=== PATIENT | male | born 1965 | race Caucasian/White ===

== ENCOUNTER 2018-08-23 16:52 | Emergency (ER) | payer MEDICARE, MEDICAID, SELFPAY ==
--- NOTE | 2018-08-23 17:02 | W.ED.GENAD ---
Discharge Plan Disposition Patient Disposition: HOME Condition: Fair Discharge Details Chief Complaint: FlankPain Clinical Impression: Sacroiliac joint pain, Abdominal pain, chronic, generalized, Low back pain, Acute dehydration Primary Care Provider: Khadijah Galicia ED Provider: Louise Goodson Home Meds and New Rx's Prescriptions: New cyclobenzaprine 10 mg tablet 10 mg PO TID PRN (Reason: muscle spasm) Qty: 7 RF: 0 oxycodone 5 mg capsule 5 mg PO Q6H PRN (Reason: pain) Qty: 5 RF: 0 ibuprofen 600 mg tablet 600 mg PO QID PRN (Reason: pain) Qty: 20 RF: 0 Continue lancets [OneTouch UltraSoft Lancets] 1 EACH misc 1 ea Miscellaneous DAILY RF: 0 ONE TOUCH TEST STRIPS 1 EACH strip 1 ea Miscellaneous DAILY RF: 0 Atorvastatin Calcium 20 MG tablet 20 mg PO DAILY Qty: 90 RF: 1 glipizide 10 MG tablet 20 mg PO DAILY Qty: 180 RF: 1 omeprazole 20 MG capsule,delayed release(DR/EC) 20 mg PO DAILY Qty: 90 RF: 1 metformin 500 MG tablet extended release 24 hr 1,000 mg PO DAILY Qty: 180 RF: 1 lisinopril 2.5 MG tablet 2.5 mg PO DAILY Qty: 90 RF: 1 Discharge Instructions Instructions: Acute Low Back Pain (ED), Lower Back Exercises (ED) Additional Instructions: Encourage hydration. Tylenol and/or Motrin as needed for discomfort. If this is insufficient you may augment with Oxycodone as prescribed. Please use only as prescribed, keep this medication in a safe place. Flexeril as prescribed for muscle spasm. Please follow up with primary care this week for reevaluation. Referral for PT is enclosed, please call Saturday to schedule appointment. If you develop fevers/chills, increased pain, change in urinary or bowel habits, sensory changes, weakness in your legs or other new/worsening symptoms please seek care urgently once again. Stand Alone Forms: Physical Therapy Referral Referrals: Khadijah Galicia MD [Primary Care Provider] - Discharge Data Discharge Date/Time-TO BE ENTERED AT DEPARTURE: 08/23/18 21:52 Medical Decision Making <STEPHANI Regan - Last Filed: 08/24/18 11:17> Is a 53-year-old male presents today with chief complaint of left lower back pain. He reports that pain began several weeks ago. States the pain began insidiously. States that he has had multiple falls in the winter but that he always fell forward landing on his knees. Denies any injury to the back. States that these falls did not seem to start or changes discomfort. He denies any radiating pain. Denies any altered sensation extending to his limb. No change in bowel or bladder habits. No incontinence or difficulty with urination. States that he has had pain in the same location historically but typically it self resolves. Is not been seen by primary care provider regarding this discomfort. Patient has history of type 2 diabetes, tobacco dependence, hyperlipidemia, depression, hypertension, Crohn's, ulcerative colitis, Hodgkin's lymphoma. On exam, patient appears uncomfortable, appears dehydrated. Pain is over the left SI joint. No midline or paraspinal tenderness. No saddle paresthesias or neurologic deficit. Negative straight leg raise bilaterally. Patient is full range of motion 5 out of 5 strength in lower extremities. He denies any chest pain or shortness of breath. Patient does appear chronically ill. He is in noncompliant type II diabetic. Reports he has not checked his glucose since my last doctor's appointment. He also endorses some gassiness today which he associates with his colitis. Reports this is typical for him. Patient appears nontoxic. Pain is not near midline, no paraspinal tenderness. He is afebrile, states he has been afebrile at home. Patient is noted to be tachycardic at 142. Denies CP, illness, palpitations. Reports that aside from his back discomort he feels at baseline. With this elevation in his HR, will obtain labs, hydrate the patient and obtain imaging of the left SI joint. Discussed plan with mattie patiño who is in agreement. He has not taken any medication as of yet for discomfort today. Will give Tylenol, Ibuprofen, Flexeril and have Lidoderm patch applied. Initial EKG was reviewed by Dr. Flores. Patient is tachycardic at 111. However, there is some unusual ST changes are not consistent concerning for artifact. I have asked nursing staff to repeat this Repeat EKG reviewed by Dr. Flores. He advised that his mind is much more consistent and is not concerning for acute ischemic change. Patient remains tachycardic at 109. Findings consistent with sinus tachycardia X-ray of the patient's pelvis no acute fracture soft tissues normal. Overall impression is no acute findings per Laboratory evaluation concerning for elevated white count. White count 14.6 with neutrophil count of 12.9. His gap is elevated at 16.5. Glucose is 287, this is lower than typical. AST is 128, ALT 154, alk phos 195. Patient's liver enzymes have not been elevated historically. I did discuss this finding with the patient. He denies any current or historical IV drug use. No history of hepatitis. Urinalysis concerning for 100 protein, ketones of 1 6, small amount of blood and moderate bilirubin. Patient continues to be hydrated. With his diffuse abdominal discomfort, while not able to find any focal findings on exam, I am concerned that these laboratory evaluation values could be pointing in the direction of infection. We will obtain CT of abdomen and pelvis. We will continue to hydrate the patient. He does appear improved. CT of the abdomen reviewed by radiologist. Advised the liver is normal no mass. Gallbladder is normal no calcified stones or ductal dilation. Pancreas normal no ductal dilation. Spleen is normal no splenomegaly. Adrenals are normal no mass. Kidneys and ureters are normal no hydronephrosis. Stomach and bowel is normal no obstruction. No mucosal thickening. Appendix is normal. Under distended urinary bladder, wall thickness cannot be accurately assessed. No calcified bladder stones. Intraperitoneal space is normal no free air, no significant fluid collection. Bones and joints are normal no acute fracture dislocation. Soft tissues are unremarkable. Vascular is normal with no abdominal aortic aneurysm. Lymph nodes are normal no enlarged lymph nodes Discussed findings with the patient. He reports that he is feeling improved although with movement, the pain is still at a point that is not tolerable in the left lower aspect of his back. Again, this is primarily located over the SI joint. We will augment what he has received thus far with oral oxycodone. Patient again feels improved but does not have full resolution of his discomfort. However, advised that this is not an immediate fix situation. He has had improvement. I did have the patient get up and ambulate by the department. He does appear much more comfortable. I encouraged gentle stretching. Regard to laboratory abnormality, I did advise that he would need follow-up with his primary care in regard to the elevation in his liver enzymes. Advised that he follow-up with them this week. Hepatitis screening is pending. We will contact him with any positive results. Encourage hydration. Tylenol and/or ibuprofen as needed for discomfort. We will augment this with Flexeril and oxycodone as this does seem to have helped with his discomfort. I did review the [place] [employer] MP, patient has not received any narcotics in the past year. Patient was given strict return precautions. At this point, regard to his abdomen, patient feels this is chronic and likely associated with his colitis. He will discuss this further with his primary care. I did advise that his symptoms just began today this may be beginning of something and that he should seek care urgently if anything new or worsening arises. Physical therapy referral will be sent for his back discomfort. All his questions and concerns were addressed and he is in agreement this plan <Juan Flores DO - Last Filed: 08/23/18 17:55> EKG 17: 47 Rate 109, AR 146, QTc 423, QRS 102, sinus tachycardia, no significant ST elevations or depressions, no T wave inversions, no Q waves. HPI <STEPHANI Regan - Last Filed: 08/24/18 11:17> General Mode of arrival: ambulatory. Date/Time Provider Initiated Documentation: 08/23/18 16:53. Limitations to Documentation: no limitations. Information obtained by: patient. History of Present Illness 53 year old M presents to the emergency department with the chief complaint of left sided lower back pain, described as severe and similar to prior episodes, Quality is described as stabbing and aching, and is localized to the back. Patient reports no radiation. Patient started experiencing this week(s) (several) and it has been constant. Immobilization improves symptom(s), Movement worsens symptoms . Patient notes denies chest pain, cough, fever/chills, loss of appetite, nausea/vomiting, rash, shortness of breath and weakness. Patient did receive the following treatments prior to arrival, none Related Data Home Medications Medication Instructions Recorded Confirmed One Touch Test Strips 1 ea MISCELLANEOUS DAILY strip 11/28/12 08/23/18 lancets [OneTouch UltraSoft ea 11/28/12 02/25/15 Lancets] glipizide 20 mg PO DAILY #180 tab-cap 03/05/18 08/23/18 lisinopril 2.5 mg PO DAILY #90 tab-cap 03/05/18 08/23/18 metformin 1,000 mg PO DAILY #180 tab-cap 03/05/18 08/23/18 omeprazole 20 mg PO DAILY #90 tab-cap 18 08/23/18 cyclobenzaprine 10 mg PO TID PRN #7 tab 08/23/18 ibuprofen 600 mg PO QID PRN #20 tab 08/23/18 oxycodone 5 mg PO Q6H PRN #5 cap 08/23/18 Previous Rx's Medication Instructions Recorded glipizide 20 mg PO DAILY #180 tab-cap 03/05/18 lisinopril 2.5 mg PO DAILY #90 tab-cap 03/05/18 metformin 1,000 mg PO DAILY #180 tab-cap 03/05/18 omeprazole 20 mg PO DAILY #90 tab-cap 03/05/18 cyclobenzaprine 10 mg PO TID PRN #7 tab 08/23/18 ibuprofen 600 mg PO QID PRN #20 tab 08/23/18 oxycodone 5 mg PO Q6H PRN #5 cap 08/23/18 Allergies Allergy/AdvReac Type Severity Reaction Status Date / Time Milk Containing Products Allergy Unknown gi upset Unverified 08/23/18 18:20 tramadol AdvReac diarrhea/GI Unverified 08/23/18 18:20 Review of Systems <STEPHANI Regan - Last Filed: 08/24/18 11:17> Constitutional Reports as per HPI, Denies chills, Denies fever(s), Denies headache(s) and Denies weakness ENT Denies headache(s) Cardiovascular Reports as per HPI, Denies chest pain and Denies dyspnea Respiratory Reports as per HPI, Denies cough and Denies dyspnea Gastrointestinal Reports as per HPI, Denies abdominal pain, Reports belching (reports that he has been gassy today, associates with his colitis, reports that he has had this type of symptoms several times historically), Denies change in bowel habits, Denies fecal incontinence, Reports nausea (states he has been dry heaving which then leads to belching and improvement in his symptoms) and Denies vomiting Genitourinary Denies urinary incontinence Musculoskeletal Reports as per HPI, Denies abnormal gait, Reports back pain, Denies numbness, Denies radiating pain into limb, Reports stiffness and Denies tingling Integumentary/Breasts Reports as per HPI, Denies rash and Denies wounds Neurologic Denies abnormal movements, Denies abnormal gait, Denies headache(s), Denies lack of coordination, Denies numbness, Denies tingling and Denies weakness Exam <STEPHANI Regan - Last Filed: 08/24/18 11:17> Const General: cooperative, healthy appearing, comfortable, no acute distress, well developed and well groomed Nutritional Appearance: average body habitus and well nourished Orientation: alert and awake [facility] Mouth: mucous membranes dry (patient appears dry at this time) Teeth and gingiva: poor dentition Throat: posterior oropharynx normal Neck Neck: normal visual inspection, full ROM and no meningeal signs Resp Effort & Inspection: normal respiratory effort, able to speak in complete sentences and no respiratory distress Auscultation: clear to auscultation bilaterally, no rales, no rhonchi and no wheezes Cardio Rate: tachycardic Rhythm: regular rhythm Heart Sounds: S1 normal and S2 normal GI Inspection: normal to inspection Palpation: soft, not firm, no guarding, not rigid and nontender Back/Spine/Pelvis Back: no CVA tenderness Cervical Spine: normal cervical lordosis and cervical ROM normal Thoracic/Lumbar Spine: thoracic and lumbar spine normal to inspection, No surgical scar(s) present, No thoraco-lumbar ROM normal (limited ROM, particularly with forward flexion), straight leg raise negative bilaterally, No paraspinal tenderness, No thoracic spinal tenderness and No lumbar spinal tenderness Pelvis: no pain with anterior-posterior compression and no pain with lateral compression Sacroiliac joints: on the left tender to palpation Skin General skin exam: no rashes or lesions noted Lesions: no lesions Rashes: no rashes Trauma: no lacerations or abrasions Neuro General: alert, awake, oriented x3, gait normal, tone normal, moves all extremities, no meningeal signs and no focal motor deficits Cognition: normal cognition Speech: speech normal Gait: normal gait and not antalgic Motor: muscle tone normal throughout, strength 5/5 throughout, no movement abnormalities noted and no fasciculations Sensory Exam: no sensory deficits noted (no saddle paresthesias) Extrem General: normal to inspection, full ROM, normal capillary refill, no pedal edema, no calf tenderness, normal gait and other (patient has brace on the right knee) Psych Appearance: grossly normal and well kempt Mental Status: mental status grossly normal Speech and Movement: speech and movement normal
[2018-08-23 17:06] VITALS: BP 117/81; PULSE 142; RESP 16; TEMP 37; O2SAT 96
--- NOTE | 2018-08-23 17:08 | ED.GENADUL_ITS ---
Discharge Plan Disposition Patient Disposition: HOME Condition: Fair Discharge Details Chief Complaint: FlankPain Clinical Impression: Sacroiliac joint pain, Abdominal pain, chronic, generalized, Low back pain, Acute dehydration Primary Care Provider: Khadijah Galicia ED Provider: Louise Goodson Home Meds and New Rx's Prescriptions: New cyclobenzaprine 10 mg tablet 10 mg PO TID PRN (Reason: muscle spasm) Qty: 7 RF: 0 oxycodone 5 mg capsule 5 mg PO Q6H PRN (Reason: pain) Qty: 5 RF: 0 ibuprofen 600 mg tablet 600 mg PO QID PRN (Reason: pain) Qty: 20 RF: 0 Continue lancets [OneTouch UltraSoft Lancets] 1 EACH misc 1 ea Miscellaneous DAILY RF: 0 ONE TOUCH TEST STRIPS 1 EACH strip 1 ea Miscellaneous DAILY RF: 0 Atorvastatin Calcium 20 MG tablet 20 mg PO DAILY Qty: 90 RF: 1 glipizide 10 MG tablet 20 mg PO DAILY Qty: 180 RF: 1 omeprazole 20 MG capsule,delayed release(DR/EC) 20 mg PO DAILY Qty: 90 RF: 1 metformin 500 MG tablet extended release 24 hr 1,000 mg PO DAILY Qty: 180 RF: 1 lisinopril 2.5 MG tablet 2.5 mg PO DAILY Qty: 90 RF: 1 Discharge Instructions Instructions: Acute Low Back Pain (ED), Lower Back Exercises (ED) Additional Instructions: Encourage hydration. Tylenol and/or Motrin as needed for discomfort. If this is insufficient you may augment with Oxycodone as prescribed. Please use only as prescribed, keep this medication in a safe place. Flexeril as prescribed for muscle spasm. Please follow up with primary care this week for reevaluation. Referral for PT is enclosed, please call Saturday to schedule appointment. If you develop fevers/chills, increased pain, change in urinary or bowel habits , sensory changes, weakness in your legs or other new/worsening symptoms please seek care urgently once again. Stand Alone Forms: Physical Therapy Referral Referrals: Khadijah Galicia MD [Primary Care Provider] - Discharge Data Discharge Date/Time-TO BE ENTERED AT DEPARTURE: 08/23/18 21:52 Medical Decision Making <STEPHANI Regan - Last Filed: 08/24/18 11:17> Is a 53-year-old male presents today with chief complaint of left lower back pain. He reports that pain began several weeks ago. States the pain began insidiously. States that he has had multiple falls in the winter but that he always fell forward landing on his knees. Denies any injury to the back. States that these falls did not seem to start or changes discomfort. He denies any radiating pain. Denies any altered sensation extending to his limb. No change in bowel or bladder habits. No incontinence or difficulty with urination. States that he has had pain in the same location historically but typically it self resolves. Is not been seen by primary care provider regarding this discomfort. Patient has history of type 2 diabetes, tobacco dependence, hyperlipidemia, depression, hypertension, Crohn's, ulcerative colitis, Hodgkin's lymphoma. On exam, patient appears uncomfortable, appears dehydrated. Pain is over the left SI joint. No midline or paraspinal tenderness. No saddle paresthesias or neurologic deficit. Negative straight leg raise bilaterally. Patient is full range of motion 5 out of 5 strength in lower extremities. He denies any chest pain or shortness of breath. Patient does appear chronically ill. He is in noncompliant type II diabetic. Reports he has not checked his glucose since my last doctor's appointment. He also endorses some gassiness today which he associates with his colitis. Reports this is typical for him. Patient appears nontoxic. Pain is not near midline, no paraspinal tenderness. He is afebrile, states he has been afebrile at home. Patient is noted to be tachycardic at 142. Denies CP, illness, palpitations. Reports that aside from his back discomort he feels at baseline. With this elevation in his HR, will obtain labs, hydrate the patient and obtain imaging of the left SI joint. Discussed plan with mattie patiño who is in agreement. He has not taken any medication as of yet for discomfort today. Will give Tylenol, Ibuprofen, Flexeril and have Lidoderm patch applied. Initial EKG was reviewed by Dr. Flores. Patient is tachycardic at 111. However , there is some unusual ST changes are not consistent concerning for artifact. I have asked nursing staff to repeat this Repeat EKG reviewed by Dr. Flores. He advised that his mind is much more consistent and is not concerning for acute ischemic change. Patient remains tachycardic at 109. Findings consistent with sinus tachycardia X-ray of the patient's pelvis no acute fracture soft tissues normal. Overall impression is no acute findings per Laboratory evaluation concerning for elevated white count. White count 14.6 with neutrophil count of 12.9. His gap is elevated at 16.5. Glucose is 287, this is lower than typical. AST is 128, ALT 154, alk phos 195. Patient's liver enzymes have not been elevated historically. I did discuss this finding with the patient. He denies any current or historical IV drug use. No history of hepatitis. Urinalysis concerning for 100 protein, ketones of 1 6, small amount of blood and moderate bilirubin. Patient continues to be hydrated. With his diffuse abdominal discomfort, while not able to find any focal findings on exam, I am concerned that these laboratory evaluation values could be pointing in the direction of infection. We will obtain CT of abdomen and pelvis. We will continue to hydrate the patient. He does appear improved. CT of the abdomen reviewed by radiologist. Advised the liver is normal no mass. Gallbladder is normal no calcified stones or ductal dilation. Pancreas normal no ductal dilation. Spleen is normal no splenomegaly. Adrenals are normal no mass. Kidneys and ureters are normal no hydronephrosis. Stomach and bowel is normal no obstruction. No mucosal thickening. Appendix is normal. Under distended urinary bladder, wall thickness cannot be accurately assessed. No calcified bladder stones. Intraperitoneal space is normal no free air, no significant fluid collection. Bones and joints are normal no acute fracture dislocation. Soft tissues are unremarkable. Vascular is normal with no abdominal aortic aneurysm. Lymph nodes are normal no enlarged lymph nodes Discussed findings with the patient. He reports that he is feeling improved although with movement, the pain is still at a point that is not tolerable in the left lower aspect of his back. Again, this is primarily located over the SI joint. We will augment what he has received thus far with oral oxycodone. Patient again feels improved but does not have full resolution of his discomfort. However, advised that this is not an immediate fix situation. He has had improvement. I did have the patient get up and ambulate by the department. He does appear much more comfortable. I encouraged gentle stretching. Regard to laboratory abnormality, I did advise that he would need follow-up with his primary care in regard to the elevation in his liver enzymes. Advised that he follow-up with them this week. Hepatitis screening is pending. We will contact him with any positive results. Encourage hydration. Tylenol and/or ibuprofen as needed for discomfort. We will augment this with Flexeril and oxycodone as this does seem to have helped with his discomfort. I did review the [place] [employer] MP, patient has not received any narcotics in the past year. Patient was given strict return precautions. At this point, regard to his abdomen, patient feels this is chronic and likely associated with his colitis. He will discuss this further with his primary care. I did advise that his symptoms just began today this may be beginning of something and that he should seek care urgently if anything new or worsening arises. Physical therapy referral will be sent for his back discomfort. All his questions and concerns were addressed and he is in agreement this plan <Juan Flores DO - Last Filed: 08/23/18 17:55> EKG 17: 47 Rate 109, MO 146, QTc 423, QRS 102, sinus tachycardia, no significant ST elevations or depressions, no T wave inversions, no Q waves. HPI <STEPHANI Regan - Last Filed: 08/24/18 11:17> General Mode of arrival: ambulatory . Date/Time Provider Initiated Documentation: 08/23/18 16:53 . Limitations to Documentation: no limitations . Information obtained by: patient . History of Present Illness 53 year old M presents to the emergency department with the chief complaint of left sided lower back pain, described as severe and similar to prior episodes , Quality is described as stabbing and aching, and is localized to the back. Patient reports no radiation. Patient started experiencing this week(s ) (several) and it has been constant. Immobilization improves symptom(s), Movement worsens symptoms . Patient notes denies chest pain, cough, fever/ chills, loss of appetite, nausea/vomiting, rash, shortness of breath and weakness. Patient did receive the following treatments prior to arrival, none Related Data Home Medications Medication Instructions Recorded Confirmed One Touch Test Strips 1 ea MISCELLANEOUS DAILY strip 11/28/12 08/23/18 lancets [OneTouch UltraSoft ea 11/28/12 02/25/15 Lancets] glipizide 20 mg PO DAILY #180 tab-cap 03/05/18 08/23/18 lisinopril 2.5 mg PO DAILY #90 tab-cap 03/05/18 08/23/18 metformin 1,000 mg PO DAILY #180 tab-cap 03/05/18 08/23/18 omeprazole 20 mg PO DAILY #90 tab-cap 18 08/23/18 cyclobenzaprine 10 mg PO TID PRN #7 tab 08/23/18 ibuprofen 600 mg PO QID PRN #20 tab 08/23/18 oxycodone 5 mg PO Q6H PRN #5 cap 08/23/18 Previous Rx's Medication Instructions Recorded glipizide 20 mg PO DAILY #180 tab-cap 03/05/18 lisinopril 2.5 mg PO DAILY #90 tab-cap 03/05/18 metformin 1,000 mg PO DAILY #180 tab-cap 03/05/18 omeprazole 20 mg PO DAILY #90 tab-cap 03/05/18 cyclobenzaprine 10 mg PO TID PRN #7 tab 08/23/18 ibuprofen 600 mg PO QID PRN #20 tab 08/23/18 oxycodone 5 mg PO Q6H PRN #5 cap 08/23/18 Allergies Allergy/AdvReac Type Severity Reaction Status Date / Time Milk Containing Products Allergy Unknown gi upset Unverified 08/23/18 18:20 tramadol AdvReac diarrhea/GI Unverified 08/23/18 18:20 Review of Systems <STEPHANI Regan - Last Filed: 08/24/18 11:17> Constitutional Reports as per HPI, Denies chills, Denies fever(s), Denies headache(s) and Denies weakness ENT Denies headache(s) Cardiovascular Reports as per HPI, Denies chest pain and Denies dyspnea Respiratory Reports as per HPI, Denies cough and Denies dyspnea Gastrointestinal Reports as per HPI, Denies abdominal pain, Reports belching (reports that he has been gassy today, associates with his colitis, reports that he has had this type of symptoms several times historically), Denies change in bowel habits , Denies fecal incontinence, Reports nausea (states he has been dry heaving which then leads to belching and improvement in his symptoms) and Denies vomiting Genitourinary Denies urinary incontinence Musculoskeletal Reports as per HPI, Denies abnormal gait, Reports back pain, Denies numbness, Denies radiating pain into limb, Reports stiffness and Denies tingling Integumentary/Breasts Reports as per HPI, Denies rash and Denies wounds Neurologic Denies abnormal movements, Denies abnormal gait, Denies headache(s), Denies lack of coordination, Denies numbness, Denies tingling and Denies weakness Exam <STEPHANI Regan - Last Filed: 08/24/18 11:17> Const General: cooperative, healthy appearing, comfortable, no acute distress, well developed and well groomed Nutritional Appearance: average body habitus and well nourished Orientation: alert and awake [facility] Mouth: mucous membranes dry (patient appears dry at this time) Teeth and gingiva: poor dentition Throat: posterior oropharynx normal Neck Neck: normal visual inspection, full ROM and no meningeal signs Resp Effort & Inspection: normal respiratory effort, able to speak in complete sentences and no respiratory distress Auscultation: clear to auscultation bilaterally, no rales, no rhonchi and no wheezes Cardio Rate: tachycardic Rhythm: regular rhythm Heart Sounds: S1 normal and S2 normal GI Inspection: normal to inspection Palpation: soft, not firm, no guarding, not rigid and nontender Back/Spine/Pelvis Back: no CVA tenderness Cervical Spine: normal cervical lordosis and cervical ROM normal Thoracic/Lumbar Spine: thoracic and lumbar spine normal to inspection, No surgical scar(s) present, No thoraco-lumbar ROM normal (limited ROM, particularly with forward flexion), straight leg raise negative bilaterally, No paraspinal tenderness, No thoracic spinal tenderness and No lumbar spinal tenderness Pelvis: no pain with anterior-posterior compression and no pain with lateral compression Sacroiliac joints: on the left tender to palpation Skin General skin exam: no rashes or lesions noted Lesions: no lesions Rashes: no rashes Trauma: no lacerations or abrasions Neuro General: alert, awake, oriented x3, gait normal, tone normal, moves all extremities, no meningeal signs and no focal motor deficits Cognition: normal cognition Speech: speech normal Gait: normal gait and not antalgic Motor: muscle tone normal throughout, strength 5/5 throughout, no movement abnormalities noted and no fasciculations Sensory Exam: no sensory deficits noted (no saddle paresthesias) Extrem General: normal to inspection, full ROM, normal capillary refill, no pedal edema , no calf tenderness, normal gait and other (patient has brace on the right knee ) Psych Appearance: grossly normal and well kempt Mental Status: mental status grossly normal Speech and Movement: speech and movement normal
--- NOTE | 2018-08-23 17:21 | DI.COMBO_ITS ---
SYMPTOM/DIAGNOSIS: ABD DISCOMFORT, ELEVATED AST AND ALT, LT SI JOINT PAIN ABDOMEN AND PELVIC CT: CT scan of the abdomen and pelvis was performed following the uneventful administration of intravenous contrast material. Comparison is made with . There is patient motion artifact present. Mild dependent atelectatic changes are seen in the lung bases. The liver is unremarkable. The gallbladder is negative. No biliary ductal dilatation is seen. The portal and superior mesenteric veins are patent. The pancreas, spleen and adrenal glands are all unremarkable. The kidneys show normal and symmetric enhancement. No evidence of a solid renal mass or obstruction. The urinary bladder is under distended. Bladder wall evaluation is limited. The reproductive organs are unremarkable. There are again seen enlarged lymph nodes adjacent to the right iliac vessels. These are unchanged compared to the prior examination. No significant abdominal or pelvic ascites or pneumoperitoneum is present. The bowel shows no evidence of obstruction or inflammation. There is atherosclerosis of the abdominal aorta but no aneurysmal dilatation. Degenerative changes are seen in the spine. IMPRESSION: 1. No acute abnormality. AP PELVIS: AP pelvis was performed. No acute bone or joint abnormality is identified. The soft tissues are grossly unremarkable. IMPRESSION: No acute abnormality.
[2018-08-23] MEDS: Cyclobenzaprine 10 MG TAB PO (17:25)
[2018-08-23] MEDS: Acetaminophen 500 MG TAB 1000 MG PO (17:25)
[2018-08-23] MEDS: Normal Saline 1,000 ML 1000 ML IV ×2 (17:30→18:56)
[2018-08-23 17:31] LABS: Abs Immature Grans 0.03 k/cumm (0.0-0.09); Absolute Basophil Count 0.01 k/cumm (0.0-0.2); Absolute Lymphocyte Count 0.51 k/cumm (1.2-3.4); Basophils % 0.1; HCT 44.7 % (40.0-50.0); HGB 15.4 g/dL (13.5-17.5); Immature Grans % 0.2; Lymphocytes % 3.5; Mean Corp. HGB Concentration 34.5 g/dL (32.0-36.0); Mean Corpuscular Hemoglobin 29.6 pg (27.0-33.0); Mean Platelet Volume 11.8 fL (8.0-11.0); Monocytes % 7.3; Neutrophils % 88.9; Platelet Count 165 x1000/uL (130-400); RBC Distribution Width 12.8 % (11.8-14.1); White Blood Cell Count 14.61 k/cumm (4.4-10.8)
[2018-08-23 17:32] LABS: Absolute Monocyte Count 1.07 k/cumm (0.11-0.7); Absolute Neutrophil Count 12.99 k/cumm (1.2-6.7)
[2018-08-23] MEDS: Ibuprofen 600 MG TAB PO (17:41)
[2018-08-23 17:42] LABS: ALT 154 U/L (12-78); AST 128 U/L (15-37); Albumin 3.8 g/dL (3.4-5.0); Alkaline Phosphatase 195 U/L (46-116); Anion Gap 16.5 mmol/L (3-11); BUN 19 mg/dL (7-18); Bilirubin, Total 0.9 mg/dL (0.2-1.0); CO2 21.5 mmol/L (21.0-32.0); CREATININE 1.25 mg/dL (0.70-1.30); Calcium 9.4 mg/dL (8.5-10.1); Chloride 96 mmol/L (98-107); Glucose 287 mg/dL (70-100); Potassium 4.4 mmol/L (3.5-5.1); Sodium 134 mmol/L (136-145); Total Protein 7.7 g/dL (6.4-8.2)
[2018-08-23] MEDS: Lidocaine 5% Patch 1 PATCH TP (17:42)
[2018-08-23 18:39] LABS: Bilirubin Moderate (Negative); Blood Small (Negative); Clarity Clear; Glucose 500 mg/dL (Negative); Ketones >=160 mg/dL (Negative); Leukocyte Esterase Negative (Negative); Nitrite Negative (Negative); Specific Gravity >= 1.030 (1.005-1.025)
[2018-08-23 18:43] LABS: Bacteria Rare HPF (Negative); C & S Indicated? No; Casts Negative LPF (Negative); Crystals Negative HPF (Negative); Epithelial Cells Negative HPF (Negative); Mucus Trace (Negative); Other Cells Negative (Negative); RBC 0-2 (0-2); WBC Negative HPF (0-5)
--- NOTE | 2018-08-23 18:47 | DI.VRAD_ITS ---
EXAM: XR Pelvis, 1 or 2 Views EXAM DATE/TIME: 08/23/2018 5:23 PM CLINICAL HISTORY: 53 years old, male; Left hip and pelvic pain; Left SI-joint pain TECHNIQUE: XR pelvis, 1 or 2 views COMPARISON: CT CHEST ABD PELVIS WITH CONTRAST 08/01/2012 5:54 PM FINDINGS: Bones/joints: Normal. No acute fracture. Soft tissues: Normal. IMPRESSION: No acute findings. Dictated and Authenticated by: Rafael Epps MD. Ordering:MARY CHANEL MD
[2018-08-23] MEDS: Normal Saline Flush 10 ML SYR IVP (18:58)
[2018-08-23] MEDS: Omnipaque 350 MG/ML 100 ML BTL IJ (19:25)
--- NOTE | 2018-08-23 19:49 | DI.VRAD_ITS ---
EXAM: CT Abdomen and Pelvis With Intravenous Contrast EXAM DATE/TIME: 08/23/2018 6:47 PM CLINICAL HISTORY: 53 years old, male; Abnormal lab test; Abdominal pain, elevated ast and alt TECHNIQUE: Axial computed tomography images of the abdomen and pelvis with intravenous contrast. Coronal and sagittal reformatted images were created and reviewed. COMPARISON: CT CHEST ABD PELVIS WITH CONTRAST 08/01/2012 5:54 PM FINDINGS: Lower thorax: No acute infiltrate in either lung base. ABDOMEN: Liver: Normal. No mass. Gallbladder and bile ducts: Normal. No calcified stones. No ductal dilation. Pancreas: Normal. No ductal dilation. Spleen: Normal. No splenomegaly. Adrenals: Normal. No mass. Kidneys and ureters: Normal. No hydronephrosis. Stomach and bowel: Normal. No obstruction. No mucosal thickening. Appendix: Normal appendix. PELVIS: Bladder: Under-distended urinary bladder - wall thickness cannot be accurately assessed. No calcified bladder stones. Reproductive: Unremarkable as visualized. ABDOMEN and PELVIS: Intraperitoneal space: Normal. No free air. No significant fluid collection. Bones/joints: No acute fracture. No dislocation. Soft tissues: Unremarkable. Vasculature: Normal. No abdominal aortic aneurysm. Lymph nodes: Normal. No enlarged lymph nodes. IMPRESSION: No acute intra-abdominal or pelvic process. Dictated and Authenticated by: Rafael Epps MD. Ordering:MARY CHANEL MD
[2018-08-23] MEDS: oxyCODONE 5 MG TAB PO (20:34)
[2018-08-23] MEDS: oxyCODONE 5 MG TAB 10 MG PO (21:31)
[2018-08-23] MEDS: Cyclobenzaprine 10 MG TAB 20 MG PO (21:31)
[2018-08-23 21:52] VITALS: BP 131/72; PULSE 89; RESP 16; O2SAT 98
[2018-08-25 10:20] LABS: Hepatitis A Antibody IgM Negative (NEGAT); Hepatitis B Core Antibody Negative (NEGAT); Hepatitis B surface Ag Negative (NEGAT); Hepatitis C Ab w Rflx HCV PCR Negative (NEGAT)
== END 2018-08-23 21:52 | disposition home or self-care (01) ==
LOC: ER 21:40
PROVIDERS: Emergency Provider Physician Assistant; PCP Internal Medicine
DX: R10.9 Unspecified abdominal pain (principal); M54.5 Low back pain; R00.0 Tachycardia, unspecified; E86.0 Dehydration; I10 Essential (primary) hypertension; E11.9 Type 2 diabetes mellitus without complications; Z79.84 Long term (current) use of oral hypoglycemic drugs
CPT/HCPCS: 36415; 80053; 86704; 86709; 86803; 87340; 93005; 96360; 96361; 99285; 72170; 74177; 81003; 81015; 85025; 93010; J3490

== ENCOUNTER 2018-09-17 00:15 | Outpatient (CLI) | payer MEDICARE, MEDICAID, SELFPAY ==
--- NOTE | 2018-09-17 10:38 | DI.MRI_ITS ---
SYMPTOMS/DIAGNOSIS: SEVERE BACK PAIN X 5 WEEKS SINCE LIFTING WOOD, LUMBAGO, M54.5, PAIN RADIATING TO LEFT GROIN LUMBOSACRAL SPINE MRI: MRI examination of the lumbosacral spine was performed according to the usual protocol. No significant bony signal abnormality seen. There is some loss of signal of intervertebral disc throughout the lumbar region consistent with disc degeneration. The conus medullaris appears intact. The neural foramina appear mildly narrowed bilaterally at L4-5. Otherwise, neural foramina appear well maintained. No significant findings involving the discs at L2-3 or above. At L3-4, there is a moderate disc bulge without evidence of focal disc herniation or central canal spinal stenosis. At L4-5, there is a moderate disc bulge, no focal disc herniation. The combination of facet hypertrophy and disc bulge causes mild central canal spinal stenosis at L4-5. At L5-S1, there is a prominent disc bulge with a question of mild superimposed central disc herniation. No neural foraminal stenosis or central canal spinal stenosis. No evidence of neural impingement. CONCLUSION: 1. Mild central canal spinal stenosis and bilateral neural foraminal stenosis at L4-5. 2. Moderate disc bulge at L5-S1 with a question of slight focal central disc herniation; no evidence of neural impingement at this level.
== END 2018-09-17 00:35 ==
PROVIDERS: PCP Internal Medicine; Visit Provider Family Medicine
DX: M54.5 Low back pain (principal); M48.061 Spinal stenosis, lumbar region without neurogenic claudication; M51.27 Other intervertebral disc displacement, lumbosacral region; M51.37 Other intervertebral disc degeneration, lumbosacral region
CPT/HCPCS: 72148

== ENCOUNTER 2019-07-20 14:09 | Emergency (ER) | payer MEDICARE, MEDICAID, SELFPAY ==
[2019-07-20 14:17] VITALS: BP 132/68; PULSE 107; RESP 16; TEMP 36; O2SAT 97
--- NOTE | 2019-07-20 14:39 | ED.GENADUL_ITS ---
Discharge Plan Disposition Patient Disposition: AGAINST MEDICAL ADVICE Condition: Stable Discharge Details Chief Complaint: Chest/Rib Clinical Impression: Chest pain Primary Care Provider: Khadijah Galicia ED Provider: Rosario Restrepo Home Meds and New Rx's Prescriptions: Continued diazepam 5 mg tablet 5 mg PO BID MDD 10 mg PRN (Reason: spasms) Qty: 20 RF: 0 (DME) lancets [OneTouch UltraSoft Lancets] 1 EACH misc 1 ea Miscellaneous DAILY RF: 0 ONE TOUCH TEST STRIPS 1 EACH strip 1 ea Miscellaneous DAILY RF: 0 atorvastatin 20 mg tablet 20 mg PO DAILY Qty: 90 RF: 3 metformin 1,000 mg tablet 1,000 mg PO BID Qty: 90 RF: 3 No Action lisinopril 2.5 mg tablet 2.5 mg PO DAILY Qty: 90 RF: 0 omeprazole 20 mg capsule,delayed release(DR/EC) 20 mg PO DAILY Qty: 90 RF: 0 Discharge Instructions Instructions: Chest Pain (ED) Additional Instructions: You have elected to leave the emergency department without the recommended testing. The risks of doing so are or permanent disability. If you change your mind you may return to the emergency department at anytime for further evaluation. Please return immediately to the emergency department if you develop any new or worsening symptoms or if you become otherwise concerned. It is extremely important that you call as soon as possible to make an appointment to be seen in follow-up for this visit by her primary care doctor. Referrals: Khadijah Galicia MD [Primary Care Provider] - Discharge Data Discharge Date/Time-TO BE ENTERED AT DEPARTURE: 07/20/19 15:45 Medical Decision Making Hrary orozco is a 54-year-old man with a history of Hodgkin's lymphoma now in remission, ulcerative colitis, non-insulin dependent diabetes, hypertension, hyperlipidemia who presented to the emergency department complaining of worsening right-sided rib pain after tripping and landing on a fallen tree 1.5 weeks ago. On exam patient is very well and nontoxic appearing. He has a benign cardiopulmonary exam. He has tenderness that he states is not exactly reproduces pain over his right lateral ribs, there is no crepitus or skin signs of trauma, no deformity. Concern for possible rib contusion versus fracture, doubt ACS, PE, pneumothorax. Exam/history is not consistent with sepsis, acute aortic process. Plan for chest/rib x-rays. X-rays negative. Given patient with borderline tachycardia at 100, pain not exactly reproduced with palpating ribs and area of pain, plan for EKG, screening labs. Patient states that his ride is here at the emergency department, and he would like to leave. I discussed the purpose of further evaluation and the risks of refusing further testing, including /permanent disability. Patient verbalized understanding of the risks and continue to refuse, stating that his shoulder pain is from falling a week and a half ago. I had a lengthy discussion with the patient regarding return to emergency department precautions, that he may return to the emergency department for further evaluation at any time if he changes his mind, and importance of outpatient follow-up. Patient verbalized understanding the plan was amenable. All questions were answered. Patient was discharged home with clear plan for outpatient follow-up. Medical Records Medical records reviewed: Yes I reviewed the patient's medical records. Imaging Data Radiologic Study: Attestation: I personally reviewed and interpreted this imaging study as follows: Radiologist's impression: EXAM: XR RIBS RT W PA LAT CHEST INDICATION: trauma, right rib pain. COMPARISON: ABD FLAT UPRIGHT PA CHEST from 07/14/2011 TECHNIQUE: 2D digital imaging was performed. FINDINGS: Heart size and pulmonary vasculature are within normal limits. The lungs are clear. No effusion or pneumothorax is identified. There is no evidence of a rib fracture. The spine appears intact. IMPRESSION: No acute pulmonary process. No displaced rib fractures. HPI General Mode of arrival: ambulatory . Date/Time Provider Initiated Documentation: 07/20/19 14:27 . Limitations to Documentation: no limitations . Information obtained by: patient, RN notes reviewed and old records reviewed . HPI Narrative: Harry Pugh is a 54 y/o man with history of Crohn's disease, non-insulin dependent diabetes, Hodgkin's lymphoma now in remission, hyperlipidemia, hypertension presenting to the emergency department with right- sided lateral chest pain. Patient reports that approximately 1.5 weeks ago he tripped and fell, with his right ribs landing on a falling tree. Patient reports that he has had pain in his right ribs since that time. Patient reports that in the last few days pain seems to be increasing. He denies any new trauma or known new inciting factors. Patient reports that pain is worse with palpation and movement of his torso. He denies any other pain, cough, shortness of breath, exertional worsening of his pain, vomiting, diarrhea, numbness, weakness, rash. He states that he has been eating and drinking as usual. No recent illness. Patient states that he feels otherwise in his usual state of health. Related Data Home Medications Medication Instructions Recorded Confirmed One Touch Test Strips 1 ea MISCELLANEOUS DAILY strip 11/28/12 10/08/18 lancets [OneTouch UltraSoft ea 11/28/12 10/08/18 Lancets] diazepam 5 mg tablet 5 mg PO BID PRN #20 tab MDD 10 mg 09/09/18 07/20/19 atorvastatin 20 mg tablet 20 mg PO DAILY #90 tab-cap 09/15/18 07/20/19 metformin 1,000 mg tablet 1,000 mg PO BID #90 tab 09/15/18 07/20/19 lisinopril 2.5 mg tablet 2.5 mg PO DAILY #90 tab-cap 07/21/19 07/21/19 omeprazole 20 mg capsule,delayed 20 mg PO DAILY #90 tab-cap 07/21/19 07/21/19 release Previous Rx's Medication Instructions Recorded diazepam 5 mg tablet 5 mg PO BID PRN #20 tab MDD 10 mg 09/09/18 atorvastatin 20 mg tablet 20 mg PO DAILY #90 tab-cap 09/15/18 metformin 1,000 mg tablet 1,000 mg PO BID #90 tab 09/15/18 lisinopril 2.5 mg tablet 2.5 mg PO DAILY #90 tab-cap 07/21/19 omeprazole 20 mg capsule,delayed 20 mg PO DAILY #90 tab-cap 07/21/19 release Allergies Allergy/AdvReac Type Severity Reaction Status Date / Time Milk Containing Products Allergy Unknown gi upset Unverified 07/20/19 14:20 tramadol AdvReac diarrhea/GI Unverified 07/20/19 14:20 General Stated Complaint: Chest/Rib TABITHA: 3 Review of Systems Narrative: Constitutional: denies fevers Eyes: denies eye pain ENT: denies facial pain, dental pain, sore throat Cardiovascular: denies edema, reports right lateral chest pain Respiratory: denies SOB, cough GI: denies abdominal pain, vomiting, diarrhea : denies flank pain MSK: denies back pain, neck pain, arthralgias, myalgias Skin: denies rash Neuro: denies headaches, numbness, weakness PFSH Family History Mother Diabetes Essential hypertension Myocardial infarction Social History Smoking/Tobacco Use Status: Current every day Tobacco Type: cigarettes Alcohol Intake: former Drug use: Occasionally Substance use type: marijuana What type of physical activity do you participate in: none and other Details: PT 2x/w 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 Working smoke detector in home: Yes Exam Narrative Exam Narrative: Constitutional: well and [id number], pleasant, conversing normally HENT: head atraumatic/normocephalic/normal inspection, mucous membranes moist Eyes: conjunctiva normal, sclera normal, pupils 3mm b/l Neck: no stridor, normal ROM, trachea midline Chest: normal inspection, mild tenderness palpation of the right lower lateral ribs that patient states does not quite reproduce tenderness, no deformity, no crepitus Resp: normal work of breathing, LCTAB Cardio: normal rate, normal rhythm, no murmur appreciated Back: normal inspection, no rash Skin: warm, dry, normal color, no rash Neuro: alert, not altered, grossly non-focal, normal tone Ext: no edema, no posterior calf tenderness to palpation Psych: normal mood, normal affect, normal behavior Course Vital Signs Vital signs: Vital Signs Temperature 36 C L 07/20/19 14:17 Pulse 107 H 07/20/19 14:17 Respiratory Rate 16 07/20/19 14:17 Blood Pressure 132/68 07/20/19 14:17 Pulse Oximetry 97 07/20/19 14:17 Temperature 36 C L 07/20/19 14:17 Temperature Source Skin 07/20/19 14:17 Pulse 107 H 07/20/19 14:17 Respiratory Rate 16 07/20/19 14:17 Respiratory Effort Non-Labored 07/20/19 14:17 Blood Pressure 132/68 07/20/19 14:17 Blood Pressure Position Sitting 07/20/19 14:17 Pulse Oximetry 97 07/20/19 14:17 Oxygen Delivery Method Room Air 07/20/19 14:17 Oxygen Flow Rate 0 07/20/19 14:17 Pain Level 5 07/20/19 14:17
[2019-07-20] MEDS: Lidocaine 5% Patch 1 PATCH TP (15:25)
--- NOTE | 2019-07-20 17:01 | NUR.NOTE ---
left AMA. did not want to stay to have blood work done. states he had a friend waiting to bring him home.Nursing Note:
== END 2019-07-20 15:45 | disposition left against medical advice (07) ==
PROVIDERS: Emergency Provider Student in an Organized Health Care Education/Training Program; PCP Internal Medicine
DX: R07.81 Pleurodynia (principal); W01.198A Fall on same level from slipping, tripping and stumbling with subsequent striking against other object, initial encounter; I10 Essential (primary) hypertension; E11.9 Type 2 diabetes mellitus without complications
CPT/HCPCS: 99283; 71046; 71100; 99282

== ENCOUNTER 2019-11-10 10:24 | Emergency (ER) | payer MEDICARE, MEDICAID, SELFPAY ==
[2019-11-10 10:34] VITALS: BP 126/82; PULSE 106; RESP 18; TEMP 36.5; O2SAT 98
--- NOTE | 2019-11-10 10:45 | DI.RAD_ITS ---
EXAM: XR SHOULDER RT COMPLETE 2+V INDICATION: Fall 2 days ago, hx of surgery. COMPARISON: XR RIBS RT W PA LAT CHEST from 07/20/2019 TECHNIQUE: 2D digital imaging was performed. FINDINGS: No acute fracture or dislocation is present. There are again seen postsurgical changes with resectio n of the distal clavicle and an orthopedics anchor in the humeral head. There is a linear density in ferior to the glenoid which is unchanged compared to the chest x-ray from 07/20/2019. There are a fe w well corticated osseous densities interposed between the acromion and the clavicle which appear old . The soft tissues are unremarkable. IMPRESSION: No acute fracture or dislocation.
--- NOTE | 2019-11-10 10:47 | W.ED.GENAD ---
Discharge Plan Disposition Patient Disposition: HOME Condition: Stable Discharge Details Chief Complaint: Orthopedic Clinical Impression: Abrasion of arm, right, Acute shoulder pain due to trauma Primary Care Provider: Khadijah Galicia ED Provider: Gricelda Ramirez Home Meds and New Rx's Prescriptions: New naproxen 500 mg tablet 500 mg PO BID PRN (Reason: pain) Qty: 14 RF: 0 Continued glimepiride [Amaryl] 4 mg tablet 4 mg PO QAM Qty: 90 RF: 3 atorvastatin 20 mg tablet 20 mg PO DAILY Qty: 90 RF: 3 metformin 1,000 mg tablet 1,000 mg PO BID Qty: 90 RF: 3 lisinopril 2.5 mg tablet 2.5 mg PO DAILY Qty: 90 RF: 3 omeprazole 20 mg capsule,delayed release(DR/EC) 20 mg PO DAILY Qty: 90 RF: 0 (DME) blood sugar diagnostic Strip See Rx Instructions .ROUTE .MEDSUPPLY Qty: 100 RF: 6 (DME) blood-glucose meter [OneTouch Verio Flex] Misc See Rx Instructions .ROUTE .MEDSUPPLY Qty: 1 RF: 0 (DME) lancets [OneTouch UltraSoft Lancets] Misc See Rx Instructions .ROUTE .MEDSUPPLY Qty: 100 RF: 6 Discharge Instructions Instructions: Shoulder Pain (ED) Additional Instructions: Follow up with primary care provider in 3-5 days. Return to ED sooner if any worsening or concerns. Increase oral fluids. Please take Tylenol or Ibuprofen with food every 4-6 hours as needed for pain and swelling. Rest, ice, compression, elevation. Referrals: Khadijah Galicia MD [Primary Care Provider] - Medical Decision Making 54-year-old male presents with right shoulder pain after a slip and fall 2 days ago. Patient states he landed onto his right elbow. He does have a small superficial abrasion noted to his elbow. No significant deformity or swelling noted. He states he has not taken any medications prior to arrival. He does have a history of bilateral shoulder surgery which was performed in 2011. X-ray of right shoulder ordered and patient given 600 mg ibuprofen p.o. in department. EXAM: XR SHOULDER RT COMPLETE 2+V INDICATION: Fall 2 days ago, hx of surgery. COMPARISON: XR RIBS RT W PA LAT CHEST from 07/20/2019 TECHNIQUE: 2D digital imaging was performed. FINDINGS: No acute fracture or dislocation is present. There are again seen postsurgical changes with resection of the distal clavicle and an orthopedics anchor in the humeral head. There is a linear density inferior to the glenoid which is unchanged compared to the chest x-ray from 07/20/2019. There are a few well corticated osseous densities interposed between the acromion and the clavicle which appear old. The soft tissues are unremarkable. IMPRESSION: No acute fracture or dislocation. 1158: X-ray results are noted above, no acute fracture or dislocation. Results discussed with patient and home care instructions given. HPI General Mode of arrival: ambulatory. Date/Time Provider Initiated Documentation: 11/10/19 10:25. Limitations to Documentation: no limitations. Information obtained by: patient. HPI Narrative: 54-year-old male presents with right shoulder pain after a fall 2 days ago. He states that he tripped and fell on some mud caked stairs landing on his right elbow and right shoulder. He does have an abrasion noted to his right elbow, full range of motion noted to his elbow distal pulses intact. He is able to abduct his elbow to 90 degrees. He does have a history of surgery on his right shoulder in 2011. He denies taking any medications prior to arrival. Related Data Home Medications Medication Instructions Recorded Confirmed blood sugar diagnostic #100 each 08/04/19 08/26/19 blood-glucose meter #1 each 08/04/19 08/26/19 lancets #100 each 08/04/19 08/26/19 atorvastatin 20 mg tablet 20 mg PO DAILY #90 tab-cap 08/25/19 11/10/19 glimepiride 4 mg tablet 4 mg PO QAM #90 tab 08/25/19 11/10/19 lisinopril 2.5 mg tablet 2.5 mg PO DAILY #90 tab-cap 08/25/19 11/10/19 metformin 1,000 mg tablet 1,000 mg PO BID #90 tab 08/25/19 11/10/19 omeprazole 20 mg capsule,delayed 20 mg PO DAILY #90 tab-cap 08/25/19 11/10/19 release naproxen 500 mg PO BID PRN #14 tab 11/10/19 Previous Rx's Medication Instructions Recorded blood sugar diagnostic #100 each 08/04/19 blood-glucose meter #1 each 08/04/19 lancets #100 each 08/04/19 atorvastatin 20 mg tablet 20 mg PO DAILY #90 tab-cap 08/25/19 glimepiride 4 mg tablet 4 mg PO QAM #90 tab 08/25/19 lisinopril 2.5 mg tablet 2.5 mg PO DAILY #90 tab-cap 08/25/19 metformin 1,000 mg tablet 1,000 mg PO BID #90 tab 08/25/19 omeprazole 20 mg capsule,delayed 20 mg PO DAILY #90 tab-cap 08/25/19 release naproxen 500 mg PO BID PRN #14 tab 11/10/19 Allergies Allergy/AdvReac Type Severity Reaction Status Date / Time Milk Containing Products Allergy Unknown gi upset Verified 11/10/19 10:40 tramadol AdvReac diarrhea/GI Verified 11/10/19 10:40 General Stated Complaint: Orthopedic TABITHA: 4 Review of Systems Narrative: Constitutional: Negative for weight loss, alert and oriented, normal body habitus, appears comfortable. History of fall. HEENT: Denies trauma, headaches, blurry vision, nasal discharge, sore throat, trouble swallowing. Chest: Denies chest pain, palpitations, irregular rhythm, hypertension. Respiratory: Denies Shortness of breath, cough, hemoptysis. GI: Denies abdominal pain, nausea, vomiting, diarrhea, constipation. : Denies dysuria, hematuria, flank pain, rectal bleeding. Extremities: Right shoulder pain, right elbow has abrasion noted. Full range of motion. Neuro: Denies dizziness, blurry vision, weakness, syncope, headache or facial numbness. Hematologic: Denies easy bruising, intolerance to heat or cold, hair loss. [facility] Surgical History Biopsy of dital clavicle, left AC joint (02/25/15) Dr Bright 03/16/15 Addendum Surgical Patology report: Bone with maturing trilineage hematopesis; Reacive stnovium; No evidence of lymphoma identified per Dr. Deann Godoy MD Rotator Cuff Repair Family History Mother Diabetes Essential hypertension Myocardial infarction Social History Smoking/Tobacco Use Status: Current every day Tobacco Type: cigarettes Tobacco: How many years used: 35 Quit status: not considering quitting Alcohol Intake: former Drug use: Occasionally Substance use type: marijuana Household members: none Communication Needs: Hard of Hearing Do you need help understanding health information?: Often Pets and animals: Yes Pets and animals: dog(s) What type of physical activity do you participate in: none and other Details: PT 2x/w Drive intox or ride w/intox ambulance 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 Appears stated age. Normal body habitus. Head: Normocephalic, no trauma. Eyes: Pupils PERRLA, pupils bilaterally are pinpoint, 2 mm Red reflex noted, EOM's intact. Eyelids symmetrical withour lesions, discharge, or swelling. ENT: Bilateral TM's WNL, External ear normal to inspection, no mastoid TTP, swelling, or erythema, Nasal turbinates WNL, no nasal discharge. Normal dentition, Posterior pharynx WNL, no exudate. Chest: RRR, Normal S1, S2, distal pulses intact. Resp: Lungs clear to auscultation bilaterally, no wheezes, rales, or rhonchi. Musculoskeletal: Normal gait, 5/5 strength to all four extremities. Right shoulder tenderness to palpation anteriorly, no deformity. Distal pulses intact. He is able to abduct his shoulder to 90 degrees. Full range of motion noted to his elbow. He does have an superficial abrasion to his elbow and posterior olecranon. Skin: No suspicious rashes or lesions. Capillary refill ?2 sec. Neurologic: Cranial nerves II-XII intact. Alert and oriented x 3. DTR's intact. Hematologic/Lymphatic: No ecchymosis, no lymphadenopathy. Course Vital Signs Vital signs: Vital Signs Temperature 36.5 C 11/10/19 10:34 Pulse 106 H 11/10/19 10:34 Respiratory Rate 18 11/10/19 10:34 Blood Pressure 126/82 11/10/19 10:34 Pulse Oximetry 98 11/10/19 10:34 Temperature 36.5 C 11/10/19 10:34 Temperature Source Skin 11/10/19 10:34 Pulse 106 H 11/10/19 10:34 Respiratory Rate 18 02/18/20 10:34 Respiratory Effort Non-Labored 11/10/19 10:37 Blood Pressure 126/82 11/10/19 10:34 Blood Pressure Position Sitting 11/10/19 10:34 Pulse Oximetry 98 11/10/19 10:34 Oxygen Delivery Method Room Air 11/10/19 10:34 Oxygen Flow Rate 0 11/10/19 10:34 Pain Level 5 11/10/19 10:34
[2019-11-10] MEDS: Ibuprofen 600 MG TAB PO (10:50)
== END 2019-11-10 12:10 | disposition home or self-care (01) ==
PROVIDERS: Emergency Provider Registered Nurse Emergency; PCP Internal Medicine
DX: S50.311A Abrasion of right elbow, initial encounter (principal); W01.0XXA Fall on same level from slipping, tripping and stumbling without subsequent striking against object, initial encounter; M25.511 Pain in right shoulder
CPT/HCPCS: 99284; 73030; 99283

== ENCOUNTER 2019-11-21 09:09 | Observation (INO) | payer MEDICARE, MEDICAID, SELFPAY ==
[2019-11-21] VITALS (13 sets, daily range): BP systolic 98–195; BP diastolic 67–166; PULSE 97–124; RESP 13–23; TEMP 36.6–37.1; O2SAT 96–98
--- NOTE | 2019-11-21 10:00 | DI.CT_ITS ---
EXAM: CT PELVIC W CLINICAL HISTORY: Right buttocks rectal versus perirectal complicate TECHNIQUE: Post IV contrast FINDINGS: There is an abscess in the subcutaneous fat of the inferomedial right buttock, in the perianal area. It measures 5.7 x 2.7 x 5.2 cm. There is some extension across the midline to the contralateral so ft tissues. The rectum is not appear thickened. The prostate and bladder are unremarkable. There i s no bowel dilatation or free fluid. No bone or muscle abnormality is seen IMPRESSION: Perianal abscess in the soft tissues of the inferomedial right buttock with extension across the midl ine. No intrapelvic extension.
[2019-11-21 10:45] LABS: Abs Immature Grans 0.03 k/cumm (0.0-0.09); Absolute Basophil Count 0.02 k/cumm (0.0-0.2); Absolute Eosinophil Count 0.02 k/cumm (0.0-0.7); Absolute Lymphocyte Count 0.66 k/cumm (1.2-3.4); Absolute Monocyte Count 0.59 k/cumm (0.11-0.7); Absolute Neutrophil Count 11.04 k/cumm (1.2-6.7); Basophils % 0.2; Eosinophils % 0.2; HCT 36.8 % (40.0-50.0); HGB 12.9 g/dL (13.5-17.5); Immature Grans % 0.2 %; Lymphocytes % 5.3; Mean Corp. HGB Concentration 35.1 g/dL (32.0-36.0); Mean Corpuscular Hemoglobin 30.5 pg (27.0-33.0); Mean Platelet Volume 11.1 fL (8.0-11.0); Monocytes % 4.8; Neutrophils % 89.3; Platelet Count 212 x1000/uL (130-400); RBC 4.23 m/cumm (4.50-6.00); RBC Distribution Width 12.2 % (11.8-14.1); White Blood Cell Count 12.36 k/cumm (4.4-10.8)
[2019-11-21 10:56] LABS: ALT 10 U/L (16-63); AST 8 U/L (15-37); Alkaline Phosphatase 100 U/L (46-116); Anion Gap 10.8 mmol/L (3-11); BUN 10 mg/dL (7-18); Bilirubin, Total 0.5 mg/dL (0.2-1.0); CO2 28.2 mmol/L (21.0-32.0); CREATININE 1.02 mg/dL (0.70-1.30); Calcium 8.2 mg/dL (8.5-10.1); Chloride 97 mmol/L (98-107); Glucose 327 mg/dL (74-106); Sodium 136 mmol/L (136-145)
[2019-11-21 10:57] LABS: PTT Activated 25.2 sec (21.0-31.4); Prothrombin Time 9.8 sec (9.3-11.0)
--- NOTE | 2019-11-21 11:44 | DI.VRAD_ITS ---
PROCEDURE INFORMATION: Exam: CT Pelvis With Contrast Exam date and time: 11/21/2019 10:16 AM Age: 54 years old Clinical indication: Other: Rectal/buttock pain; Patient HX: Colitis TECHNIQUE: Imaging protocol: Computed tomography images of the pelvis with intravenous contrast. Other contrast: Catheter; COMPARISON: CT Private^ROUTINE ABDOMEN PELVIS WITH CONTRAST (Adult) 08/23/2018 7:08 PM FINDINGS: Stomach and bowel: Visualized small bowel and colon are unremarkable. Appendix: No evidence of appendicitis. Intraperitoneal space: Unremarkable. No free air. No significant fluid collection. Lymph nodes: Unremarkable. No enlarged lymph nodes. Bladder: Normal. No mass. Reproductive: Normal as visualized. Bones/joints: Unremarkable. No acute fracture. No dislocation. Soft tissues: Right perirectal abscess extends across the midline. There are additional small satellite collections of air in the adjacent soft tissues anteriorly. The largest air-fluid collection measures 5.7 x 2.7 x 5.2 cm to the right of midline. Extensive surrounding inflammatory changes. IMPRESSION: Right perirectal abscess extends across the midline. There are additional small satellite collections of air in the adjacent soft tissues anteriorly. The largest air-fluid collection measures 5.7 x 2.7x 5.2 cm to the right of midline. Extensive surrounding inflammatory changes. Dictated and Authenticated by: Alba Huerta MD. Ordering:HODAN Michaels MD
--- NOTE | 2019-11-21 11:56 | W.ED.GENAD ---
Discharge Plan Disposition Patient Disposition: OTHER Condition: Serious Discharge Details Chief Complaint: GenMedical Clinical Impression: Abscess, perirectal Attending Provider: Janay Orozco Primary Care Provider: Khadijah Galicia ED Provider: Brando Goodwin Discharge Data Discharge Date/Time-TO BE ENTERED AT DEPARTURE: 11/21/19 13:24 Medical Decision Making 54-year-old gentleman who presents for a month long history of buttocks pain and swelling. Differential includes but is not excluded to cellulitis, rectal versus perirectal abscess, anal fissure, fistula. Patient presents with tachycardia. He is currently afebrile. As above he appears disheveled is a rather vague and poor historian. I am concerned that this may be to intensive of an I&D for the ER, will obtain IV access, laboratory values, CT imaging of his pelvis. Slightly elevated white count. Patient remains afebrile. Heart rate now 108. CT findings as below. I discussed the case with Dr. Orozco, who is in agreement that this is likely better served in the OR. She recommends IV Unasyn. She will see the patient here in the ER, bring him directly to the OR for I&D, and then admit to her own service. This plan was made aware to the patient. He has no additional questions or concerns. Medical Records Medical records reviewed: Yes I reviewed the patient's medical records. Imaging Data Radiologic Study: Imaging: CT Scan Radiologist's impression: CT pelvis with contrast read by virtual radiology as a right perirectal abscess which extends across the midline. Additional small satellite collections of air in the adjacent soft tissue anteriorly. The largest air-fluid collection measures 5.7 x 2.7 x 5.2 cm to the right of midline. Extensive surrounding inflammatory changes Lab Data Lab results reviewed: Yes I reviewed the patient's lab results. Lab results narrative: 11/21/19 13:07 Buttock - Right Anaerobic Culture - Pending 11/21/19 12:18 Blood Blood Culture - Pending 11/21/19 10:56 Blood Blood Culture - Pending Laboratory Tests Range/Units 11/21/19 11/21/19 11/21/19 10:35 10:35 10:35 WBC (4.4-10.8) k/cumm 12.36 H RBC (4.50-6.00) m/cumm 4.23 L Hgb (13.5-17.5) g/dL 12.9 L Hct (40.0-50.0) % 36.8 L MCV (80-95) fL 87.0 MCH (27.0-33.0) pg 30.5 MCHC (32.0-36.0) g/dL 35.1 RDW (11.8-14.1) % 12.2 Plt Count (130-400) x1000/uL 212 MPV (8.0-11.0) fL 11.1 H Immature Gran % % 0.2 Neutrophils % 89.3 Lymphocytes % 5.3 Monocytes % 4.8 Eosinophils % 0.2 Basophils % 0.2 Absolute Neutrophils (1.2-6.7) k/cumm 11.04 H Absolute Lymphocytes (1.2-3.4) k/cumm 0.66 L Absolute Monocytes (0.11-0.7) k/cumm 0.59 Absolute Eosinophils (0.0-0.7) k/cumm 0.02 Absolute Basophils (0.0-0.2) k/cumm 0.02 PT (9.3-11.0) sec 9.8 INR (0.9-1.1) 1.0 APTT (21.0-31.4) sec 25.2 Sodium (136-145) mmol/L 136 Potassium (3.5-5.1) mmol/L 4.0 Chloride (98-107) mmol/L 97 L Carbon Dioxide (21.0-32.0) mmol/L 28.2 Anion Gap (3-11) mmol/L 10.8 BUN (7-18) mg/dL 10 Creatinine (0.70-1.30) mg/dL 1.02 Estimated GFR/1.73 m2 (mL/min/1.73m2) >= 60.00 Glucose (74-106) mg/dL 327 H Hemoglobin A1c (3.8-5.6) % Lactate (0.6-1.4) mmol/L Calcium (8.5-10.1) mg/dL 8.2 L Total Bilirubin (0.2-1.0) mg/dL 0.5 AST (15-37) U/L 8 L ALT (16-63) U/L 10 L Alkaline Phosphatase (46-116) U/L 100 Total Protein (6.4-8.2) g/dL 7.0 Albumin (3.4-5.0) g/dL 3.0 L Range/Units 11/21/19 11/21/19 10:35 10:56 WBC (4.4-10.8) k/cumm RBC (4.50-6.00) m/cumm Hgb (13.5-17.5) g/dL Hct (40.0-50.0) % MCV (80-95) fL MCH (27.0-33.0) pg MCHC (32.0-36.0) g/dL RDW (11.8-14.1) % Plt Count (130-400) x1000/uL MPV (8.0-11.0) fL Immature Gran % % Neutrophils % Lymphocytes % Monocytes % Eosinophils % Basophils % Absolute Neutrophils (1.2-6.7) k/cumm Absolute Lymphocytes (1.2-3.4) k/cumm Absolute Monocytes (0.11-0.7) k/cumm Absolute Eosinophils (0.0-0.7) k/cumm Absolute Basophils (0.0-0.2) k/cumm PT (9.3-11.0) sec INR (0.9-1.1) APTT (21.0-31.4) sec Sodium (136-145) mmol/L Potassium (3.5-5.1) mmol/L Chloride (98-107) mmol/L Carbon Dioxide (21.0-32.0) mmol/L Anion Gap (3-11) mmol/L BUN (7-18) mg/dL Creatinine (0.70-1.30) mg/dL Estimated GFR/1.73 m2 (mL/min/1.73m2) Glucose (74-106) mg/dL Hemoglobin A1c (3.8-5.6) % 12.4 H Lactate (0.6-1.4) mmol/L 1.0 Calcium (8.5-10.1) mg/dL Total Bilirubin (0.2-1.0) mg/dL AST (15-37) U/L ALT (16-63) U/L Alkaline Phosphatase (46-116) U/L Total Protein (6.4-8.2) g/dL Albumin (3.4-5.0) g/dL HPI General Mode of arrival: ambulatory. Date/Time Provider Initiated Documentation: 11/21/19 09:10. Limitations to Documentation: no limitations. Information obtained by: patient. HPI Narrative: This is a 54-year-old gentleman who reports a month-long history of worsening abscess on his right buttocks. Earlier in the month it was draining but has stopped draining. He is an extremely poor and vague historian. He reports a similar episode on his left buttocks in the past but nothing on his right buttocks. He denies fever. He denies difficulty with urination or bowel movements. He reports the pain is moderate at rest but with movement or sitting on the lesion the pain is severe. He has a history of high cholesterol, diabetes, hypertension, GERD. Related Data Home Medications Medication Instructions Recorded Confirmed blood sugar diagnostic #100 each 08/04/19 11/21/19 blood-glucose meter #1 each 08/04/19 11/21/19 lancets #100 each 08/04/19 11/21/19 atorvastatin 20 mg tablet 20 mg PO DAILY #90 tab-cap 08/25/19 11/21/19 glimepiride 4 mg tablet 4 mg PO QAM #90 tab 08/25/19 11/21/19 lisinopril 2.5 mg tablet 2.5 mg PO DAILY #90 tab-cap 08/25/19 11/21/19 metformin 1,000 mg tablet 1,000 mg PO BID #90 tab 08/25/19 11/21/19 omeprazole 20 mg capsule,delayed 20 mg PO DAILY #90 tab-cap 08/25/19 11/21/19 release Previous Rx's Medication Instructions Recorded blood sugar diagnostic #100 each 08/04/19 blood-glucose meter #1 each 08/04/19 lancets #100 each 08/04/19 atorvastatin 20 mg tablet 20 mg PO DAILY #90 tab-cap 08/25/19 glimepiride 4 mg tablet 4 mg PO QAM #90 tab 08/25/19 lisinopril 2.5 mg tablet 2.5 mg PO DAILY #90 tab-cap 08/25/19 metformin 1,000 mg tablet 1,000 mg PO BID #90 tab 08/25/19 omeprazole 20 mg capsule,delayed 20 mg PO DAILY #90 tab-cap 08/25/19 release Allergies Allergy/AdvReac Type Severity Reaction Status Date / Time Milk Containing Products Allergy Unknown gi upset Verified 11/10/19 10:40 tramadol AdvReac diarrhea/GI Verified 11/10/19 10:40 General Stated Complaint: GenMedical TABITHA: 3 Review of Systems Constitutional Constitutional: Denies chills, Denies fatigue, Denies fever(s) and Denies headache(s) ENT Ears, Nose, Mouth, and Throat: Denies headache(s) and Denies sore throat Cardiovascular Cardiovascular: Denies chest pain and Denies dyspnea Respiratory Respiratory: Denies dyspnea Gastrointestinal Gastrointestinal: Denies abdominal pain, Denies nausea and Denies vomiting Genitourinary Genitourinary: Denies dysuria Musculoskeletal Musculoskeletal: Denies back pain and Denies myalgias Integumentary/Breasts Skin/Breast: Denies rash Neurologic Neurologic: Denies headache(s) Endocrine Endocrine: Denies fatigue [facility] Medical History Acute shoulder pain due to trauma (Inactive) Benign hypertension (Inactive 12/01/10) Cerumen impaction (Inactive 01/13/15) Dairy product intolerance (Inactive 08/22/16) Depressive disorder (Inactive 09/13/11) Disorder of left rotator cuff (Inactive 12/01/12) 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 Left -complete loss of hearing. Tobacco dependence syndrome (Inactive 09/13/10) Uncontrolled diabetes mellitus type 2 without complications (Inactive 12/01/09) Surgical History Biopsy of dital clavicle, left AC joint (02/25/15) Dr Bright 03/16/15 Addendum Surgical Patology report: Bone with maturing trilineage hematopesis; Reacive stnovium; No evidence of lymphoma identified per Dr. 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 Working smoke detector in home: Yes Do you feel safe at home: Yes Do you feel safe in your relationship?: Yes Exam Const General: cooperative and disheveled Orientation: alert and awake HENMT Head: normal to inspection, normocephalic and atraumatic Mouth: moist mucous membranes Eyes Conjunctivae: conjunctivae normal Neck Neck: normal visual inspection, trachea midline and supple Resp Effort & Inspection: normal respiratory effort and able to speak in complete sentences Auscultation: clear to auscultation bilaterally Cardio Rate: tachycardic (Rate of 112) Other: Right buttocks medially, extends all the way to the anus, with induration, swelling, what appears to be a pointing abscess. Diffuse moderate discomfort to palpation, warmth. There is no drainage. Given the tenderness, and location, I did not perform an internal rectal examination. Outside of the area of pointing abscess-induration, does appear to be surrounding cellulitis as well Back/Spine/Pelvis Back: No back tenderness Skin Other: As above, skin otherwise unremarkable Neuro General: alert, awake, moves all extremities and no focal motor deficits Sensory Exam: no sensory deficits noted Psych Appearance: grossly normal Mental Status: mental status grossly normal Course Vital Signs Vital signs: Vital Signs Temperature 36.6 C 11/21/19 09:18 Pulse 124 H 11/21/19 09:18 Respiratory Rate 16 11/21/19 09:18 Blood Pressure 195/166 H 11/21/19 09:18 Pulse Oximetry 97 11/21/19 09:18 Temperature 36.6 C 11/21/19 09:18 Temperature Source Tympanic 11/21/19 09:18 Pulse 124 H 11/21/19 09:18 Respiratory Rate 16 11/21/19 10:08 Respiratory Effort Non-Labored 11/21/19 10:08 Respiratory Depth Normal 11/21/19 10:08 Respiratory Pattern Normal 11/21/19 10:08 Blood Pressure 195/166 H 11/21/19 09:18 Pulse Oximetry 97 11/21/19 09:18 Oxygen Delivery Method Room Air 11/21/19 09:18 Oxygen Flow Rate 0 11/21/19 09:18 Lab/Test Results Lab/Test Results: 11/21/19 11:54 Blood Blood Culture - Pending 11/21/19 11:54 Blood Blood Culture - Pending Laboratory Tests Range/Units 11/21/19 11/21/19 11/21/19 10:35 10:35 10:35 WBC (4.4-10.8) k/cumm 12.36 H RBC (4.50-6.00) m/cumm 4.23 L Hgb (13.5-17.5) g/dL 12.9 L Hct (40.0-50.0) % 36.8 L MCV (80-95) fL 87.0 MCH (27.0-33.0) pg 30.5 MCHC (32.0-36.0) g/dL 35.1 RDW (11.8-14.1) % 12.2 Plt Count (130-400) x1000/uL 212 MPV (8.0-11.0) fL 11.1 H Immature Gran % % 0.2 Neutrophils % 89.3 Lymphocytes % 5.3 Monocytes % 4.8 Eosinophils % 0.2 Basophils % 0.2 Absolute Neutrophils (1.2-6.7) k/cumm 11.04 H Absolute Lymphocytes (1.2-3.4) k/cumm 0.66 L Absolute Monocytes (0.11-0.7) k/cumm 0.59 Absolute Eosinophils (0.0-0.7) k/cumm 0.02 Absolute Basophils (0.0-0.2) k/cumm 0.02 PT (9.3-11.0) sec 9.8 INR (0.9-1.1) 1.0 APTT (21.0-31.4) sec 25.2 Sodium (136-145) mmol/L 136 Potassium (3.5-5.1) mmol/L 4.0 Chloride (98-107) mmol/L 97 L Carbon Dioxide (21.0-32.0) mmol/L 28.2 Anion Gap (3-11) mmol/L 10.8 BUN (7-18) mg/dL 10 Creatinine (0.70-1.30) mg/dL 1.02 Estimated GFR/1.73 m2 (mL/min/1.73m2) >= 60.00 Glucose (74-106) mg/dL 327 H Calcium (8.5-10.1) mg/dL 8.2 L Total Bilirubin (0.2-1.0) mg/dL 0.5 AST (15-37) U/L 8 L ALT (16-63) U/L 10 L Alkaline Phosphatase (46-116) U/L 100 Total Protein (6.4-8.2) g/dL 7.0 Albumin (3.4-5.0) g/dL 3.0 L
[2019-11-21] MEDS: AMPICILLIN/SULBACTAM 3 GM in Normal Saline 100 ML IVPB ×3 (12:27→23:58)
[2019-11-21] MEDS: Normal Saline 1,000 ML 80 ML IV ×2 (12:29→21:14)
--- NOTE | 2019-11-21 12:35 | HPE_ITS ---
Date of service: 11/21/19 Time of Service: 12:35 Assessment and Plan Assessment and plan (1) Abscess, perirectal: Status: Acute Assessment and plan: A\\ 54 year old, non-complaint diabetic with a >5 cm perirectal abscess. Incision and drainage of abscess recommended to patient IV antibotics for at least 24 hours recommended as well P\\ Incision and drainage of rusty-rectal abscess with drain placement Admission for observation and antibiotics Discharge to home if stable. Will need Home health to assist with dressing changes and monitoring History of Present Illness History of Present Illness Chief Complaint: rusty-rectal abscess Consults Cons ult date: 11/21/19 Requesting physician: Brando Goodwin Narrative: ER note reviewed Mr. Pugh is a 54 year old male with a PMHx significant for uncontrolled type II Diabetes, tobacco dependance and hypercholesterolemia who came to the ER today due to increased pain in his Buttock. He states that he has been having swelling and pain for the last months. The area drains a little and then he has relief for a few hours. He has not seen his PCP since last August. He denies any fevers or chills. He denies any N/V or abdominal pain. He denies a history of NC or stroke. He is quite dishevelled and doesn't look like he takes good care of himself. His last HgA1C from August was 14. He doesn't check his BS like he should. His diet is hit and miss. He is tachycardic and hypertensive. His last meal was last night. He had some tea this morning CT scan reviewed by me IMPRESSION: Right perirectal abscess extends across the midline. There are additional small satellite collections of air in the adjacent soft tissues anteriorly. The largest air-fluid collection measures 5.7 x 2.7x 5.2 cm to the right of midline. Extensive surrounding inflammatory changes. Review of Systems Constitutional Constitutional: Denies fatigue, Denies fever(s), Denies headache(s) and Reports weight loss Eyes Eyes: Reports system reviewed and no additional complaints, except as docu ENT Ears, Nose, Mouth, and Throat: Denies dysphagia and Denies headache(s) Cardiovascular Cardiovascular: Denies chest pain, Denies chest pain at rest, Denies irregular heart rhythm, Denies palpitations, Denies dyspnea and Denies dyspnea on exertion Respiratory Respiratory: Denies chest congestion, Denies dyspnea and Denies dyspnea on exertion Gastrointestinal Gastrointestinal: Denies abdominal pain, Denies change in bowel habits, Denies dysphagia, Denies dyspepsia and Denies heartburn Musculoskeletal Musculoskeletal: Reports system reviewed and no additional complaints, except as docu Integumentary/Breasts Skin/Breast: Reports system reviewed and no additional complaints, except as docu Neurologic Neurologic: Reports system reviewed and no additional complaints, except as docu and Denies headache(s) Endocrine Endocrine: Denies fatigue and Denies palpitations Hematologic/Lymphatic Hematologic/Lymphatic: Denies easy bleeding and Denies easy bruising [facility] Medical History (Updated 11/21/19 @ 12:46 by Janay Orozco MD) Acute shoulder pain due to trauma (Inactive) Benign hypertension (Inactive 12/01/10) Cerumen impaction (Inactive 01/13/15) Dairy product intolerance (Inactive 08/22/16) Depressive disorder (Inactive 09/13/11) Disorder of left rotator cuff (Inactive 12/01/12) 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 Left -complete loss of hearing. Tobacco dependence syndrome (Inactive 09/13/10) Uncontrolled diabetes mellitus type 2 without complications (Inactive 12/01/09) Surgical History Biopsy of dital clavicle, left AC joint (02/25/15) Dr Bright 03/16/15 Addendum Surgical Patology report: Bone with maturing trilineage hematopesis; Reacive stnovium; No evidence of lymphoma identified per Dr. 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: No Working smoke detector in home: Yes Do you feel safe at home: Yes Do you feel safe in your relationship?: Yes Meds Home Medications and Allergies Home Medications Medication Instructions Recorded Confirmed Type blood sugar diagnostic #100 each 08/04/19 11/21/19 Rx blood-glucose meter #1 each 08/04/19 11/21/19 Rx lancets #100 each 08/04/19 11/21/19 Rx atorvastatin 20 mg tablet 20 mg PO DAILY #90 tab-cap 08/25/19 11/21/19 Rx glimepiride 4 mg tablet 4 mg PO QAM #90 tab 08/25/19 11/21/19 Rx lisinopril 2.5 mg tablet 2.5 mg PO DAILY #90 tab-cap 08/25/19 11/21/19 Rx metformin 1,000 mg tablet 1,000 mg PO BID #90 tab 08/25/19 11/21/19 Rx omeprazole 20 mg capsule,delayed 20 mg PO DAILY #90 tab-cap 08/25/19 11/21/19 Rx release Allergies Allergy/AdvReac Type Severity Reaction Status Date / Time Milk Containing Products Allergy Unknown gi upset Verified 11/10/19 10:40 tramadol AdvReac diarrhea/GI Verified 11/10/19 10:40 Exam Const General: cooperative, comfortable and disheveled Orientation: alert and oriented x3 HENMT Head: normocephalic and atraumatic Teeth and gingiva: poor dentition Resp Effort & Inspection: normal respiratory effort Auscultation: clear to auscultation bilaterally Cardio Rate: regular rate Rhythm: regular rhythm Heart Sounds: no gallops, no murmurs and no rubs GI Inspection: normal to inspection Palpation: soft, no hepatosplenomegaly and nontender Auscultation: normal bowel sounds Rectal Exam: deferred Other: erythema and swelling noted on the right side of the rectum. There is fluctuance Results Labs Result diagrams: 11/21/19 10:35 11/21/19 10:35 Labs: Laboratory Results - last 24 hr 11/21/19 11/21/19 11/21/19 10:35 10:35 10:35 WBC 12.36 H RBC 4.23 L Hgb 12.9 L Hct 36.8 L MCV 87.0 MCH 30.5 MCHC 35.1 RDW 12.2 Plt Count 212 MPV 11.1 H Immature Gran % 0.2 Neutrophils % 89.3 Lymphocytes % 5.3 Monocytes % 4.8 Eosinophils % 0.2 Basophils % 0.2 Absolute Neutrophils 11.04 H Absolute Lymphocytes 0.66 L Absolute Monocytes 0.59 Absolute Eosinophils 0.02 Absolute Basophils 0.02 PT 9.8 INR 1.0 APTT 25.2 Sodium 136 Potassium 4.0 Chloride 97 L Carbon Dioxide 28.2 Anion Gap 10.8 BUN 10 Creatinine 1.02 Estimated GFR/1.73 m2 >= 60.00 Glucose 327 H Lactate Calcium 8.2 L Total Bilirubin 0.5 AST 8 L ALT 10 L Alkaline Phosphatase 100 Total Protein 7.0 Albumin 3.0 L 11/21/19 10:56 WBC RBC Hgb Hct MCV MCH MCHC RDW Plt Count MPV Immature Gran % Neutrophils % Lymphocytes % Monocytes % Eosinophils % Basophils % Absolute Neutrophils Absolute Lymphocytes Absolute Monocytes Absolute Eosinophils Absolute Basophils PT INR APTT Sodium Potassium Chloride Carbon Dioxide Anion Gap BUN Creatinine Estimated GFR/1.73 m2 Glucose Lactate 1.0 Calcium Total Bilirubin AST ALT Alkaline Phosphatase Total Protein Albumin Last Vital Signs Temp 97.9 F 11/21/19 09:18 Pulse 124 H 11/21/19 09:18 Resp 16 11/21/19 10:08 BP 195/166 H 11/21/19 09:18 Pulse Ox 97 11/21/19 09:18
[2019-11-21 13:32] LABS: Hemoglobin A1C 12.4 % (3.8-5.6)
[2019-11-21] MEDS: Insulin REGULAR-Human 100 UNITS/ML UNIT (14:31)
--- NOTE | 2019-11-21 14:42 | W.PM.OP ---
Date of service: 11/21/19 Time of Service: 14:42 Operative Note Operative Note DATE OF PROCEDURE: 11/21/19 PRE-OP DIAGNOSIS: Perirectal abscess POST-OP DIAGNOSIS: same PROCEDURE: Incision, drainage and drain placement SURGEON: Janay Orozco ANESTHESIA: MAC and spinal (ASA 3E/ Cynthia Bobo, LUCA) ESTIMATED BLOOD LOSS: 20 PATHOLOGY: none sent COMPLICATIONS: None Patient was transported to: PACU Patient's condition: stable Implants: 20 fr drain Indications: Mr. Pugh is a 54 year old male seen in the ER for 5 cm perirectal abscess. Incision and drainage was recommended under sedation. Risks, benefits and complications were reviewed. Complications include but are not limited to bleeding, pain, injury to rectum, injury to rectal muscle with incontinence, DE, , stroke were reviewed. Questions were entertained and answered to his satisfaction and he wished to proceed. No guaranties were given or implied. Findings: 50 cc of foul smelling purulent discharge. Anaerobic and aerobic cultures sent. Procedure Description: After informed consent was obtained the patient was brought to the Operating room and placed in a left decubitous position on the table. Anesthesia then did a spinal anesthetic without difficulty. The patient was then sat up at the edge of the table so the medication would go to his buttocks. As the patient was sitting the abscess burst and drained about 50 cc of thick, green and foul smelling purulent material. Once the patient felt his legs get heavy and the pain went away he was placed in a prone position with pillows under his legs and padding under his knees. A time out was done and the patients name, , allergies to medications, antibiotic prophilaxis, procedure to be performed and site were reviewed. Fire risk was assessed. The patients buttocks were spread by placing take on either side of his rectum and pulling outwards. The rectum and rusty-rectal area was then prepped with iodine and draped in a standard fashion. Using a 15 blade the opening over the abscess cavity was enlarged to 2 cm. Cultures for both aerobic and anaerobic bacteria were done. The cavity was then probed with suction. It was then irrigated with 300 cc of warm normal saline. I then placed my finger into the cavity and broke up any septations. The anal canal was the inspected. There were multiple dimples noted but no fistula communicating to this abscess cavity. Internal hemorrhoids were noted. The cavity was irrigated with some more fluid. No more purulent discharge was noted. a 20 fr mushroom drain was placed and secured with a 3-0 nylon suture. The drain was cut to a 2 inch length. The skin was cleaned and dried and an abd was placed. Mesh panties were placed on the patient. Sponge, instruments and needles were correct at the end of the case. The patient tolerated the procedure well and there were no immediate complications.
[2019-11-21] MEDS: Docusate Sodium 100 MG CAP PO ×2 (15:47→19:46)
[2019-11-21] MEDS: metFORMIN 500 MG TAB 1000 MG PO (17:08)
[2019-11-21] MEDS: Insulin Aspart 300 UNITS/3 ML PEN SC (17:09)
[2019-11-21] MEDS: HYDROcodone 5/Acetaminophen 325 TAB PO (17:28)
[2019-11-21] MEDS: Normal Saline Flush 10 ML SYR IVP (19:46)
[2019-11-21] MEDS: Ketorolac 30 MG/ML VIAL IV (19:46)
[2019-11-22 00:05] VITALS: BP 132/87; PULSE 94; RESP 18; TEMP 36.4; O2SAT 96
[2019-11-22] MEDS: AMPICILLIN/SULBACTAM 3 GM in Normal Saline 100 ML IVPB ×2 (06:39→11:39)
[2019-11-22] MEDS: Ketorolac 30 MG/ML VIAL IV (06:43)
[2019-11-22] MEDS: Normal Saline Flush 10 ML SYR IVP (06:43)
[2019-11-22 06:53] LABS: Abs Immature Grans 0.02 k/cumm (0.0-0.09); Absolute Basophil Count 0.02 k/cumm (0.0-0.2); Absolute Eosinophil Count 0.12 k/cumm (0.0-0.7); Absolute Lymphocyte Count 1.09 k/cumm (1.2-3.4); Absolute Neutrophil Count 8.17 k/cumm (1.2-6.7); Basophils % 0.2; Eosinophils % 1.2; HCT 37.4 % (40.0-50.0); HGB 12.7 g/dL (13.5-17.5); Immature Grans % 0.2 %; Lymphocytes % 10.8; Mean Corpuscular Volume 88.2 fL (80-95); Monocytes % 6.9; Neutrophils % 80.7; Platelet Count 198 x1000/uL (130-400); RBC 4.24 m/cumm (4.50-6.00); RBC Distribution Width 12.6 % (11.8-14.1); White Blood Cell Count 10.12 k/cumm (4.4-10.8)
[2019-11-22 07:00] VITALS: BP 125/82; PULSE 87; RESP 16; TEMP 36.6; O2SAT 96
[2019-11-22 07:07] LABS: Anion Gap 10.4 mmol/L (3-11); BUN 17 mg/dL (7-18); CO2 28.6 mmol/L (21.0-32.0); CREATININE 1.04 mg/dL (0.70-1.30); Calcium 8.8 mg/dL (8.5-10.1); Chloride 102 mmol/L (98-107); Glucose 307 mg/dL (74-106); Potassium 4.2 mmol/L (3.5-5.1); Sodium 141 mmol/L (136-145)
[2019-11-22] MEDS: Glimepiride 2 MG TAB 4 MG PO (08:20)
[2019-11-22] MEDS: Nicotine 21 MG/24 HR PATCH TD (08:20)
[2019-11-22] MEDS: Lisinopril 5 MG TAB 2.5 MG PO (08:21)
[2019-11-22] MEDS: Omeprazole 20 MG CAPCR PO (08:21)
[2019-11-22] MEDS: metFORMIN 500 MG TAB 1000 MG PO (08:21)
[2019-11-22] MEDS: Docusate Sodium 100 MG CAP PO ×2 (08:21→13:28)
[2019-11-22] MEDS: Atorvastatin 20 MG TAB PO (08:22)
[2019-11-22] MEDS: Insulin Aspart 300 UNITS/3 ML PEN SC ×2 (08:22→12:01)
[2019-11-22 08:25] VITALS: RESP 18; O2SAT 96
--- NOTE | 2019-11-22 10:53 | DSE_ITS ---
Date of service: 11/22/19 Time of Service: 10:54 DS: Diagnosis Discharge Diagnosis (1) Abscess, perirectal: Status: Acute Discharge Plan Disposition Patient Disposition: HOME Condition: Improving Discharge Details Chief Complaint: GenMedical Clinical Impression: Abscess, perirectal Reason For Visit: ANGELA-RECTAL ABSCESS Admit Date/Time: 11/21/19 14:41 Admit Provider: Janay Orozco Attending Provider: Janay Orozco Primary Care Provider: Khadijah Galicia ED Provider: Brando Goodwin Hospital Course Hospital Course: Mr. Pugh is a 54 year old male with a PMHx significant for uncontrolled type II Diabetes, tobacco dependance and hypercholesterolemia who came to the ER on 11/21/19 due to increased pain in his Buttock. He states that he has been having swelling and pain for the last months. The area drains a little and then he has relief for a few hours. He has not seen his PCP since last August. He denies any fevers or chills. He denies any N/V or abdominal pain. He denies a history of CO or stroke. He was tachycardic and hypertensive in the ER ER workup revealed a slight increase in his WBC count and CT scan showed a [address] scan IMPRESSION: Right perirectal abscess extends across the midline. There are additional small satellite collections of air in the adjacent soft tissues anteriorly. The largest air-fluid collection measures 5.7 x 2.7x 5.2 cm to the right of midline. Extensive surrounding inflammatory changes. Patient was taken to the Operating room for I&D and culture of the abscess. A drain was left. He was admitted overnight for IV antibiotics. This morning he is doing well. He has had minimal pain. There has been minimal serosanguinous drainage. He has been afebrile. He is eating without abdominal pain, N/V. Patient will be discharged with instructions for sitz baths 2-3 times a day and after BM's. Pain medications will be Tylenol and Ibuprofen as needed. He will given a prescription for Augmentin TID for 4 days. Follow up in the office with me on Saturday11/24/19 for drain removal. I have discussed signs and symptoms that should prompt him to return to the ER or call our office. This include fevers, increasing pain and swelling. Increased purulent discharge. Home Meds and New Rx's Prescriptions: New acetaminophen [Mapap (acetaminophen)] 500 mg capsule 500 mg PO Q6H PRN (Reason: fever or pain) Qty: 30 RF: 0 ibuprofen [IBU-200] 200 mg tablet 600 mg PO Q6H PRN (Reason: fever or pain) 7 Days Qty: 60 RF: 0 amoxicillin-pot clavulanate [Augmentin] 875-125 mg tablet 1 tab PO TID 4 Days Qty: 12 RF: 0 Continued glimepiride [Amaryl] 4 mg tablet 4 mg PO QAM Qty: 90 RF: 3 atorvastatin 20 mg tablet 20 mg PO DAILY Qty: 90 RF: 3 metformin 1,000 mg tablet 1,000 mg PO BID Qty: 90 RF: 3 lisinopril 2.5 mg tablet 2.5 mg PO DAILY Qty: 90 RF: 3 omeprazole 20 mg capsule,delayed release(DR/EC) 20 mg PO DAILY Qty: 90 RF: 0 (DME) blood sugar diagnostic Strip See Rx Instructions .ROUTE .MEDSUPPLY Qty: 100 RF: 6 (DME) blood-glucose meter [OneTouch Verio Flex] [facility] [place] See Rx Instructions .ROUTE .MEDSUPPLY Qty: 1 RF: 0 (DME) lancets [OneTouch UltraSoft Lancets] [facility] [place] See Rx Instructions .ROUTE .MEDSUPPLY Qty: 100 RF: 6 Discharge Instructions Instructions: Sitz Bath (GEN), Abscess Incision and Drainage (GEN) Additional Instructions: Activity at Home after surgery: 1. Make sure you walk outside at least 4 times per day 2. You should be able to climb a flight of stairs 3. No driving while in pain or taking pain medications 4. Activity as tolerated Diet, Nutrition, & wound healin. Avoid alcohol until after you are recovered from your surgery 2. Make sure to eat plenty of lean protein (meat, fish, eggs, cottage cheese, beans) 3. Eat a variety of fruits and vegetables. Eat plenty of high fiber foods to avoid constipation. 4. Drink plenty of liquids to stay hydrated and avoid constipation Pain Medications: 1. Tylenol 500 mg every 6 hours as needed 2. Ibuprofen 600 mg every 6 hours as needed For Constipation: 1. Take Milk of Magnesia or MiraLax as needed for constipation Other: 1. You may shower daily. Do not scrub the incisions 2. Do not soak the incisions for 1 week 3. You may alternate ice and heat as needed for pain and swelling Wound Care: 1. Keep the incisions clean and dry 2. Sitz Baths 2-3 times a day and after bowel movements Please call our office if you develop: 1. Fevers >101.5 2. Nausea or Vomiting 3. Worsening pain 4. Redness and thick discharge from the wounds If after hours please call the Hospital at and ask to speak to the on-call surgeon Referrals: Janay Orozco MD [ [facility] STAFF PHYSICIAN] - 11/24/19 11:00 am Activity:: Activity as Tolerated Equipment/Supplies:: sitz bath Diet:: As Tolerated Discharge Orders Discharge Orders: Discharge Order (Routine); Ordered 11/22/19 Ordered By: Janay Orozco DS: Summary Summary Time spent discussing smoking cessation with patient: 3 to 10 minutes Status at Discharge Functional status at discharge: independent ambulation Overall status at discharge: patient is back to baseline Mental Status: mental status grossly normal Speech and Movement: speech and movement normal Mood: congruent mood Affect: normal affect Time Spent with Patient providing and/or coordinating discharge services: Greater than 30 minutes Exam Const General: cooperative, comfortable and no acute distress Orientation: alert and oriented x3 HENMT Head: normocephalic and atraumatic Resp Effort & Inspection: normal respiratory effort Auscultation: clear to auscultation bilaterally Cardio Rate: regular rate Rhythm: regular rhythm GI Inspection: normal to inspection Palpation: soft and no hepatosplenomegaly Auscultation: normal bowel sounds Other: Angela-rectal wound with drain and no signs of erythema. Psych Mental Status: mental status grossly normal Speech and Movement: speech and movement normal Mood: congruent mood Affect: normal affect DS: Data Vitals/I&O Vitals and I&O: Vital Signs Temperature 97.9 F 11/22/19 07:00 Temperature Source Tympanic 11/22/19 07:00 Pulse 87 11/22/19 07:00 Pulse Rhythm Regular 11/22/19 00:05 Respiratory Rate 16 11/22/19 07:00 Respiratory Effort Non-Labored 11/22/19 00:05 Respiratory Depth Normal 11/22/19 00:05 Respiratory Pattern Normal 11/22/19 00:05 Blood Pressure 125/82 11/22/19 07:00 Blood Pressure Mean 106 11/21/19 12:39 Blood Pressure Position Supine 11/21/19 12:39 Pulse Oximetry 96 11/22/19 07:00 Respiratory End-tidal CO2 29 11/21/19 14:33 Oxygen Delivery Method Room Air 11/22/19 07:00 Oxygen Flow Rate 0 11/22/19 07:00 Pain Level 0 11/22/19 07:00 Intake & Output 11/21/19 11/21/19 11/22/19 11:59 23:59 11:59 Intake Total 10 / 8825.640 9110.333 / 1293.333 200 / 200 Output Total 600 / 600 Balance 10 / 693.333 683.333 / 693.333 200 / 200 Weight 173 lb 15.997 oz 173 lb 15.997 oz Intake: IV 10 / 4214.597 6843.333 / 1193.333 200 / 200 Oral 100 / 100 Output: Urine 600 / 600 Other: Urine Color Dark Serene Yellow Urine Appearance Clear Clear Urine Odor None Comment per patient Emesis Description None Voiding Methods Urinal Data Completed and Pending Labs on day of discharge: Labs from last 24 hours 11/22/19 11/22/19 11/21/19 06:30 06:20 10:56 WBC 10.12 RBC 4.24 L Hgb 12.7 L Hct 37.4 L MCV 88.2 MCH 30.0 MCHC 34.0 RDW 12.6 Plt Count 198 MPV 11.0 Immature Gran % 0.2 Neutrophils % 80.7 Lymphocytes % 10.8 Monocytes % 6.9 Eosinophils % 1.2 Basophils % 0.2 Absolute Neutrophils 8.17 H Absolute Lymphocytes 1.09 L Absolute Monocytes 0.70 Absolute Eosinophils 0.12 Absolute Basophils 0.02 PT INR APTT Sodium 141 Potassium 4.2 Chloride 102 Carbon Dioxide 28.6 Anion Gap 10.4 BUN 17 D Creatinine 1.04 Estimated GFR/1.73 m2 >= 60.00 Glucose 307 H Hemoglobin A1c Lactate 1.0 Calcium 8.8 Total Bilirubin AST ALT Alkaline Phosphatase Total Protein Albumin 11/21/19 11/21/19 11/21/19 10:35 10:35 10:35 WBC RBC Hgb Hct MCV MCH MCHC RDW Plt Count MPV Immature Gran % Neutrophils % Lymphocytes % Monocytes % Eosinophils % Basophils % Absolute Neutrophils Absolute Lymphocytes Absolute Monocytes Absolute Eosinophils Absolute Basophils PT 9.8 INR 1.0 APTT 25.2 Sodium 136 Potassium 4.0 Chloride 97 L Carbon Dioxide 28.2 Anion Gap 10.8 BUN 10 Creatinine 1.02 Estimated GFR/1.73 m2 >= 60.00 Glucose 327 H Hemoglobin A1c 12.4 H Lactate Calcium 8.2 L Total Bilirubin 0.5 AST 8 L ALT 10 L Alkaline Phosphatase 100 Total Protein 7.0 Albumin 3.0 L 11/21/19 13:07 Perirectal Anaerobic Culture - Pending 11/21/19 12:18 Blood Blood Culture - Pending 11/21/19 10:56 Blood Blood Culture - Pending Preliminary micro results at discharge 11/21/19 13:07 Wound Culture - Preliminary Perirectal Gram Positive Melania,Mixed 11/21/19 13:07 Anaerobic Culture - Pending Perirectal 11/21/19 12:18 Blood Culture - Pending Blood 11/21/19 10:56 Blood Culture - Pending Blood [facility] Medical History Acute shoulder pain due to trauma (Inactive) Benign hypertension (Inactive 12/01/10) Cerumen impaction (Inactive 01/13/15) Dairy product intolerance (Inactive 08/22/16) Depressive disorder (Inactive 09/13/11) Disorder of left rotator cuff (Inactive 12/01/12) 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 Left -complete loss of hearing. Tobacco dependence syndrome (Inactive 09/13/10) Uncontrolled diabetes mellitus type 2 without complications (Inactive 12/01/09) Surgical History Biopsy of dital clavicle, left AC joint (02/25/15) Dr Bright 03/16/15 Addendum Surgical Patology report: Bone with maturing trilineage hematopesis; Reacive stnovium; No evidence of lymphoma identified per Dr. 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
== END 2019-11-22 13:30 | disposition home or self-care (01) ==
LOC: ER 13:14 → SUR 13:16 → MS 14:47
PROVIDERS: Admitting Provider Surgery; Emergency Provider Physician Assistant; PCP Internal Medicine; Visit Provider Surgery
PROC: 0D9P00Z Drainage of Rectum with Drainage Device, Open Approach (ICD-10-PCS; CPT 46040; principal; 2019-11-21 12:50)
DX: K61.1 Rectal abscess (principal); E11.65 Type 2 diabetes mellitus with hyperglycemia; F17.210 Nicotine dependence, cigarettes, uncomplicated; E78.00 Pure hypercholesterolemia, unspecified; Z79.4 Long term (current) use of insulin
CPT/HCPCS: 46040; 36415; 80048; 80053; 87040; 96365; 99222; 99223; 99239; 99285; 72193; 83036; 83605; 85025; 85610; 85730; 87070; 87075; 87205; G0378; J0295; J1885; J2001; J2250

== ENCOUNTER → 2019-11-24 10:55 | Outpatient (BNVA) | payer MEDICARE, MEDICAID, SELFPAY | PROVIDERS: PCP Internal Medicine; Referring Provider Internal Medicine; Visit Provider Surgery | DX: Z48.89 Encounter for other specified surgical aftercare (principal); K61.1 Rectal abscess ==

== ENCOUNTER → 2019-12-01 09:56 | Outpatient (BNVA) | payer MEDICARE, MEDICAID, SELFPAY | PROVIDERS: PCP Internal Medicine; Referring Provider Internal Medicine; Visit Provider Surgery | DX: Z48.817 Encounter for surgical aftercare following surgery on the skin and subcutaneous tissue (principal) | CPT/HCPCS: 99212 ==

== ENCOUNTER 2020-02-24 12:33 | Inpatient (IN) | payer MEDICARE, MEDICAID, SELFPAY ==
[2020-02-24] VITALS (25 sets, daily range): BP systolic 148–180; BP diastolic 87–101; PULSE 96–115; RESP 16–22; TEMP 36.5–36.6; O2SAT 90–100
--- NOTE | 2020-02-24 12:50 | W.ED.GENAD ---
Discharge Plan Discharge Details Chief Complaint: Nausea/Vomit/Diar Primary Care Provider: Khadijah Galicia ED Provider: Gricelda Ramirez Home Meds and New Rx's Prescriptions: No Action glimepiride [Amaryl] 4 mg tablet 4 mg PO QAM Qty: 90 RF: 3 atorvastatin 20 mg tablet 20 mg PO DAILY Qty: 90 RF: 3 metformin 1,000 mg tablet 1,000 mg PO BID Qty: 90 RF: 3 lisinopril 2.5 mg tablet 2.5 mg PO DAILY Qty: 90 RF: 3 omeprazole 20 mg capsule,delayed release(DR/EC) 20 mg PO DAILY Qty: 90 RF: 0 (DME) blood sugar diagnostic Strip See Rx Instructions .ROUTE .MEDSUPPLY Qty: 100 RF: 6 (DME) blood-glucose meter [OneTouch Verio Flex meter] Misc See Rx Instructions .ROUTE .MEDSUPPLY Qty: 1 RF: 0 (DME) lancets [OneTouch UltraSoft Lancets] Misc See Rx Instructions .ROUTE .MEDSUPPLY Qty: 100 RF: 6 Trulicity 0.75 mg/0.5 mL pen injector 0.75 mg SC QWEEK Qty: 2 RF: 0 acetaminophen [Mapap (acetaminophen)] 500 mg capsule 500 mg PO Q6H PRN (Reason: fever or pain) Qty: 30 RF: 0 Medical Decision Making <Gricelda Ramirez - Last Filed: 02/24/20 16:21> 54-year-old male diabetic presents with 2 days of nausea vomiting and epigastric heartburn pain. He has not been able to have any oral intake. Upon initial presentation his fingerstick glucose is 284. He appears cachectic and frail slightly jaundiced/pale color. Denies diarrhea. He does have a history of hypertension, GERD/smoker former alcoholic. 1316: EKG was reviewed by Dr. Daniel Kang MD, ER attending, no STEMI, no change from previous EKG no ectopy. 1327: CBC shows WBC count 25.64, mag of 1.4, BUN 31 creatinine 1.42 GFR 51.76 anion gap of 13.4, this could indicate mild DKA, 1425: CT abdomen pelvis with IV contrast ordered. Lactate, blood cultures x2, hemoglobin A1c added on to the labs. At this time I am unsure of the origin of leukocytosis, no evidence of urinary tract infection micro at this time is pending. Differential diagnosis includes mild DKA, failure to thrive, possible recurrence of perirectal abscess, cholecystitis, appendicitis although this is unlikely due to patient has no tenderness to palpation, small bowel obstruction. 1508: Spoke with Dr. Burdick who is on-call for hospitalist at this time, UDS and ethyl alcohol level added onto labs awaiting CT results at this time. Plan is to admit patient for leukocytosis of unknown origin, intractable vomiting. CT abdomen pelvis results: EXAM: CT ABDOMEN AND PELVIS W FINDINGS: Images obtained through the lung bases are unremarkable. Liver and spleen appear normal. The pancreas appears normal. Gallbladder and bile ducts are CT normal. Abdominal aorta is of normal diameter, major visceral branches appear intact. No significant abdominal wall hernia seen. No significant abdominal or pelvic adenopathy. Appendix is not identified with certainty, but there is no evidence of appendicitis or diverticulitis. There is apparent thickening of the gastric wall in the fundus and question of esophageal wall thickening; the patient has reportedly had significant recent vomiting and this finding may be related to vomiting. Infectious process not excluded. No evidence of bowel obstruction. Adrenals appear normal bilaterally. There are tiny bilateral nonobstructing renal calculi. There are tiny fluid attenuation renal masses seen bilaterally consistent with cysts. Additionally, there is a 17 millimeter in diameter hyperdense lesion, which lies in the medial aspect of the midpole of the right kidney; this has a mean attenuation of about 51 Hounsfield units and may be slightly heterogeneous. This was not present on prior abdominal CT of August 2018. This is an indeterminate lesion and the possibility of malignancy should be evaluated with renal protocol MRI without and with contrast administration. There is thickening of the wall of the urinary bladder not present on prior examinations, consider cystitis. IMPRESSION: Urinary bladder wall thickening, consider cystitis. New indeterminate right renal mass, additional evaluation with renal protocol MRI recommended. This text was generated using [employer] system, please disregard any oddities of phrase or misspellings. <Daniel Kang MD - Last Filed: 02/24/20 12:56> Patient seen, examined, discussed with Ms. Ramirez. I agree with her assessment and plan of care. Please see her note for details of the patient's care. HPI <Gricelda Ramirez - Last Filed: 02/24/20 16:21> General Mode of arrival: ambulatory. Date/Time Provider Initiated Documentation: 02/24/20 12:33. Limitations to Documentation: physical limitation (Hard of hearing). Information obtained by: patient. HPI Narrative: 54-year-old male diabetic presents with 2 days of nausea vomiting and epigastric heartburn pain. He has not been able to have any oral intake. Upon initial presentation his fingerstick glucose is 284. He appears cachectic and frail slightly jaundiced/pale color. Denies diarrhea. He does have a history of hypertension, GERD/smoker former alcoholic. Upon further questioning patient has a history of rectal abscess surgery approximately 3 months ago he is complaining of posterior coccyx pain. There is some slight erythema, no decubitus no significant skin breakdown. He does have some evidence of previous abscess noted to his left inner gluteal fold. No drainage noted. Related Data Home Medications Medication Instructions Recorded Confirmed blood sugar diagnostic #100 each 08/04/19 02/24/20 blood-glucose meter #1 each 08/04/19 02/24/20 lancets #100 each 08/04/19 02/24/20 atorvastatin 20 mg tablet 20 mg PO DAILY #90 tab-cap 08/25/19 02/24/20 glimepiride 4 mg tablet 4 mg PO QAM #90 tab 08/25/19 02/24/20 lisinopril 2.5 mg tablet 2.5 mg PO DAILY #90 tab-cap 08/25/19 02/24/20 metformin 1,000 mg tablet 1,000 mg PO BID #90 tab 08/25/19 02/24/20 omeprazole 20 mg capsule,delayed 20 mg PO DAILY #90 tab-cap 08/25/19 02/24/20 release acetaminophen [Mapap 500 mg PO Q6H PRN #30 cap 11/22/19 02/24/20 (acetaminophen)] dulaglutide 0.75 mg/0.5 mL 0.75 mg SC QWEEK #2 ml 01/14/20 02/24/20 subcutaneous pen injector Previous Rx's Medication Instructions Recorded blood sugar diagnostic #100 each 08/04/19 blood-glucose meter #1 each 08/04/19 lancets #100 each 08/04/19 atorvastatin 20 mg tablet 20 mg PO DAILY #90 tab-cap 08/25/19 glimepiride 4 mg tablet 4 mg PO QAM #90 tab 08/25/19 lisinopril 2.5 mg tablet 2.5 mg PO DAILY #90 tab-cap 08/25/19 metformin 1,000 mg tablet 1,000 mg PO BID #90 tab 08/25/19 omeprazole 20 mg capsule,delayed 20 mg PO DAILY #90 tab-cap 08/25/19 release acetaminophen [Mapap 500 mg PO Q6H PRN #30 cap 11/22/19 (acetaminophen)] dulaglutide 0.75 mg/0.5 mL 0.75 mg SC QWEEK #2 ml 01/14/20 subcutaneous pen injector Allergies Allergy/AdvReac Type Severity Reaction Status Date / Time Milk Containing Products Allergy Unknown gi upset Verified 02/24/20 12:47 tramadol AdvReac diarrhea/GI Verified 02/24/20 12:47 General Stated Complaint: Nausea/Vomit/Diar TABITHA: 3 Review of Systems <Gricelda Ramirez - Last Filed: 02/24/20 16:21> Narrative: Constitutional: Patient is pale, cachectic and frail looking he looks older than his stated age. HEENT: Denies trauma, headaches, blurry vision, nasal discharge, sore throat, trouble swallowing. Chest: Denies chest pain, palpitations, irregular rhythm, hypertension. Respiratory: Denies Shortness of breath, cough, hemoptysis. GI: Denies abdominal pain, positive nausea vomiting x2 days, denies diarrhea, no constipation. : Denies dysuria, hematuria, flank pain, rectal bleeding. Neuro: Denies dizziness, blurry vision, syncope, headache or facial numbness. Hematologic: Denies easy bruising, intolerance to heat or cold, hair loss. PFS <Gricelda Ramirez - Last Filed: 02/24/20 16:21> Medical History (Updated 02/24/20 @ 15:43 by Jody Del Rio NP) Abscess, perirectal (Inactive) Acute shoulder pain due to trauma (Inactive) Benign hypertension (Acute 12/01/10) Cerumen impaction (Inactive 01/13/15) Dairy product intolerance (Inactive 08/22/16) Depressive disorder (Inactive 09/13/11) Disorder of left rotator cuff (Inactive 12/01/12) 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 Left -complete loss of hearing. Tobacco dependence syndrome (Inactive 09/13/10) Uncontrolled diabetes mellitus type 2 without complications (Inactive 12/01/09) Surgical History Biopsy of dital clavicle, left AC joint (02/25/15) Dr Bright 03/16/15 Addendum Surgical Patology report: Bone with maturing trilineage hematopesis; Reacive stnovium; No evidence of lymphoma identified per Dr. Deann Godoy MD H/O drainage of abscess (Acute ~11/21/19) Rotator Cuff Repair Family History Mother Diabetes Essential hypertension Myocardial infarction Social History Smoking/Tobacco Use Status: Current every day Tobacco Type: cigarettes Tobacco: How many years used: 35 Quit status: not considering quitting Alcohol Intake: former Drug use: Occasionally Substance use type: marijuana Household members: none Housing: other Details: trailer Number of Children: 1 Communication Needs: Hard of Hearing Do you need help understanding health information?: Often current occupation: disabled Pets and animals: Yes Pets and animals: dog(s) Current gender identity: male What type of physical activity do you participate in: none 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 Head: Normocephalic, no trauma. Eyes: Pupils PERRLA, pupils are 2 mm bilaterally pinpoint, Red reflex noted, EOM's intact. Eyelids symmetrical without lesions, discharge, or swelling. ENT: Bilateral TM's WNL, External ear normal to inspection, no mastoid TTP, swelling, or erythema, Nasal turbinates WNL, no nasal discharge. Normal dentition, Posterior pharynx WNL, no exudate. Chest: Tachycardic, Normal S1, S2, distal pulses intact. Resp: Lungs clear to auscultation bilaterally, no wheezes, rales, or rhonchi. Musculoskeletal: Normal gait, 5/5 strength to all four extremities. Skin: No suspicious rashes or lesions. Capillary refill less than 2 sec. does have some pockmarks noted to his left gluteal fold and some slight erythema noted to his coccyx no drainage or decubitus ulcer visualized. Neurologic: Cranial nerves II-XII intact. Alert and oriented x 3. DTR's intact. Hematologic/Lymphatic: No ecchymosis, no lymphadenopathy. Course <Gricelda Ramirez - Last Filed: 02/24/20 16:21> Vital Signs Vital signs: Vital Signs Temperature 36.6 C 02/24/20 12:42 Pulse 96 H 02/24/20 12:42 Respiratory Rate 22 02/24/20 12:42 Blood Pressure 148/88 H 02/24/20 12:42 Pulse Oximetry 100 02/24/20 12:42 Temperature 36.6 C 02/24/20 12:42 Temperature Source Temporal Artery Scan 02/24/20 12:42 Pulse 96 H 02/24/20 12:42 Respiratory Rate 22 02/24/20 12:42 Respiratory Effort 02/24/20 12:45 Blood Pressure 148/88 H 02/24/20 12:42 Blood Pressure Position Supine 02/24/20 12:42 Pulse Oximetry 100 02/24/20 12:42 Oxygen Delivery Method Room Air 02/24/20 12:42 Oxygen Flow Rate 0 02/24/20 12:42 Pain Level 0 02/24/20 12:42
[2020-02-24 12:59] LABS: Absolute Monocyte Count 1.13 k/cumm (0.11-0.7); HCT 40.5 % (40.0-50.0); HGB 14.5 g/dL (13.5-17.5); Immature Grans % 0.4 %; Lymphocytes % 3.8; Mean Corp. HGB Concentration 35.8 g/dL (32.0-36.0); Mean Corpuscular Hemoglobin 30.2 pg (27.0-33.0); Mean Corpuscular Volume 84.4 fL (80-95); Mean Platelet Volume 11.5 fL (8.0-11.0); Monocytes % 4.4; Neutrophils % 91.4; Platelet Count 313 x1000/uL (130-400); RBC Distribution Width 12.9 % (11.8-14.1)
[2020-02-24] MEDS: Lactated Ringers 1,000 ML 1000 ML IV (13:00)
[2020-02-24] MEDS: Normal Saline Flush 10 ML SYR IVP ×3 (13:00→21:08)
[2020-02-24] MEDS: Ondansetron 4 MG/2 ML VIAL IVP ×2 (13:01→14:14)
[2020-02-24 13:19] LABS: ALT 16 U/L (16-63); AST 10 U/L (15-37); Alkaline Phosphatase 79 U/L (46-116); Anion Gap 13.4 mmol/L (3-11); BUN 31 mg/dL (7-18); Bilirubin, Total 0.6 mg/dL (0.2-1.0); CO2 22.6 mmol/L (21.0-32.0); CREATININE 1.42 mg/dL (0.70-1.30); Calcium 9.5 mg/dL (8.5-10.1); Chloride 98 mmol/L (98-107); Estimated GFR 51.76 (mL/min/1.73m2); Glucose 316 mg/dL (74-106); Lipase 82 U/L (73-393); Magnesium 1.4 mg/dL (1.8-2.4); Potassium 4.5 mmol/L (3.5-5.1); Sodium 134 mmol/L (136-145); Total Protein 7.5 g/dL (6.4-8.2)
[2020-02-24 13:22] LABS: Absolute Lymphocyte Count 0.97 k/cumm (1.2-3.4); Absolute Neutrophil Count 23.43 k/cumm (1.2-6.7)
[2020-02-24 13:24] LABS: Diff Comment Agrees w/ Instrument; RBC Morphology Normal
[2020-02-24 13:26] LABS: White Blood Cell Count 25.64 k/cumm (4.4-10.8)
--- NOTE | 2020-02-24 13:29 | DI.CT_ITS ---
EXAM: CT ABDOMEN AND PELVIS W CLINICAL HISTORY: NAUSEA, VOMITING, LEUKOCYTOSIS TECHNIQUE: CT examination of the abdomen and pelvis was performed with a bolus infusion of 100 cc of Omnipaque 350. COMPARISON: CT CHEST ABD PELVIS WITH CONTRAST from 08/01/2012 CT CHEST ABD PELVIS WITH CONTRAST from 08/01/[address] PELVIC W from 11/21/[address] PELVIC W from 11/21/2019 FINDINGS: Images obtained through the lung bases are unremarkable. Liver and spleen appear normal. The pancre as appears normal. Gallbladder and bile ducts are CT normal. Abdominal aorta is of normal diameter, major visceral branches appear intact. No significant abdominal wall hernia seen. No significant abdominal or pelvic adenopathy. Appendix is not identified with certainty, but there is no evidence of appendicitis or diverticulitis . There is apparent thickening of the gastric wall in the fundus and question of esophageal wall thi ckening; the patient has reportedly had significant recent vomiting and this finding may be related t o vomiting. Infectious process not excluded. No evidence of bowel obstruction. Adrenals appear normal bilaterally. There are tiny bilateral nonobstructing renal calculi. There ar e tiny fluid attenuation renal masses seen bilaterally consistent with cysts. Additionally, there is a 17 millimeter in diameter hyperdense lesion, which lies in the medial aspect of the midpole of the right kidney; this has a mean attenuation of about 51 Hounsfield units and may be slightly heterogen eous. This was not present on prior abdominal CT of August 2018. This is an indeterminate lesion and the possibility of malignancy should be evaluated with renal protocol MRI without and with contra st administration. There is thickening of the wall of the urinary bladder not present on prior examinations, consider cy stitis. IMPRESSION: Urinary bladder wall thickening, consider cystitis. New indeterminate right renal mass, additional evaluation with renal protocol MRI recommended.
[2020-02-24 13:56] LABS: Bilirubin Small (Negative); Blood Trace-intact (Negative); Clarity Clear (Clear); Glucose 500 mg/dL (Negative); Ketones 80 mg/dL (Negative); Leukocyte Esterase Negative (Negative); Nitrite Negative (Negative); Specific Gravity 1.025 (1.005-1.025); Urobilinogen 0.2 EU/dL (Up TO 0.2)
[2020-02-24] MEDS: Normal Saline 1,000 ML 1000 ML IV (14:00)
[2020-02-24 14:04] LABS: Troponin I < 0.05 ng/mL (<0.06)
[2020-02-24 14:08] LABS: Bacteria Few HPF (Negative); Crystals Negative HPF (Negative); Epithelial Cells Rare HPF (Negative); Mucus Moderate (Negative); Other Cells Few Renal (Negative); WBC 0-2 HPF (0-5)
[2020-02-24 14:09] LABS: C & S Indicated? No; Casts 3-5 Fine Granular LPF (Negative)
[2020-02-24 14:43] LABS: Lactate 1.4 mmol/L (0.6-1.4)
[2020-02-24 15:02] LABS: Hemoglobin A1C 8.8 % (3.8-5.6)
--- NOTE | 2020-02-24 15:31 | HPE_ITS ---
Date of service: 02/24/20 Time of Service: 15:31 Assessment and Plan Assessment and plan (1) Nausea and vomiting: Status: Acute Assessment and plan: intractable, given zofran in ED, continue zofran as n eeded. no etiology on CT scan or work up to explain symptoms, no DKA. afebrile. likely GI viral illness. will give carafate. PPI (2) Leukocytosis: Status: Acute Assessment and plan: urine did not reflex for culture but evidence of cystitis on CT scan. no fevers. no other source of infection identified. possible stress response from vomiting but there is a significant left shift. c losely monitor. blood cultures obtained in ED, urine culture will be sent. lactate was normal. will hold off on antibiotics for now but low threshold for ceftriaxone if runs fever. (3) Acute kidney injury: Status: Acute Assessment and plan: likely prerenal from GI losses. will hydrate, avoid nephrotoxic drugs. hold metformin and lisinopril for now. monitor I&O and kidney function closely (4) Hypomagnesemia: Status: Acute Assessment and plan: likely from gi losses, will replete and follow (5) Diabetes mellitus type 2 with complications, uncontrolled: Status: Acute Assessment and plan: A1C 8.8 which is improved from 12.4 in Oct 2019, can have diabetic diet advanced as tolerated starting with clears once able to take po, blood sugar checks ac/hs with sliding scale coverage. medications on hold at this time d/t renal function, will reassess in am. continue IV hydration overnight (6) Benign hypertension: Status: Acute Assessment and plan: blood pressures controlled. will place lisinopril on hold overnight, will likely resume tomorrow if kidney function improved. (7) Pure hypercholesterolemia: Status: Acute Assessment and plan: continue statin (8) DVT prophylaxis: Status: Acute Assessment and plan: heparin in setting of renal injury, TEDS, scds (9) Discharge planning issues: Status: Acute Assessment and plan: anticipate discharge to home with no services once medically stable History of Present Illness History of Present Illness Chief Complaint: nausea and vomiting Narrative: Pr esents with a 2-day history of left gluteal pain nausea and vomiting unable to tolerate oral intake. Work-up in the emergency department included a CAT scan of the abdomen and pelvis which was unremarkable findings on labs included a leukocytosis with a white count of 24,000 with a left shift there was no source of infection identified he had no fevers he was hemodynamically stable. Urine did not reflex for culture but we have sent culture which is pending to blood cultures are pending. No respiratory symptoms. . Review of Systems Constitutional Constitutional: Denies fever(s) Gastrointestinal Gastrointestinal: Reports nausea and Reports vomiting Musculoskeletal Musculoskeletal: Reports abnormal gait and Reports other (Left gluteal pain) Integumentary/Breasts Skin/Breast: Denies lesions and Denies rash Neurologic Neurologic: Reports abnormal gait [facility] Medical History (Updated 02/24/20 @ 15:43 by Jody Del Rio NP) Abscess, perirectal (Inactive) Acute shoulder pain due to trauma (Inactive) Benign hypertension (Acute 12/01/10) Cerumen impaction (Inactive 01/13/15) Dairy product intolerance (Inactive 08/22/16) Depressive disorder (Inactive 09/13/11) Disorder of left rotator cuff (Inactive 12/01/12) 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 Left -complete loss of hearing. Tobacco dependence syndrome (Inactive 09/13/10) Uncontrolled diabetes mellitus type 2 without complications (Inactive 12/01/09) Surgical History Biopsy of dital clavicle, left AC joint (02/25/15) Dr Bright 03/16/15 Addendum Surgical Patology report: Bone with maturing trilineage hematopesis; Reacive stnovium; No evidence of lymphoma identified per Dr. Deann Godoy MD H/O drainage of abscess (Acute ~11/21/19) Rotator Cuff Repair Family History Mother Diabetes Essential hypertension Myocardial infarction Social History Smoking/Tobacco Use Status: Current every day Tobacco Type: cigarettes Tobacco: How many years used: 35 Quit status: not considering quitting Alcohol Intake: former Drug use: Occasionally Substance use type: marijuana Household members: none Housing: other Details: trailer Number of Children: 1 Communication Needs: Hard of Hearing Do you need help understanding health information?: Often current occupation: disabled Pets and animals: Yes Pets and animals: dog(s) Current gender identity: male What type of physical activity do you participate in: none 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 Working smoke detector in home: Yes Do you feel safe at home: Yes Do you feel safe in your relationship?: Yes Meds Home Medications and Allergies Home Medications Medication Instructions Recorded Confirmed Type blood sugar diagnostic #100 each 08/04/19 02/24/20 Rx blood-glucose meter #1 each 08/04/19 02/24/20 Rx lancets #100 each 08/04/19 02/24/20 Rx atorvastatin 20 mg tablet 20 mg PO DAILY #90 tab-cap 08/25/19 02/24/20 Rx glimepiride 4 mg tablet 4 mg PO QAM #90 tab 08/25/19 02/24/20 Rx lisinopril 2.5 mg tablet 2.5 mg PO DAILY #90 tab-cap 08/25/19 02/24/20 Rx metformin 1,000 mg tablet 1,000 mg PO BID #90 tab 08/25/19 02/24/20 Rx omeprazole 20 mg capsule,delayed 20 mg PO DAILY #90 tab-cap 08/25/19 02/24/20 Rx release acetaminophen [Mapap 500 mg PO Q6H PRN #30 cap 11/22/19 02/24/20 Rx (acetaminophen)] dulaglutide 0.75 mg/0.5 mL 0.75 mg SC QWEEK #2 ml 01/14/20 02/24/20 Rx subcutaneous pen injector Allergies Allergy/AdvReac Type Severity Reaction Status Date / Time Milk Containing Products Allergy Unknown gi upset Verified 02/24/20 12:47 tramadol AdvReac diarrhea/GI Verified 02/24/20 12:47 Exam Const General: cooperative, comfortable, in distress moderate, disheveled, frail appearing and ill appearing chronically Nutritional Appearance: thin Orientation: alert, awake and oriented x3 HENMT Head: normal to inspection, normocephalic and atraumatic Resp Effort & Inspection: normal respiratory effort Auscultation: clear to auscultation bilaterally Cardio Rate: regular rate Rhythm: regular rhythm GI Inspection: normal to inspection Palpation: soft Auscultation: normal bowel sounds Skin General skin exam: no rashes or lesions noted Neuro General: patient alert, patient awake and patient oriented x3 Cranial Nerves: CN's II-XI intact bilaterally Extrem General: normal to inspection, full ROM and no pedal edema Results Labs Result diagrams: 02/24/20 12:52 02/24/20 12:52 Labs: Laboratory Results - last 24 hr 02/24/20 02/24/20 02/24/20 12:52 12:52 12:52 WBC 25.64 H* RBC 4.80 Hgb 14.5 Hct 40.5 MCV 84.4 MCH 30.2 MCHC 35.8 RDW 12.9 Plt Count 313 MPV 11.5 H Immature Gran % 0.4 Neutrophils % 91.4 Lymphocytes % 3.8 Monocytes % 4.4 Eosinophils % 0.0 Basophils % 0.0 Absolute Neutrophils 23.43 H Absolute Lymphocytes 0.97 L Absolute Monocytes 1.13 H Absolute Eosinophils 0.00 Absolute Basophils 0.00 Differential Comment Agrees w/ instrument RBC Morphology Normal Sodium 134 L Potassium 4.5 Chloride 98 Carbon Dioxide 22.6 Anion Gap 13.4 H BUN 31 H Creatinine 1.42 H Estimated GFR/1.73 m2 51.76 Glucose 316 H Hemoglobin A1c 8.8 H Lactate Calcium 9.5 Magnesium 1.4 L Total Bilirubin 0.6 AST 10 L ALT 16 Alkaline Phosphatase 79 Troponin I Total Protein 7.5 Albumin 4.0 Lipase 82 Urine Color Urine Clarity Urine pH Ur Specific [place] Urine Protein Urine Ketones Urine Blood Urine Nitrite Urine Bilirubin Urine Urobilinogen Ur Leukocyte Esterase Urine RBC Urine WBC Ur Epithelial Cells Urine Crystals Urine Bacteria Urine Casts Urine Mucus Urine Other Ur Culture Indicated? Urine Glucose 02/24/20 02/24/20 02/24/20 13:29 13:50 14:35 WBC RBC Hgb Hct MCV MCH MCHC RDW Plt Count MPV Immature Gran % Neutrophils % Lymphocytes % Monocytes % Eosinophils % Basophils % Absolute Neutrophils Absolute Lymphocytes Absolute Monocytes Absolute Eosinophils Absolute Basophils Differential Comment RBC Morphology Sodium Potassium Chloride Carbon Dioxide Anion Gap BUN Creatinine Estimated GFR/1.73 m2 Glucose Hemoglobin A1c Lactate 1.4 Calcium Magnesium Total Bilirubin AST ALT Alkaline Phosphatase Troponin I < 0.05 Total Protein Albumin Lipase Urine Color Yellow Urine Clarity Clear Urine pH 6.0 Ur Specific [place] 1.025 Urine Protein 100 H Urine Ketones 80 H Urine Blood Trace-intact H Urine Nitrite Negative Urine Bilirubin Small H Urine Urobilinogen 0.2 Ur Leukocyte Esterase Negative Urine RBC 3-5 H Urine WBC 0-2 Ur Epithelial Cells Rare Urine Crystals Negative Urine Bacteria Few Urine Casts 3-5 fine granular Urine Mucus Moderate Urine Other Few renal Ur Culture Indicated? No Urine Glucose 500 H Last Vital Signs Temp 36.6 C 02/24/20 12:42 Pulse 96 H 02/24/20 12:42 Resp 22 02/24/20 12:42 BP 148/88 H 02/24/20 12:42 Pulse Ox 100 02/24/20 12:42 COVID-19 Screening In the past 14 days, have you traveled outside of [place] or [place]?: NO Had IN PERSON contact w/suspected or confirmed C-19 person: No
[2020-02-24] MEDS: MAGNESIUM SULFATE 2 GM/50 ML BAG IVPB (15:36)
[2020-02-24 16:20] LABS: *AMPHETAMINES SCREEN URINE Negative (Negative); *BARBITURATES SCREEN URINE Negative (Negative); *BENZODIAZEPINES SCREEN URINE Negative (Negative); Cannabinoids THC POSITIVE (Negative); Cocaine Screen,Urine Negative (Negative); METHADONE URINE SCREEN Negative (Negative); OPIATES URINE SCREEN Negative (Negative)
[2020-02-24 16:25] LABS: Tricyclic Antidepressants Negative (Negative)
[2020-02-24 16:29] LABS: ETHANOL BLOOD < 3.0 mg/dL (<3)
[2020-02-24 17:17] LABS: Troponin I < 0.05 ng/mL (<0.06)
[2020-02-24] MEDS: Lactated Ringers 1,000 ML 100 ML IV (17:40)
[2020-02-24] MEDS: Pantoprazole 40 MG VIAL IVP (17:44)
[2020-02-24] MEDS: Sucralfate 1 GM TAB PO ×2 (17:44→21:38)
[2020-02-24] MEDS: Heparin 5,000 UNITS/ML VIAL 5000 UNITS SC (18:45)
[2020-02-24] MEDS: Ibuprofen 600 MG TAB PO (18:54)
[2020-02-24] MEDS: Acetaminophen 325 MG TAB 650 MG PO (20:00)
[2020-02-24] MEDS: Lidocaine 5% Patch 1 PATCH TP (21:37)
[2020-02-24] MEDS: Melatonin 3 MG TAB 6 MG PO (21:38)
[2020-02-25 00:16] VITALS: BP 148/81; PULSE 93; RESP 18; TEMP 37; O2SAT 98
[2020-02-25] MEDS: Heparin 5,000 UNITS/ML VIAL 5000 UNITS SC ×3 (01:36→17:48)
[2020-02-25] MEDS: Ibuprofen 600 MG TAB PO ×2 (01:40→09:20)
[2020-02-25] MEDS: Lactated Ringers 1,000 ML 100 ML IV ×2 (04:17→19:40)
[2020-02-25 06:54] LABS: Abs Immature Grans 0.02 k/cumm (0.0-0.09); Absolute Basophil Count 0.01 k/cumm (0.0-0.2); Absolute Eosinophil Count 0.01 k/cumm (0.0-0.7); Absolute Lymphocyte Count 1.07 k/cumm (1.2-3.4); Absolute Monocyte Count 0.74 k/cumm (0.11-0.7); Absolute Neutrophil Count 10.04 k/cumm (1.2-6.7); Basophils % 0.1; Eosinophils % 0.1; HCT 34.4 % (40.0-50.0); HGB 12.3 g/dL (13.5-17.5); Immature Grans % 0.2 %; Mean Corp. HGB Concentration 35.8 g/dL (32.0-36.0); Mean Corpuscular Hemoglobin 30.3 pg (27.0-33.0); Mean Corpuscular Volume 84.7 fL (80-95); Mean Platelet Volume 11.4 fL (8.0-11.0); Monocytes % 6.2; Neutrophils % 84.4; Platelet Count 215 x1000/uL (130-400); RBC 4.06 m/cumm (4.50-6.00); RBC Distribution Width 12.5 % (11.8-14.1); White Blood Cell Count 11.89 k/cumm (4.4-10.8)
[2020-02-25 07:12] LABS: ALT 11 U/L (16-63); AST 9 U/L (15-37); Albumin 3.1 g/dL (3.4-5.0); Alkaline Phosphatase 65 U/L (46-116); Anion Gap 7.7 mmol/L (3-11); BUN 23 mg/dL (7-18); Bilirubin, Total 0.5 mg/dL (0.2-1.0); CO2 26.3 mmol/L (21.0-32.0); CREATININE 1.09 mg/dL (0.70-1.30); Calcium 8.5 mg/dL (8.5-10.1); Chloride 100 mmol/L (98-107); Glucose 215 mg/dL (74-106); Magnesium 1.6 mg/dL (1.8-2.4); Potassium 3.5 mmol/L (3.5-5.1); Sodium 134 mmol/L (136-145); Total Protein 5.9 g/dL (6.4-8.2)
[2020-02-25] MEDS: Sucralfate 1 GM TAB PO ×4 (07:28→21:15)
[2020-02-25 07:32] VITALS: BP 151/74; PULSE 98; RESP 22; TEMP 36.9; O2SAT 98
[2020-02-25 08:12] LABS: COVID-19 RT-PCR UVMMC Result Negative (Negative)
[2020-02-25] MEDS: Insulin Aspart 300 UNITS/3 ML PEN SC ×2 (08:16→12:29)
[2020-02-25] MEDS: Glimepiride 2 MG TAB 4 MG PO (09:19)
[2020-02-25] MEDS: Acetaminophen 325 MG TAB 650 MG PO (09:20)
[2020-02-25] MEDS: Atorvastatin 20 MG TAB PO (09:21)
[2020-02-25] MEDS: Ondansetron 4 MG/2 ML VIAL IVP (09:29)
[2020-02-25] MEDS: Normal Saline Flush 10 ML SYR IVP ×3 (09:29→16:40)
[2020-02-25] MEDS: metFORMIN 500 MG TAB 1000 MG PO ×2 (09:31→21:15)
[2020-02-25] MEDS: Lisinopril 5 MG TAB 2.5 MG PO (09:34)
[2020-02-25] MEDS: Patch Removal 1 EACH TP (09:47)
[2020-02-25] MEDS: ACETAMINOPHEN 1,000 MG/100 ML BTL 400 MG IVPB ×2 (09:58→17:48)
[2020-02-25] MEDS: MAGNESIUM SULFATE 2 GM/50 ML BAG IVPB (10:29)
--- NOTE | 2020-02-25 10:33 | PHA.REVIEW ---
Pharmacy Admission Review - Admission Clinical Review (Last Updated 02/24/20 @ 15:34 by Jody Del Rio NP) Leukocytosis (Acute) Hypomagnesemia (Acute) Nausea and vomiting (Acute) Discharge planning issues (Acute) DVT prophylaxis (Acute) Acute kidney injury (Acute) Diabetes mellitus type 2 with complications, uncontrolled (Acute) Benign hypertension (Acute 12/01/10) Pure hypercholesterolemia (Acute 09/13/11) Milk Containing Products Allergy (Unknown, Verified 02/24/20 12:47) gi upset tramadol Adverse Reaction (Verified 02/24/20 12:47) diarrhea/GI Height 5 ft 8 in Weight 67.9 kg - Renal Dosing Renal Dosing: BUN 23 mg/dL (7-18) H 02/25/20 06:00 Creatinine 1.09 mg/dL (0.70-1.30) 02/25/20 06:00 Medications needing adjustments: Reviewed - Anticoagulation Anticoagulation: Hgb 12.3 g/dL (13.5-17.5) L D 02/25/20 06:00 Hct 34.4 % (40.0-50.0) L 02/25/20 06:00 Plt Count 215 x1000/uL (130-400) 02/25/20 06:00 Creatinine 1.09 mg/dL (0.70-1.30) 02/25/20 06:00 DVT Prohphylaxis: Reviewed Medications: Heparin - Opiate Usage Evaluate Pain Scale/Pains Meds: N/A Scheduled Bowel Reg ordered if on Opiates?: No (prn) - Relevant Labs Sodium 134 mmol/L (136-145) L 02/25/20 06:00 Potassium 3.5 mmol/L (3.5-5.1) D 02/25/20 06:00 Chloride 100 mmol/L (98-107) 02/25/20 06:00 Magnesium 1.6 mg/dL (1.8-2.4) L 02/25/20 06:00 Electrolytes, C-Reactive P, ESR: Reviewed (mag (IV) and potassium (PO) repleted today) - DM Control DM Control: Glucose 215 mg/dL (74-106) H D 02/25/20 06:00 Hemoglobin A1c 8.8 % (3.8-5.6) H 02/24/20 12:52 Finger Stick Blood Glucose 224 Finger Stick Blood Glucose 224 Insulin Dosing: Reviewed (aspart per SS; oral meds have been restarted this AM) - Heart Failure/IL Heart Failure/IL: Troponin I < 0.05 ng/mL (<0.06) 02/24/20 16:00 EF%, FABIO's, B-Blockers, Diuretics: Reviewed - BP Control BP Control: Blood Pressure 151/74 Blood Pressure 148/81 If elevated: Reviewed - IV to PO Switch IV Medications: Reviewed - Home Meds Home Med List reviewed: Reviewed - Current meds Current Medication Order Review: Reviewed (Urine culture just have back with Gram + catrachita)
--- NOTE | 2020-02-25 11:20 | W.PM.PROGNOT ---
Date of Service Date of service: 02/25/20 Time of Service: 11:20 Assessment and Plan Assessment and plan (1) Left hip pain: Status: Acute Assessment and plan: awaiting MRI which is scheduled for tomorrow morning, will need pre-medication as todays attempt was not tolerated, physical exam remains unremarkable. does not appear to be infectious etiology (2) Nausea and vomiting: Status: Acute Assessment and plan: somewhat improved but did have some intermittent after breakfast, continue zofran prn, no etiology on CT scan or work up to explain symptoms, no DKA. afebrile. likely GI viral illness or related to pain? continue carafate. PPI (3) Leukocytosis: Status: Acute Assessment and plan: remains afebrile with no fevers overnight, white count normalizing, urine and blood cultures pending, no source of infection identified. likely stress response and not infectious (4) Acute kidney injury: Status: Acute Assessment and plan: improved overnight, was likely prerenal from GI losses and poor po intake. continue IV hydration until tolerating PO. resume metformin and lisinopril. monitor I&O and kidney function closely (5) Hypomagnesemia: Status: Acute Assessment and plan: likely from gi losses and poor po intake, will replete and follow (6) Diabetes mellitus type 2 with complications, uncontrolled: Status: Acute Assessment and plan: A1C 8.8 which is improved from 12.4 in Oct 2019,continue diabetic diet advanced as tolerated starting with clears once able to take po, blood sugar checks ac/hs with sliding scale coverage. home medications resumed. continue IV hydration until taking good po (7) Benign hypertension: Status: Acute Assessment and plan: blood pressures controlled. resume lisinopril and continue to monitor (8) Pure hypercholesterolemia: Status: Acute Assessment and plan: continue statin (9) DVT prophylaxis: Status: Acute Assessment and plan: heparin in setting of renal injury, TEDS, scds (10) Discharge planning issues: Status: Acute Assessment and plan: anticipate discharge to home with no services once medically stable Subjective Subjective Patient reports: still having pain, nausea and vomiting Exam Const General: cooperative, comfortable, in distress moderate, disheveled, frail appearing and ill appearing chronically Nutritional Appearance: thin Orientation: alert, awake and oriented x3 HENMT Head: normal to inspection, normocephalic and atraumatic Resp Effort & Inspection: normal respiratory effort Auscultation: clear to auscultation bilaterally Cardio Rate: regular rate Rhythm: regular rhythm GI Inspection: normal to inspection Palpation: soft Auscultation: normal bowel sounds Skin General skin exam: no rashes or lesions noted Neuro General: patient alert, patient awake and patient oriented x3 Cranial Nerves: CN's II-XI intact bilaterally Extrem General: normal to inspection, full ROM and no pedal edema Objective Objective Clinical Data: Abnormal lab results 02/24/20 02/24/20 02/24/20 Range/Units 12:52 12:52 12:52 WBC 25.64 H* (4.4-10.8) k/cumm RBC (4.50-6.00) m/cumm Hgb (13.5-17.5) g/dL Hct (40.0-50.0) % MPV 11.5 H (8.0-11.0) fL Absolute Neutrophils 23.43 H (1.2-6.7) k/cumm Absolute Lymphocytes 0.97 L (1.2-3.4) k/cumm Absolute Monocytes 1.13 H (0.11-0.7) k/cumm Sodium 134 L (136-145) mmol/L Anion Gap 13.4 H (3-11) mmol/L BUN 31 H (7-18) mg/dL Creatinine 1.42 H (0.70-1.30) mg/dL Glucose 316 H (74-106) mg/dL Hemoglobin A1c 8.8 H (3.8-5.6) % Magnesium 1.4 L (1.8-2.4) mg/dL AST 10 L (15-37) U/L ALT (16-63) U/L Total Protein (6.4-8.2) g/dL Albumin (3.4-5.0) g/dL Urine Protein (Negative) mg/dL Urine Ketones (Negative) mg/dL Urine Blood (Negative) Urine Bilirubin (Negative) Urine RBC (0-2) HPF Urine Glucose (Negative) mg/dL Ur THC Screen (Negative) 02/24/20 02/24/20 02/25/20 Range/Units 13:50 13:50 06:00 WBC (4.4-10.8) k/cumm RBC (4.50-6.00) m/cumm Hgb (13.5-17.5) g/dL Hct (40.0-50.0) % MPV (8.0-11.0) fL Absolute Neutrophils (1.2-6.7) k/cumm Absolute Lymphocytes (1.2-3.4) k/cumm Absolute Monocytes (0.11-0.7) k/cumm Sodium 134 L (136-145) mmol/L Anion Gap (3-11) mmol/L BUN 23 H (7-18) mg/dL Creatinine (0.70-1.30) mg/dL Glucose 215 H D (74-106) mg/dL Hemoglobin A1c (3.8-5.6) % Magnesium 1.6 L (1.8-2.4) mg/dL AST 9 L (15-37) U/L ALT 11 L (16-63) U/L Total Protein 5.9 L (6.4-8.2) g/dL Albumin 3.1 L (3.4-5.0) g/dL Urine Protein 100 H (Negative) mg/dL Urine Ketones 80 H (Negative) mg/dL Urine Blood Trace-intact H (Negative) Urine Bilirubin Small H (Negative) Urine RBC 3-5 H (0-2) HPF Urine Glucose 500 H (Negative) mg/dL Ur THC Screen Positive A (Negative) 02/25/20 Range/Units 06:00 WBC 11.89 H D (4.4-10.8) k/cumm RBC 4.06 L (4.50-6.00) m/cumm Hgb 12.3 L D (13.5-17.5) g/dL Hct 34.4 L (40.0-50.0) % MPV 11.4 H (8.0-11.0) fL Absolute Neutrophils 10.04 H (1.2-6.7) k/cumm Absolute Lymphocytes 1.07 L (1.2-3.4) k/cumm Absolute Monocytes 0.74 H (0.11-0.7) k/cumm Sodium (136-145) mmol/L Anion Gap (3-11) mmol/L BUN (7-18) mg/dL Creatinine (0.70-1.30) mg/dL Glucose (74-106) mg/dL Hemoglobin A1c (3.8-5.6) % Magnesium (1.8-2.4) mg/dL AST (15-37) U/L ALT (16-63) U/L Total Protein (6.4-8.2) g/dL Albumin (3.4-5.0) g/dL Urine Protein (Negative) mg/dL Urine Ketones (Negative) mg/dL Urine Blood (Negative) Urine Bilirubin (Negative) Urine RBC (0-2) HPF Urine Glucose (Negative) mg/dL Ur THC Screen (Negative) Vital Signs Temperature 36.9 C 02/25/20 07:32 Temperature Source Tympanic 02/25/20 07:32 Pulse 98 H 02/25/20 07:32 Pulse Rhythm Regular 02/25/20 07:55 Pulse 108 H 02/24/20 16:00 Respiratory Rate 22 02/25/20 07:32 Respiratory Effort 02/25/20 07:55 Respiratory Depth Normal 02/25/20 07:55 Respiratory Pattern Normal 02/25/20 07:55 Blood Pressure 151/74 H 02/25/20 07:32 Blood Pressure Mean 110 02/24/20 15:46 Blood Pressure Position Supine 02/24/20 12:42 Pulse Oximetry 98 02/25/20 07:32 Oxygen Delivery Method Room Air 02/25/20 07:32 Oxygen Flow Rate 0 02/25/20 07:32 Pain Level 6 02/25/20 09:20 Intake & Output 02/24/20 02/24/20 02/25/20 11:59 23:59 11:59 Intake Total 1560 / 1560 1350 / 1350 Output Total 920 / 920 Balance 640 / 640 1350 / 1350 Weight 65 kg 67.9 kg Intake: IV 1010 / 1010 1010 / 1010 Oral 550 / 550 340 / 340 Output: Urine 920 / 920 Other: Urine Color Yellow Urine Appearance Clear Clear Urine Odor Normal Stool Size Moderate Stool Characteristics Liquid Emesis Description Retching Voiding Methods Urinal Laboratory Results WBC 11.89 k/cumm (4.4-10.8) H D 02/25/20 06:00 RBC 4.06 m/cumm (4.50-6.00) L 02/25/20 06:00 Hgb 12.3 g/dL (13.5-17.5) L D 02/25/20 06:00 Hct 34.4 % (40.0-50.0) L 02/25/20 06:00 MCV 84.7 fL (80-95) 02/25/20 06:00 MCH 30.3 pg (27.0-33.0) 02/25/20 06:00 MCHC 35.8 g/dL (32.0-36.0) 02/25/20 06:00 RDW 12.5 % (11.8-14.1) 02/25/20 06:00 Plt Count 215 x1000/uL (130-400) 02/25/20 06:00 MPV 11.4 fL (8.0-11.0) H 02/25/20 06:00 Immature Gran % 0.2 % 02/25/20 06:00 Neutrophils % 84.4 02/25/20 06:00 Lymphocytes % 9.0 02/25/20 06:00 Monocytes % 6.2 02/25/20 06:00 Eosinophils % 0.1 02/25/20 06:00 Basophils % 0.1 02/25/20 06:00 Absolute Neutrophils 10.04 k/cumm (1.2-6.7) H 02/25/20 06:00 Absolute Lymphocytes 1.07 k/cumm (1.2-3.4) L 02/25/20 06:00 Absolute Monocytes 0.74 k/cumm (0.11-0.7) H 02/25/20 06:00 Absolute Eosinophils 0.01 k/cumm (0.0-0.7) 02/25/20 06:00 Absolute Basophils 0.01 k/cumm (0.0-0.2) 02/25/20 06:00 Differential Comment Agrees w/ instrument 02/24/20 12:52 RBC Morphology Normal 02/24/20 12:52 Sodium 134 mmol/L (136-145) L 02/25/20 06:00 Potassium 3.5 mmol/L (3.5-5.1) D 02/25/20 06:00 Chloride 100 mmol/L (98-107) 02/25/20 06:00 Carbon Dioxide 26.3 mmol/L (21.0-32.0) 02/25/20 06:00 Anion Gap 7.7 mmol/L (3-11) 02/25/20 06:00 BUN 23 mg/dL (7-18) H 02/25/20 06:00 Creatinine 1.09 mg/dL (0.70-1.30) 02/25/20 06:00 Estimated GFR/1.73 m2 >= 60.00 (mL/min/1.73m2) 02/25/20 06:00 Glucose 215 mg/dL (74-106) H D 02/25/20 06:00 Hemoglobin A1c 8.8 % (3.8-5.6) H 02/24/20 12:52 Lactate 1.4 mmol/L (0.6-1.4) 02/24/20 14:35 Calcium 8.5 mg/dL (8.5-10.1) 02/25/20 06:00 Magnesium 1.6 mg/dL (1.8-2.4) L 02/25/20 06:00 Total Bilirubin 0.5 mg/dL (0.2-1.0) 02/25/20 06:00 AST 9 U/L (15-37) L 02/25/20 06:00 ALT 11 U/L (16-63) L 02/25/20 06:00 Alkaline Phosphatase 65 U/L (46-116) 02/25/20 06:00 Troponin I < 0.05 ng/mL (<0.06) 02/24/20 16:00 Total Protein 5.9 g/dL (6.4-8.2) L 02/25/20 06:00 Albumin 3.1 g/dL (3.4-5.0) L 02/25/20 06:00 Lipase 82 U/L (73-393) 02/24/20 12:52 Urine Color Yellow (Yellow) 02/24/20 13:50 Urine Clarity Clear (Clear) 02/24/20 13:50 Urine pH 6.0 (5-8) 02/24/20 13:50 Ur Specific [place] 1.025 (1.005-1.025) 02/24/20 13:50 Urine Protein 100 mg/dL (Negative) H 02/24/20 13:50 Urine Ketones 80 mg/dL (Negative) H 02/24/20 13:50 Urine Blood Trace-intact (Negative) H 02/24/20 13:50 Urine Nitrite Negative (Negative) 02/24/20 13:50 Urine Bilirubin Small (Negative) H 02/24/20 13:50 Urine Urobilinogen 0.2 EU/dL (Up TO 0.2) 02/24/20 13:50 Ur Leukocyte Esterase Negative (Negative) 02/24/20 13:50 Urine RBC 3-5 HPF (0-2) H 02/24/20 13:50 Urine WBC 0-2 HPF (0-5) 02/24/20 13:50 Ur Epithelial Cells Rare HPF (Negative) 02/24/20 13:50 Urine Crystals Negative HPF (Negative) 02/24/20 13:50 Urine Bacteria Few HPF (Negative) 02/24/20 13:50 Urine Casts 3-5 fine granular LPF (Negative) 02/24/20 13:50 Urine Mucus Moderate (Negative) 02/24/20 13:50 Urine Other Few renal (Negative) 02/24/20 13:50 Ur Culture Indicated? No 02/24/20 13:50 Urine Glucose 500 mg/dL (Negative) H 02/24/20 13:50 Urine Opiates Screen Negative (Negative) 02/24/20 13:50 Urine Methadone Screen Negative (Negative) 02/24/20 13:50 Ur Barbiturates Screen Negative (Negative) 02/24/20 13:50 Ur Tricyclics Screen Negative (Negative) 02/24/20 13:50 Ur Amphetamines Screen Negative (Negative) 02/24/20 13:50 U Benzodiazepines Scrn Negative (Negative) 02/24/20 13:50 Urine Cocaine Screen Negative (Negative) 02/24/20 13:50 Ur THC Screen Positive (Negative) A 02/24/20 13:50 Ethyl Alcohol < 3.0 mg/dL (<3) 02/24/20 14:35 COVID-19 PCR Negative (Negative) 02/24/20 16:21 Nasopharyn COVID-19 PCR Not Applicable 02/24/20 16:21 Ref Test Perform Site [place] [facility] lab 02/24/20 16:21
--- NOTE | 2020-02-25 12:36 | PDOC.CMIN ---
- If Service Date Differs Date of service: 02/25/20 Time of Service: 12:38 Care Management Initial Assess REASON FOR HOSPITALIZATION:: Nausea and Vomiting PAST MEDICAL HISTORY/PAST SURGICAL HISTORY:: Abscess, perirectal (Inactive). Acute shoulder pain due to trauma (Inactive). Benign hypertension (Acute 12/01/10). Cerumen impaction (Inactive 01/13/15). Dairy product intolerance (Inactive 08/22/16). Depressive disorder (Inactive 09/13/11). Disorder of left rotator cuff (Inactive 12/01/12). Impotence of organic origin (Inactive 12/01/12). 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 Noncompliance with diabetes treatment (Inactive 06/29/15). Pure hypercholesterolemia (Acute 09/13/11). Sensorineural hearing loss (Acute 10/23/13). right ear. Left -complete loss of hearing. Tobacco dependence syndrome (Inactive 09/13/10). Uncontrolled diabetes mellitus type 2 without complications (Inactive 12/01/09). Surgical History . Biopsy of dital clavicle, left AC joint (02/25/15). Dr Bright. 03/16/15 Addendum Surgical Patology report: Bone with maturing trilineage hematopesis; Reacive stnovium; No evidence of lymphoma identified per Dr. Deann Godoy MD. H/O drainage of abscess (Acute ~11/21/19). 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 He states he has his hearing aids and batteries with him. He states he has one grown child and two step children as well. He lives in [place], [place] in a trailer. CURRENT FUNCTIONAL STATUS:: Harry is alert he is extreemly hard of hearing he has hearing aids and batteries here. He states he lost his hearing about 20 years ago which was job related. He states that this past year has been rough. His dog last month, his sister was in an accident and his nephew and his cousin commited suicide. He is tearful, CM suggest resources for therapy he states not at this time however he will consider talking with someone. ADVANCE DIRECTIVES:: None on file does not want to complete at this time Has patient been provided with information about the portal?: Yes Did the patient sign up for the portal?: No CODE STATUS:: Full Code INSURANCE COVERAGE / FINANCIAL ISSUES:: Medicare/Medicaid CURRENT HOME/COMMUNITY SERVICES/EQUIPMENT:: None PRIMARY CARE PHYSICIAN:: POTENTIAL DISCHARGE NEEDS:: Follow up with primary care and specility as directed PATIENT/FAMILY EDUCATION NEEDS:: Discharge education, limitations and follow up plan of care including ask me three. ANTICIPATED BARRIERS TO DISCHARGE:: None identified TRANSPORTATION:: Via private car at time of discharge PLAN:: Harry will be discharged when medically ready. He will not need any additional services at time of discharge. CM to continue to assess for discharge needs.
[2020-02-25] MEDS: Ketorolac 15 MG/ML VIAL IVP ×2 (13:30→22:02)
[2020-02-25] MEDS: MORPHine 2 MG/ML SYR IVP (13:57)
--- NOTE | 2020-02-25 15:00 | CHAPLAIN ---
Harry was resting in bed when I visited. He has difficulty hearing, but I think he understood my role. (I wasn't aware of this recent losses stated in the care mangers note - dog dies recently, nephew by suicide.) He didn't seem interested in in talking with me but I will try again.
[2020-02-25] MEDS: Pantoprazole 40 MG VIAL IVP (16:40)
[2020-02-25 16:41] VITALS: BP 108/63; PULSE 80; RESP 16; TEMP 36.4; O2SAT 97
[2020-02-25] MEDS: Melatonin 3 MG TAB 6 MG PO (21:15)
[2020-02-25] MEDS: Lidocaine 5% Patch 1 PATCH TP (21:15)
[2020-02-25 23:31] VITALS: BP 150/67; PULSE 72; RESP 19; TEMP 36.8; O2SAT 98
--- NOTE | 2020-02-26 | DI.MRI_ITS ---
EXAM: MR PELVIS WO CLINICAL HISTORY: intractable acute left gluteal pain non traumatic. TECHNIQUE: Multiplanar multisequence MRI was performed. COMPARISON: No exams were available for comparison FINDINGS: MR examination of the pelvis was performed with fast scanning protocol due to patient discomfort. Th ere is increased heterogeneity of signal with some artifact present on multiple pulse sequences. No convincing signal abnormality identified in the bones of the pelvis. No intrapelvic mass identified. No adenopathy. The gluteal muscles and tendons show question subtle increased signal near there tr ochanteric attachments, no fluid collection seen, no tendon tear. No bursal fluid collections or inf lammation. No other significant findings in the region of the hips. IMPRESSION: Question slight increase in gluteal muscular and tendinous signal in the region of the greater trocha nters of the femur, possible mild tendinitis. This is a questionable finding and evaluation is limit ed by artifact on this fast scan, please correlate clinically with the patient's examination. DATA REPOSITORY:
--- NOTE | 2020-02-26 | DI.MRI_ITS ---
EXAM: MR LUMBAR SPINE WO CLINICAL HISTORY: intractable acute left gluteal pain non traumatic,. TECHNIQUE: Multiplanar multisequence MRI was performed. COMPARISON: MR MR lumbar spine wo from 09/17/2018 FINDINGS: MR examination of the lumbosacral spine was performed according to the usual protocol. There is new bony signal abnormality of the L5 vertebral endplate anteriorly consistent with a Schmorl's node or c yst, this was not present on prior MR of 09/17/2018. No other significant bony signal seen. The conus medullaris appears intact. There is a moderate disc bulge noted at L4-5. Mild bilateral neural foraminal narrowing also noted at L4-5. There is borderline central canal spinal stenosis at L4-5. At L5-S1 there is a moderate disc bulge with question mild superimposed disc herniation. No other significant disc pathology apart from a mild disc bulge at L3-4. Apart from the aforementio latisha mild neural foraminal narrowing at L4-5, no additional significant neural foraminal narrowing tatiana ntified in lumbar region. IMPRESSION: Mild central canal spinal stenosis at L4-5, mild central disc herniation at L5-S1. Findings appear e ssentially unchanged from previous examination of August 2018. Probable new Schmorl's node of L5 vertebral body anteriorly, please correlate regarding the patient's symptomatology. DATA REPOSITORY:
[2020-02-26] MEDS: ACETAMINOPHEN 1,000 MG/100 ML BTL 400 MG IVPB ×3 (02:43→18:34)
[2020-02-26] MEDS: Heparin 5,000 UNITS/ML VIAL 5000 UNITS SC ×3 (02:43→18:34)
[2020-02-26] MEDS: Lactated Ringers 1,000 ML 100 ML IV ×2 (05:40→18:34)
[2020-02-26 06:26] LABS: Abs Immature Grans 0.02 k/cumm (0.0-0.09); Absolute Basophil Count 0.02 k/cumm (0.0-0.2); Absolute Eosinophil Count 0.04 k/cumm (0.0-0.7); Absolute Lymphocyte Count 1.11 k/cumm (1.2-3.4); Absolute Monocyte Count 0.57 k/cumm (0.11-0.7); Absolute Neutrophil Count 5.18 k/cumm (1.2-6.7); Basophils % 0.3; Eosinophils % 0.6; HCT 33.1 % (40.0-50.0); HGB 11.7 g/dL (13.5-17.5); Immature Grans % 0.3 %; Mean Corp. HGB Concentration 35.3 g/dL (32.0-36.0); Mean Corpuscular Hemoglobin 30.1 pg (27.0-33.0); Mean Corpuscular Volume 85.1 fL (80-95); Mean Platelet Volume 10.9 fL (8.0-11.0); Monocytes % 8.2; Neutrophils % 74.6; Platelet Count 205 x1000/uL (130-400); RBC 3.89 m/cumm (4.50-6.00); RBC Distribution Width 12.3 % (11.8-14.1); White Blood Cell Count 6.94 k/cumm (4.4-10.8)
[2020-02-26 06:38] LABS: Anion Gap 5.5 mmol/L (3-11); BUN 15 mg/dL (7-18); CO2 28.5 mmol/L (21.0-32.0); CREATININE 0.99 mg/dL (0.70-1.30); Calcium 8.4 mg/dL (8.5-10.1); Chloride 102 mmol/L (98-107); Glucose 134 mg/dL (74-106); Potassium 3.4 mmol/L (3.5-5.1); Sodium 136 mmol/L (136-145)
[2020-02-26 06:39] LABS: Magnesium 1.7 mg/dL (1.8-2.4)
[2020-02-26 07:23] VITALS: BP 159/76; PULSE 75; RESP 16; TEMP 36.6; O2SAT 98
[2020-02-26 07:50] VITALS: O2SAT 98
[2020-02-26] MEDS: Atorvastatin 20 MG TAB PO (07:57)
[2020-02-26] MEDS: Sucralfate 1 GM TAB PO ×4 (07:58→22:06)
[2020-02-26] MEDS: Potassium Chloride 20 MEQ TABCR PO (07:58)
[2020-02-26] MEDS: Lisinopril 5 MG TAB 2.5 MG PO (07:58)
[2020-02-26] MEDS: metFORMIN 500 MG TAB 1000 MG PO ×2 (07:58→18:34)
[2020-02-26] MEDS: Glimepiride 2 MG TAB 4 MG PO (07:58)
[2020-02-26] MEDS: Ketorolac 15 MG/ML VIAL IVP (07:59)
[2020-02-26] MEDS: Magnesium Oxide 400 MG TAB 800 MG PO (09:39)
[2020-02-26] MEDS: MORPHine 2 MG/ML SYR IVP (09:39)
--- NOTE | 2020-02-26 09:45 | CMPROGNOTE_ITS ---
- If Service Date Differs Date of service: 02/26/20 Time of Service: 09:45 Care Management Progress Note S/O:Harry was sitting up in bed when CM met with him. He had just returned from having an MRI and was uncomfortable. He stated that he has been in a lot of pain, which is only partially relieved with pain medicine. Harry shared that he had a similar episode a year and a half ago but was unclear regarding what the etiology was. Harry also talked about his diabetes and admitted that he has not been checking his blood sugar as his glucometer is not currently working properly. When asked about adherence to his diet he stated I eat what I want. I'm a meat and potatoes romie. He acknowledged that his blood sugar is generally around 300. He would likely benefit from additional education and support surrounding his diabetes. A: Harry is a 54 year old man admitted to [facility] on 02/24/20 with Intractable nausea and vomiting P: Harry will be discharged home when medically ready. He would likely benefit from additional education and support regarding his diabetes. CM to continue to support patient and assess for discharge needs.
[2020-02-26] MEDS: LORazepam 2 MG/ML VIAL 1 MG IVP (10:14)
[2020-02-26] MEDS: Patch Removal 1 EACH TP (10:15)
--- NOTE | 2020-02-26 11:20 | PGE_ITS ---
Date of Service Date of service: 02/26/20 Time of Service: 11:23 Assessment and Plan Assessment and plan (1) Left hip pain: Start date: 02/26/20 Start time: 11:31 Status: Acute Assessment and plan: MRI pending at this time. Premedicated. Depending on results will consult PT/OT, pain management. Patient states he had this problem a year and half ago, they were going to give steroid shot but glucose was too high. (2) Nausea and vomiting: Start date: 02/26/20 Start time: 11:32 Status: Resolved Assessment and plan: Improved., continue zofran prn, no etiology on CT scan or work up to continue carafate. PPI (3) Leukocytosis: Start date: 02/26/20 Start time: 11:32 Status: Resolved Assessment and plan: Improved. Likely from dehydration, infectious etiology r/o. MRI pending. (4) Acute kidney injury: Start date: 02/26/20 Start time: 11:35 Status: Resolved Assessment and plan: Resolved. Renal function normal, with hydration, likely due to GI loss from vomiting (5) Hypomagnesemia: Start date: 02/26/20 Start time: 11:36 Status: Acute Assessment and plan: PO intake improved with give PO mag and recheck in am. (6) Diabetes mellitus type 2 with complications, uncontrolled: Start date: 02/26/20 Start time: 11:37 Status: Acute Assessment and plan: A1C 8.8 which is improved from 12.4 in Oct 2019,continue diabetic diet advanced as tolerated starting with clears once able to take po, blood sugar checks ac/hs with sliding scale coverage. home medications resumed. continue IV hydration until taking good po (7) Benign hypertension: Start date: 02/26/20 Start time: 11:37 Status: Acute Assessment and plan: blood pressures controlled. resume lisinopril and continue to monitor (8) Pure hypercholesterolemia: Start date: 02/26/20 Start time: 11:37 Status: Acute Assessment and plan: continue statin (9) DVT prophylaxis: Start date: 02/26/20 Start time: 11:37 Status: Acute Assessment and plan: heparin in setting of renal injury, TEDS, scds (10) Discharge planning issues: Start date: 02/26/20 Start time: 11:37 Status: Acute Assessment and plan: anticipate discharge to home with no services once medically stable Above case discussed with Dr. Burdick who is in agreement. Subjective Subjective Patient reports: other Interval history since last seen: Appears anxious about MRI. Patient has history nonhodgkins in stomach per daughter. He had received treatment with chemo. Will obtain records from [facility] in [place]. He has pain with pelvic tilt and straight raise lift. He was able to tolerate lying still in bed with assessment. Currently at MRI. Exam Const General: cooperative, comfortable, in distress moderate, disheveled, frail appearing and ill appearing chronically Nutritional Appearance: thin Orientation: alert, awake and oriented x3 HENMT Head: normal to inspection, normocephalic and atraumatic Resp Effort & Inspection: normal respiratory effort Auscultation: clear to auscultation bilaterally Cardio Rate: regular rate Rhythm: regular rhythm GI Inspection: normal to inspection Palpation: soft Auscultation: normal bowel sounds Skin General skin exam: no rashes or lesions noted Neuro General: patient alert, patient awake and patient oriented x3 Cranial Nerves: CN's II-XI intact bilaterally Extrem General: normal to inspection, full ROM and no pedal edema Objective Objective Clinical Data: Abnormal lab results 02/26/20 02/26/20 02/26/20 Range/Units 06:11 06:11 06:11 RBC 3.89 L (4.50-6.00) m/cumm Hgb 11.7 L (13.5-17.5) g/dL Hct 33.1 L (40.0-50.0) % Absolute Lymphocytes 1.11 L (1.2-3.4) k/cumm Potassium 3.4 L (3.5-5.1) mmol/L Glucose 134 H D (74-106) mg/dL Calcium 8.4 L (8.5-10.1) mg/dL Magnesium 1.7 L (1.8-2.4) mg/dL Vital Signs Temperature 36.6 C 02/26/20 07:23 Temperature Source Tympanic 02/26/20 07:23 Pulse 75 02/26/20 07:23 Pulse Rhythm Regular 02/26/20 07:50 Pulse 108 H 02/24/20 16:00 Respiratory Rate 16 02/26/20 07:23 Respiratory Effort 02/26/20 07:50 Respiratory Depth Normal 02/26/20 07:50 Respiratory Pattern Normal 02/26/20 07:50 Blood Pressure 159/76 H 02/26/20 07:23 Blood Pressure Mean 110 02/24/20 15:46 Blood Pressure Position Supine 02/24/20 12:42 Pulse Oximetry 98 02/26/20 07:50 Oxygen Delivery Method Room Air 02/26/20 07:50 Oxygen Flow Rate 0 02/26/20 07:50 Pain Level 7 02/26/20 07:59 Comment 02/25/20 16:41 Intake & Output 02/25/20 02/25/20 02/26/20 11:59 23:59 11:59 Intake Total 1450 / 3310 1860 / 3310 1340 / 1340 Output Total 600 / 1725 1125 / 1725 1100 / 1100 Balance 850 / 1585 735 / 1585 240 / 240 Weight 67.9 kg 68.5 kg Intake: IV 1110 / 2220 1110 / 2220 1100 / 1100 Oral 340 / 1090 750 / 1090 240 / 240 Output: Urine 600 / 1725 1125 / 1725 1100 / 1100 Other: Urine Color Pale Yellow Yellow Urine Appearance Clear Clear Clear Urine Odor None Normal None Voiding Methods Urinal Urinal Toilet Laboratory Results WBC 6.94 k/cumm (4.4-10.8) D 02/26/20 06:11 RBC 3.89 m/cumm (4.50-6.00) L 02/26/20 06:11 Hgb 11.7 g/dL (13.5-17.5) L 02/26/20 06:11 Hct 33.1 % (40.0-50.0) L 02/26/20 06:11 MCV 85.1 fL (80-95) 02/26/20 06:11 MCH 30.1 pg (27.0-33.0) 02/26/20 06:11 MCHC 35.3 g/dL (32.0-36.0) 02/26/20 06:11 RDW 12.3 % (11.8-14.1) 02/26/20 06:11 Plt Count 205 x1000/uL (130-400) 02/26/20 06:11 MPV 10.9 fL (8.0-11.0) 02/26/20 06:11 Immature Gran % 0.3 % 02/26/20 06:11 Neutrophils % 74.6 02/26/20 06:11 Lymphocytes % 16.0 02/26/20 06:11 Monocytes % 8.2 02/26/20 06:11 Eosinophils % 0.6 02/26/20 06:11 Basophils % 0.3 02/26/20 06:11 Absolute Neutrophils 5.18 k/cumm (1.2-6.7) 02/26/20 06:11 Absolute Lymphocytes 1.11 k/cumm (1.2-3.4) L 02/26/20 06:11 Absolute Monocytes 0.57 k/cumm (0.11-0.7) 02/26/20 06:11 Absolute Eosinophils 0.04 k/cumm (0.0-0.7) 02/26/20 06:11 Absolute Basophils 0.02 k/cumm (0.0-0.2) 02/26/20 06:11 Differential Comment Agrees w/ instrument 02/24/20 12:52 RBC Morphology Normal 02/24/20 12:52 Sodium 136 mmol/L (136-145) 02/26/20 06:11 Potassium 3.4 mmol/L (3.5-5.1) L 02/26/20 06:11 Chloride 102 mmol/L (98-107) 02/26/20 06:11 Carbon Dioxide 28.5 mmol/L (21.0-32.0) 02/26/20 06:11 Anion Gap 5.5 mmol/L (3-11) 02/26/20 06:11 BUN 15 mg/dL (7-18) D 02/26/20 06:11 Creatinine 0.99 mg/dL (0.70-1.30) 02/26/20 06:11 Estimated GFR/1.73 m2 >= 60.00 (mL/min/1.73m2) 02/26/20 06:11 Glucose 134 mg/dL (74-106) H D 02/26/20 06:11 Hemoglobin A1c 8.8 % (3.8-5.6) H 02/24/20 12:52 Lactate 1.4 mmol/L (0.6-1.4) 02/24/20 14:35 Calcium 8.4 mg/dL (8.5-10.1) L 02/26/20 06:11 Magnesium 1.7 mg/dL (1.8-2.4) L 02/26/20 06:11 Total Bilirubin 0.5 mg/dL (0.2-1.0) 02/25/20 06:00 AST 9 U/L (15-37) L 02/25/20 06:00 ALT 11 U/L (16-63) L 02/25/20 06:00 Alkaline Phosphatase 65 U/L (46-116) 02/25/20 06:00 Troponin I < 0.05 ng/mL (<0.06) 02/24/20 16:00 Total Protein 5.9 g/dL (6.4-8.2) L 02/25/20 06:00 Albumin 3.1 g/dL (3.4-5.0) L 02/25/20 06:00 Lipase 82 U/L (73-393) 02/24/20 12:52 Urine Color Yellow (Yellow) 02/24/20 13:50 Urine Clarity Clear (Clear) 02/24/20 13:50 Urine pH 6.0 (5-8) 02/24/20 13:50 Ur Specific [place] 1.025 (1.005-1.025) 02/24/20 13:50 Urine Protein 100 mg/dL (Negative) H 02/24/20 13:50 Urine Ketones 80 mg/dL (Negative) H 02/24/20 13:50 Urine Blood Trace-intact (Negative) H 02/24/20 13:50 Urine Nitrite Negative (Negative) 02/24/20 13:50 Urine Bilirubin Small (Negative) H 02/24/20 13:50 Urine Urobilinogen 0.2 EU/dL (Up TO 0.2) 02/24/20 13:50 Ur Leukocyte Esterase Negative (Negative) 02/24/20 13:50 Urine RBC 3-5 HPF (0-2) H 02/24/20 13:50 Urine WBC 0-2 HPF (0-5) 02/24/20 13:50 Ur Epithelial Cells Rare HPF (Negative) 02/24/20 13:50 Urine Crystals Negative HPF (Negative) 02/24/20 13:50 Urine Bacteria Few HPF (Negative) 02/24/20 13:50 Urine Casts 3-5 fine granular LPF (Negative) 02/24/20 13:50 Urine Mucus Moderate (Negative) 02/24/20 13:50 Urine Other Few renal (Negative) 02/24/20 13:50 Ur Culture Indicated? No 02/24/20 13:50 Urine Glucose 500 mg/dL (Negative) H 02/24/20 13:50 Urine Opiates Screen Negative (Negative) 02/24/20 13:50 Urine Methadone Screen Negative (Negative) 02/24/20 13:50 Ur Barbiturates Screen Negative (Negative) 02/24/20 13:50 Ur Tricyclics Screen Negative (Negative) 02/24/20 13:50 Ur Amphetamines Screen Negative (Negative) 02/24/20 13:50 U Benzodiazepines Scrn Negative (Negative) 02/24/20 13:50 Urine Cocaine Screen Negative (Negative) 02/24/20 13:50 Ur THC Screen Positive (Negative) A 02/24/20 13:50 Ethyl Alcohol < 3.0 mg/dL (<3) 02/24/20 14:35 COVID-19 PCR Negative (Negative) 02/24/20 16:21 Nasopharyn COVID-19 PCR Not Applicable 02/24/20 16:21 Ref Test Perform Site [facility] 02/24/20 16:21
[2020-02-26] MEDS: Insulin Aspart 300 UNITS/3 ML PEN SC (12:11)
[2020-02-26] MEDS: Ibuprofen 600 MG TAB PO ×2 (14:50→19:36)
[2020-02-26 15:25] VITALS: BP 108/61; PULSE 79; RESP 19; TEMP 36.2; O2SAT 100
[2020-02-26] MEDS: Pantoprazole 40 MG VIAL IVP (16:35)
[2020-02-26 19:15] VITALS: BP 154/81; PULSE 75; RESP 18; TEMP 36.7; O2SAT 98
[2020-02-26] MEDS: Lidocaine 5% Patch 1 PATCH TP (22:05)
[2020-02-26] MEDS: Melatonin 3 MG TAB 6 MG PO (22:06)
[2020-02-27] MEDS: Heparin 5,000 UNITS/ML VIAL 5000 UNITS SC ×3 (02:53→18:03)
[2020-02-27] MEDS: ACETAMINOPHEN 1,000 MG/100 ML BTL 400 MG IVPB (02:53)
[2020-02-27] MEDS: Ibuprofen 600 MG TAB PO ×4 (02:54→19:44)
[2020-02-27] MEDS: Lactated Ringers 1,000 ML 100 ML IV ×2 (05:01→14:55)
[2020-02-27 07:19] LABS: HCT 34.7 % (40.0-50.0); HGB 12.2 g/dL (13.5-17.5); Mean Corp. HGB Concentration 35.2 g/dL (32.0-36.0); Mean Corpuscular Hemoglobin 29.8 pg (27.0-33.0); Mean Corpuscular Volume 84.8 fL (80-95); Mean Platelet Volume 11.4 fL (8.0-11.0); Platelet Count 208 x1000/uL (130-400); RBC 4.09 m/cumm (4.50-6.00); RBC Distribution Width 12.4 % (11.8-14.1); White Blood Cell Count 6.53 k/cumm (4.4-10.8)
[2020-02-27 07:25] VITALS: BP 155/85; PULSE 74; RESP 19; TEMP 36.6; O2SAT 99
[2020-02-27 07:29] LABS: Anion Gap 6.6 mmol/L (3-11); BUN 14 mg/dL (7-18); CO2 29.4 mmol/L (21.0-32.0); CREATININE 0.98 mg/dL (0.70-1.30); Calcium 8.3 mg/dL (8.5-10.1); Chloride 104 mmol/L (98-107); Glucose 174 mg/dL (74-106); Magnesium 1.5 mg/dL (1.8-2.4); Potassium 3.7 mmol/L (3.5-5.1); Sodium 140 mmol/L (136-145)
[2020-02-27] MEDS: metFORMIN 500 MG TAB 1000 MG PO ×2 (07:43→16:36)
[2020-02-27] MEDS: Sucralfate 1 GM TAB PO ×4 (07:43→22:06)
[2020-02-27] MEDS: Atorvastatin 20 MG TAB PO (07:43)
[2020-02-27] MEDS: Glimepiride 2 MG TAB 4 MG PO (07:43)
[2020-02-27] MEDS: Lisinopril 5 MG TAB 2.5 MG PO (07:43)
[2020-02-27] MEDS: Insulin Aspart 300 UNITS/3 ML PEN SC ×3 (07:44→16:38)
[2020-02-27] MEDS: MAGNESIUM SULFATE 4 GM/100 ML BAG IVPB (08:07)
--- NOTE | 2020-02-27 09:23 | PT.INIE ---
Date of service: 02/27/20 Time of Service: 08:30 PT Notes Visit Reasons: INTRACTABLE NAUSEA VOMITING,ACUTE KIDNEY INJURY, Inpatient Physical Therapy Evaluation Date: 02/27/20 Referring Doctor: Polly Hutchison NP PT Orders: PT CONSULT: IT band tendinitis Precautions: standard Patient Profile/Admitting Diagnosis: Patient admitted to acute care after presenting to ED with nausea and vomiting. Now being medically managed for acute kidney injury, hypomagnesemia, and leukocytosis. Significant pain complaints in the left hip, with MRI indicating gluteal tendinitis and chronic disc bulges at L4-5 and L5-S1. PMHX: Type II DM, hypertension, hypercholesterolemia, history of non-Hodgkin's lymphoma, hard of hearing. Patient has a history of back and hip pain, reporting similar symptoms about 18 months ago which improved with PT intervention. Social History/Home Situation: Patient lives independently in a trailer. He is disabled. No assistive device. Equipment Owned/DME: None Subjective: Harry reports severe left-sided hip pain that began 6 days ago. Denies trauma, falls, etc. He references the SI region as the location of his pain. Denies numbness or tingling, or radiation of pain to the limbs. Unable to identify any relieving positions or activities, although pain seems worse in sitting or standing positions. Objective: General Observation: Resting comfortably in bed at initiation of session, with IV in RUE. No additional lines. Mental Status: A and O x3. Patient requires intermittent written medication due to hearing loss. Pain: Reports 10/10 at initiation of session. 7/10 at end of session ROM: Right Upper Extremity: WFL Left Upper Extremity: WFL Right Lower Extremity: Hip ROM full and pain-free Left Lower Extremity: Left hip ROM is full, although with pain exacerbation in end ranges of external rotation. Piriformis stretch position is limited by pain, allowing 75% as compared to the right side. Trunk: Forward flexion allows 90 degrees with upper extremity support to FW W. No immediate relief is achieved. Trunk extension is full, although with increase in low back pain. Strength: Right Upper Extremity: WFL Left Upper Extremity: WFL Right Lower Extremity: Hip flexion 5/5. Quads 5/5. Ankle dorsiflexion 5/5. EHL 4-/5. Left Lower Extremity: Unable to fully assess due to pain. Hip flexion 3/5 or greater. Quads 3/5 or greater. EHL 4-/5. Sensation: Intact to light touch, plantar aspect of both feet. Special tests: SLR allows 90 degrees bilaterally. Patient gets mild relief with lumbar traction by a leg pull. No pain exacerbation with endrange hip internal rotation. SI gapping and compression tests are negative. Bed Mobility/Transfers: Supine?sit: Independent Sit?supine: Independent Sit?stand: Independent Stand?sit: Independent Gait: Patient ambulates 25 feet with FW W and supervision only. FW W was utilized exclusively for pain management, with patient demonstrating good balance and safety without use of AD. Balance: Static Sitting: Normal Dynamic Sitting: Normal Static Standing: Normal Dynamic Standing: Good Special Tests: Mobility Limitations Standardized Measure [facility] 6 clicks Basic Mobility Inpatient Short Form: Raw Score: 24 CMS Score: 0% deficit Informed Consent/Education: Patient instructed in purpose of PT consult and plan of care. Treatment: Today's session consisted of evaluation , followed by manual mobilization . On palpation throughout the lumbar and pelvic musculature, without significant soft tissue tightness noted throughout the lumbar region. He has focal tenderness over the SIJ and proximal gluteals, although is nontender at the trochanteric bursa and gluteal tendons, as well as along the ITB. He received left-sided facet gapping techniques and right side-lying position, as well as manual stretching to the piriformis and single [id number] stretching. He was instructed in self mobilization techniques, and received gentle traction via left leg pull for 60 seconds x 3 reps. HEP was placed on patient's white board, and patient was able to verbalize good understanding. Treatment, he reports minor pain reduction at 7/10. Assessment: Patient is a 54 year old male referred to physical therapy services with the diagnosis of ITB tendinitis. Patient presents with clinical signs and symptoms consistent with LBP, with localized pain at the left SIJ. SI provocation tests are negative, and I suspect symptoms are related to an exacerbation of his chronic low back pain. He will benefit from manual therapies and progressive strengthening and ambulation during his acute care stay, and will require PT on an outpatient basis upon discharge home. Patient's agreeable to this plan. He currently demonstrates the following impairment level findings: 1. Poorly managed pain 2. Unable to tolerate community distance ambulation Impairments are contributing to the following functional limitations: 1. Unable to tolerate community distance ambulation Patient is assessed as Moderate 80425 Hcomplexity based on the following: History: 54-year-old male with multiple medical comorbidities, evaluated in the acute care setting for severe left-sided hip/LB pain. MRI indicated chronic changes at L4-5, L5-S1, and I suspect the symptoms are related to an acute exacerbation of chronic back pain. Examination: Functional imitations as noted above Presentation: Evolving Decision Making: Moderate complexity Goals: Goals X1 week 1. Supine-Sit: Independent 2. Sit-Supine: Independent 3. Sit-Stand: Independent 4. Stand-Sit: Independent 5. Bed-Chair: Independent 6. Chair-Bed: Independent 7. Gait: Supervision x50 feet Plan of Care/Treatment Plan: 1x/day, 7 days/week x 1 week. Plan of care has been reviewed with the [facility]REACH WORKER providing the service under Physical Therapy direction. Initiate Physical Therapy intervention for strengthening, bed mobility, transfers, gait, stairs, balance training, use of assistive device. DISCHARGE RECOMMENDATIONS: Outpatient PT TREATMENT CODE/TIME: [id number] ([id number]) Trisha Stein, PT, DPT [facility]
[2020-02-27] MEDS: predniSONE 20 MG TAB 60 MG PO (09:59)
[2020-02-27] MEDS: Patch Removal 1 EACH TP (10:00)
--- NOTE | 2020-02-27 12:11 | PGE_ITS ---
Date of Service Date of service: 02/27/20 Time of Service: 12:12 Assessment and Plan Assessment and plan (1) Left hip pain: Start date: 02/27/20 Start time: 12:13 Status: Acute Assessment and plan: MRI with mild tendinitis. PT feels this is SI related pain. Denies Spasms will trial PO prednisone with ibuprofen heat and ice intermittently. D/C tomorrow. Continue PT exercises (2) Nausea and vomiting: Start date: 02/27/20 Start time: 12:14 Status: Resolved Assessment and plan: Improved., continue zofran prn, no etiology on CT scan or work up to continue carafate. PPI (3) Leukocytosis: Start date: 02/27/20 Start time: 12:26 Status: Resolved Assessment and plan: Resolved. Likely from dehydration, infectious etiology r/o. MRI pending. (4) Acute kidney injury: Status: Resolved Assessment and plan: Resolved. Renal function normal, with hydration, likely due to GI loss from vomiting (5) Hypomagnesemia: Start date: 02/27/20 Start time: 12:36 Status: Acute Assessment and plan: Mag 1.5 will give IV mag and recheck in am. (6) Diabetes mellitus type 2 with complications, uncontrolled: Start date: 02/27/20 Start time: 12:37 Status: Acute Assessment and plan: A1C 8.8 which is improved from 12.4 in Oct 2019,continue diabetic diet advanced as tolerated starting with clears once able to take po, blood sugar checks ac/hs with sliding scale coverage. home medications resumed. continue IV hydration until taking good po (7) Benign hypertension: Start date: 02/27/20 Start time: 12:37 Status: Acute Assessment and plan: blood pressures variable resume lisinopril and continue to monitor (8) Pure hypercholesterolemia: Start date: 02/27/20 Start time: 12:38 Status: Acute Assessment and plan: continue statin (9) DVT prophylaxis: Start date: 02/27/20 Start time: 12:38 Status: Acute Assessment and plan: heparin in setting of renal injury, TEDS, scds (10) Discharge planning issues: Start date: 02/27/20 Start time: 12:38 Status: Acute Assessment and plan: anticipate discharge to home with no services once medically stable Above case discussed with Dr. Haque who is in agreement. Subjective Subjective Patient reports: still having pain Interval history since last seen: Pt continues to have pain. PT worked with pt and feels this is more SI related. Will trial a dose of prednisone in addition to ibuprofen. Will keep overnight to monitor BGL on prednisone and effectiveness. Possible discharge in am. Denies CP, SOB, N/V/D. Exam Const General: cooperative, comfortable, in distress moderate, disheveled, frail appearing and ill appearing chronically Nutritional Appearance: thin Orientation: alert, awake and oriented x3 HENMT Head: normal to inspection, normocephalic and atraumatic Resp Effort & Inspection: normal respiratory effort Auscultation: clear to auscultation bilaterally Cardio Rate: regular rate Rhythm: regular rhythm GI Inspection: normal to inspection Palpation: soft Auscultation: normal bowel sounds Skin General skin exam: no rashes or lesions noted Neuro General: patient alert, patient awake and patient oriented x3 Cranial Nerves: CN's II-XI intact bilaterally Extrem General: normal to inspection, full ROM and no pedal edema Objective Objective Clinical Data: Abnormal lab results 02/27/20 02/27/20 Range/Units 06:40 06:40 RBC 4.09 L (4.50-6.00) m/cumm Hgb 12.2 L (13.5-17.5) g/dL Hct 34.7 L (40.0-50.0) % MPV 11.4 H (8.0-11.0) fL Glucose 174 H (74-106) mg/dL Calcium 8.3 L (8.5-10.1) mg/dL Magnesium 1.5 L (1.8-2.4) mg/dL Vital Signs Temperature 36.6 C 02/27/20 07:25 Temperature Source Tympanic 02/27/20 07:25 Pulse 74 02/27/20 07:25 Pulse Rhythm Regular 02/27/20 10:24 Pulse 108 H 02/24/20 16:00 Respiratory Rate 19 02/27/20 07:25 Respiratory Effort Non-Labored 02/27/20 10:24 Respiratory Depth Normal 02/27/20 10:24 Respiratory Pattern Normal 02/27/20 10:24 Blood Pressure 155/85 H 02/27/20 07:25 Blood Pressure Mean 110 02/24/20 15:46 Blood Pressure Position Supine 02/24/20 12:42 Pulse Oximetry 99 02/27/20 07:25 Oxygen Delivery Method Room Air 02/27/20 07:25 Oxygen Flow Rate 0 02/27/20 07:25 Pain Level 9 02/27/20 07:43 Comment 02/25/20 16:41 Intake & Output 02/26/20 02/27/20 02/27/20 23:59 11:59 23:59 Intake Total 2820 / 4260 2900 / 2900 Output Total 205 / 3150 1300 / 1300 Balance 770 / 1110 1600 / 1600 Weight 68 kg Intake: IV 2100 / 3300 2000 / 2000 Oral 720 / 960 900 / 900 Output: Urine 2049 / 0 1300 / 1300 Other: Urine Color Pale Yellow Urine Appearance Clear Clear Urine Odor Normal Stool Size Moderate Stool Characteristics Formed Brown Voiding Methods Urinal Urinal Laboratory Results WBC 6.53 k/cumm (4.4-10.8) 02/27/20 06:40 RBC 4.09 m/cumm (4.50-6.00) L 02/27/20 06:40 Hgb 12.2 g/dL (13.5-17.5) L 02/27/20 06:40 Hct 34.7 % (40.0-50.0) L 02/27/20 06:40 MCV 84.8 fL (80-95) 02/27/20 06:40 MCH 29.8 pg (27.0-33.0) 02/27/20 06:40 MCHC 35.2 g/dL (32.0-36.0) 02/27/20 06:40 RDW 12.4 % (11.8-14.1) 02/27/20 06:40 Plt Count 208 x1000/uL (130-400) 02/27/20 06:40 MPV 11.4 fL (8.0-11.0) H 02/27/20 06:40 Immature Gran % 0.3 % 02/26/20 06:11 Neutrophils % 74.6 02/26/20 06:11 Lymphocytes % 16.0 02/26/20 06:11 Monocytes % 8.2 02/26/20 06:11 Eosinophils % 0.6 02/26/20 06:11 Basophils % 0.3 02/26/20 06:11 Absolute Neutrophils 5.18 k/cumm (1.2-6.7) 02/26/20 06:11 Absolute Lymphocytes 1.11 k/cumm (1.2-3.4) L 02/26/20 06:11 Absolute Monocytes 0.57 k/cumm (0.11-0.7) 02/26/20 06:11 Absolute Eosinophils 0.04 k/cumm (0.0-0.7) 02/26/20 06:11 Absolute Basophils 0.02 k/cumm (0.0-0.2) 02/26/20 06:11 Differential Comment Agrees w/ instrument 02/24/20 12:52 RBC Morphology Normal 02/24/20 12:52 Sodium 140 mmol/L (136-145) 02/27/20 06:40 Potassium 3.7 mmol/L (3.5-5.1) 02/27/20 06:40 Chloride 104 mmol/L (98-107) 02/27/20 06:40 Carbon Dioxide 29.4 mmol/L (21.0-32.0) 02/27/20 06:40 Anion Gap 6.6 mmol/L (3-11) 02/27/20 06:40 BUN 14 mg/dL (7-18) 02/27/20 06:40 Creatinine 0.98 mg/dL (0.70-1.30) 02/27/20 06:40 Estimated GFR/1.73 m2 >= 60.00 (mL/min/1.73m2) 02/27/20 06:40 Glucose 174 mg/dL (74-106) H 02/27/20 06:40 Hemoglobin A1c 8.8 % (3.8-5.6) H 02/24/20 12:52 Lactate 1.4 mmol/L (0.6-1.4) 02/24/20 14:35 Calcium 8.3 mg/dL (8.5-10.1) L 02/27/20 06:40 Magnesium 1.5 mg/dL (1.8-2.4) L 02/27/20 06:40 Total Bilirubin 0.5 mg/dL (0.2-1.0) 02/25/20 06:00 AST 9 U/L (15-37) L 02/25/20 06:00 ALT 11 U/L (16-63) L 02/25/20 06:00 Alkaline Phosphatase 65 U/L (46-116) 02/25/20 06:00 Troponin I < 0.05 ng/mL (<0.06) 02/24/20 16:00 Total Protein 5.9 g/dL (6.4-8.2) L 02/25/20 06:00 Albumin 3.1 g/dL (3.4-5.0) L 02/25/20 06:00 Lipase 82 U/L (73-393) 02/24/20 12:52 Urine Color Yellow (Yellow) 02/24/20 13:50 Urine Clarity Clear (Clear) 02/24/20 13:50 Urine pH 6.0 (5-8) 02/24/20 13:50 Ur Specific [place] 1.025 (1.005-1.025) 02/24/20 13:50 Urine Protein 100 mg/dL (Negative) H 02/24/20 13:50 Urine Ketones 80 mg/dL (Negative) H 02/24/20 13:50 Urine Blood Trace-intact (Negative) H 02/24/20 13:50 Urine Nitrite Negative (Negative) 02/24/20 13:50 Urine Bilirubin Small (Negative) H 02/24/20 13:50 Urine Urobilinogen 0.2 EU/dL (Up TO 0.2) 02/24/20 13:50 Ur Leukocyte Esterase Negative (Negative) 02/24/20 13:50 Urine RBC 3-5 HPF (0-2) H 02/24/20 13:50 Urine WBC 0-2 HPF (0-5) 02/24/20 13:50 Ur Epithelial Cells Rare HPF (Negative) 02/24/20 13:50 Urine Crystals Negative HPF (Negative) 02/24/20 13:50 Urine Bacteria Few HPF (Negative) 02/24/20 13:50 Urine Casts 3-5 fine granular LPF (Negative) 02/24/20 13:50 Urine Mucus Moderate (Negative) 02/24/20 13:50 Urine Other Few renal (Negative) 02/24/20 13:50 Ur Culture Indicated? No 02/24/20 13:50 Urine Glucose 500 mg/dL (Negative) H 02/24/20 13:50 Urine Opiates Screen Negative (Negative) 02/24/20 13:50 Urine Methadone Screen Negative (Negative) 02/24/20 13:50 Ur Barbiturates Screen Negative (Negative) 02/24/20 13:50 Ur Tricyclics Screen Negative (Negative) 02/24/20 13:50 Ur Amphetamines Screen Negative (Negative) 02/24/20 13:50 U Benzodiazepines Scrn Negative (Negative) 02/24/20 13:50 Urine Cocaine Screen Negative (Negative) 02/24/20 13:50 Ur THC Screen Positive (Negative) A 02/24/20 13:50 Ethyl Alcohol < 3.0 mg/dL (<3) 02/24/20 14:35 COVID-19 PCR Negative (Negative) 02/24/20 16:21 Nasopharyn COVID-19 PCR Not Applicable 02/24/20 16:21 Ref Test [facility] 02/24/20 16:21
--- NOTE | 2020-02-27 13:19 | CMPROGNOTE_ITS ---
- If Service Date Differs Date of service: 02/27/20 Time of Service: 13:20 Care Management Progress Note S/O:Harry was sitting up in bed when CM met with him. He stated that he continues to experience pain and that the medication is only partially effective. He verbalized understanding that the cause of the pain is tendonitis and that it will take time to improve. He was started on oral steroids today and worked with physical therapy who provided him with some exercises that may be beneficial. Harry also shared that he has had a couple of bouts of diarrhea today. A: Harry is a 54 year old man admitted to [facility] on 02/24/20 with Intractable nausea and vomiting P: Harry will be discharged home when medically ready. He would likely benefit from additional education and support regarding his diabetes. He has also expressed an interest in outpatient PT when discharged. CM to continue to s upport patient and assess for discharge needs.
[2020-02-27 15:20] VITALS: BP 155/79; PULSE 78; RESP 18; TEMP 36.6; O2SAT 98
[2020-02-27] MEDS: Pantoprazole 40 MG VIAL IVP (16:37)
[2020-02-27] MEDS: Normal Saline Flush 10 ML SYR IVP (16:37)
[2020-02-27] MEDS: Melatonin 3 MG TAB 6 MG PO (22:06)
[2020-02-27] MEDS: Lidocaine 5% Patch 1 PATCH TP (22:06)
[2020-02-28] MEDS: Heparin 5,000 UNITS/ML VIAL 5000 UNITS SC (01:36)
[2020-02-28] MEDS: Ibuprofen 600 MG TAB PO ×2 (01:36→07:16)
[2020-02-28 01:41] VITALS: BP 167/83; PULSE 73; RESP 16; TEMP 36.8; O2SAT 97
[2020-02-28] MEDS: Sucralfate 1 GM TAB PO (07:16)
[2020-02-28 07:40] VITALS: BP 174/89; PULSE 69; RESP 20; TEMP 36.7; O2SAT 97
[2020-02-28 08:07] LABS: Anion Gap 6.5 mmol/L (3-11); BUN 12 mg/dL (7-18); CO2 29.5 mmol/L (21.0-32.0); CREATININE 0.98 mg/dL (0.70-1.30); Calcium 8.3 mg/dL (8.5-10.1); Chloride 103 mmol/L (98-107); Glucose 185 mg/dL (74-106); Magnesium 1.6 mg/dL (1.8-2.4); Potassium 3.6 mmol/L (3.5-5.1); Sodium 139 mmol/L (136-145)
[2020-02-28] MEDS: Glimepiride 2 MG TAB 4 MG PO (08:20)
[2020-02-28] MEDS: predniSONE 20 MG TAB 60 MG PO (08:21)
[2020-02-28] MEDS: Insulin Aspart 300 UNITS/3 ML PEN SC (08:21)
[2020-02-28] MEDS: Lisinopril 5 MG TAB 2.5 MG PO (08:21)
[2020-02-28] MEDS: Atorvastatin 20 MG TAB PO (08:21)
[2020-02-28] MEDS: metFORMIN 500 MG TAB 1000 MG PO (08:21)
[2020-02-28] MEDS: Acetaminophen 500 MG TAB 1000 MG PO (09:00)
[2020-02-28] MEDS: Magnesium Oxide 400 MG TAB 800 MG PO (09:00)
--- NOTE | 2020-02-28 09:10 | DSE_ITS ---
Date of service: 02/28/20 Time of Service: 09:11 DS: Diagnosis Discharge Diagnosis (1) Left hip pain: Start date: 02/28/20 Start time: 09:11 Status: Acute Asessment and Plan: MRI with mild tendinitis. PT feels this is SI related pain. Denies Spasms will give PO prednisone burst. Ice, Heat, PT exercises, Tylenol and ibuprofen for pain (2) Nausea and vomiting: Start date: 02/28/20 Start time: 09:14 Status: Resolved Asessment and Plan: Initially admitted with n/v infection r/o likely from viral component. Hydrated with IVF and was given IV zofran. (3) Leukocytosis: Start date: 02/28/20 Start time: 09:15 Status: Resolved Asessment and Plan: Resolved, likely secondary to n/v (4) Acute kidney injury: Start date: 02/28/20 Start time: 09:15 Status: Resolved Asessment and Plan: Resolved with hydration. Secondary to n/v (5) Hypomagnesemia: Start date: 02/28/20 Start time: 09:17 Status: Acute Asessment and Plan: Continues to need repletion, will give prescription dose for po mag, recheck bmp and mag in 3 days (6) Diabetes mellitus type 2 with complications, uncontrolled: Start date: 02/28/20 Start time: 09:18 Status: Acute Asessment and Plan: Continue metformin and glipizide, trulicity, A1c 8.8.. Will defer to PCP for further management of diabetes. (7) Benign hypertension: Start date: 02/28/20 Start time: 09:19 Status: Acute Asessment and Plan: Continue home medication (8) Pure hypercholesterolemia: Start date: 02/28/20 Start time: 09:19 Status: Acute Asessment and Plan: Continue home medications Discharge Plan Disposition Patient Disposition: HOME Condition: Improving Discharge Details Chief Complaint: Nausea/Vomit/Diar Reason For Visit: INTRACTABLE NAUSEA VOMITING,ACUTE KIDNEY INJURY, Admit Date/Time: 02/24/20 15:17 Admit Provider: Augustus Burdick Attending Provider: Augustus Burdick Primary Care Provider: Khadijah Galicia ED Provider: [facility] Course Hospital Course: 54 y.o male with PMH of DM 2, BPH, HLD, Tobacco dependence, hodgkins lymphoma with chemo in 2008 (currently in remission) presented to [facility] ED with a 2 day history of left gluteal pain, n/v and inability to tolerate oral intake. ED work up included CT scan fo abd and pelvis, which was unremarkable, he did have leukocytosis with WBC 24,000, no identifiable source of infection and no fevers. He was ruled out for COVID. He was asked to be admitted to hospitalist service for further management. Over course of treatment he received hydration with IVF, correcting his BUN, magnesium repletion several days, leukocytosis normalized, which indicated likely from vomiting and not infectious. MRI obtained of lumbar and pelvis revealing a mild tendonitis. PT consulted, they recommend outpatient PT, this is likely an inflamed Sacroiliac joint. He was started on ibuprofen, steroid burst for five days and recommend heat and ice, he was also given exercises from PT they recommend performing several times a day. A1c on admission was 8.8 at this time he is on metformin and glipizide and trulicity will defer to PCP for further management of diabetes. He also should consider smoking cessation he is a 2 pack a day smoker. Imaging did reveal new right renal mass that will follow up as an outpatient. Per daughter he is due for a PET scan. He states he continues to have pain intermittently in his left hip, ice and heat do appear to help. He denies CP, SOB, N/V/D. He is being discharged home without services. recommend outpatient PT. Home Meds and New Rx's Prescriptions: New sucralfate 1 gram Tablet 1 g PO AC & HS Qty: 30 RF: 0 lidocaine [Lidoderm] 5 % Adhesive Patch,Medicated 1 patch topical HS Qty: 5 RF: 0 prednisone 20 mg tablet 40 mg PO DAILY Qty: 8 RF: 0 ibuprofen 800 mg tablet 800 mg PO TID Qty: 20 RF: 0 omeprazole 20 mg capsule,delayed release(DR/EC) 20 mg PO DAILY Qty: 30 RF: 0 magnesium chloride [Mag-Delay] 64 mg tablet,delayed release (DR/EC) 64 mg PO DAILY Qty: 20 RF: 0 Continued glimepiride [Amaryl] 4 mg tablet 4 mg PO QAM Qty: 90 RF: 3 atorvastatin 20 mg tablet 20 mg PO DAILY Qty: 90 RF: 3 metformin 1,000 mg tablet 1,000 mg PO BID Qty: 90 RF: 3 lisinopril 2.5 mg tablet 2.5 mg PO DAILY Qty: 90 RF: 3 omeprazole 20 mg capsule,delayed release(DR/EC) 20 mg PO DAILY Qty: 90 RF: 0 Trulicity 0.75 mg/0.5 mL pen injector 0.75 mg SC QWEEK Qty: 2 RF: 0 acetaminophen [Mapap (acetaminophen)] 500 mg capsule 500 mg PO Q6H PRN (Reason: fever or pain) Qty: 30 RF: 0 No Action (DME) blood sugar diagnostic Strip See Rx Instructions .ROUTE .MEDSUPPLY Qty: 100 RF: 6 (DME) blood-glucose meter [OneTouch Verio Flex meter] Misc See Rx Instructions .ROUTE .MEDSUPPLY Qty: 1 RF: 0 (DME) lancets [OneTouch UltraSoft Lancets] Misc See Rx Instructions .ROUTE .MEDSUPPLY Qty: 100 RF: 6 Discharge Instructions Instructions: Acute Nausea and Vomiting (ED), Lumbar Radiculopathy (ED), Hypomagnesemia (DC), Tendinitis (ED) Additional Instructions: Take Ibuprofen 3 times a day as needed for pain with tylenol in between doses of ibuprofen for maximum pain relief. Use ice and heat on hip as needed alternating for effectiveness Recommend outpatient PT for joint pain Take 40 mg of steroids daily x 4 days Follow up with your PCP in the next 2 weeks for right renal mass, diabetes and labs Renal ultrasound has been ordered as an outpatient follow up for results of the ultrasound Take magnesium daily Stand Alone Forms: Nursing Discharge Form Referrals: Khadijah Galicia MD [Primary Care Provider] - (Please call the office on Saturday morning to schedule an appointment to be seen within 2 weeks) Activity:: Activity as Tolerated Equipment/Supplies:: No Equipment Needed Diet:: Carb Counting Discharge Orders Discharge Orders: Discharge Order (Routine); Ordered 02/28/20 Ordered By: Polly Hutchison Other Ambulatory Orders: renal (Routine) Location: None Selected Ordered By: Polly Hutchison DS: Summary Status at Discharge Functional status at discharge: independent ambulation Overall status at discharge: patient is progressing back to baseline Mental Status: mental status grossly normal Speech and Movement: speech and movement normal Mood: congruent mood Affect: normal affect Exam Const General: cooperative, comfortable, in distress moderate, disheveled, frail appearing and ill appearing chronically Nutritional Appearance: thin Orientation: alert, awake and oriented x3 HENMT Head: normal to inspection, normocephalic and atraumatic Resp Effort & Inspection: normal respiratory effort Auscultation: clear to auscultation bilaterally Cardio Rate: regular rate Rhythm: regular rhythm GI Inspection: normal to inspection Palpation: soft Auscultation: normal bowel sounds Skin General skin exam: no rashes or lesions noted Neuro General: patient alert, patient awake and patient oriented x3 Cranial Nerves: CN's II-XI intact bilaterally Extrem General: normal to inspection, full ROM and no pedal edema Psych Mental Status: mental status grossly normal Speech and Movement: speech and movement normal Mood: congruent mood Affect: normal affect DS: Data Vitals/I&O Vitals and I&O: Vital Signs Temperature 36.7 C 02/28/20 07:40 Temperature Source Temporal Artery Scan 02/28/20 07:40 Pulse 69 02/28/20 07:40 Pulse Rhythm Regular 02/28/20 08:50 Pulse 108 H 02/24/20 16:00 Respiratory Rate 20 02/28/20 07:40 Respiratory Effort Non-Labored 02/28/20 08:50 Respiratory Depth Normal 02/28/20 08:50 Respiratory Pattern Normal 02/28/20 08:50 Blood Pressure 174/89 H 02/28/20 07:40 Blood Pressure Mean 110 02/24/20 15:46 Blood Pressure Position Supine 02/24/20 12:42 Pulse Oximetry 97 02/28/20 07:40 Oxygen Delivery Method Room Air 02/28/20 07:40 Oxygen Flow Rate 0 02/28/20 07:40 Pain Level 5 02/28/20 09:00 Comment 02/25/20 16:41 Intake & Output 02/27/20 02/27/20 02/28/20 11:59 23:59 11:59 Intake Total 2900 / 4390 1490 / 4390 Output Total 1300 / 2550 1250 / 2550 1350 / 1350 Balance 1600 / 1840 240 / 1840 -1350 / -1350 Weight 68 kg Intake: IV 2000 / 3000 1000 / 3000 Oral 900 / 1390 490 / 1390 Output: Urine 1300 / 2550 1250 / 2550 1350 / 1350 Other: Urine Color Yellow Straw Pale Yellow Urine Appearance Clear Clear Clear Urine Odor Normal Stool Size Moderate Stool Characteristics Formed Brown Voiding Methods Urinal Toilet Toilet Urinal Data Completed and Pending Pending studies at discharge: CT CT PELVIC W from 11/21/[address] PELVIC W from 11/21/2019 FINDINGS: Images obtained through the lung bases are unremarkable. Liver and spleen appear normal. The pancreas appears normal. Gallbladder and bile ducts are CT normal. Abdominal aorta is of normal diameter, major visceral branches appear intact. No significant abdominal wall hernia seen. No significant abdominal or pelvic adenopathy. Appendix is not identified with certainty, but there is no evidence of appendicitis or diverticulitis. There is apparent thickening of the gastric wall in the fundus and question of esophageal wall thickening; the patient has reportedly had significant recent vomiting and this finding may be related to vomiting. Infectious process not excluded. No evidence of bowel obstruction. Adrenals appear normal bilaterally. There are tiny bilateral nonobstructing renal calculi. There are tiny fluid attenuation renal masses seen bilaterally consistent with cysts. Additionally, there is a 17 millimeter in diameter hyperdense lesion, which lies in the medial aspect of the midpole of the right kidney; this has a mean attenuation of about 51 Hounsfield units and may be slightly heterogeneous. This was not present on prior abdominal CT of August 2018. This is an indeterminate lesion and the possibility of malignancy should be evaluated with renal protocol MRI without and with contrast administration. There is thickening of the wall of the urinary bladder not present on prior examinations, consider cystitis. IMPRESSION: Urinary bladder wall thickening, consider cystitis. New indeterminate right renal mass, additional evaluation with renal protocol MRI recommended. FINDINGS: MR examination of the lumbosacral spine was performed according to the usual protocol. There is new bony signal abnormality of the L5 vertebral endplate anteriorly consistent with a Schmorl's node or cyst, this was not present on kel or MR of 09/17/2018. No other significant bony signal seen. The conus medullaris appears intact. There is a moderate disc bulge noted at L4-5. Mild bilateral neural foraminal narrowing also noted at L4-5. There is borderline central canal spinal stenosis at L4-5. At L5-S1 there is a moderate disc bulge with question mild superimposed disc herniation. No other significant disc pathology apart from a mild disc bulge at L3-4. Apart from the aforementioned mild neural foraminal narrowing at L4-5, no additional significant neural foraminal narrowing identified in lumbar region. IMPRESSION: Mild central canal spinal stenosis at L4-5, mild central disc herniation at L5- S1. Findings appear essentially unchanged from previous examination of August 2018. EXAM: MR PELVIS WO CLINICAL HISTORY: intractable acute left gluteal pain non traumatic. TECHNIQUE: Multiplanar multisequence MRI was performed. COMPARISON: No exams were available for comparison FINDINGS: MR examination of the pelvis was performed with fast scanning protocol due to patient discomfort. There is increased heterogeneity of signal with some artifact present on multiple pulse sequences. No convincing signal abnormality identified in the bones of the pelvis. No intrapelvic mass identified. No adenopathy. The gluteal muscles and tendons show question subtle increased signal near there trochanteric attachments, no fluid collection seen, no tendon tear. No bursal fluid collections or inflammation. No other significant findings in the region of the hips. IMPRESSION: Question slight increase in gluteal muscular and tendinous signal in the region of the greater trochanters of the femur, possible mild tendinitis. This is a questionable finding and evaluation is limited by artifact on this fast scan, please correlate clinically with the patient's examination Labs on day of discharge: Labs from last 24 hours 02/28/20 07:45 Sodium 139 Potassium 3.6 Chloride 103 Carbon Dioxide 29.5 Anion Gap 6.5 BUN 12 Creatinine 0.98 Estimated GFR/1.73 m2 >= 60.00 Glucose 185 H Calcium 8.3 L Magnesium 1.6 L Preliminary micro results at discharge 02/24/20 14:00 Blood Culture - Preliminary Blood NO GROWTH 72 HOURS 02/24/20 15:50 Blood Culture - Preliminary Blood NO GROWTH 72 HOURS [facility] Medical History Abscess, perirectal (Inactive) Acute shoulder pain due to trauma (Inactive) Benign hypertension (Acute 12/01/10) Cerumen impaction (Inactive 01/13/15) Dairy product intolerance (Inactive 08/22/16) Depressive disorder (Inactive 09/13/11) Disorder of left rotator cuff (Inactive 12/01/12) 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 Left -complete loss of hearing. Tobacco dependence syndrome (Inactive 09/13/10) Uncontrolled diabetes mellitus type 2 without complications (Inactive 12/01/09) Surgical History Biopsy of dital clavicle, left AC joint (02/25/15) Dr Bright 03/16/15 Addendum Surgical Patology report: Bone with maturing trilineage hematopesis; Reacive stnovium; No evidence of lymphoma identified per Dr. Deann Godoy MD H/O drainage of abscess (Acute ~11/21/19) Rotator Cuff Repair Family History Mother Diabetes Essential hypertension Myocardial infarction Social History Smoking/Tobacco Use Status: Current every day Tobacco Type: cigarettes Tobacco: How many years used: 35 Quit status: not considering quitting Alcohol Intake: former Drug use: Occasionally Substance use type: marijuana Household members: none Housing: other Details: trailer Number of Children: 1 Communication Needs: Hard of Hearing Do you need help understanding health information?: Often current occupation: disabled Pets and animals: Yes Pets and animals: dog(s) Current gender identity: male What type of physical activity do you participate in: none Drive intox or ride w/intox 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
[2020-02-28] MEDS: Patch Removal 1 EACH TP (09:44)
--- NOTE | 2020-02-28 13:17 | PDOC.CMDIS ---
- If Service Date Differs Date of service: 02/28/20 Time of Service: 13:17 LACE Index Scoring Tool - Questions: Length of Stay (in days): 4 - 6 Acuity (Admit via E.D.?): Yes Comorbidities: Diabetes w/o Complication E.D. Visits: 4 - Answers: Total Score: 12 Risk of Readmission: High Risk Care Management Discharge Reason for Hospitalization: Nausea and Vomiting Discharge Plan: Harry will be discharged home with no additional services. He would likely benefit from additional education and support regarding his diabetes. Outpatient PT has been recommended for the tendonitis he is experiencing. He will follow up with his PCP and discharge plan of care.Harry will transport home via private vehicle with a friend. Patient/Family Education Needs: Discharge education, limitations and follow up plan of care including Ask me three. Services Needed at Discharge: Physical Therapy
--- NOTE | 2020-02-29 12:16 | INDS_ITS ---
Date of service: 02/29/20 Time of Service: 12:16 PT Notes Visit Reasons: INTRACTABLE NAUSEA VOMITING,ACUTE KIDNEY INJURY, PHYSICAL THERAPY DISCHARGE SUMMARY Date: 02/29/20 Referring Doctor: Polly Hutchison NP PT Orders: PT CONSULT: IT band tendinitis Precautions: standard THIS DOCUMENT SERVES A SUMMARY OF CARE. NO PHYSICAL THERAPY SERVICES WERE PROVIDED ON THIS DATE. Patient Profile/Admitting Diagnosis: Patient admitted to acute care after presenting to ED with nausea and vomiting. Now being medically managed for acute kidney injury, hypomagnesemia, and leukocytosis. Significant pain complaints in the left hip, with MRI indicating gluteal tendinitis and chronic disc bulges at L4-5 and L5-S1. PMHX: Type II DM, hypertension, hypercholesterolemia, history of non-Hodgkin's lymphoma, hard of hearing. Patient has a history of back and hip pain, reporting similar symptoms about 18 months ago which improved with PT intervention. Social History/Home Situation: Patient lives independently in a trailer. He is disabled. No assistive device. Equipment Owned/DME: None Subjective: None obtained. Patient was discharged home 02/28/20 prior to additional PT intervention. Objective: ROM: Right Upper Extremity: WFL Left Upper Extremity: WFL Right Lower Extremity: Hip ROM full and pain-free Left Lower Extremity: Left hip ROM is full, although with pain exacerbation in end ranges of external rotation. Piriformis stretch position is limited by pain, allowing 75% as compared to the right side. Trunk: Forward flexion allows 90 degrees with upper extremity support to FW W. No immediate relief is achieved. Trunk extension is full, although with increase in low back pain. Strength: Right Upper Extremity: WFL Left Upper Extremity: WFL Right Lower Extremity: Hip flexion 5/5. Quads 5/5. Ankle dorsiflexion 5/5. EHL 4-/5. Left Lower Extremity: Unable to fully assess due to pain. Hip flexion 3/5 or greater. Quads 3/5 or greater. EHL 4-/5. Bed Mobility/Transfers: Supine?sit: Independent Sit?supine: Independent Sit?stand: Independent Stand?sit: Independent Gait: Patient ambulates 25 feet with FW W and supervision only. FW W was utilized exclusively for pain management, with patient demonstrating good balance and safety without use of AD. Balance: Static Sitting: Normal Dynamic Sitting: Normal Static Standing: Normal Dynamic Standing: Good Special Tests: Mobility Limitations Standardized Measure [facility] AM-PAC 6 clicks Basic Mobility Inpatient Short Form: Raw Score: 24 CMS Score: 0% deficit Treatment: No treatment provided on this date. Assessment: Patient was seen for a single PT session on 02/27/20. He was medically stabilized and able to transition back home prior to any further PT intervention. As a result, PT goals 1-7 are not met. Patient will benefit from skilled PT intervention on an outpatient basis. He is formally discharged from PT in acute care setting. Goals: Goals X1 week: NOT MET 1. Supine-Sit: Independent 2. Sit-Supine: Independent 3. Sit-Stand: Independent 4. Stand-Sit: Independent 5. Bed-Chair: Independent 6. Chair-Bed: Independent 7. Gait: Supervision x50 feet Plan of Care/Treatment Plan: Discharge from PT in acute care setting DISCHARGE RECOMMENDATIONS: Outpatient PT TREATMENT CODE/TIME: NONE Trisha Stein, PT, DPT [facility]
== END 2020-02-28 10:37 | disposition home or self-care (01) | DRG 684 ==
LOC: ER 15:49 → MS 16:48
PROVIDERS: Emergency Medicine; Nurse Practitioner Acute Care; Nurse Practitioner Family; Admitting Provider Internal Medicine; Emergency Provider Registered Nurse Emergency; PCP Internal Medicine; Visit Provider Internal Medicine
DX: N17.9 Acute kidney failure, unspecified (principal); R11.2 Nausea with vomiting, unspecified; M25.552 Pain in left hip; M76.02 Gluteal tendinitis, left hip; D72.829 Elevated white blood cell count, unspecified; Z03.818 Encounter for observation for suspected exposure to other biological agents ruled out; E83.42 Hypomagnesemia; R93.421 Abnormal radiologic findings on diagnostic imaging of right kidney; Z79.84 Long term (current) use of oral hypoglycemic drugs; E78.5 Hyperlipidemia, unspecified; F17.210 Nicotine dependence, cigarettes, uncomplicated; E11.65 Type 2 diabetes mellitus with hyperglycemia; Z85.72 Personal history of non-Hodgkin lymphomas
CPT/HCPCS: 36410; 36415; 36416; 80048; 80053; 80307; 82962; 83690; 85027; 87040; 93005; 96361; 96365; 96375; 96376; 97162; 99223; 99233; 99239; 99285; U0003; 72148; 72195; 74177; 80320; 81003; 81015; 83036; 83605; 83735; 84484; 85025; 87086; 93010; J0131; J1644; J1885; J2060; J2270; J2405; J3475; J3490; J7512

== ENCOUNTER 2020-03-01 11:51 | Emergency (ER) | payer MEDICARE, MEDICAID, SELFPAY ==
[2020-03-01 12:07] VITALS: BP 148/73; PULSE 92; RESP 18; TEMP 36.5; O2SAT 98
--- NOTE | 2020-03-01 12:27 | ED.GENADUL_ITS ---
Discharge Plan Disposition Patient Disposition: HOME Condition: Improving Discharge Details Chief Complaint: Orthopedic Clinical Impression: Left hip pain Primary Care Provider: Khadijah Galicia ED Provider: Daniel Kang Home Meds and New Rx's Prescriptions: New oxycodone-acetaminophen [Percocet] 5-325 mg tablet 1 tab PO TID PRN (Reason: pain) Qty: 8 RF: 0 Continued glimepiride [Amaryl] 4 mg tablet 4 mg PO QAM Qty: 90 RF: 3 atorvastatin 20 mg tablet 20 mg PO DAILY Qty: 90 RF: 3 metformin 1,000 mg tablet 1,000 mg PO BID Qty: 90 RF: 3 lisinopril 2.5 mg tablet 2.5 mg PO DAILY Qty: 90 RF: 3 omeprazole 20 mg capsule,delayed release(DR/EC) 20 mg PO DAILY Qty: 90 RF: 0 (DME) blood sugar diagnostic Strip See Rx Instructions .ROUTE .MEDSUPPLY Qty: 100 RF: 6 (DME) blood-glucose meter [OneTouch Verio Flex meter] Misc See Rx Instructions .ROUTE .MEDSUPPLY Qty: 1 RF: 0 (DME) lancets [OneTouch UltraSoft Lancets] Misc See Rx Instructions .ROUTE .MEDSUPPLY Qty: 100 RF: 6 Trulicity 0.75 mg/0.5 mL pen injector 0.75 mg SC QWEEK Qty: 2 RF: 0 sucralfate 1 gram Tablet 1 g PO AC & HS Qty: 30 RF: 0 lidocaine [Lidoderm] 5 % Adhesive Patch,Medicated 1 patch topical HS Qty: 5 RF: 0 prednisone 20 mg tablet 40 mg PO DAILY Qty: 8 RF: 0 ibuprofen 800 mg tablet 800 mg PO TID Qty: 20 RF: 0 omeprazole 20 mg capsule,delayed release(DR/EC) 20 mg PO DAILY Qty: 30 RF: 0 magnesium chloride [Mag-Delay] 64 mg tablet,delayed release (DR/EC) 64 mg PO DAILY Qty: 20 RF: 0 acetaminophen [Mapap (acetaminophen)] 500 mg capsule 500 mg PO Q6H PRN (Reason: fever or pain) Qty: 30 RF: 0 Discharge Instructions Instructions: Leg Pain (ED) Additional Instructions: Continue normal routine and activities and exercises as previously instructed. Continue your routine medications. Apply ice and/or heat to reduce discomfort. As we discussed you may use the prescribed Percocet if needed for severe or breakthrough pain. Please follow-up with physical therapy. Home to rest today. Stand Alone Forms: Physical Therapy Referral Medical Decision Making 54-year-old male who was admitted to the hospital for left hip pain over the weekend, discharged on 27 February. Been using Lidoderm patches, ibuprofen and prescribed prednisone for the pain. During his admission he had MRI performed of the lumbar spine and pelvis which revealed left hip tendinitis. He also has known L5-S1 disc herniation but there were no other acute findings on the MRIs. The patient was given oral analgesia with improvement. Discussed with him that this will take some days to weeks to improve. I will prescribe him physical therapy. We will offer him a small number of oral analgesics for which I will consent him for their use. He understands homecare and indications to seek return. HPI General Mode of arrival: ambulatory . Date/Time Provider Initiated Documentation: 03/01/20 12:06 . Limitations to Documentation: no limitations . Information obtained by: patient . History of Present Illness 54 year old M presents to the emergency department with the chief complaint of Left hip pain, persistent since discharge, described as moderate and similar to prior episodes, Quality is described as dull and constant, and is localized to the left and lower extremity. Patient reports no radiation. Patient started experiencing this day(s) and it has been constant. Rest improves symptom(s), Movement worsens symptoms . Patient notes denies fever/chills, headaches, loss of appetite, nausea/vomiting and rash. Patient did receive the following treatments prior to arrival, NSAID and other (Lidoderm patch, on prednisone) Related Data Home Medications Medication Instructions Recorded Confirmed blood sugar diagnostic #100 each 08/04/19 03/01/20 blood-glucose meter #1 each 08/04/19 03/01/20 lancets #100 each 08/04/19 03/01/20 atorvastatin 20 mg tablet 20 mg PO DAILY #90 tab-cap 08/25/19 03/01/20 glimepiride 4 mg tablet 4 mg PO QAM #90 tab 08/25/19 03/01/20 lisinopril 2.5 mg tablet 2.5 mg PO DAILY #90 tab-cap 08/25/19 03/01/20 metformin 1,000 mg tablet 1,000 mg PO BID #90 tab 12/03/19 06/09/20 omeprazole 20 mg capsule,delayed 20 mg PO DAILY #90 tab-cap 08/25/19 03/01/20 release acetaminophen [Mapap 500 mg PO Q6H PRN #30 cap 11/22/19 03/01/20 (acetaminophen)] dulaglutide 0.75 mg/0.5 mL 0.75 mg SC QWEEK #2 ml 01/14/20 03/01/20 subcutaneous pen injector ibuprofen 800 mg PO TID #20 tab 02/28/20 03/01/20 lidocaine [Lidoderm] 1 patch TOPICAL HS #5 ea 02/28/20 03/01/20 magnesium chloride [Mag-Delay] 64 mg PO DAILY #20 tab 02/28/20 03/01/20 omeprazole 20 mg PO DAILY #30 cap 02/28/20 03/01/20 prednisone 40 mg PO DAILY #8 tab 02/28/20 03/01/20 sucralfate 1 g PO AC & HS #30 tab 02/28/20 03/01/20 oxycodone-acetaminophen [Percocet] 1 tab PO TID PRN #8 tab 03/01/20 Previous Rx's Medication Instructions Recorded blood sugar diagnostic #100 each 08/04/19 blood-glucose meter #1 each 08/04/19 lancets #100 each 08/04/19 atorvastatin 20 mg tablet 20 mg PO DAILY #90 tab-cap 08/25/19 glimepiride 4 mg tablet 4 mg PO QAM #90 tab 08/25/19 lisinopril 2.5 mg tablet 2.5 mg PO DAILY #90 tab-cap 08/25/19 metformin 1,000 mg tablet 1,000 mg PO BID #90 tab 08/25/19 omeprazole 20 mg capsule,delayed 20 mg PO DAILY #90 tab-cap 08/25/19 release acetaminophen [Mapap 500 mg PO Q6H PRN #30 cap 11/22/19 (acetaminophen)] dulaglutide 0.75 mg/0.5 mL 0.75 mg SC QWEEK #2 ml 01/14/20 subcutaneous pen injector ibuprofen 800 mg PO TID #20 tab 02/28/20 lidocaine [Lidoderm] 1 patch TOPICAL HS #5 ea 02/28/20 magnesium chloride [Mag-Delay] 64 mg PO DAILY #20 tab 02/28/20 omeprazole 20 mg PO DAILY #30 cap 02/28/20 prednisone 40 mg PO DAILY #8 tab 02/28/20 sucralfate 1 g PO AC & HS #30 tab 02/28/20 oxycodone-acetaminophen [Percocet] 1 tab PO TID PRN #8 tab 03/01/20 Allergies Allergy/AdvReac Type Severity Reaction Status Date / Time Milk Containing Products Allergy Unknown gi upset Verified 03/01/20 12:13 tramadol AdvReac diarrhea/GI Verified 03/01/20 12:13 General Stated Complaint: Orthopedic TABITHA: 4 Review of Systems Narrative: 6 systems reviewed and otherwise negative. Denies new injury. 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 Left -complete loss of hearing. Tobacco dependence syndrome (Inactive 09/13/10) Uncontrolled diabetes mellitus type 2 without complications (Inactive 12/01/09) Family History Mother Diabetes Essential hypertension Myocardial infarction Social History Smoking/Tobacco Use Status: Current every day Tobacco Type: cigarettes Tobacco: How many years used: 35 Quit status: not considering quitting Alcohol Intake: former Drug use: Occasionally Substance use type: marijuana Household members: none Housing: other Details: trailer Number of Children: 1 Communication Needs: Hard of Hearing Do you need help understanding health information?: Often current occupation: disabled Pets and animals: Yes Pets and animals: dog(s) Current gender identity: male What type of physical activity do you participate in: none Drive intox or ride w/intox [employer] c[employer] 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 Pleasant, well groomed, interactive. HEAD: Normocephalic, atraumatic ENT: Mucous membranes moist, oropharynx unremarkable, External ear exam unremarkable EYES: PERRL, EOMI NECK: Full ROM, no GUSTAVO, no menigismus CHEST/RESP: Nontender, clear to auscultation bilateral, no wheeze/rhonchi/rales CARDIOVASCULAR: RRR, no murmur, rub james. 2+ Rad pulse bilateral Pelvis, left SI joint and buttock tender to palpation. EXT: Full ROM, no edema, no rash. Motor is intact. Rated 5 out of 5. Sensation intact. Neuro: Grossly normal neurologic exam, conversant, interactive. Psych: Speech fluent, thoughts congruent, affect normal Course Vital Signs Vital signs: Vital Signs Temperature 36.5 C 03/01/20 12:07 Pulse 92 H 03/01/20 12:07 Respiratory Rate 18 03/01/20 12:07 Blood Pressure 148/73 H 03/01/20 12:07 Pulse Oximetry 98 03/01/20 12:07 Temperature 36.5 C 03/01/20 12:07 Temperature Source Temporal Artery Scan 03/01/20 12:07 Pulse 92 H 03/01/20 12:07 Respiratory Rate 18 03/01/20 12:07 Respiratory Effort Non-Labored 03/01/20 12:12 Blood Pressure 148/73 H 03/01/20 12:07 Blood Pressure Position Supine 03/01/20 12:07 Pulse Oximetry 98 03/01/20 12:07 Oxygen Delivery Method Room Air 03/01/20 12:07 Oxygen Flow Rate 0 03/01/20 12:07 Pain Level 9 03/01/20 12:07
[2020-03-01] MEDS: oxyCODONE 5 mg/Acetaminophen 325 mg TAB 2 TAB PO (12:33)
[2020-03-01 14:09] VITALS: BP 144/74; PULSE 79; RESP 18; TEMP 36.5; O2SAT 99
[2020-03-01] MEDS: Lidocaine 5% Patch 1 PATCH TP (14:13)
--- NOTE | 2020-03-01 15:11 | PDOC.ERCMPRO ---
- If Service Date Differs Date of service: 03/01/20 Time of Service: 15:11 Care Management Progress Note At the request of PCP, ANKITA meets with Harry to offer Home Health services. Harry reports he would hate to have someone come into his home but will give it some thought. Harry is instructed to let his PCP know if he decides he would like in-home services.
== END 2020-03-01 14:28 | disposition home or self-care (01) ==
PROVIDERS: Emergency Provider Emergency Medicine; PCP Internal Medicine
DX: M25.552 Pain in left hip (principal); M76.892 Other specified enthesopathies of left lower limb, excluding foot; M51.27 Other intervertebral disc displacement, lumbosacral region; I10 Essential (primary) hypertension; E11.9 Type 2 diabetes mellitus without complications; Z79.84 Long term (current) use of oral hypoglycemic drugs
CPT/HCPCS: 99283

== ENCOUNTER 2021-01-02 09:42 | Inpatient (IN) | payer MEDICARE, MEDICAID, SELFPAY ==
[2021-01-02] VITALS (19 sets, daily range): BP systolic 123–204; BP diastolic 72–105; PULSE 82–119; RESP 13–22; TEMP 35.3–37.1; O2SAT 96–100
[2021-01-02 10:14] LABS: BE (Venous) -5 mmol/L (-2-3); HCO3 (Venous) 20 mmol/L (23-28); O2 Sat (Venous) 73 %; TCO2 (Venous) 17 mmol/L (24-29); pCO2 (Venous) 31 mmHg (41-51); pH (Venous) 7.41 (7.31-7.41); pO2 (Venous) 39 mmHg
[2021-01-02] MEDS: Ondansetron 4 MG/2 ML VIAL IVP (10:14)
[2021-01-02] MEDS: Normal Saline 1,000 ML 1000 ML IV ×2 (10:14→11:44)
[2021-01-02 10:15] LABS: Abs Immature Grans 0.09 10^3/uL (0.0-0.06); Absolute Basophil Count 0.03 10^3/uL (0.0-0.2); Absolute Lymphocyte Count 0.79 10^3/uL (1.2-3.4); Basophils % 0.2; HCT 46.6 % (40.0-50.0); HGB 16.1 g/dL (13.5-17.5); Immature Grans % 0.5; Lymphocytes % 4.8; MCH 30.1 pg (27.0-33.0); MCHC 34.5 % (32.0-36.0); MCV 87.1 fL (80-95); MPV 11.6 fL (8.0-11.0); Monocytes % 2.4; Neutrophils % 92.1; Nucleated RBC 0 %; Platelet Count 265 10^3/uL (130-400); RBC 5.35 10^6/uL (4.36-5.78); RDW 11.8 % (11.8-14.1); RDW-SD 37.8 fL; WBC 16.42 10^3/uL (4.4-10.8)
--- NOTE | 2021-01-02 10:15 | RT.EKG_ITS ---
APPROVED REPORT Exam: Resting ECG Patient Location: E HR:109 bpm ECG Measurements Heart Rate 109 AXIS MN 155 P 78 QRSd 93 QRS 15 QT 347 T 71 QTc 467 Conclusion Sinus tachycardia...rate> 99 Probable left atrial enlargement...P >50mS, <-0.10mV V1 I have reviewed and interpreted ECG and agree with software generated interpretation.
--- NOTE | 2021-01-02 10:23 | ED.GENADUL_ITS ---
Discharge Plan Disposition Patient Disposition: [facility] INPATIENT Condition: Stable Discharge Details Chief Complaint: Nausea/Vomit/Diar Clinical Impression: Intractable vomiting, Leukocytosis, Hyperglycemia Admit Date/Time: 01/02/21 13:45 Admit Provider: Steven Montero Attending Provider: Steven Montero Primary Care Provider: Khadijah Galicia ED Provider: Brando Goodwin Medical Decision Making This is a 55-year-old gentleman past medical history of diabetes, hypertension, depression, current smoker, presented to the ER complaining of 2-1/2 days of nausea and vomiting, unable to hold anything down including his medications. He denies recent travel, sick contacts, or any pain whatsoever. He states that this is happened in the past requiring admission. Patient does not believe that he has ever had DKA in the past. Will obtain IV access, give IV Zofran, normal saline, obtain laboratory values including VBG. Differential includes but not excluded to hyperemesis, gastroenteritis, DKA, hyperglycemia, etc. plan to give a second liter of fluid as soon as the first is completed. Patient reports no improvement with Zofran, continues to dry heave, now given Phenergan. Initial laboratory values reveal a VBG pH of 7.41 white blood cell count of 16, CO2 20.3 anion gap 21 0.7, creatinine 1.6 GFR 44, glucose 411, 80 ketones in the urine. The clinical picture does not appear to be acute DKA. I believe that there is a component of hyperemesis with dehydration. Patient has had significant leukocytosis with similar presentation in the past. He has no abdominal pain whatsoever. I do not believe that emergent CT imaging is indicated. Heart rate trending downwards, now 102. Patient remains hypertensive. Does have history of hypertension. Denies any headache, visual changes, chest pain. After he received his liter of lactated Ringer's, repeat his CBC and CMP. White blood cell count trending upward 20.7 a however anion gap is now 17, creatinine 1.5 GFR 48.41 glucose 371. Tox screen positive for THC and cocaine. Will add on chest x-ray and troponin. Patient continues to have intermittent vomiting, now given 10 IV Reglan. Patient in the ER for several hours, received a total of 3 L of fluid, multiple antiemetics, continues to have vomiting. I believe that he will likely require admission. There is no obvious signs of infection. I will discussed the case with our hospitalist team, Dr. Montero. He is agreeable to admission, I will place holding orders. Troponin resulted as less than 0.05 Chest x-ray read by me as negative, awaiting official radiology report Medical Records Medical records reviewed: Yes I reviewed the patient's medical records. Lab Data Lab results reviewed: Yes I reviewed the patient's lab results. Labs: Laboratory Tests Range/Units 01/02/21 01/02/21 01/02/21 10:00 10:00 10:00 WBC (4.4-10.8) 10^3/uL 16.42 H RBC (4.36-5.78) 10^6/uL 5.35 Hgb (13.5-17.5) g/dL 16.1 Hct (40.0-50.0) % 46.6 MCV (80-95) fL 87.1 MCH (27.0-33.0) pg 30.1 MCHC (32.0-36.0) % 34.5 RDW (11.8-14.1) % 11.8 Plt Count (130-400) 10^3/uL 265 MPV (8.0-11.0) fL 11.6 H Immature Gran % 0.5 Neutrophils % 92.1 Lymphocytes % 4.8 Monocytes % 2.4 Eosinophils % 0.0 Basophils % 0.2 Nucleated RBC % % 0 Absolute Neutrophils (1.2-6.7) 10^3/uL 15.12 H Absolute Lymphocytes (1.2-3.4) 10^3/uL 0.79 L Absolute Monocytes (0.1-0.8) 10^3/uL 0.39 Absolute Eosinophils (0.0-0.7) 10^3/uL 0.00 Absolute Basophils (0.0-0.2) 10^3/uL 0.03 VBG pH (7.31-7.41) 7.41 VBG pCO2 (41-51) mmHg 31 L VBG pO2 mmHg 39 VBG HCO3 (23-28) mmol/L 20 L VBG Total CO2 (24-29) mmol/L 17 L VBG O2 Saturation % 73 VBG Base Excess (-2-3) mmol/L -5 L Sodium (136-145) mmol/L 137 Potassium (3.5-5.1) mmol/L 4.8 Chloride (98-107) mmol/L 95 L Carbon Dioxide (21.0-32.0) mmol/L 20.3 L Anion Gap (3-11) mmol/L 21.7 H BUN (7-18) mg/dL 45 H Creatinine (0.70-1.30) mg/dL 1.6 H Estimated GFR/1.73 m2 (mL/min/1.73m2) 44.94 Glucose (74-106) mg/dL 411 H Calcium (8.5-10.1) mg/dL 10.4 H Magnesium (1.8-2.4) mg/dL Total Bilirubin (0.2-1.0) mg/dL 0.9 AST (15-37) U/L 11 L ALT (16-63) U/L 17 Alkaline Phosphatase (46-116) U/L 84 Troponin I (<0.06) ng/mL Total Protein (6.4-8.2) g/dL 8.5 H Albumin (3.4-5.0) g/dL 4.5 Lipase (73-393) U/L 59 Urine Color (Yellow) Urine Clarity (Clear) Urine pH (5-8) Ur Specific [place] (1.005-1.025) Urine Protein (Negative) mg/dL Urine Ketones (Negative) mg/dL Urine Blood (Negative) Urine Nitrite (Negative) Urine Bilirubin (Negative) Urine Urobilinogen (Up TO 0.2) EU/dL Ur Leukocyte Esterase (Negative) Urine RBC (0-2) HPF Urine WBC (0-5) HPF Ur Epithelial Cells (Negative) HPF Urine Crystals (Negative) HPF Urine Bacteria (Negative) HPF Urine Casts (Negative) LPF Urine Mucus (Negative) Ur Culture Indicated? Urine Glucose (Negative) mg/dL Urine Opiates Screen (Negative) Urine Methadone Screen (Negative) Ur Barbiturates Screen (Negative) Ur Tricyclics Screen (Negative) Ur Amphetamines Screen (Negative) U Benzodiazepines Scrn (Negative) Urine Cocaine Screen (Negative) Ur THC Screen (Negative) Range/Units 01/02/21 01/02/21 01/02/21 10:00 12:45 12:45 WBC (4.4-10.8) 10^3/uL RBC (4.36-5.78) 10^6/uL Hgb (13.5-17.5) g/dL Hct (40.0-50.0) % MCV (80-95) fL MCH (27.0-33.0) pg MCHC (32.0-36.0) % RDW (11.8-14.1) % Plt Count (130-400) 10^3/uL MPV (8.0-11.0) fL Immature Gran % Neutrophils % Lymphocytes % Monocytes % Eosinophils % Basophils % Nucleated RBC % % Absolute Neutrophils (1.2-6.7) 10^3/uL Absolute Lymphocytes (1.2-3.4) 10^3/uL Absolute Monocytes (0.1-0.8) 10^3/uL Absolute Eosinophils (0.0-0.7) 10^3/uL Absolute Basophils (0.0-0.2) 10^3/uL VBG pH (7.31-7.41) VBG pCO2 (41-51) mmHg VBG pO2 mmHg VBG HCO3 (23-28) mmol/L VBG Total CO2 (24-29) mmol/L VBG O2 Saturation % VBG Base Excess (-2-3) mmol/L Sodium (136-145) mmol/L Potassium (3.5-5.1) mmol/L Chloride (98-107) mmol/L Carbon Dioxide (21.0-32.0) mmol/L Anion Gap (3-11) mmol/L BUN (7-18) mg/dL Creatinine (0.70-1.30) mg/dL Estimated GFR/1.73 m2 (mL/min/1.73m2) Glucose (74-106) mg/dL Calcium (8.5-10.1) mg/dL Magnesium (1.8-2.4) mg/dL 1.8 Total Bilirubin (0.2-1.0) mg/dL AST (15-37) U/L ALT (16-63) U/L Alkaline Phosphatase (46-116) U/L Troponin I (<0.06) ng/mL Total Protein (6.4-8.2) g/dL Albumin (3.4-5.0) g/dL Lipase (73-393) U/L Urine Color (Yellow) Yellow Urine Clarity (Clear) Clear Urine pH (5-8) 5.5 Ur Specific [place] (1.005-1.025) 1.025 Urine Protein (Negative) mg/dL 100 H Urine Ketones (Negative) mg/dL 80 H Urine Blood (Negative) Small H Urine Nitrite (Negative) Negative Urine Bilirubin (Negative) Negative Urine Urobilinogen (Up TO 0.2) EU/dL 0.2 Ur Leukocyte Esterase (Negative) Negative Urine RBC (0-2) HPF 5-10 H Urine WBC (0-5) HPF Negative Ur Epithelial Cells (Negative) HPF Rare Urine Crystals (Negative) HPF Negative Urine Bacteria (Negative) HPF Negative Urine Casts (Negative) LPF Negative Urine Mucus (Negative) Negative Ur Culture Indicated? No Urine Glucose (Negative) mg/dL 500 H Urine Opiates Screen (Negative) Negative Urine Methadone Screen (Negative) Negative Ur Barbiturates Screen (Negative) Negative Ur Tricyclics Screen (Negative) Negative Ur Amphetamines Screen (Negative) Negative U Benzodiazepines Scrn (Negative) Negative Urine Cocaine Screen (Negative) Positive A Ur THC Screen (Negative) Positive A Range/Units 01/02/21 01/02/21 01/02/21 12:55 12:55 12:55 WBC (4.4-10.8) 10^3/uL 20.78 H RBC (4.36-5.78) 10^6/uL 4.81 Hgb (13.5-17.5) g/dL 14.4 Hct (40.0-50.0) % 42.6 MCV (80-95) fL 88.6 MCH (27.0-33.0) pg 29.9 MCHC (32.0-36.0) % 33.8 RDW (11.8-14.1) % 11.9 Plt Count (130-400) 10^3/uL 241 MPV (8.0-11.0) fL 11.5 H Immature Gran % 0.4 Neutrophils % 95.3 Lymphocytes % 2.4 Monocytes % 1.8 Eosinophils % 0.0 Basophils % 0.1 Nucleated RBC % % 0 Absolute Neutrophils (1.2-6.7) 10^3/uL 19.80 H Absolute Lymphocytes (1.2-3.4) 10^3/uL 0.50 L Absolute Monocytes (0.1-0.8) 10^3/uL 0.37 Absolute Eosinophils (0.0-0.7) 10^3/uL 0.00 Absolute Basophils (0.0-0.2) 10^3/uL 0.02 VBG pH (7.31-7.41) VBG pCO2 (41-51) mmHg VBG pO2 mmHg VBG HCO3 (23-28) mmol/L VBG Total CO2 (24-29) mmol/L VBG O2 Saturation % VBG Base Excess (-2-3) mmol/L Sodium (136-145) mmol/L 140 Potassium (3.5-5.1) mmol/L 4.6 Chloride (98-107) mmol/L 101 Carbon Dioxide (21.0-32.0) mmol/L 22.0 Anion Gap (3-11) mmol/L 17.0 H BUN (7-18) mg/dL 40 H Creatinine (0.70-1.30) mg/dL 1.5 H Estimated GFR/1.73 m2 (mL/min/1.73m2) 48.41 Glucose (74-106) mg/dL 371 H Calcium (8.5-10.1) mg/dL 8.9 Magnesium (1.8-2.4) mg/dL Total Bilirubin (0.2-1.0) mg/dL 0.6 AST (15-37) U/L 8 L ALT (16-63) U/L 17 Alkaline Phosphatase (46-116) U/L 74 Troponin I (<0.06) ng/mL < 0.05 Total Protein (6.4-8.2) g/dL 7.4 Albumin (3.4-5.0) g/dL 3.8 Lipase (73-393) U/L Urine Color (Yellow) Urine Clarity (Clear) Urine pH (5-8) Ur Specific [place] (1.005-1.025) Urine Protein (Negative) mg/dL Urine Ketones (Negative) mg/dL Urine Blood (Negative) Urine Nitrite (Negative) Urine Bilirubin (Negative) Urine Urobilinogen (Up TO 0.2) EU/dL Ur Leukocyte Esterase (Negative) Urine RBC (0-2) HPF Urine WBC (0-5) HPF Ur Epithelial Cells (Negative) HPF Urine Crystals (Negative) HPF Urine Bacteria (Negative) HPF Urine Casts (Negative) LPF Urine Mucus (Negative) Ur Culture Indicated? Urine Glucose (Negative) mg/dL Urine Opiates Screen (Negative) Urine Methadone Screen (Negative) Ur Barbiturates Screen (Negative) Ur Tricyclics Screen (Negative) Ur Amphetamines Screen (Negative) U Benzodiazepines Scrn (Negative) Urine Cocaine Screen (Negative) Ur THC Screen (Negative) ECG Data Attestation: I personally reviewed and interpreted this ECG (s) as follows: Interpretation: Please see official report by Dr. Tang. Sinus tachycardia, ventricular of 109. HPI General Mode of arrival: ambulatory . Date/Time Provider Initiated Documentation: 01/02/21 09:43 . Limitations to Documentation: no limitations . Information obtained by: patient . HPI Narrative: This is a 55-year-old gentleman, past medical history of hypertension, diabetes, depression, current smoker, occasional marijuana use, presenting to the ER for nausea and vomiting over the past 2 days. Patient concerns of dehydration. He states that he has had similar symptoms in the past. He denies any abdominal pain. He denies recent illness or trauma. He denies recent travel, bad food exposure or sick contacts. Denies headache, chest pain, shortness of breath, back pain, blood in his vomitus, coffee-ground vomit, change in bowel or bladder function, numbness, tingling, weakness. He states that he has not been able to hold down food, drink, or medications over the past 2 days. Patient does not want to partake in his HPI, limited short answers. Related Data Home Medications Medication Instructions Recorded Confirmed blood sugar diagnostic #100 each 08/04/19 01/02/21 blood-glucose meter #1 each 08/04/19 01/02/21 lancets #100 each 08/04/19 01/02/21 atorvastatin 20 mg tablet 20 mg PO DAILY #90 tab-cap 08/25/19 01/02/21 omeprazole 20 mg capsule,delayed 20 mg PO DAILY #90 tab-cap 08/25/19 01/02/21 release acetaminophen [Mapap 500 mg PO Q6H PRN #30 cap 11/22/19 01/02/21 (acetaminophen)] dulaglutide 0.75 mg/0.5 mL 0.75 mg SC QWEEK #2 ml 01/14/20 01/02/21 subcutaneous pen injector ibuprofen 800 mg PO TID #20 tab 02/28/20 01/02/21 lidocaine [Lidoderm] 1 patch TOPICAL HS #5 ea 02/28/20 01/02/21 magnesium chloride [Mag-Delay] 64 mg PO DAILY #20 tab 02/28/20 01/02/21 omeprazole 20 mg PO DAILY #30 cap 02/28/20 01/02/21 sucralfate 1 g PO AC & HS #30 tab 02/28/20 01/02/21 oxycodone-acetaminophen [Percocet] 1 tab PO TID PRN #8 tab 03/01/20 01/02/21 gabapentin 300 mg capsule 300 mg PO TID #30 cap 03/04/20 01/02/21 prednisone 20 mg tablet 40 mg PO DAILY #8 tab 03/04/20 01/02/21 metformin 1,000 mg tablet 1,000 mg PO BID #180 tab 03/22/20 01/02/21 glimepiride 4 mg tablet 4 mg PO QAM #90 tab 10/07/20 01/02/21 lisinopril 2.5 mg tablet 2.5 mg PO DAILY #90 tab-cap 10/07/20 01/02/21 Previous Rx's Medication Instructions Recorded blood sugar diagnostic #100 each 08/04/19 blood-glucose meter #1 each 08/04/19 lancets #100 each 08/04/19 atorvastatin 20 mg tablet 20 mg PO DAILY #90 tab-cap 08/25/19 omeprazole 20 mg capsule,delayed 20 mg PO DAILY #90 tab-cap 08/25/19 release acetaminophen [Mapap 500 mg PO Q6H PRN #30 cap 11/22/19 (acetaminophen)] dulaglutide 0.75 mg/0.5 mL 0.75 mg SC QWEEK #2 ml 01/14/20 subcutaneous pen injector ibuprofen 800 mg PO TID #20 tab 02/28/20 lidocaine [Lidoderm] 1 patch TOPICAL HS #5 ea 02/28/20 magnesium chloride [Mag-Delay] 64 mg PO DAILY #20 tab 02/28/20 omeprazole 20 mg PO DAILY #30 cap 02/28/20 sucralfate 1 g PO AC & HS #30 tab 02/28/20 oxycodone-acetaminophen [Percocet] 1 tab PO TID PRN #8 tab 03/01/20 gabapentin 300 mg capsule 300 mg PO TID #30 cap 03/04/20 prednisone 20 mg tablet 40 mg PO DAILY #8 tab 03/04/20 metformin 1,000 mg tablet 1,000 mg PO BID #180 tab 03/22/20 glimepiride 4 mg tablet 4 mg PO QAM #90 tab 10/07/20 lisinopril 2.5 mg tablet 2.5 mg PO DAILY #90 tab-cap 10/07/20 Allergies Allergy/AdvReac Type Severity Reaction Status Date / Time Milk Containing Products AdvReac Unknown gi upset Verified 01/02/21 09:55 tramadol AdvReac diarrhea/GI Verified 01/02/21 09:55 General Stated Complaint: Nausea/Vomit/Diar TABITHA: 3 Review of Systems Constitutional Constitutional: Denies fatigue, Denies fever(s) and Denies headache(s) ENT Ears, Nose, Mouth, and Throat: Denies headache(s) and Denies neck pain Cardiovascular Cardiovascular: Denies chest pain and Denies dyspnea Respiratory Respiratory: Denies cough and Denies dyspnea Gastrointestinal Gastrointestinal: Denies abdominal pain, Denies constipation, Denies diarrhea, Reports nausea and Reports vomiting Genitourinary Genitourinary: Denies dysuria Musculoskeletal Musculoskeletal: Denies back pain and Denies neck pain Integumentary/Breasts Skin/Breast: Denies rash Neurologic Neurologic: Denies headache(s) and Reports weakness (Generalized) Endocrine Endocrine: Denies fatigue [facility] Medical History (Updated 01/02/21 @ 15:08 by STEPHANI Link) Abscess, perirectal Acute shoulder pain due to trauma Benign hypertension (12/01/10) Cerumen impaction (01/13/15) Dairy product intolerance (08/22/16) Depressive disorder (09/13/11) Disorder of left rotator cuff (12/01/12) 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 Left -complete loss of hearing. Tobacco dependence syndrome (09/13/10) Uncontrolled diabetes mellitus type 2 without complications (12/01/09) Surgical History Biopsy of dital clavicle, left AC joint (02/25/15) Dr Bright 03/16/15 Addendum Surgical Patology report: Bone with maturing trilineage hematopesis; Reacive stnovium; No evidence of lymphoma identified per Dr. Deann Godoy MD H/O drainage of abscess (~11/21/19) Rotator Cuff Repair Family History Mother Diabetes Essential hypertension Myocardial infarction Social History Smoking/Tobacco Use Status: Current every day Tobacco Type: cigarettes Tobacco: How many years used: 35 Quit status: not considering quitting Smoking risk assessment performed?: Yes Alcohol Intake: former Drug use: Occasionally Substance use type: marijuana Household members: none Housing: other Details: trailer Number of Children: 1 Communication Needs: Hard of Hearing Do you need help understanding health information?: Often current occupation: disabled Pets and animals: Yes Pets and animals: dog(s) Current gender identity: male What type of physical activity do you participate in: none 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 Working smoke detector in home: Yes Do you feel safe at home: Yes Do you feel safe in your relationship?: Yes Exam Const General: cooperative, in distress (Dry heaving) and disheveled Orientation: alert, awake and oriented x3 HENMT Head: normal to inspection, normocephalic and atraumatic Face and sinus: normal facial exam Mouth: moist mucous membranes abnormal (Dry) Eyes General: appearance normal, both eyes and all related structures Conjunctivae: conjunctivae normal Neck Neck: normal visual inspection, full ROM, no lymphadenopathy, no meningeal signs, trachea midline, supple and nontender Resp Effort & Inspection: normal respiratory effort and able to speak in complete sentences Auscultation: clear to auscultation bilaterally Cardio Rate: tachycardic (112) Rhythm: regular rhythm GI Palpation: soft, not firm, no guarding and nontender Auscultation: normal bowel sounds Back/Spine/Pelvis Back: no CVA tenderness and No back tenderness Skin Rashes: no rashes Neuro General: patient alert, patient awake, patient oriented x3, moves all extremities and no focal motor deficits Cognition: normal cognition Speech: speech normal Gait: normal gait Motor: muscle tone normal throughout Sensory Exam: no sensory deficits noted Extrem General: normal to inspection, full ROM, capillary refill normal and no calf tenderness Psych Appearance: grossly normal Mental Status: mental status grossly normal Course Vital Signs Vital signs: Vital Signs Temperature 35.3 C L 01/02/21 09:46 Pulse 110 H 01/02/21 09:46 Respiratory Rate 22 01/02/21 09:46 Blood Pressure 197/101 H 01/02/21 09:46 Pulse Oximetry 99 01/02/21 09:46 Temperature 35.3 C L 01/02/21 09:46 Temperature Source Skin 01/02/21 09:46 Pulse 110 H 01/02/21 09:46 Respiratory Rate 22 01/02/21 09:46 Blood Pressure 197/101 H 01/02/21 09:46 Blood Pressure Position Supine 01/02/21 09:46 Pulse Oximetry 99 01/02/21 09:46 Oxygen Delivery Method Room Air 01/02/21 09:46 Oxygen Flow Rate 0 01/02/21 09:46 Pain Level 3 01/02/21 09:46 Lab/Test Results Lab/Test Results: Laboratory Tests Range/Units 01/02/21 10:00 VBG pH (7.31-7.41) 7.41 VBG pCO2 (41-51) mmHg 31 L VBG pO2 mmHg 39 VBG HCO3 (23-28) mmol/L 20 L VBG Total CO2 (24-29) mmol/L 17 L VBG O2 Saturation % 73 VBG Base Excess (-2-3) mmol/L -5 L
[2021-01-02 10:25] LABS: Absolute Monocyte Count 0.39 10^3/uL (0.1-0.8); Absolute Neutrophil Count 15.12 10^3/uL (1.2-6.7)
[2021-01-02 10:32] LABS: ALT 17 U/L (16-63); AST 11 U/L (15-37); Albumin 4.5 g/dL (3.4-5.0); Alkaline Phosphatase 84 U/L (46-116); Anion Gap 21.7 mmol/L (3-11); BUN 45 mg/dL (7-18); Bilirubin, Total 0.9 mg/dL (0.2-1.0); CO2 20.3 mmol/L (21.0-32.0); CREATININE 1.6 mg/dL (0.70-1.30); Calcium 10.4 mg/dL (8.5-10.1); Chloride 95 mmol/L (98-107); Estimated GFR 44.94 (mL/min/1.73m2); Glucose 411 mg/dL (74-106); Lipase 59 U/L (73-393); Potassium 4.8 mmol/L (3.5-5.1); Sodium 137 mmol/L (136-145); Total Protein 8.5 g/dL (6.4-8.2)
[2021-01-02 11:01] LABS: Magnesium 1.8 mg/dL (1.8-2.4)
[2021-01-02] MEDS: Lactated Ringers 1,000 ML 1000 ML IV (12:27)
[2021-01-02] MEDS: Metoclopramide 10 MG/2 ML VIAL IVP (12:50)
[2021-01-02 13:02] LABS: Abs Immature Grans 0.09 10^3/uL (0.0-0.06); Absolute Monocyte Count 0.37 10^3/uL (0.1-0.8); Basophils % 0.1; HCT 42.6 % (40.0-50.0); HGB 14.4 g/dL (13.5-17.5); Immature Grans % 0.4; Lymphocytes % 2.4; MCH 29.9 pg (27.0-33.0); MCHC 33.8 % (32.0-36.0); MCV 88.6 fL (80-95); MPV 11.5 fL (8.0-11.0); Monocytes % 1.8; Neutrophils % 95.3; Nucleated RBC 0 %; Platelet Count 241 10^3/uL (130-400); RBC 4.81 10^6/uL (4.36-5.78); RDW 11.9 % (11.8-14.1); RDW-SD 38.7 fL; WBC 20.78 10^3/uL (4.4-10.8)
[2021-01-02 13:03] LABS: Absolute Basophil Count 0.02 10^3/uL (0.0-0.2)
[2021-01-02 13:14] LABS: ALT 17 U/L (16-63); AST 8 U/L (15-37); Albumin 3.8 g/dL (3.4-5.0); Alkaline Phosphatase 74 U/L (46-116); BUN 40 mg/dL (7-18); Bilirubin, Total 0.6 mg/dL (0.2-1.0); CREATININE 1.5 mg/dL (0.70-1.30); Calcium 8.9 mg/dL (8.5-10.1); Chloride 101 mmol/L (98-107); Estimated GFR 48.41 (mL/min/1.73m2); Glucose 371 mg/dL (74-106); Potassium 4.6 mmol/L (3.5-5.1); Sodium 140 mmol/L (136-145); Total Protein 7.4 g/dL (6.4-8.2)
[2021-01-02 13:14] LABS: Bilirubin Negative (Negative); Blood Small (Negative); Clarity Clear (Clear); Glucose 500 mg/dL (Negative); Ketones 80 mg/dL (Negative); Leukocyte Esterase Negative (Negative); Nitrite Negative (Negative); Specific Gravity 1.025 (1.005-1.025); Urobilinogen 0.2 EU/dL (Up TO 0.2); pH 5.5 (5-8)
[2021-01-02 13:22] LABS: Bacteria Negative HPF (Negative); C & S Indicated? No; Casts Negative LPF (Negative); Crystals Negative HPF (Negative); Epithelial Cells Rare HPF (Negative); Mucus Negative (Negative); WBC Negative HPF (0-5)
[2021-01-02 13:24] LABS: *AMPHETAMINES SCREEN URINE Negative (Negative); *BARBITURATES SCREEN URINE Negative (Negative); *BENZODIAZEPINES SCREEN URINE Negative (Negative); Cannabinoids THC Positive (Negative); Cocaine Screen,Urine Positive (Negative); METHADONE URINE SCREEN Negative (Negative); OPIATES URINE SCREEN Negative (Negative); Tricyclic Antidepressants Negative (Negative)
[2021-01-02 13:56] LABS: Source Nasal/Nares
[2021-01-02 14:18] LABS: Troponin I < 0.05 ng/mL (<0.06)
--- NOTE | 2021-01-02 14:39 | DI.RAD_ITS ---
EXAM: XR CHEST 2V PA LATERAL CLINICAL HISTORY: Leukocytosis. TECHNIQUE: 2D digital imaging was performed. COMPARISON: No exams were available for comparison FINDINGS: Heart size is normal. The mediastinum is not widened. Lungs are clear. No infiltrates nor pleural effusions. Evidence of right shoulder rotator cuff surgery is again noted. IMPRESSION: No acute pulmonary findings.No significant change compared to June 2019. DATA REPOSITORY: RADIATION DOSE DELIVERED:
[2021-01-02] MEDS: Normal Saline Flush 10 ML SYR IVP (16:12)
[2021-01-02] MEDS: Normal Saline 1,000 ML 75 ML IV (16:12)
[2021-01-02] MEDS: Insulin Aspart 300 UNITS/3 ML PEN SC (16:37)
[2021-01-02] MEDS: Enoxaparin 40 MG/0.4 ML SYR SC (16:39)
[2021-01-02] MEDS: amLODIPine 5 MG TAB PO (17:54)
[2021-01-02] MEDS: cloNIDine 0.1 MG TAB PO (17:54)
[2021-01-02] MEDS: Gabapentin 300 MG CAP PO (20:14)
[2021-01-02 21:35] LABS: COVID-19 PCR Negative (Negative)
[2021-01-02] MEDS: Lidocaine 5% Patch 1 PATCH TP (21:36)
[2021-01-03] MEDS: Normal Saline 1,000 ML 75 ML IV ×2 (05:09→21:42)
--- NOTE | 2021-01-03 06:08 | HPE_ITS ---
Date of service: 01/02/21 Time of Service: 16:41 Assessment and Plan Assessment and plan (1) Intractable vomiting: Status: Acute Assessment and plan: Cannabinoid hyperemesis syndrome is a possible etiol ogy. Improved after antiemetics given in ED; cont prn reglan. Now tolerating liquids; advance diet as tolerated. (2) Leukocytosis: Status: Acute Assessment and plan: No findings consistant with any infectious process; likely demargination of WBCs d/t stress of vomitting. Monitor. (3) DVT prophylaxis: Status: Acute Assessment and plan: Lovenox SQ (4) Diabetes mellitus type 2 with complications, uncontrolled: Status: Acute Assessment and plan: He takes Trulicity weekly as well as Amaryl and metformin; hold the later 2 and will need to find out what day of week he takes Trulicity. FSBS AC and HS. SS insulin correction dosing. Diabetic diet. (5) Benign hypertension: Status: Acute Assessment and plan: On lisinopril 2.5 mg daily; will continue Gave dose of clonidine po for SBP in the 190's to low 200's. initiated amlodipine 5mg daily. May need to increase lisinopril if creatinine improves. Monitor. History of Present Illness History of Present Illness Chief Complaint: Nausea and vomitting Narrative: This is a 55-year-old gentleman, past medical history of hypertension, diabetes, depression, current smoker, occasional marijuana use, presenting to the ER for nausea and vomiting over the past 2 days. He was admitted for a similar presentation in the past. No known ill contacts. No abd pain or diarrhea. No F/C. No hematemesis, melena or hematochezia noted. He participates little in the conversation regarding his situation. His glucose was elevated at 417; no history of DKA and he does not use insulin. His VBG pH was normal at 7.41. WBC count elevated at 16, anion gap elevated at 21. Creatinine 1.6. + ketones in urine. Toxicology screen positive for THC and cocaine. Troponin negative. Covid negative. CXR w/o acute processes. He was given Zofran, then phenergan and subsequently Reglan to control his martin sis which did improve. IV NS boluses x 3 liters admistered. His anion gap improved to 17 and his gl ucose marginally improved to 371. He was admitted to the hospitalist service for further treatment and evaluation. 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 Left -complete loss of hearing. Tobacco dependence syndrome (09/13/10) Uncontrolled diabetes mellitus type 2 without complications (12/01/09) Surgical History Biopsy of dital clavicle, left AC joint (02/25/15) Dr Bright 03/16/15 Addendum Surgical Patology report: Bone with maturing trilineage hematopesis; Reacive stnovium; No evidence of lymphoma identified per Dr. Deann Godoy MD H/O drainage of abscess (~11/21/19) Rotator Cuff Repair Family History Mother Diabetes Essential hypertension Myocardial infarction Social History Smoking/Tobacco Use Status: Current every day Tobacco Type: cigarettes Tobacco: How many years used: 35 Quit status: not considering quitting Smoking risk assessment performed?: Yes Alcohol Intake: former Drug use: Occasionally Substance use type: marijuana Household members: none Housing: other Details: trailer Number of Children: 1 Communication Needs: Hard of Hearing Do you need help understanding health information?: Often current occupation: disabled Pets and animals: Yes Pets and animals: dog(s) Current gender identity: male What type of physical activity do you participate in: none Drive intox or ride w/intox 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 service vending 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: No Working smoke detector in home: Yes Do you feel safe at home: Yes Do you feel safe in your relationship?: Yes Meds Allergies and Home Medications Allergies Allergy/AdvReac Type Severity Reaction Status Date / Time Milk Containing Products AdvReac Unknown gi upset Verified 01/02/21 09:55 tramadol AdvReac diarrhea/GI Verified 01/02/21 09:55 Home Medications Medication Instructions Recorded Confirmed Type blood sugar diagnostic #100 each 08/04/19 01/02/21 Rx blood-glucose meter #1 each 08/04/19 01/02/21 Rx lancets #100 each 08/04/19 01/02/21 Rx atorvastatin 20 mg tablet 20 mg PO DAILY #90 tab-cap 08/25/19 01/02/21 Rx omeprazole 20 mg capsule,delayed 20 mg PO DAILY #90 tab-cap 08/25/19 01/02/21 Rx release acetaminophen [Mapap 500 mg PO Q6H PRN #30 cap 11/22/19 01/02/21 Rx (acetaminophen)] dulaglutide 0.75 mg/0.5 mL 0.75 mg SC QWEEK #2 ml 01/14/20 01/02/21 Rx subcutaneous pen injector ibuprofen 800 mg PO TID #20 tab 02/28/20 01/02/21 Rx lidocaine [Lidoderm] 1 patch TOPICAL HS #5 ea 02/28/20 01/02/21 Rx magnesium chloride [Mag-Delay] 64 mg PO DAILY #20 tab 02/28/20 01/02/21 Rx omeprazole 20 mg PO DAILY #30 cap 02/28/20 01/02/21 Rx sucralfate 1 g PO AC & HS #30 tab 02/28/20 01/02/21 Rx oxycodone-acetaminophen [Percocet] 1 tab PO TID PRN #8 tab 03/01/20 01/02/21 Rx gabapentin 300 mg capsule 300 mg PO TID #30 cap 03/04/20 01/02/21 Rx prednisone 20 mg tablet 40 mg PO DAILY #8 tab 03/04/20 01/02/21 Rx metformin 1,000 mg tablet 1,000 mg PO BID #180 tab 03/22/20 01/02/21 Rx glimepiride 4 mg tablet 4 mg PO QAM #90 tab 10/07/20 01/02/21 Rx lisinopril 2.5 mg tablet 2.5 mg PO DAILY #90 tab-cap 10/07/20 01/02/21 Rx Exam Const General: cooperative, no acute distress and other (Minimally participates in disussion; gives short answers.) Nutritional Appearance: average body habitus Orientation: alert and oriented x3 HENMT Head: normocephalic and atraumatic Eyes Sclera: sclerae normal Pupils: PERRL Resp Effort & Inspection: normal respiratory effort Auscultation: clear to auscultation bilaterally Cardio Rate: tachycardic Rhythm: regular rhythm Heart Sounds: S1 normal and S2 normal GI Palpation: soft and nontender Auscultation: normal bowel sounds Neuro General: moves all extremities and no meningeal signs Cranial Nerves: PERRL and hearing abnormal (diminished sense of hearing) Cognition: normal cognition Speech: speech normal Results Labs Result diagrams: 01/02/21 12:55 01/02/21 12:55 Labs: Laboratory Results - last 24 hr 01/02/21 01/02/21 01/02/21 10:00 10:00 10:00 WBC 16.42 H RBC 5.35 Hgb 16.1 Hct 46.6 MCV 87.1 MCH 30.1 MCHC 34.5 RDW 11.8 Plt Count 265 MPV 11.6 H Immature Gran % 0.5 Neutrophils % 92.1 Lymphocytes % 4.8 Monocytes % 2.4 Eosinophils % 0.0 Basophils % 0.2 Nucleated RBC % 0 Absolute Neutrophils 15.12 H Absolute Lymphocytes 0.79 L Absolute Monocytes 0.39 Absolute Eosinophils 0.00 Absolute Basophils 0.03 VBG pH 7.41 VBG pCO2 31 L VBG pO2 39 VBG HCO3 20 L VBG Total CO2 17 L VBG O2 Saturation 73 VBG Base Excess -5 L Sodium 137 Potassium 4.8 Chloride 95 L Carbon Dioxide 20.3 L Anion Gap 21.7 H BUN 45 H Creatinine 1.6 H Estimated GFR/1.73 m2 44.94 Glucose 411 H Calcium 10.4 H Magnesium Total Bilirubin 0.9 AST 11 L ALT 17 Alkaline Phosphatase 84 Troponin I Total Protein 8.5 H Albumin 4.5 Lipase 59 Urine Color Urine Clarity Urine pH Ur Specific [place] Urine Protein Urine Ketones Urine Blood Urine Nitrite Urine Bilirubin Urine Urobilinogen Ur Leukocyte Esterase Urine RBC Urine WBC Ur Epithelial Cells Urine Crystals Urine Bacteria Urine Casts Urine Mucus Ur Culture Indicated? Urine Glucose Urine Opiates Screen Urine Methadone Screen Ur Barbiturates Screen Ur Tricyclics Screen Ur Amphetamines Screen U Benzodiazepines Scrn Urine Cocaine Screen Ur THC Screen COVID-19 Source SARS-CoV-2 (PCR) 01/02/21 01/02/21 01/02/21 10:00 12:45 12:45 WBC RBC Hgb Hct MCV MCH MCHC RDW Plt Count MPV Immature Gran % Neutrophils % Lymphocytes % Monocytes % Eosinophils % Basophils % Nucleated RBC % Absolute Neutrophils Absolute Lymphocytes Absolute Monocytes Absolute Eosinophils Absolute Basophils VBG pH VBG pCO2 VBG pO2 VBG HCO3 VBG Total CO2 VBG O2 Saturation VBG Base Excess Sodium Potassium Chloride Carbon Dioxide Anion Gap BUN Creatinine Estimated GFR/1.73 m2 Glucose Calcium Magnesium 1.8 Total Bilirubin AST ALT Alkaline Phosphatase Troponin I Total Protein Albumin Lipase Urine Color Yellow Urine Clarity Clear Urine pH 5.5 Ur Specific [place] 1.025 Urine Protein 100 H Urine Ketones 80 H Urine Blood Small H Urine Nitrite Negative Urine Bilirubin Negative Urine Urobilinogen 0.2 Ur Leukocyte Esterase Negative Urine RBC 5-10 H Urine WBC Negative Ur Epithelial Cells Rare Urine Crystals Negative Urine Bacteria Negative Urine Casts Negative Urine Mucus Negative Ur Culture Indicated? No Urine Glucose 500 H Urine Opiates Screen Negative Urine Methadone Screen Negative Ur Barbiturates Screen Negative Ur Tricyclics Screen Negative Ur Amphetamines Screen Negative U Benzodiazepines Scrn Negative Urine Cocaine Screen Positive A Ur THC Screen Positive A COVID-19 Source SARS-CoV-2 (PCR) 01/02/21 01/02/21 01/02/21 12:55 12:55 12:55 WBC 20.78 H RBC 4.81 Hgb 14.4 Hct 42.6 MCV 88.6 MCH 29.9 MCHC 33.8 RDW 11.9 Plt Count 241 MPV 11.5 H Immature Gran % 0.4 Neutrophils % 95.3 Lymphocytes % 2.4 Monocytes % 1.8 Eosinophils % 0.0 Basophils % 0.1 Nucleated RBC % 0 Absolute Neutrophils 19.80 H Absolute Lymphocytes 0.50 L Absolute Monocytes 0.37 Absolute Eosinophils 0.00 Absolute Basophils 0.02 VBG pH VBG pCO2 VBG pO2 VBG HCO3 VBG Total CO2 VBG O2 Saturation VBG Base Excess Sodium 140 Potassium 4.6 Chloride 101 Carbon Dioxide 22.0 Anion Gap 17.0 H BUN 40 H Creatinine 1.5 H Estimated GFR/1.73 m2 48.41 Glucose 371 H Calcium 8.9 Magnesium Total Bilirubin 0.6 AST 8 L ALT 17 Alkaline Phosphatase 74 Troponin I < 0.05 Total Protein 7.4 Albumin 3.8 Lipase Urine Color Urine Clarity Urine pH Ur Specific [place] Urine Protein Urine Ketones Urine Blood Urine Nitrite Urine Bilirubin Urine Urobilinogen Ur Leukocyte Esterase Urine RBC Urine WBC Ur Epithelial Cells Urine Crystals Urine Bacteria Urine Casts Urine Mucus Ur Culture Indicated? Urine Glucose Urine Opiates Screen Urine Methadone Screen Ur Barbiturates Screen Ur Tricyclics Screen Ur Amphetamines Screen U Benzodiazepines Scrn Urine Cocaine Screen Ur THC Screen COVID-19 Source SARS-CoV-2 (PCR) 01/02/21 13:50 WBC RBC Hgb Hct MCV MCH MCHC RDW Plt Count MPV Immature Gran % Neutrophils % Lymphocytes % Monocytes % Eosinophils % Basophils % Nucleated RBC % Absolute Neutrophils Absolute Lymphocytes Absolute Monocytes Absolute Eosinophils Absolute Basophils VBG pH VBG pCO2 VBG pO2 VBG HCO3 VBG Total CO2 VBG O2 Saturation VBG Base Excess Sodium Potassium Chloride Carbon Dioxide Anion Gap BUN Creatinine Estimated GFR/1.73 m2 Glucose Calcium Magnesium Total Bilirubin AST ALT Alkaline Phosphatase Troponin I Total Protein Albumin Lipase Urine Color Urine Clarity Urine pH Ur Specific [place] Urine Protein Urine Ketones Urine Blood Urine Nitrite Urine Bilirubin Urine Urobilinogen Ur Leukocyte Esterase Urine RBC Urine WBC Ur Epithelial Cells Urine Crystals Urine Bacteria Urine Casts Urine Mucus Ur Culture Indicated? Urine Glucose Urine Opiates Screen Urine Methadone Screen Ur Barbiturates Screen Ur Tricyclics Screen Ur Amphetamines Screen U Benzodiazepines Scrn Urine Cocaine Screen Ur THC Screen COVID-19 Source Nasal/nares SARS-CoV-2 (PCR) Negative Last Vital Signs Temp 37.1 C 01/02/21 23:23 Pulse 82 01/02/21 23:23 Resp 20 01/02/21 23:23 BP 134/72 01/02/21 23:23 Pulse Ox 96 01/02/21 23:23 COVID-19 Screening Have you, or household traveled for leisure in last 14 days?: No Had IN PERSON contact w/suspected or confirmed C-19 person: No
[2021-01-03 07:24] VITALS: BP 185/91; PULSE 95; RESP 18; TEMP 36.5; O2SAT 99
[2021-01-03 07:35] LABS: Abs Immature Grans 0.05 10^3/uL (0.0-0.06); Absolute Basophil Count 0.04 10^3/uL (0.0-0.2); Absolute Eosinophil Count 0.01 10^3/uL (0.0-0.7); Absolute Lymphocyte Count 1.14 10^3/uL (1.2-3.4); Absolute Monocyte Count 0.79 10^3/uL (0.1-0.8); Absolute Neutrophil Count 10.36 10^3/uL (1.2-6.7); Basophils % 0.3; Eosinophils % 0.1; HCT 37.3 % (40.0-50.0); Immature Grans % 0.4; Lymphocytes % 9.2; MCH 30.6 pg (27.0-33.0); MCHC 34.9 % (32.0-36.0); MCV 87.8 fL (80-95); MPV 11.6 fL (8.0-11.0); Monocytes % 6.4; Neutrophils % 83.6; Nucleated RBC 0 %; Platelet Count 192 10^3/uL (130-400); RBC 4.25 10^6/uL (4.36-5.78); RDW-SD 38.6 fL; WBC 12.39 10^3/uL (4.4-10.8)
[2021-01-03 07:48] LABS: ALT 14 U/L (16-63); AST 10 U/L (15-37); Albumin 3.2 g/dL (3.4-5.0); Alkaline Phosphatase 62 U/L (46-116); Anion Gap 7.7 mmol/L (3-11); BUN 28 mg/dL (7-18); Bilirubin, Total 0.7 mg/dL (0.2-1.0); CO2 26.3 mmol/L (21.0-32.0); CREATININE 1.2 mg/dL (0.70-1.30); Calcium 8.4 mg/dL (8.5-10.1); Chloride 102 mmol/L (98-107); Glucose 247 mg/dL (74-106); Magnesium 1.5 mg/dL (1.8-2.4); Potassium 4.2 mmol/L (3.5-5.1); Sodium 136 mmol/L (136-145); Total Protein 6.4 g/dL (6.4-8.2)
[2021-01-03] MEDS: Lisinopril 5 MG TAB 2.5 MG PO (07:57)
[2021-01-03] MEDS: Atorvastatin 20 MG TAB PO (07:58)
[2021-01-03] MEDS: Gabapentin 300 MG CAP PO ×3 (07:58→19:46)
[2021-01-03] MEDS: amLODIPine 5 MG TAB PO (07:58)
[2021-01-03] MEDS: Insulin Aspart 300 UNITS/3 ML PEN SC ×3 (07:58→16:45)
[2021-01-03] MEDS: MAGNESIUM SULFATE 4 GM/100 ML BAG IVPB (09:31)
[2021-01-03] MEDS: Lidocaine Patch Removal 1 EACH TP (09:34)
--- NOTE | 2021-01-03 11:29 | CHAPLAIN ---
Harry was resting in bed when I visited. He had some trouble hearing me, so spoke more loudly. He said he's feeling better. He seems to be ok with being here. When I asked if he's been in contact with family or fiends, he said he took care of that earlier.
[2021-01-03 11:34] VITALS: BP 134/75; PULSE 87; RESP 17; TEMP 37; O2SAT 96
--- NOTE | 2021-01-03 15:44 | W.PM.PROGNOT ---
Date of Service Date of service: 01/03/21 Time of Service: 15:45 Assessment and Plan Assessment and plan (1) Intractable vomiting: Status: Acute Assessment and plan: Likely combination of canabinoid hyperemesis and GERD. Add PPI/carafate. The patient does not want me to adjust diet. Elevated head of bed. (2) Leukocytosis: Status: Acute Assessment and plan: Likely due to #1. No clearly infectious process. Improved. (3) Substance abuse: Status: Acute Assessment and plan: Suspicion for canabionoid hyperemesis. (4) Hyperglycemia: Status: Acute Assessment and plan: Evidence of mild DKA on admission, resolved with IV hydration. BG in better range. Continue SSI. Add low dose lantus. (5) Diabetes mellitus type 2 with complications, uncontrolled: Status: Acute Assessment and plan: As above (6) Benign hypertension: Status: Acute Assessment and plan: Bps are labile. Latest SBP is 134. Will continue to monitor. Consider increasing regimen. (7) Pure hypercholesterolemia: Status: Acute Assessment and plan: Continue atorvastatin (8) Neuropathy of right upper extremity: Status: Acute Assessment and plan: Refer to orthopedics as outpatinet. Neurontin is not something the patient takes at home, but will trial here in the hospital. Subjective Subjective Interval history since last seen: I'm not vomiting anymore, at least Denies dizziness, chest pain, shortness of breath. Reports sx of reflux when hiccuping. Tried solids for lunch - didn't sit very well. Wants to try turkey and rice soup for dinner. Does not feel back to normal. Does not want to go home today. Endorses his normal cough. Reports neuropathy in his right upper extremity: positional numbness/weakness - the same symptoms he had before his first shoulder surgery. Agrees to an outpatient orthopedic referral. Exam Narrative Exam Narrative: General: Pleasant middle-aged male, hard of hearing, appears comfortable, laying flat in bed when complains of reflux symptoms HEENT: EOMI, MMM Heart: RRR, no m/r/g Lungs: CTAB; coughs (nonproductive) Abdomen: soft, nontender, nondistended Extremities: 2+ pedal pulses B, no e/c/c Objective Last Vital Signs Temp 37.0 C 01/03/21 11:34 Pulse 87 01/03/21 11:34 Resp 17 01/03/21 11:34 BP 134/75 01/03/21 11:34 Pulse Ox 96 01/03/21 11:34 Laboratory Results - last 24 hr 01/02/21 01/03/21 01/03/21 13:50 07:11 07:11 WBC 12.39 H D RBC 4.25 L Hgb 13.0 L Hct 37.3 L MCV 87.8 MCH 30.6 MCHC 34.9 RDW 12.0 Plt Count 192 MPV 11.6 H Immature Gran % 0.4 Neutrophils % 83.6 Lymphocytes % 9.2 Monocytes % 6.4 Eosinophils % 0.1 Basophils % 0.3 Nucleated RBC % 0 Absolute Neutrophils 10.36 H Absolute Lymphocytes 1.14 L Absolute Monocytes 0.79 Absolute Eosinophils 0.01 Absolute Basophils 0.04 Sodium 136 Potassium 4.2 Chloride 102 Carbon Dioxide 26.3 Anion Gap 7.7 BUN 28 H D Creatinine 1.2 Estimated GFR/1.73 m2 >= 60.00 Glucose 247 H D Calcium 8.4 L Magnesium 1.5 L Total Bilirubin 0.7 AST 10 L ALT 14 L Alkaline Phosphatase 62 Total Protein 6.4 Albumin 3.2 L SARS-CoV-2 (PCR) Negative
--- NOTE | 2021-01-03 15:55 | PDOC.CMIN ---
- If Service Date Differs Date of service: 01/03/21 Time of Service: 15:55 Care Management Initial Assess REASON FOR HOSPITALIZATION:: Hyperemesis, leukocytosis, and dehydration. PAST MEDICAL HISTORY/PAST SURGICAL HISTORY:: Medical History: Abscess, perirectal, Acute shoulder pain due to trauma, Benign hypertension, Cerumen impaction, Dairy product intolerance, Depressive disorder, Disorder of left rotator cuff, Impotence of organic origin, Mild nonproliferative diabetic retinopathy of left eye, Noncompliance with diabetes treatment, Pure hypercholesterolemia, Sensorineural hearing loss - right ear, Left -complete loss of hearing,. Tobacco dependence syndrome, and Uncontrolled diabetes mellitus type 2 without complications. Surgical History: Biopsy of dital clavicle, left AC joint - Dr Bright - 03/16/15 Addendum Surgical Patology report: Bone with maturing trilineage hematopesis; Reacive stnovium; No evidence of lymphoma identified per Dr. Deann Godoy MD, H/O drainage of abscess (~11/21/19), and. Rotator Cuff Repair. PREVIOUS FUNCTIONAL STATUS/SOCIAL/FAMILY SUPPORTS:: Harry lives alone in [place], [place]. 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 He names a cousin and several friends as his supports. Harry states he is independent with his ADLs at baseline. He cooks, cleans, and occasionally drives. CURRENT FUNCTIONAL STATUS:: Harry is eating supper when CM comes to see him. He is pleasant and talkative but has difficulty hearing, so questions frequently have to be repeated. He talks about wanting to change his PCP from [facility] to [facility]. He shares he had a bad experience with someone at [facility] and never went back. CM will continue to follow. ADVANCE DIRECTIVES:: None on file; form offered but patient declines. Has patient been provided with info about the portal/API?: Yes Did the patient sign up for the portal?: No CODE STATUS:: Full Code INSURANCE COVERAGE / FINANCIAL ISSUES:: Medicaid and Medicare. CURRENT HOME/COMMUNITY SERVICES/EQUIPMENT:: No current home/community services or equipment. PRIMARY CARE PHYSICIAN:: Khadijah Galicia MD. POTENTIAL DISCHARGE NEEDS:: Follow up appointment with PCP. PATIENT/FAMILY EDUCATION NEEDS:: Discharge instructions, limitations, follow up plan of care, including Ask Me Three and self-management. ANTICIPATED BARRIERS TO DISCHARGE:: None. TRANSPORTATION:: Via private vehicle with friends/family. PLAN:: Anticipate Harry will be discharged home when medically cleared by provider. He will follow up with his PCP and discharge plan of care as directed. Harry will be driven home via private vehicle by a friend or family member when ready. CM will continue to follow.
[2021-01-03 16:00] VITALS: BP 133/73; PULSE 90; RESP 18; TEMP 36.7; O2SAT 99
[2021-01-03] MEDS: Enoxaparin 40 MG/0.4 ML SYR SC (16:46)
[2021-01-03] MEDS: Sucralfate 1 GM TAB PO ×2 (16:46→21:38)
[2021-01-03] MEDS: Pantoprazole 40 MG VIAL IVP (16:46)
[2021-01-03] MEDS: Normal Saline Flush 10 ML SYR IVP (16:46)
[2021-01-03] MEDS: Insulin Glargine 300 UNITS/3 ML PEN SC (21:38)
[2021-01-03] MEDS: Lidocaine 5% Patch 1 PATCH TP (21:39)
[2021-01-04 00:02] VITALS: BP 130/71; PULSE 89; RESP 18; TEMP 36.6; O2SAT 98
[2021-01-04 07:30] LABS: Abs Immature Grans 0.02 10^3/uL (0.0-0.06); Absolute Basophil Count 0.04 10^3/uL (0.0-0.2); Absolute Eosinophil Count 0.03 10^3/uL (0.0-0.7); Absolute Lymphocyte Count 1.37 10^3/uL (1.2-3.4); Absolute Monocyte Count 0.52 10^3/uL (0.1-0.8); Basophils % 0.5; Eosinophils % 0.4; HCT 36.5 % (40.0-50.0); HGB 12.7 g/dL (13.5-17.5); Immature Grans % 0.3; Lymphocytes % 17.6; MCHC 34.8 % (32.0-36.0); MCV 86.1 fL (80-95); MPV 11.7 fL (8.0-11.0); Monocytes % 6.7; Neutrophils % 74.5; Nucleated RBC 0 %; Platelet Count 170 10^3/uL (130-400); RBC 4.24 10^6/uL (4.36-5.78); RDW 11.7 % (11.8-14.1); RDW-SD 36.7 fL; WBC 7.79 10^3/uL (4.4-10.8)
[2021-01-04 07:37] LABS: Anion Gap 7.8 mmol/L (3-11); BUN 19 mg/dL (7-18); CO2 27.2 mmol/L (21.0-32.0); CREATININE 0.9 mg/dL (0.70-1.30); Calcium 7.9 mg/dL (8.5-10.1); Chloride 101 mmol/L (98-107); Glucose 210 mg/dL (74-106); Magnesium 1.7 mg/dL (1.8-2.4); Potassium 3.2 mmol/L (3.5-5.1); Sodium 136 mmol/L (136-145)
[2021-01-04 07:55] VITALS: BP 164/91; PULSE 84; RESP 19; TEMP 36.5; O2SAT 97
[2021-01-04] MEDS: Insulin Aspart 300 UNITS/3 ML PEN SC ×2 (08:08→11:24)
[2021-01-04] MEDS: Atorvastatin 20 MG TAB PO (08:09)
[2021-01-04] MEDS: Sucralfate 1 GM TAB PO ×2 (08:09→11:24)
[2021-01-04] MEDS: amLODIPine 5 MG TAB PO (08:09)
[2021-01-04] MEDS: Gabapentin 300 MG CAP PO ×2 (08:09→14:01)
[2021-01-04] MEDS: Normal Saline Flush 10 ML SYR IVP (08:10)
[2021-01-04] MEDS: Lidocaine Patch Removal 1 EACH TP (08:24)
[2021-01-04] MEDS: Magnesium Oxide 400 MG TAB PO (09:36)
[2021-01-04] MEDS: Lisinopril 5 MG TAB 2.5 MG PO (09:37)
[2021-01-04] MEDS: Potassium Chloride 20 MEQ TABCR 40 MEQ PO (09:37)
[2021-01-04] MEDS: Normal Saline 1,000 ML 75 ML IV (11:08)
[2021-01-04 11:21] VITALS: BP 134/78; PULSE 87; RESP 18; TEMP 37.1; O2SAT 97
--- NOTE | 2021-01-04 12:27 | DSE_ITS ---
Date of service: 01/04/21 Time of Service: 12:28 DS: Diagnosis Discharge Diagnosis (1) Intractable vomiting: Start date: 01/04/21 Start time: 12:30 Status: Resolved Asessment and Plan: Likely combination of canabinoid hyperemesis and GERD. PPI/carafate. No longer having nausea tolerating a diet. Discussed caniboid cyclic vomiting syndrome. He states that he has shoulder issues, recommended trying CBD and not pot. Will discharge with antiemetics. (2) Leukocytosis: Start date: 01/04/21 Start time: 12:33 Status: Resolved Asessment and Plan: Resolved. Likely due to vomiting (3) Substance abuse: Start date: 01/04/21 Start time: 12:34 Status: Acute Asessment and Plan: Suspicion for canabionoid hyperemesis. (4) Hyperglycemia: Start date: 01/04/21 Start time: 12:35 Status: Acute Asessment and Plan: : Evidence of mild DKA on admission, resolved with IV hydration. Improved, Will resume home regimen (5) Diabetes mellitus type 2 with complications, uncontrolled: Start date: 01/04/21 Start time: 12:35 Status: Acute Asessment and Plan: As above continue home regimen on discharge (6) Benign hypertension: Start date: 01/04/21 Start time: 12:37 Status: Acute Asessment and Plan: Continue HTN medication for home (7) Pure hypercholesterolemia: Start date: 01/04/21 Start time: 12:38 Status: Acute Asessment and Plan: continue atorvastatin (8) Neuropathy of right upper extremity: Start date: 01/04/21 Start time: 12:38 Status: Acute Asessment and Plan: states pain to arm with neuropathy, numbness and tingling to right hand. He has tried to see ortho in [place] and felt he got no where. S/p surgery to right shoulder. Will refer to [facility] for further management. Continue gabapentin for home above case discussed with dr. Haque Discharge Plan Disposition Patient Disposition: HOME Condition: Good Discharge Details Reason For Visit: HYPEREMESIS,LEUKOCYTOSIS,DEHYDRATION Admit Date/Time: 01/02/21 13:45 Admit Provider: Steven Montero Attending Provider: Steven Montero Primary Care Provider: Khadijah Galicia Hospital Course Hospital Course: This is a 55-year-old gentleman, past medical history of hypertension, diabetes, depression, current smoker, occasional marijuana use, presenting to the ER for nausea and vomiting 2 days prior to admission. He was admitted for a similar presentation in the past. No known ill contacts. No abd pain or diarrhea. No F/C. No hematemesis, melena or hematochezia noted. He participates little in the conversation regarding his situation. His glucose was elevated at 417; no history of DKA and he does not use insulin. His VBG pH was normal at 7.41. WBC count elevated at 16, anion gap elevated at 21. Creatinine 1.6. + ketones in urine. Toxicology screen positive for THC and cocaine. Troponin negative. Covid negative. CXR w/o acute processes. He was given Zofran, then phenergan and subsequently Reglan to control his emesis which did improve. IV NS boluses x 3 liters administered. His anion gap improved to 17 and his glucose marginally improved to 371. He was admitted to the hospitalist service for further treatment and evaluation. Today he is feeling better. Over course of treatment he required IVF and insulin to control his glucose. He is able to eat and tolerating regular diet. He is c/o right shoulder pain and numbness and tingling that is not new he was started on gabapentin while at the hospital to help with symptoms, we will refer him to [facility] orthopedic for further management. He is being discharged home. He will be discharged with antiemetics. He is encouraged to stop smoking pot and doing cocaine. He denies CP, SOB, N/V/D. Home Meds and New Rx's Prescriptions: New amlodipine 5 mg Tablet 5 mg PO DAILY Qty: 30 RF: 0 metoclopramide HCl [Reglan] 10 mg tablet 10 mg PO Q6H PRNQty: 10 RF: 0 Continued atorvastatin 20 mg tablet 20 mg PO DAILY Qty: 90 RF: 3 omeprazole 20 mg capsule,delayed release(DR/EC) 20 mg PO DAILY Qty: 90 RF: 0 gabapentin 300 mg capsule 300 mg PO TID Qty: 30 RF: 0 Trulicity 0.75 mg/0.5 mL pen injector 0.75 mg SC QWEEK Qty: 2 RF: 0 metformin 1,000 mg tablet 1,000 mg PO BID Qty: 180 RF: 3 glimepiride [Amaryl] 4 mg tablet 4 mg PO QAM Qty: 90 RF: 3 lisinopril 2.5 mg tablet 2.5 mg PO DAILY Qty: 90 RF: 3 sucralfate 1 gram Tablet 1 g PO AC & HS Qty: 30 RF: 0 lidocaine [Lidoderm] 5 % Adhesive Patch,Medicated 1 patch topical HS Qty: 5 RF: 0 ibuprofen 800 mg tablet 800 mg PO TID Qty: 20 RF: 0 magnesium chloride [Mag-Delay] 64 mg tablet,delayed release (DR/EC) 64 mg PO DAILY Qty: 20 RF: 0 acetaminophen [Mapap (acetaminophen)] 500 mg capsule 500 mg PO Q6H PRN (Reason: fever or pain) Qty: 30 RF: 0 oxycodone-acetaminophen [Percocet] 5-325 mg tablet 1 tab PO TID PRN (Reason: pain) Qty: 8 RF: 0 Discontinued omeprazole 20 mg capsule,delayed release(DR/EC) 20 mg PO DAILY Qty: 30 RF: 0 No Action prednisone 20 mg tablet 40 mg PO DAILY Qty: 8 RF: 0 (DME) blood sugar diagnostic Strip See Rx Instructions .ROUTE .MEDSUPPLY Qty: 100 RF: 6 (DME) blood-glucose meter [OneTouch Verio Flex meter] Misc See Rx Instructions .ROUTE .MEDSUPPLY Qty: 1 RF: 0 (DME) lancets [OneTouch UltraSoft Lancets] Misc See Rx Instructions .ROUTE .MEDSUPPLY Qty: 100 RF: 6 Discharge Instructions Instructions: Diabetic Ketoacidosis (DC), Managing Diabetes During Sick Days (DC), Cannabis Abuse (DC), Cyclic Vomiting Syndrome (DC), Hypertension and Diabetes (DC) Additional Instructions: Call to make an appt to follow up with your PCP as soon as you can get in. Follow up with Dr. Palafox Take reglan as needed for NAUSEA STOP COCAINE AND WEED Take amlodipine to help with your blood pressure Also follow a low carb diet Take gabapentin (neurotin) to help with your shoulder pain and numbness and tingling, you can always talk to your PCP about a referral to the pain clinic Stand Alone Forms: Nursing Discharge Form Referrals: Darrin Palafox MD [ [facility] STAFF PHYSICIAN] - (will have to put you on a cancellation waitlist, will contact you with an appt) Khadijah Galicia MD [Primary Care Provider] - (call your pcp for follow up appt) Activity:: Activity as Tolerated Equipment/Supplies:: No Equipment Needed Diet:: Carb Counting Discharge Orders Discharge Orders: Discharge Order (Routine); Ordered 01/04/21 Ordered By: Polly Hutchison DS: Summary Time Spent with Patient providing and/or coordinating discharge services: Greater than 30 minutes (approx 70 mins spent discharging patient) Status at Discharge Functional status at discharge: independent ambulation Overall status at discharge: patient is back to baseline Mental Status: mental status grossly normal Speech and Movement: speech and movement normal Mood: congruent mood Affect: normal affect Exam Narrative Exam Narrative: General: Pleasant middle-aged male, hard of hearing, appears comfortable, laying flat in bed when complains of reflux symptoms HEENT: EOMI, MMM Heart: RRR, no m/r/g Lungs: CTAB; coughs (nonproductive) Abdomen: soft, nontender, nondistended Extremities: 2+ pedal pulses B, no e/c/c Psych Mental Status: mental status grossly normal Speech and Movement: speech and movement normal Mood: congruent mood Affect: normal affect DS: Data Vitals/I&O Vitals and I&O: Vital Signs Temperature 37.1 C 01/04/21 11:21 Temperature Source Tympanic 01/04/21 11:21 Pulse 87 01/04/21 11:21 Pulse Rhythm Regular 01/04/21 03:01 Pulse 110 H 01/02/21 11:40 Respiratory Rate 18 01/04/21 11:21 Respiratory Effort Non-Labored 01/04/21 03:01 Respiratory Depth Normal 01/04/21 03:01 Respiratory Pattern Normal 01/04/21 03:01 Blood Pressure 134/78 01/04/21 11:21 Blood Pressure Mean 110 01/02/21 11:31 Blood Pressure Position Supine 01/02/21 09:46 Pulse Oximetry 97 01/04/21 11:21 Oxygen Delivery Method Room Air 01/04/21 11:21 Oxygen Flow Rate 0 01/04/21 11:21 Pain Level 0 01/04/21 00:02 Comment 01/03/21 07:24 Intake & Output 01/03/21 01/04/21 01/04/21 23:59 11:59 23:59 Intake Total 1240 / 2611.25 1240 / 1240 Output Total 800 / 1500 1000 / 1000 Balance 440 / 1111.25 240 / 240 Intake: IV 1000 / 1971.25 1000 / 1000 Oral 240 / 640 240 / 240 Output: Urine 800 / 1500 1000 / 1000 Other: Urine Color Light Serene Yellow Urine Appearance Clear Clear Urine Odor Normal Voiding Methods Urinal Data Completed and Pending Completed studies during hospitalization [Text1]: Exam(s) a RAD:XR chest 2V PA & lateral EXAM: XR CHEST 2V PA LATERAL CLINICAL HISTORY: Leukocytosis. TECHNIQUE: 2D digital imaging was performed. COMPARISON: No exams were available for comparison FINDINGS: Heart size is normal. The mediastinum is not widened. Lungs are clear. No infiltrates nor pleural effusions. Evidence of right shoulder rotator cuff surgery is again noted. IMPRESSION: No acute pulmonary findings.No significant change compared to June 2019. DATA REPOSITORY: Labs on day of discharge: Labs from last 24 hours 01/04/21 01/04/21 06:20 06:20 WBC 7.79 D RBC 4.24 L Hgb 12.7 L Hct 36.5 L MCV 86.1 MCH 30.0 MCHC 34.8 RDW 11.7 L Plt Count 170 MPV 11.7 H Immature Gran % 0.3 Neutrophils % 74.5 Lymphocytes % 17.6 Monocytes % 6.7 Eosinophils % 0.4 Basophils % 0.5 Nucleated RBC % 0 Absolute Neutrophils 5.80 Absolute Lymphocytes 1.37 Absolute Monocytes 0.52 Absolute Eosinophils 0.03 Absolute Basophils 0.04 Sodium 136 Potassium 3.2 L D Chloride 101 Carbon Dioxide 27.2 Anion Gap 7.8 BUN 19 H D Creatinine 0.9 Estimated GFR/1.73 m2 >= 60.00 Glucose 210 H Calcium 7.9 L Magnesium 1.7 L PFSH Medical History Abscess, perirectal Acute shoulder pain due to trauma Benign hypertension (12/01/10) Cerumen impaction (01/13/15) Dairy product intolerance (08/22/16) Depressive disorder (09/13/11) Disorder of left rotator cuff (12/01/12) 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 Left -complete loss of hearing. Tobacco dependence syndrome (09/13/10) Uncontrolled diabetes mellitus type 2 without complications (12/01/09) Surgical History Biopsy of dital clavicle, left AC joint (02/25/15) Dr Bright 03/16/15 Addendum Surgical Patology report: Bone with maturing trilineage hematopesis; Reacive stnovium; No evidence of lymphoma identified per Dr. Deann Godoy MD H/O drainage of abscess (~11/21/19) Rotator Cuff Repair Family History Mother Diabetes Essential hypertension Myocardial infarction Social History Smoking/Tobacco Use Status: Current every day Tobacco Type: cigarettes Tobacco: How many years used: 35 Quit status: not considering quitting Smoking risk assessment performed?: Yes Alcohol Intake: former Drug use: Occasionally Substance use type: marijuana Household members: none Housing: other Details: trailer Number of Children: 1 Communication Needs: Hard of Hearing Do you need help understanding health information?: Often current occupation: disabled Pets and animals: Yes Pets and animals: dog(s) Current gender identity: male What type of physical activity do you participate in: none Drive intox or ride w/intox bus 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
--- NOTE | 2021-01-04 16:49 | PDOC.CMDIS ---
- If Service Date Differs Date of service: 01/04/21 Time of Service: 16:49 LACE Index Scoring Tool - Questions: Length of Stay (in days): 2 Acuity (Admit via E.D.?): Yes Comorbidities: Diabetes w/o Complication E.D. Visits: 3 - Answers: Total Score: 9 Risk of Readmission: Low Risk Care Management Discharge Reason for Hospitalization: Hyperemesis, leukocytosis, and dehydration. Discharge Plan: Harry will return home with no services at this time. He will follow up with his PCP vs a new PCP of his choice. CM discussed the process for him to obtain a new PCP, if he is so inclined. He will be driven home via private vehicle by a friend. He reports being happy to return home. Patient/Family Education Needs: Review discharge instructions regarding activity levels and medications, discussion of self care needs.
== END 2021-01-04 15:03 | disposition home or self-care (01) | DRG 391 ==
LOC: ER 10:02 → MS 14:42
PROVIDERS: Internal Medicine; Admitting Provider Family Medicine; Emergency Provider Physician Assistant; PCP Internal Medicine; Visit Provider Family Medicine
DX: R11.2 Nausea with vomiting, unspecified (principal); E11.10 Type 2 diabetes mellitus with ketoacidosis without coma; K21.9 Gastro-esophageal reflux disease without esophagitis; D72.829 Elevated white blood cell count, unspecified; E11.65 Type 2 diabetes mellitus with hyperglycemia; I10 Essential (primary) hypertension; F17.210 Nicotine dependence, cigarettes, uncomplicated; F32.9 Major depressive disorder, single episode, unspecified; F12.90 Cannabis use, unspecified, uncomplicated; E11.3292 Type 2 diabetes mellitus with mild nonproliferative diabetic retinopathy without macular edema, left eye; E78.00 Pure hypercholesterolemia, unspecified; H90.A21 Sensorineural hearing loss, unilateral, right ear, with restricted hearing on the contralateral side; G56.81 Other specified mononeuropathies of right upper limb; F14.90 Cocaine use, unspecified, uncomplicated
CPT/HCPCS: 36415; 36416; 80048; 80053; 80307; 82805; 82962; 83690; 87635; 93005; 96361; 96365; 96375; 99223; 99232; 99239; 99285; J1650; 71046; 81003; 81015; 83735; 84484; 85025; 93010; 99356; J2405; J2765; J3475; J3490

== ENCOUNTER 2021-02-07 10:25 | Outpatient (CLI) | payer MEDICARE, MEDICAID, SELFPAY ==
--- NOTE | 2021-02-07 09:15 | DI.RAD_ITS ---
Exam(s) XR SHOULDER RT COMPLETE 2+V EXAM: XR SHOULDER RT COMPLETE 2+V CLINICAL HISTORY: R shoulder pain. TECHNIQUE: 2D digital imaging was performed. COMPARISON: CR XR SHOULDER RT COMPLETE 2+V from 11/10/2019 FINDINGS: Prior surgery with metallic anchor in place in the humeral head. There are degenerative changes at t he AC joint and undersurface of the acromion. The humeral head is superiorly positioned, adjacent to the undersurface of the acromion, consistent with a chronic rotator cuff tear. There is mild narrow ing of the glenohumeral joint. IMPRESSION: Degenerative and postsurgical changes. Chronic rotator cuff tear. DATA REPOSITORY: RADIATION DOSE DELIVERED:
== END 2021-02-07 10:26 | disposition home or self-care (01) ==
LOC: DIORS 10:25
PROVIDERS: PCP Internal Medicine; Referring Provider Internal Medicine; Visit Provider Student in an Organized Health Care Education/Training Program
DX: G56.21 Lesion of ulnar nerve, right upper limb (principal); G56.01 Carpal tunnel syndrome, right upper limb; M12.811 Other specific arthropathies, not elsewhere classified, right shoulder; E11.9 Type 2 diabetes mellitus without complications; F17.210 Nicotine dependence, cigarettes, uncomplicated; M75.101 Unspecified rotator cuff tear or rupture of right shoulder, not specified as traumatic; M25.511 Pain in right shoulder
CPT/HCPCS: 99214; 73030

== ENCOUNTER 2021-02-28 02:38 | Outpatient (CLI) | payer MEDICARE, MEDICAID, SELFPAY ==
--- NOTE | 2021-02-28 08:30 | DI.MRI_ITS ---
Exam(s) MR UPPER JOINT RT WO EXAM: MR UPPER JOINT RT WO CLINICAL HISTORY: R SHOULDER PAIN,ROTATOR CUFF ARTHROPATHY,M75.101,M12.811. TECHNIQUE: Multiplanar multisequence MRI was performed. COMPARISON: CR XR SHOULDER RT COMPLETE 2+V from 02/07/2021 FINDINGS: The examination is limited due to patient motion artifact. BONES: There is no fracture or contusion pattern. There is artifact in the humeral head from an ortho pedic screw. JOINTS: Moderate degenerative changes are seen at the acromioclavicular joint. The glenohumeral join t is normal. The humeral head is superiorly located adjacent to the acromion consistent with chronic rotator cuff tear. TENDONS: Supraspinatus: There is a tear of the supraspinatus tendon. There may be some intact fibers anterior ly. The majority of the tendon appears retracted to the level of the glenohumeral joint. Infraspinatus: There also appears to be a tear of the infraspinatus tendon with a large section of th e tear retracted almost to the level of the glenohumeral joint. Subscapularis: Thickening and increased signal is seen in the subscapularis tendon. The findings are suggestive of tendinosis with a partial tear. Teres Minor: Unremarkable. Biceps and Cushman: Unremarkable. MUSCLES: There is fatty atrophy of both the infraspinatus and supraspinatus muscles. There is mild f atty atrophy of the teres minor muscle. GLENOID LABRUM: Unremarkable on this noncontrast examination. SOFT TISSUES: Artifact is seen in the soft tissues around the acromioclavicular joint from prior surg celia. No soft tissue mass is identified. LIGAMENTS: Unremarkable. OTHER: There is some fluid in the subacromial subdeltoid bursa. IMPRESSION: 1. Suboptimal examination due to patient motion artifact. 2. Artifact from prior surgery in the right shoulder. 3. Findings suspicious for tears involving the infraspinatus and supraspinatus tendons. 4. Tendinosis and partial tear involving the subscapularis tendon. 5. Fatty atrophy involving the infraspinatus and supraspinatus muscles. 6. Degenerative changes of the acromioclavicular joint. 7. Superior subluxation of the humeral head reflecting rotator cuff tear. DATA REPOSITORY:
== END 2021-02-28 02:58 ==
PROVIDERS: PCP Internal Medicine; Visit Provider Student in an Organized Health Care Education/Training Program
DX: M25.511 Pain in right shoulder (principal); M75.101 Unspecified rotator cuff tear or rupture of right shoulder, not specified as traumatic; M75.81 Other shoulder lesions, right shoulder; M19.011 Primary osteoarthritis, right shoulder; Z98.890 Other specified postprocedural states
CPT/HCPCS: 73221

== ENCOUNTER → 2021-03-15 08:42 | Outpatient (BNVA) | payer MEDICARE, MEDICAID, SELFPAY | PROVIDERS: PCP Internal Medicine; Referring Provider Internal Medicine; Visit Provider Student in an Organized Health Care Education/Training Program | DX: M12.811 Other specific arthropathies, not elsewhere classified, right shoulder (principal); M75.101 Unspecified rotator cuff tear or rupture of right shoulder, not specified as traumatic; E11.65 Type 2 diabetes mellitus with hyperglycemia | CPT/HCPCS: 99213 ==

== ENCOUNTER 2021-04-11 12:59 | Inpatient (IN) | payer MEDICARE, MEDICAID, SELFPAY ==
[2021-04-11 13:18] VITALS: BP 122/80; PULSE 117; RESP 18; TEMP 36.6; O2SAT 98
--- NOTE | 2021-04-11 13:34 | ED.GENADUL_ITS ---
Discharge Plan Disposition Patient Disposition: [facility] INPATIENT Condition: Serious Discharge Details Clinical Impression: Nausea & vomiting, Abdominal pain, Leukocytosis Admit Date/Time: 04/11/21 19:36 Admit Provider: Tavon Thomas Attending Provider: Tavon Thomas Primary Care Provider: Khadijah Galicia ED Provider: Louise Goodson Discharge Data Discharge Date/Time-TO BE ENTERED AT DEPARTURE: 04/11/21 20:31 Medical Decision Making <STEPHANI Link - Last Filed: 04/12/21 08:06> 55-year-old gentleman presenting for nausea, vomiting abdominal cramping since Saturday. History of diabetes, hypertension, known noncompliance. He appears chronically ill in nature, dry, tachycardic. Will obtain IV access, give IV fluid 1 L normal saline as well as a liter of lactated Ringer's, obtain routine laboratory values, give IV Zofran and reassess. Differential includes not excluded to infectious process, DKA, noncompliance, dehydration, intractable vomiting Laboratory values reveal a white blood cell count of 21.89, absolute neutrophils of 20.42, sodium 133 chloride 94 anion gap 20.5 BUN 51 creatinine 1.7 GFR of 41.9 glucose 404, urinalysis greater than 160 ketones, no evidence of infection in his urine Patient has not vomited under my care. Heart rate now 102. Will obtain CT imaging of the abdomen and pelvis given his leukocytosis. Realized that I did not originally order a VBG, will add this on now Medical Records Medical records reviewed: Yes I reviewed the patient's medical records. Lab Data Lab results reviewed: Yes I reviewed the patient's lab results. Labs: Laboratory Tests Range/Units 04/11/21 04/11/21 04/11/21 13:30 13:30 15:19 WBC (4.4-10.8) 10^3/uL 21.89 H RBC (4.36-5.78) 10^6/uL 4.70 Hgb (13.5-17.5) g/dL 14.3 Hct (40.0-50.0) % 41.1 MCV (80-95) fL 87.4 MCH (27.0-33.0) pg 30.4 MCHC (32.0-36.0) % 34.8 RDW (11.8-14.1) % 12.1 Plt Count (130-400) 10^3/uL 314 MPV (8.0-11.0) fL 11.0 Immature Gran % 0.6 Neutrophils % 93.3 Lymphocytes % 2.4 Monocytes % 3.7 Eosinophils % 0.0 Basophils % 0.0 Nucleated RBC % % 0 Absolute Neutrophils (1.2-6.7) 10^3/uL 20.42 H Absolute Lymphocytes (1.2-3.4) 10^3/uL 0.53 L Absolute Monocytes (0.1-0.8) 10^3/uL 0.81 H Absolute Eosinophils (0.0-0.7) 10^3/uL 0.00 Absolute Basophils (0.0-0.2) 10^3/uL 0.00 RBC Morphology Normal Sodium (136-145) mmol/L 133 L Potassium (3.5-5.1) mmol/L 4.4 Chloride (98-107) mmol/L 94 L Carbon Dioxide (21.0-32.0) mmol/L 18.5 L Anion Gap (3-11) mmol/L 20.5 H BUN (7-18) mg/dL 51 H Creatinine (0.70-1.30) mg/dL 1.7 H Estimated GFR/1.73 m2 (mL/min/1.73m2) 41.90 Glucose (74-106) mg/dL 404 H Calcium (8.5-10.1) mg/dL 9.6 Total Bilirubin (0.2-1.0) mg/dL 0.8 AST (15-37) U/L 5 L ALT (16-63) U/L 14 L Alkaline Phosphatase (46-116) U/L 80 Total Protein (6.4-8.2) g/dL 7.9 Albumin (3.4-5.0) g/dL 4.1 Lipase (73-393) U/L 35 Urine Color (Yellow) Yellow Urine Clarity (Clear) Clear Urine pH (5-8) 5.5 Ur Specific [place] (1.005-1.025) 1.020 Urine Protein (Negative) mg/dL 100 H Urine Ketones (Negative) mg/dL >=160 H Urine Blood (Negative) Small H Urine Nitrite (Negative) Negative Urine Bilirubin (Negative) Negative Urine Urobilinogen (Up TO 0.2) EU/dL 0.2 Ur Leukocyte Esterase (Negative) Negative Urine RBC (0-2) HPF 3-5 H Urine WBC (0-5) HPF Negative Ur Epithelial Cells (Negative) HPF Negative Urine Crystals (Negative) HPF Negative Urine Bacteria (Negative) HPF Rare Urine Casts (Negative) LPF Negative Urine Mucus (Negative) Negative Urine Other (Negative) Negative Ur Culture Indicated? No Urine Glucose (Negative) mg/dL 500 H <STEPHANI Regan - Last Filed: 04/11/21 22:51> Care transition myself from Jv Goodwin. Please see his initial note for history and presentation. In brief, patient is a 35-year-old gentleman presenting today with nausea, vomiting. Patient has history of noncompliance, uncontrolled diabetes, hypertension. Noted today were significant for white count 21.. Normal anion gap 20. Creatinine is elevated at 1.7. Glucose 400. Lipase within normal limits. Urine shows ketones and glucose. UDS positive for THC. At the time I assume care, CT results are just returned. Awaiting continued hydration and reassessment of BMP. Patient noted to be hypertensive. Patient is prescribed antitensive medication but has not received these in the past several days. We will give him his typical home medications. Repeat BMP reviewed. Anion gap is closed slightly from 20-15. 0 BUN down from 51-40 3:03 liters of fluids. Glucose is down to 316. Bicarb 20.7. Blood pressure is improved. Patient continues to have intermittent symptoms. I did review the patient's previous admissions. He was admitted for the same in December. At that time, there was questioning if this could be associated with cannabinoid induced cyclic vomiting syndrome. I discussed this concern with the patient. Patient reports that he does continue to smoke marijuana daily. He is noncompliant with his medications. We did have a lengthy chat about the base issues for his long-term health. Patient does have as needed Reglan at home which he is not used. Will give IV Reglan, Protonix, Mylanta and capsaicin cream to his abdomen. Patient reports that he is feeling improved. However, he continues to have symptoms. States that when he has had these issues historically, typically takes several days or for him to improve and he does have difficulty with hydration at that time. He and I discussed disposition at length. With the patient frequent recurrence of symptoms historically as well as her persistence of symptoms currently, for inpatient admission for continued monitoring appropriate. We will also refer to general surgery for his esophageal thickening. Consulted with Dr. Thomas who agrees to admission for cyclical vomiting. HPI <STEPHANI Link - Last Filed: 04/12/21 08:06> General Mode of arrival: ambulatory . Date/Time Provider Initiated Documentation: 04/11/21 13:22 . Limitations to Documentation: no limitations . Information obtained by: patient . HPI Narrative: This is a 55-year-old male, p ast medical history that includes hypertension, depression, diabetes, noncompliance, ulcerative colitis, current smoker, denies any drug use, presents to the ER today reporting nausea, vomiting, diffuse abdominal cramping that began on Saturday. He denies recent bad food exposure, sick contacts, travel. He denies headache, fever, chest pain, shortness of breath, diarrhea, black tarry stools or bright red blood in his stools. He has not taken any [id number] medications for symptomatic control. Patient reports a similar episode a few months ago. Patient reports his pain is moderate, crampy in nature. No additional questions or concerns at this time. Related Data Home Medications Medication Instructions Recorded Confirmed blood sugar diagnostic #100 each 08/04/19 04/11/21 blood-glucose meter #1 each 08/04/19 04/11/21 lancets #100 each 08/04/19 04/11/21 atorvastatin 20 mg tablet 20 mg PO DAILY #90 tab-cap 08/25/19 04/11/21 omeprazole 20 mg capsule,delayed 20 mg PO DAILY #90 tab-cap 08/25/19 04/11/21 release acetaminophen [Mapap 500 mg PO Q6H PRN #30 cap 11/22/19 04/11/21 (acetaminophen)] lidocaine [Lidoderm] 1 patch TOPICAL HS #5 ea 02/28/20 04/11/21 magnesium chloride [Mag-Delay] 64 mg PO DAILY #20 tab 02/28/20 04/11/21 sucralfate 1 g PO AC & HS #30 tab 02/28/20 04/11/21 glimepiride 4 mg tablet 4 mg PO QAM #90 tab 10/07/20 04/11/21 lisinopril 2.5 mg tablet 2.5 mg PO DAILY #90 tab-cap 10/07/20 04/11/21 amlodipine 5 mg PO DAILY #30 tab 01/04/21 04/11/21 metoclopramide HCl [Reglan] 10 mg PO Q6H PRN #10 tab 01/04/21 04/11/21 metformin 1,000 mg tablet 2,000 mg PO DAILY tab 03/15/21 04/11/21 Previous Rx's Medication Instructions Recorded blood sugar diagnostic #100 each 08/04/19 blood-glucose meter #1 each 08/04/19 lancets #100 each 08/04/19 atorvastatin 20 mg tablet 20 mg PO DAILY #90 tab-cap 08/25/19 omeprazole 20 mg capsule,delayed 20 mg PO DAILY #90 tab-cap 08/25/19 release acetaminophen [Mapap 500 mg PO Q6H PRN #30 cap 11/22/19 (acetaminophen)] lidocaine [Lidoderm] 1 patch TOPICAL HS #5 ea 02/28/20 magnesium chloride [Mag-Delay] 64 mg PO DAILY #20 tab 02/28/20 sucralfate 1 g PO AC & HS #30 tab 02/28/20 glimepiride 4 mg tablet 4 mg PO QAM #90 tab 10/07/20 lisinopril 2.5 mg tablet 2.5 mg PO DAILY #90 tab-cap 10/07/20 amlodipine 5 mg PO DAILY #30 tab 01/04/21 metoclopramide HCl [Reglan] 10 mg PO Q6H PRN #10 tab 01/04/21 Allergies Allergy/AdvReac Type Severity Reaction Status Date / Time Milk Containing Products AdvReac Unknown gi upset Verified 03/15/21 08:57 tramadol AdvReac diarrhea/GI Verified 03/15/21 08:57 General Stated Complaint: Abd Prob TABITHA: 3 Review of Systems <STEPHANI Link - Last Filed: 04/12/21 08:06> Constitutional Constitutional: Denies fatigue, Denies fever(s) and Denies headache(s) ENT Ears, Nose, Mouth, and Throat: Denies headache(s) and Denies neck pain Cardiovascular Cardiovascular: Denies chest pain and Denies dyspnea Respiratory Respiratory: Denies cough and Denies dyspnea Gastrointestinal Gastrointestinal: Reports abdominal pain, Reports nausea and Reports vomiting Genitourinary Genitourinary: Denies dysuria Musculoskeletal Musculoskeletal: Denies neck pain Integumentary/Breasts Skin/Breast: Denies rash Neurologic Neurologic: Denies headache(s) Endocrine Endocrine: Denies fatigue PFSH <STEPHANI Link - Last Filed: 04/12/21 08:06> Medical History Abscess, perirectal Acute shoulder pain due to trauma Benign hypertension (12/01/10) Cerumen impaction (01/13/15) Dairy product intolerance (08/22/16) Depressive disorder (09/13/11) Disorder of left rotator cuff (12/01/12) 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 Left -complete loss of hearing. Tobacco dependence syndrome (09/13/10) Ulcerative colitis (09/13/11) Uncontrolled diabetes mellitus type 2 without complications (12/01/09) Surgical History Biopsy of dital clavicle, left AC joint (02/25/15) Dr Bright 03/16/15 Addendum Surgical Patology report: Bone with maturing trilineage hematopesis; Reacive stnovium; No evidence of lymphoma identified per Dr. Deann Godoy MD H/O drainage of abscess (~11/21/19) Rotator Cuff Repair Family History Mother Diabetes Essential hypertension Myocardial infarction Social History Smoking/Tobacco Use Status: Current every day Tobacco Type: cigarettes Tobacco: How many years used: 35 Quit status: not considering quitting Smoking risk assessment performed?: Yes Alcohol Intake: former Drug use: Occasionally Substance use type: marijuana Household members: none Housing: other Details: trailer Number of Children: 1 Communication Needs: Hard of Hearing Do you need help understanding health information?: Often current occupation: disabled Pets and animals: Yes Pets and animals: dog(s) Current gender identity: male What type of physical activity do you participate in: none Drive intox or ride w/intox rolloff driver: No Working smoke detector in home: Yes Do you feel safe at home: Yes Do you feel safe in your relationship?: Yes Exam <STEPHANI Link - Last Filed: 04/12/21 08:06> Const General: cooperative, comfortable, no acute distress and ill appearing chronically Orientation: alert and awake [facility] Head: normal to inspection, normocephalic and atraumatic Face and sinus: normal facial exam Mouth: moist mucous membranes abnormal (dry) Throat: posterior oropharynx normal Eyes General: appearance normal, both eyes and all related structures Conjunctivae: conjunctivae normal Neck Neck: normal visual inspection, full ROM, no meningeal signs, trachea midline, supple and nontender Resp Effort & Inspection: normal respiratory effort and able to speak in complete sentences Auscultation: diminished lung sounds bilaterally in the lower lung cartwright Cardio Rate: tachycardic (118) Rhythm: regular rhythm GI Inspection: normal to inspection Palpation: soft, not firm, no guarding, no pulsatile masses and tender (Diffuse, mild) Back/Spine/Pelvis Back: No back tenderness Skin General skin exam: no rashes or lesions noted Neuro General: patient alert, patient awake, moves all extremities and no focal motor deficits Cognition: normal cognition Speech: speech normal Sensory Exam: no sensory deficits noted Extrem General: normal to inspection, full ROM and capillary refill normal Psych Appearance: grossly normal Mental Status: mental status grossly normal Course <STEPHANI Link - Last Filed: 04/12/21 08:06> Vital Signs Vital signs: Vital Signs Temperature 36.6 C 04/11/21 13:18 Pulse 117 H 04/11/21 13:18 Respiratory Rate 18 04/11/21 13:18 Blood Pressure 122/80 04/11/21 13:18 Pulse Oximetry 98 04/11/21 13:18 Temperature 36.6 C 04/11/21 13:18 Temperature Source Tympanic 04/11/21 13:18 Pulse 117 H 04/11/21 13:18 Respiratory Rate 18 04/11/21 13:18 Blood Pressure 122/80 04/11/21 13:18 Pulse Oximetry 98 04/11/21 13:18 Oxygen Delivery Method Room Air 04/11/21 13:18 Oxygen Flow Rate 0 04/11/21 13:18 Pain Level 0 04/11/21 13:18 Critical Care Time <STEPHANI Link - Last Filed: 04/12/21 08:06> Critical Care Time Critical Care Time: Yes Total Critical Care Time: 35 Attestation: Upon my evaluation, this patient had a high probability of clinically significant, life-threatening deterioration due to their current medical conditions, which required my direct attention, intervention, and personal management. I have personally provided greater than 30 minutes of critical care time exclusive of the time spend on separately billable procedures. Time includes obtaining a history, examining the patient, pulse oximetry, review of laboratory data, radiology results, discussion with consultants, arranging urgent treatment with development of a management plan, evaluation of patient's response to treatment, and monitoring for potential decompensation. Interventions were performed as documented above. Sign Out <STEPHANI Link - Last Filed: 04/12/21 08:06> Sign Out Data: Sign Out Comment: Nausea, vomiting, abdominal pain since Saturday. Known diabetic, noncompliance. Receiving his third liter of IV fluid. Received Zofran, no vomiting while under my care. Awaiting VBG and CT of abdomen and pelvis. Last updated by Brando Goodwin PA at 04/11/21 16:02
[2021-04-11] MEDS: Normal Saline 1,000 ML 1000 ML IV ×2 (13:35→16:06)
[2021-04-11] MEDS: Ondansetron 4 MG/2 ML VIAL IVP (13:36)
[2021-04-11 13:39] LABS: Abs Immature Grans 0.13 10^3/uL (0.0-0.06); Absolute Lymphocyte Count 0.53 10^3/uL (1.2-3.4); Absolute Neutrophil Count 20.42 10^3/uL (1.2-6.7); HCT 41.1 % (40.0-50.0); HGB 14.3 g/dL (13.5-17.5); Immature Grans % 0.6; Lymphocytes % 2.4; MCH 30.4 pg (27.0-33.0); MCHC 34.8 % (32.0-36.0); MCV 87.4 fL (80-95); Monocytes % 3.7; Neutrophils % 93.3; Nucleated RBC 0 %; Platelet Count 314 10^3/uL (130-400); RDW 12.1 % (11.8-14.1); RDW-SD 38.7 fL; WBC 21.89 10^3/uL (4.4-10.8)
[2021-04-11 13:55] LABS: ALT 14 U/L (16-63); AST 5 U/L (15-37); Albumin 4.1 g/dL (3.4-5.0); Alkaline Phosphatase 80 U/L (46-116); Anion Gap 20.5 mmol/L (3-11); BUN 51 mg/dL (7-18); Bilirubin, Total 0.8 mg/dL (0.2-1.0); CO2 18.5 mmol/L (21.0-32.0); CREATININE 1.7 mg/dL (0.70-1.30); Calcium 9.6 mg/dL (8.5-10.1); Chloride 94 mmol/L (98-107); Glucose 404 mg/dL (74-106); Lipase 35 U/L (73-393); Potassium 4.4 mmol/L (3.5-5.1); Sodium 133 mmol/L (136-145); Total Protein 7.9 g/dL (6.4-8.2)
--- NOTE | 2021-04-11 14:15 | DI.CT_ITS ---
Exam(s) CT ABDOMEN PELVIS W EXAM: CT ABDOMEN PELVIS W CLINICAL HISTORY: abd pain, n/v, wbc 22. TECHNIQUE: Imaging Protocol: Axial computed tomography images with coronal and sagittal reformatted images were created and reviewed CONTRAST MATERIAL: Intravenous: Omnipaque 350 Contrast volume:100 ml Oral: no COMPARISON: CT CT ABDOMEN PELVIS W from 02/24/2020 FINDINGS: ABDOMEN: Lung Bases: Normal where visualized. Wall thickening distal esophagus. Liver: Normal density. No measurable mass. Gallbladder and biliary tract: Few tiny stones no wall thickening or biliary dilation. Pancreas: Normal density, no abnormal calcifications or inflammatory process. Spleen: Normal. Kidneys: Normal size, contour and axis. Tiny nonobstructing stone lower pole bilateral kidneys. No obstructive uropathy. Small bilateral cysts. No suspicious masses seen. Adrenal glands: No masses seen. Abdominal Aorta: Abdominal portion non-dilated. Moderate atherosclerotic changes. PELVIS: Bladder: Distended. No gross wall thickening. No calculi.No focal mass. Bowel: No obstruction or bowel wall thickening. Appendix not seen. No right lower quadrant inflammat ion.. Peritoneal cavity: No ascites, collection or mesenteric inflammatory response. Bones: Degenerative disc changes lower lumbar spine.. Reproductive organs: Within normal limits. Lymph nodes: Unremarkable. Impression: Wall thickening the distal esophagus could indicate esophagitis. Faintly visualized gallstones witho ut evidence of acute cholecystitis. Nonobstructing renal calculi. RADIATION DOSE DELIVERED: 717.22mGy.cm Total DLP DATA REPOSITORY: All CT scans at this facility are submitted to the National Radiology Data Registry (NRDR) Dose Index Registry (DIR) with the [employer] ([employer]). RADIATION OPTIMIZATION: All CT scans at this facility use at least one of these dose optimization te chniques: automated exposure control; mA and/or kV adjustment per patient size (includes targeted exa ms where dose is matched to clinical indication); or iterative reconstruction.
[2021-04-11 14:20] LABS: Absolute Monocyte Count 0.81 10^3/uL (0.1-0.8)
[2021-04-11 14:21] LABS: Diff Comment Agrees w/ Instrument; RBC Morphology Normal
[2021-04-11] MEDS: Lactated Ringers 1,000 ML 1000 ML IV (14:37)
[2021-04-11 15:34] LABS: Bilirubin Negative (Negative); Blood Small (Negative); Clarity Clear (Clear); Glucose 500 mg/dL (Negative); Ketones >=160 mg/dL (Negative); Leukocyte Esterase Negative (Negative); Nitrite Negative (Negative); Urobilinogen 0.2 EU/dL (Up TO 0.2); pH 5.5 (5-8)
[2021-04-11 15:43] LABS: Epithelial Cells Negative HPF (Negative); WBC Negative HPF (0-5)
[2021-04-11 15:44] LABS: Bacteria Rare HPF (Negative); C & S Indicated? No; Casts Negative LPF (Negative); Crystals Negative HPF (Negative); Mucus Negative (Negative); Other Cells Negative (Negative)
[2021-04-11 15:49] LABS: *AMPHETAMINES SCREEN URINE Negative (Negative); *BARBITURATES SCREEN URINE Negative (Negative); *BENZODIAZEPINES SCREEN URINE Negative (Negative); Cannabinoids THC Positive (Negative); Cocaine Screen,Urine Negative (Negative); METHADONE URINE SCREEN Negative (Negative); OPIATES URINE SCREEN Negative (Negative)
[2021-04-11 15:50] LABS: Tricyclic Antidepressants Negative (Negative)
[2021-04-11] MEDS: Omnipaque 350 MG/ML 100 ML BTL IJ (15:58)
[2021-04-11] MEDS: Normal Saline - Diluent 50 ML VIAL IV (15:59)
[2021-04-11] MEDS: Normal Saline Flush 10 ML SYR IVP (15:59)
[2021-04-11 16:07] LABS: BE (Venous) -5 mmol/L (-2-3); HCO3 (Venous) 21 mmol/L (23-28); O2 Sat (Venous) 74 %; TCO2 (Venous) 19 mmol/L (24-29); pCO2 (Venous) 35 mmHg (41-51); pH (Venous) 7.38 (7.31-7.41); pO2 (Venous) 40 mmHg
[2021-04-11 16:10] VITALS: BP 186/105; PULSE 110; TEMP 36.4; O2SAT 97
[2021-04-11] MEDS: LISINOPRIL 2.5 MG TAB PO (16:37)
[2021-04-11] MEDS: amLODIPine 5 MG TAB PO (16:37)
[2021-04-11 17:33] LABS: Anion Gap 15.3 mmol/L (3-11); BUN 43 mg/dL (7-18); CO2 20.7 mmol/L (21.0-32.0); CREATININE 1.3 mg/dL (0.70-1.30); Calcium 8.2 mg/dL (8.5-10.1); Chloride 100 mmol/L (98-107); Glucose 316 mg/dL (74-106); Potassium 4.1 mmol/L (3.5-5.1); Sodium 136 mmol/L (136-145)
[2021-04-11] MEDS: Mylanta Suspension 30 ML CUP PO (18:01)
[2021-04-11] MEDS: Pantoprazole 40 MG VIAL IVP (18:01)
[2021-04-11] MEDS: Metoclopramide 10 MG/2 ML VIAL IVP (18:07)
[2021-04-11] MEDS: Lactated Ringers 1,000 ML 125 ML IV (20:10)
[2021-04-11 20:11] VITALS: BP 160/85; PULSE 110
[2021-04-11 20:13] VITALS: BP 155/70; PULSE 105; RESP 18; TEMP 36.8; O2SAT 97
[2021-04-11 20:22] LABS: Source Nasal/Nares
[2021-04-11 20:54] VITALS: BP 171/89; PULSE 105; RESP 18; TEMP 36.5; O2SAT 97
[2021-04-11 21:20] LABS: COVID-19 PCR Negative (Negative)
--- NOTE | 2021-04-11 21:45 | W.PM.HP.N ---
Date of service: 04/11/21 Time of Service: 21:45 Assessment and Plan Assessment and plan (1) Emesis, persistent: Start date: 04/11/21 Status: Acute Assessment and plan: This is a 55-year-old gentleman who presents with persistent emesis and heme at the time of my exam was having dry heaves been up clear fluids with water being dropped just before this episode. He does have mild metabolic acidosis with uncontrolled diabetes may be contributing to his problem along with gastroparesis. He also smokes marijuana with a positive THC on drug screen and this may have been a problem in the past as well. He denies that this was caused this problem. He has poor insight. He will be admitted for IV hydration, better glycemic control and symptomatic treatment for his hyperemesis with clear fluids diet as tolerated as well as bowel rest. He does have leukocytosis which may be secondary to his distress from emesis but also we need to consider possible infection which would be in the GI tract. He does have an abnormal gallbladder, kidney and distal esophagus which all may be chronic. Zosyn will cover this possibility of infection while further investigate taken. He is admitted for monitoring. (2) Metabolic acidosis: Start date: 04/11/21 Status: Acute Assessment and plan: IV hydration with replacement fluids and better glycemic control. Follow-up and monitor labs. He is not on the DKA protocol with severity not warranting this and patient is a type II diabetic by history. He did have ketones in his urine. (3) Diabetes mellitus type 2 with complications, uncontrolled: Status: Chronic Assessment and plan: Patient has chronic uncontrolled diabetes. Hold usual outpatient medical therapy and check her glucometer before meals and at bedtime with short acting coverage. IV hydration for metabolic acidosis which is mild. (4) Abdominal pain: Start date: 04/11/21 Status: Acute Assessment and plan: Abnormal CT of the abdomen with cholelithiasis and renal lithiasis as well as abnormal distal esophagus. Covered with Zosyn with further investigations if leukocytosis persists. Watch for fever. Blood cultures were done before initiation of Zosyn. Further medications may include abdominal ultrasound. Surgical consultation if warranted. Qualifiers: Abdominal location: right upper quadrant Qualified Code(s): R10.11 - Right upper quadrant pain History of Present Illness History of Present Illness Chief Complaint: Persistent emesis and diabetic poorly controlled Narrative: This is a 55-year-old male patient who presented to the ED with a history of persistent vomiting that this over the last 48 hours but having abdominal pain and cramping for longer. Does have a history of diabetes and hypertension with very poor follow-up and compliance. He has had a recent admission for persistent emesis as well. He is thought to have cannabis hyperemesis but denies that cannabis is affecting him in this way. He is a very poor historian and has difficulty concentrating during conversation. I did review his ED notes that he presented chronically ill-appearing and dehydrated with tachycardia. He had fluid resuscitation in the ED and imaging which may suggest acute cholecystitis. At the time I saw the patient he was not having abdominal discomfort. He was unable to offer further history and appears to live alone with poor compliance and poor dietary control of his diabetes. In the ED was found to have leukocytosis but no fever. He also had mild metabolic acidosis with no elevation of his lipase. Review of Systems Narrative: 13 point review of systems otherwise unrevealing or unobtainable with patient being a poor historian. He gives vague answers to questions. 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 Left -complete loss of hearing. Tobacco dependence syndrome (09/13/10) Ulcerative colitis (09/13/11) Uncontrolled diabetes mellitus type 2 without complications (12/01/09) Surgical History Biopsy of dital clavicle, left AC joint (02/25/15) Dr Bright 03/16/15 Addendum Surgical Patology report: Bone with maturing trilineage hematopesis; Reacive stnovium; No evidence of lymphoma identified per Dr. Deann Godoy MD H/O drainage of abscess (~11/21/19) Rotator Cuff Repair Family History Mother Diabetes Essential hypertension Myocardial infarction Social History Smoking/Tobacco Use Status: Current every day Tobacco Type: cigarettes Tobacco: How many years used: 35 Quit status: not considering quitting Smoking risk assessment performed?: Yes Alcohol Intake: former Drug use: Occasionally Substance use type: marijuana Household members: none Housing: other Details: trailer Number of Children: 1 Communication Needs: Hard of Hearing Do you need help understanding health information?: Often current occupation: disabled Pets and animals: Yes Pets and animals: dog(s) Current gender identity: male What type of physical activity do you participate in: none 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 Working smoke detector in home: Yes Do you feel safe at home: Yes Do you feel safe in your relationship?: Yes Meds Allergies and Home Medications Allergies Allergy/AdvReac Type Severity Reaction Status Date / Time Milk Containing Products AdvReac Unknown gi upset Verified 03/15/21 08:57 tramadol AdvReac diarrhea/GI Verified 03/15/21 08:57 Home Medications Medication Instructions Recorded Confirmed Type blood sugar diagnostic #100 each 08/04/19 04/11/21 Rx blood-glucose meter #1 each 08/04/19 04/11/21 Rx lancets #100 each 08/04/19 04/11/21 Rx atorvastatin 20 mg tablet 20 mg PO DAILY #90 tab-cap 08/25/19 04/11/21 Rx omeprazole 20 mg capsule,delayed 20 mg PO DAILY #90 tab-cap 08/25/19 04/11/21 Rx release acetaminophen [Mapap 500 mg PO Q6H PRN #30 cap 11/22/19 04/11/21 Rx (acetaminophen)] lidocaine [Lidoderm] 1 patch TOPICAL HS #5 ea 02/28/20 04/11/21 Rx magnesium chloride [Mag-Delay] 64 mg PO DAILY #20 tab 02/28/20 04/11/21 Rx sucralfate 1 g PO AC & HS #30 tab 02/28/20 04/11/21 Rx glimepiride 4 mg tablet 4 mg PO QAM #90 tab 10/07/20 04/11/21 Rx lisinopril 2.5 mg tablet 2.5 mg PO DAILY #90 tab-cap 10/07/20 04/11/21 Rx amlodipine 5 mg PO DAILY #30 tab 01/04/21 04/11/21 Rx metoclopramide HCl [Reglan] 10 mg PO Q6H PRN #10 tab 01/04/21 04/11/21 Rx metformin 1,000 mg tablet 2,000 mg PO DAILY tab 03/15/21 04/11/21 History Exam Narrative Exam Narrative: General: Patient appears older than stated age, disheveled and chronically ill-appearing. He is in no acute distress but has flattened affect with poor eye contact and slow response to questions. This appears to be close to his baseline mentation. He is alert and oriented at least to person and place. HEENT: Normocephalic, eyes with pupils equal and reactive to light symmetrically, extraocular movements active sclera anicteric. Oropharynx with dry mucosa and poor dentition. Face has coarsened features. Neck: Supple without JVD. Back: Stooped posture without CVA tenderness. Lungs: Fair aeration with no focalizing rales or rhonchi. Heart: Regular rate and rhythm with no appreciable murmurs or gallops. Patient was tachycardic in the ED. Abdomen: Soft, nontender to palpation and negative Tate sign with no palpable hepatosplenomegaly. Bowel sounds positive but decreased in all quadrants. Genitalia/rectal: Exam deferred. Extremities: Without clubbing, cyanosis or pitting edema. Peripheral pulses intact. Skin: Normal color, warm and dry. Neuro: Cranial process intact, no focalizing motor deficits. Psych: Flattened affect with depressed mood, no abnormal thought processes. Remote memory grossly intact and recent memory left intact. Patient is difficult to test with his decreased mentation which appears chronic. Results Imaging Imaging Studies: Exam(s) CT ABDOMEN PELVIS W EXAM: CT ABDOMEN PELVIS W CLINICAL HISTORY: abd pain, n/v, wbc 22. TECHNIQUE: Imaging Protocol: Axial computed tomography images with coronal and sagittal reformatted images were created and reviewed CONTRAST MATERIAL: Intravenous: Omnipaque 350 Contrast volume:100 ml Oral: no COMPARISON: CT CT ABDOMEN PELVIS W from 02/24/2020 FINDINGS: ABDOMEN: Lung Bases: Normal where visualized. Wall thickening distal esophagus. Liver: Normal density. No measurable mass. Gallbladder and biliary tract: Few tiny stones no wall thickening or biliary dilation. Pancreas: Normal density, no abnormal calcifications or inflammatory process. Spleen: Normal. Kidneys: Normal size, contour and axis. Tiny nonobstructing stone lower pole bilateral kidneys. No obstructive uropathy. Small bilateral cysts. No suspicious masses seen. Adrenal glands: No masses seen. Abdominal Aorta: Abdominal portion non-dilated. Moderate atherosclerotic changes. PELVIS: Bladder: Distended. No gross wall thickening. No calculi.No focal mass. Bowel: No obstruction or bowel wall thickening. Appendix not seen. No right lower quadrant inflammation.. Peritoneal cavity: No ascites, collection or mesenteric inflammatory response. Bones: Degenerative disc changes lower lumbar spine.. Reproductive organs: Within normal limits. Lymph nodes: Unremarkable. Impression: Wall thickening the distal esophagus could indicate esophagitis. Faintly visualized gallstones without evidence of acute cholecystitis. Nonobstructing renal calculi. Labs Result diagrams: 04/12/21 06:43 04/12/21 06:43 Labs: Laboratory Results - last 24 hr 04/11/21 04/11/21 04/11/21 13:30 13:30 15:19 WBC 21.89 H RBC 4.70 Hgb 14.3 Hct 41.1 MCV 87.4 MCH 30.4 MCHC 34.8 RDW 12.1 Plt Count 314 MPV 11.0 Immature Gran % 0.6 Neutrophils % 93.3 Lymphocytes % 2.4 Monocytes % 3.7 Eosinophils % 0.0 Basophils % 0.0 Nucleated RBC % 0 Absolute Neutrophils 20.42 H Absolute Lymphocytes 0.53 L Absolute Monocytes 0.81 H Absolute Eosinophils 0.00 Absolute Basophils 0.00 RBC Morphology Normal VBG pH VBG pCO2 VBG pO2 VBG HCO3 VBG Total CO2 VBG O2 Saturation VBG Base Excess Sodium 133 L Potassium 4.4 Chloride 94 L Carbon Dioxide 18.5 L Anion Gap 20.5 H BUN 51 H Creatinine 1.7 H Estimated GFR/1.73 m2 41.90 Glucose 404 H Calcium 9.6 Total Bilirubin 0.8 AST 5 L ALT 14 L Alkaline Phosphatase 80 Total Protein 7.9 Albumin 4.1 Lipase 35 Urine Color Urine Clarity Urine pH Ur Specific [place] Urine Protein Urine Ketones Urine Blood Urine Nitrite Urine Bilirubin Urine Urobilinogen Ur Leukocyte Esterase Urine RBC Urine WBC Ur Epithelial Cells Urine Crystals Urine Bacteria Urine Casts Urine Mucus Urine Other Ur Culture Indicated? Urine Glucose Urine Opiates Screen Negative Urine Methadone Screen Negative Ur Barbiturates Screen Negative Ur Tricyclics Screen Negative Ur Amphetamines Screen Negative U Benzodiazepines Scrn Negative Urine Cocaine Screen Negative Ur THC Screen Positive A COVID-19 Source 04/11/21 04/11/21 04/11/21 15:19 16:00 17:18 WBC RBC Hgb Hct MCV MCH MCHC RDW Plt Count MPV Immature Gran % Neutrophils % Lymphocytes % Monocytes % Eosinophils % Basophils % Nucleated RBC % Absolute Neutrophils Absolute Lymphocytes Absolute Monocytes Absolute Eosinophils Absolute Basophils RBC Morphology VBG pH 7.38 VBG pCO2 35 L VBG pO2 40 VBG HCO3 21 L VBG Total CO2 19 L VBG O2 Saturation 74 VBG Base Excess -5 L Sodium 136 Potassium 4.1 Chloride 100 Carbon Dioxide 20.7 L Anion Gap 15.3 H BUN 43 H Creatinine 1.3 Estimated GFR/1.73 m2 57.10 Glucose 316 H Calcium 8.2 L Total Bilirubin AST ALT Alkaline Phosphatase Total Protein Albumin Lipase Urine Color Yellow Urine Clarity Clear Urine pH 5.5 Ur Specific [place] 1.020 Urine Protein 100 H Urine Ketones >=160 H Urine Blood Small H Urine Nitrite Negative Urine Bilirubin Negative Urine Urobilinogen 0.2 Ur Leukocyte Esterase Negative Urine RBC 3-5 H Urine WBC Negative Ur Epithelial Cells Negative Urine Crystals Negative Urine Bacteria Rare Urine Casts Negative Urine Mucus Negative Urine Other Negative Ur Culture Indicated? No Urine Glucose 500 H Urine Opiates Screen Urine Methadone Screen Ur Barbiturates Screen Ur Tricyclics Screen Ur Amphetamines Screen U Benzodiazepines Scrn Urine Cocaine Screen Ur THC Screen COVID-19 Source 04/11/21 20:19 WBC RBC Hgb Hct MCV MCH MCHC RDW Plt Count MPV Immature Gran % Neutrophils % Lymphocytes % Monocytes % Eosinophils % Basophils % Nucleated RBC % Absolute Neutrophils Absolute Lymphocytes Absolute Monocytes Absolute Eosinophils Absolute Basophils RBC Morphology VBG pH VBG pCO2 VBG pO2 VBG HCO3 VBG Total CO2 VBG O2 Saturation VBG Base Excess Sodium Potassium Chloride Carbon Dioxide Anion Gap BUN Creatinine Estimated GFR/1.73 m2 Glucose Calcium Total Bilirubin AST ALT Alkaline Phosphatase Total Protein Albumin Lipase Urine Color Urine Clarity Urine pH Ur Specific [place] Urine Protein Urine Ketones Urine Blood Urine Nitrite Urine Bilirubin Urine Urobilinogen Ur Leukocyte Esterase Urine RBC Urine WBC Ur Epithelial Cells Urine Crystals Urine Bacteria Urine Casts Urine Mucus Urine Other Ur Culture Indicated? Urine Glucose Urine Opiates Screen Urine Methadone Screen Ur Barbiturates Screen Ur Tricyclics Screen Ur Amphetamines Screen U Benzodiazepines Scrn Urine Cocaine Screen Ur THC Screen COVID-19 Source Nasal/Nares Last Vital Signs Temp 36.5 C 04/11/21 20:54 Pulse 105 H 04/11/21 20:54 Resp 18 04/11/21 20:54 BP 171/89 H 04/11/21 20:54 Pulse Ox 97 04/11/21 20:54
[2021-04-11 21:57] VITALS: PULSE 108
[2021-04-11] MEDS: Sucralfate 1 GM TAB PO (22:57)
[2021-04-12 00:29] VITALS: PULSE 104
[2021-04-12] MEDS: PIPERACILLIN/TAZO 3.375 GM in Normal Saline 50 ML IVPB ×2 (01:01→05:38)
[2021-04-12] MEDS: Lidocaine 5% Patch 1 PATCH TP ×2 (01:04→21:41)
[2021-04-12] MEDS: Mylanta Suspension 30 ML CUP PO (01:13)
[2021-04-12 02:55] VITALS: BP 159/83; PULSE 98; RESP 17; TEMP 36.3; O2SAT 98
[2021-04-12] MEDS: Normal Saline 500 ML 30 ML IV (05:40)
[2021-04-12 07:11] LABS: Abs Immature Grans 0.05 10^3/uL (0.0-0.06); Absolute Basophil Count 0.01 10^3/uL (0.0-0.2); Absolute Lymphocyte Count 0.78 10^3/uL (1.2-3.4); Basophils % 0.1; HCT 34.9 % (40.0-50.0); HGB 12.2 g/dL (13.5-17.5); Immature Grans % 0.3; Lymphocytes % 5.3; MCH 30.2 pg (27.0-33.0); MCV 86.4 fL (80-95); MPV 11.4 fL (8.0-11.0); Monocytes % 6.2; Neutrophils % 88.1; Nucleated RBC 0 %; Platelet Count 242 10^3/uL (130-400); RBC 4.04 10^6/uL (4.36-5.78); RDW 12.1 % (11.8-14.1); RDW-SD 38.6 fL; WBC 14.77 10^3/uL (4.4-10.8)
[2021-04-12 07:16] LABS: Absolute Monocyte Count 0.92 10^3/uL (0.1-0.8); Absolute Neutrophil Count 13.01 10^3/uL (1.2-6.7)
[2021-04-12] MEDS: Sucralfate 1 GM TAB PO ×4 (07:17→21:24)
[2021-04-12] MEDS: Lactated Ringers 1,000 ML 125 ML IV ×2 (07:18→17:05)
[2021-04-12 07:30] VITALS: BP 146/80; PULSE 96; RESP 18; TEMP 36.4; O2SAT 98
[2021-04-12 07:30] LABS: ALT 10 U/L (16-63); AST 7 U/L (15-37); Albumin 3.1 g/dL (3.4-5.0); Alkaline Phosphatase 62 U/L (46-116); Anion Gap 16.7 mmol/L (3-11); BUN 33 mg/dL (7-18); Bilirubin, Total 0.8 mg/dL (0.2-1.0); CO2 20.3 mmol/L (21.0-32.0); CREATININE 1.3 mg/dL (0.70-1.30); Calcium 8.4 mg/dL (8.5-10.1); Chloride 101 mmol/L (98-107); Glucose 264 mg/dL (74-106); Potassium 3.7 mmol/L (3.5-5.1); Sodium 138 mmol/L (136-145); Total Protein 6.2 g/dL (6.4-8.2)
[2021-04-12 07:52] LABS: Lipase 57 U/L (73-393)
[2021-04-12] MEDS: Insulin Aspart 300 UNITS/3 ML PEN SC ×3 (08:09→16:56)
[2021-04-12] MEDS: Lisinopril 5 MG TAB 2.5 MG PO (08:09)
[2021-04-12] MEDS: Magnesium Chloride 64 MG TABCR PO (08:09)
[2021-04-12] MEDS: Enoxaparin 40 MG/0.4 ML SYR SC (08:11)
[2021-04-12 11:33] LABS: Hemoglobin A1C 9.5 % (<5.7)
[2021-04-12] MEDS: Normal Saline Flush 10 ML SYR IVP ×2 (11:56→18:37)
[2021-04-12 12:20] VITALS: BP 153/83; PULSE 92; RESP 18; TEMP 36.5; O2SAT 98
--- NOTE | 2021-04-12 13:02 | INITIAL_ITS ---
- If Service Date Differs Date of service: 04/12/21 Time of Service: 13:03 Care Management Initial Assess REASON FOR HOSPITALIZATION:: Uncontrolled NIDDM PAST MEDICAL HISTORY/PAST SURGICAL HISTORY:: Medical History . Abscess, perirectal. Acute shoulder pain due to trauma. Benign hypertension (12/01/10). Cerumen impaction (01/13/15). Dairy product intolerance (08/22/16). Depressive disorder (09/13/11). Disorder of left rotator cuff (12/01/12). 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 Noncompliance with diabetes treatment (06/29/15). Pure hypercholesterolemia (09/13/11). Sensorineural hearing loss (10/23/13). right ear. Left -complete loss of hearing. Tobacco dependence syndrome (09/13/10). Ulcerative colitis (09/13/11). Uncontrolled diabetes mellitus type 2 without complications (12/01/09). Surgical History . Biopsy of dital clavicle, left AC joint (02/25/15). Dr Bright. 03/16/15 Addendum Surgical Patology report: Bone with maturing trilineage hematopesis; Reacive stnovium; No evidence of lymphoma identified per Dr. Deann Godoy MD. H/O drainage of abscess (~11/21/19). Rotator Cuff Repair PREVIOUS FUNCTIONAL STATUS/SOCIAL/FAMILY SUPPORTS:: Harry lives alone in [place], [place]. with his 4 month old puppy Adama. He has one son who is 21 years old and lives in [place] with his mother. Harry states that he rarely sees him. Harry had 3 brothers and a sister. One brother has been at [employer] for about 50 years following an auto accident. One brother from cancer and his 3rd brother now also has cancer. Harry is hearing impaired and is on disability. 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 He names his sister, a cousin and several friends as his supports. Harry states he is independent with his ADLs at baseline. He cooks, cleans, and occasionally drives. CURRENT FUNCTIONAL STATUS:: Harry was lying in bed when CM met with him. He was polite but did not fully engage with CM. Harry has a lot of difficulty hearing, making the conversation challenging. He stated that he still feels ill and has vomitted today. ADVANCE DIRECTIVES:: none on file. not interested Has patient been provided with info about the portal/API?: Yes Did the patient sign up for the portal?: No CODE STATUS:: Full Code INSURANCE COVERAGE / FINANCIAL ISSUES:: Medicaid. Medicare CURRENT HOME/COMMUNITY SERVICES/EQUIPMENT:: none PRIMARY CARE PHYSICIAN:: Khadijah lela POTENTIAL DISCHARGE NEEDS:: follow up with PCP and plan of care. Would likely benefit from Diabetes education. PATIENT/FAMILY EDUCATION NEEDS:: Review of discharge instructions, medications, diet, activity, limitations, follow up plan, Ask Me Three TRANSPORTATION:: via private vehicle PLAN:: Harry will likely be discharged home with no new services, although additional diabetes education might be helpful. He will follow up with his community providers and plan of care and transport with a friend. CM will continue to support Harry and assess for discharge planning needs.
--- NOTE | 2021-04-12 13:05 | PGE_ITS ---
Date of Service Date of service: 04/12/21 Time of Service: 13:05 Assessment and Plan Assessment and plan (1) Emesis, persistent: Status: Acute Assessment and plan: Etiology is possible cannabinoid hyperemesis vs gastroparesis, less likely infectious. He has had no emesis today; tolerated clear liquids for breakfast. PRN reglan vs zofran has been offered. Will sched reglan QACHS (2) Substance abuse: Status: Acute Assessment and plan: Routine MJ use that may be contributing to nausea/emesis. Also likely has diabetic induced gastoparesis. On Reglan (3) Leukocytosis: Status: Acute Assessment and plan: Related to emesis likely. Was placed initially on Zosyn; will stop and cont to monitor WBC count and signs/symptoms of infectious process. (4) Diabetes mellitus type 2 with complications, uncontrolled: Status: Chronic Assessment and plan: He is on metformin and glimeperide. Both held. Sliding scale insulin initated upon admission. Diabetic diet; clear liqs advancing as tolerated. Glucose readings are high. Ketotic odor to breath. nurse educator consulted. He has poor insight regarding diabetes. Question of limited cognition. Subjective Subjective Patient reports: no new complaints and afebrile Interval history since last seen: He states he did tolerate clear liquids at breakfast.' Appetite is generally diminished. Exam Const General: cooperative, no acute distress and disheveled Nutritional Appearance: average body habitus Eyes General: appearance normal, both eyes and all related structures Sclera: sclerae normal Resp Effort & Inspection: normal respiratory effort Auscultation: clear to auscultation bilaterally Cardio Rate: regular rate Rhythm: regular rhythm Heart Sounds: S1 normal and S2 normal GI Palpation: soft and nontender Extrem General: no pedal edema and no calf tenderness Psych Appearance: grossly normal Speech and Movement: speech and movement normal Affect: blunted Objective Last Vital Signs Temp 36.5 C 04/12/21 12:20 Pulse 92 H 04/12/21 12:20 Resp 18 04/12/21 12:20 BP 153/83 H 04/12/21 12:20 Pulse Ox 98 04/12/21 12:20 Laboratory Results - last 24 hr 04/11/21 04/11/21 04/11/21 13:30 13:30 13:30 WBC 21.89 H RBC 4.70 Hgb 14.3 Hct 41.1 MCV 87.4 MCH 30.4 MCHC 34.8 RDW 12.1 Plt Count 314 MPV 11.0 Immature Gran % 0.6 Neutrophils % 93.3 Lymphocytes % 2.4 Monocytes % 3.7 Eosinophils % 0.0 Basophils % 0.0 Nucleated RBC % 0 Absolute Neutrophils 20.42 H Absolute Lymphocytes 0.53 L Absolute Monocytes 0.81 H Absolute Eosinophils 0.00 Absolute Basophils 0.00 RBC Morphology Normal VBG pH VBG pCO2 VBG pO2 VBG HCO3 VBG Total CO2 VBG O2 Saturation VBG Base Excess Sodium 133 L Potassium 4.4 Chloride 94 L Carbon Dioxide 18.5 L Anion Gap 20.5 H BUN 51 H Creatinine 1.7 H Estimated GFR/1.73 m2 41.90 Glucose 404 H Hemoglobin A1c Calcium 9.6 Magnesium Cancelled Total Bilirubin 0.8 AST 5 L ALT 14 L Alkaline Phosphatase 80 Total Protein 7.9 Albumin 4.1 Lipase 35 TSH Cancelled Urine Color Urine Clarity Urine pH Ur Specific [place] Urine Protein Urine Ketones Urine Blood Urine Nitrite Urine Bilirubin Urine Urobilinogen Ur Leukocyte Esterase Urine RBC Urine WBC Ur Epithelial Cells Urine Crystals Urine Bacteria Urine Casts Urine Mucus Urine Other Ur Culture Indicated? Urine Glucose Urine Opiates Screen Urine Methadone Screen Ur Barbiturates Screen Ur Tricyclics Screen Ur Amphetamines Screen U Benzodiazepines Scrn Urine Cocaine Screen Ur THC Screen COVID-19 Source SARS-CoV-2 (PCR) 04/11/21 04/11/21 04/11/21 15:19 15:19 16:00 WBC RBC Hgb Hct MCV MCH MCHC RDW Plt Count MPV Immature Gran % Neutrophils % Lymphocytes % Monocytes % Eosinophils % Basophils % Nucleated RBC % Absolute Neutrophils Absolute Lymphocytes Absolute Monocytes Absolute Eosinophils Absolute Basophils RBC Morphology VBG pH 7.38 VBG pCO2 35 L VBG pO2 40 VBG HCO3 21 L VBG Total CO2 19 L VBG O2 Saturation 74 VBG Base Excess -5 L Sodium Potassium Chloride Carbon Dioxide Anion Gap BUN Creatinine Estimated GFR/1.73 m2 Glucose Hemoglobin A1c Calcium Magnesium Total Bilirubin AST ALT Alkaline Phosphatase Total Protein Albumin Lipase TSH Urine Color Yellow Urine Clarity Clear Urine pH 5.5 Ur Specific [place] 1.020 Urine Protein 100 H Urine Ketones >=160 H Urine Blood Small H Urine Nitrite Negative Urine Bilirubin Negative Urine Urobilinogen 0.2 Ur Leukocyte Esterase Negative Urine RBC 3-5 H Urine WBC Negative Ur Epithelial Cells Negative Urine Crystals Negative Urine Bacteria Rare Urine Casts Negative Urine Mucus Negative Urine Other Negative Ur Culture Indicated? No Urine Glucose 500 H Urine Opiates Screen Negative Urine Methadone Screen Negative Ur Barbiturates Screen Negative Ur Tricyclics Screen Negative Ur Amphetamines Screen Negative U Benzodiazepines Scrn Negative Urine Cocaine Screen Negative Ur THC Screen Positive A COVID-19 Source SARS-CoV-2 (PCR) 04/11/21 04/11/21 04/12/21 17:18 20:19 06:43 WBC RBC Hgb Hct MCV MCH MCHC RDW Plt Count MPV Immature Gran % Neutrophils % Lymphocytes % Monocytes % Eosinophils % Basophils % Nucleated RBC % Absolute Neutrophils Absolute Lymphocytes Absolute Monocytes Absolute Eosinophils Absolute Basophils RBC Morphology VBG pH VBG pCO2 VBG pO2 VBG HCO3 VBG Total CO2 VBG O2 Saturation VBG Base Excess Sodium 136 138 Potassium 4.1 3.7 Chloride 100 101 Carbon Dioxide 20.7 L 20.3 L Anion Gap 15.3 H 16.7 H BUN 43 H 33 H D Creatinine 1.3 1.3 Estimated GFR/1.73 m2 57.10 57.10 Glucose 316 H 264 H Hemoglobin A1c Calcium 8.2 L 8.4 L Magnesium Total Bilirubin 0.8 AST 7 L ALT 10 L Alkaline Phosphatase 62 Total Protein 6.2 L Albumin 3.1 L Lipase TSH Urine Color Urine Clarity Urine pH Ur Specific [place] Urine Protein Urine Ketones Urine Blood Urine Nitrite Urine Bilirubin Urine Urobilinogen Ur Leukocyte Esterase Urine RBC Urine WBC Ur Epithelial Cells Urine Crystals Urine Bacteria Urine Casts Urine Mucus Urine Other Ur Culture Indicated? Urine Glucose Urine Opiates Screen Urine Methadone Screen Ur Barbiturates Screen Ur Tricyclics Screen Ur Amphetamines Screen U Benzodiazepines Scrn Urine Cocaine Screen Ur THC Screen COVID-19 Source Nasal/Nares SARS-CoV-2 (PCR) Negative 04/12/21 04/12/21 04/12/21 06:43 06:43 06:43 WBC 14.77 H D RBC 4.04 L Hgb 12.2 L D Hct 34.9 L MCV 86.4 MCH 30.2 MCHC 35.0 RDW 12.1 Plt Count 242 MPV 11.4 H Immature Gran % 0.3 Neutrophils % 88.1 Lymphocytes % 5.3 Monocytes % 6.2 Eosinophils % 0.0 Basophils % 0.1 Nucleated RBC % 0 Absolute Neutrophils 13.01 H Absolute Lymphocytes 0.78 L Absolute Monocytes 0.92 H Absolute Eosinophils 0.00 Absolute Basophils 0.01 RBC Morphology VBG pH VBG pCO2 VBG pO2 VBG HCO3 VBG Total CO2 VBG O2 Saturation VBG Base Excess Sodium Potassium Chloride Carbon Dioxide Anion Gap BUN Creatinine Estimated GFR/1.73 m2 Glucose Hemoglobin A1c 9.5 H Calcium Magnesium Total Bilirubin AST ALT Alkaline Phosphatase Total Protein Albumin Lipase 57 TSH Urine Color Urine Clarity Urine pH Ur Specific [place] Urine Protein Urine Ketones Urine Blood Urine Nitrite Urine Bilirubin Urine Urobilinogen Ur Leukocyte Esterase Urine RBC Urine WBC Ur Epithelial Cells Urine Crystals Urine Bacteria Urine Casts Urine Mucus Urine Other Ur Culture Indicated? Urine Glucose Urine Opiates Screen Urine Methadone Screen Ur Barbiturates Screen Ur Tricyclics Screen Ur Amphetamines Screen U Benzodiazepines Scrn Urine Cocaine Screen Ur THC Screen COVID-19 Source SARS-CoV-2 (PCR)
[2021-04-12] MEDS: Patch Removal 1 EACH TP (13:25)
[2021-04-12 15:30] VITALS: BP 158/88; PULSE 87; RESP 18; TEMP 36.6; O2SAT 97
[2021-04-12] MEDS: Metoclopramide 10 MG TAB PO ×2 (16:56→21:24)
[2021-04-12] MEDS: Pantoprazole 40 MG VIAL IVP (18:37)
[2021-04-12 19:19] VITALS: BP 157/84; PULSE 80; RESP 17; TEMP 36.6; O2SAT 97
[2021-04-12] MEDS: Insulin Glargine 300 UNITS/3 ML PEN 15 UNITS SC (21:24)
[2021-04-12] MEDS: Atorvastatin 20 MG TAB PO (21:41)
[2021-04-12] MEDS: Ondansetron 4 MG/2 ML VIAL IVP (21:42)
[2021-04-13 00:25] VITALS: BP 159/84; PULSE 85; RESP 18; TEMP 36.5; O2SAT 97
[2021-04-13] MEDS: Lactated Ringers 1,000 ML 125 ML IV ×2 (02:12→21:29)
[2021-04-13 03:40] VITALS: BP 150/78; PULSE 86; RESP 17; TEMP 36.3; O2SAT 98
[2021-04-13 07:24] LABS: Abs Immature Grans 0.02 10^3/uL (0.0-0.06); Absolute Eosinophil Count 0.01 10^3/uL (0.0-0.7); Absolute Lymphocyte Count 0.96 10^3/uL (1.2-3.4); Absolute Monocyte Count 0.62 10^3/uL (0.1-0.8); Eosinophils % 0.1; HCT 33.8 % (40.0-50.0); HGB 12.1 g/dL (13.5-17.5); Immature Grans % 0.3; Lymphocytes % 13.1; MCH 30.5 pg (27.0-33.0); MCHC 35.8 % (32.0-36.0); MCV 85.1 fL (80-95); MPV 11.3 fL (8.0-11.0); Monocytes % 8.5; Nucleated RBC 0 %; Platelet Count 204 10^3/uL (130-400); RBC 3.97 10^6/uL (4.36-5.78); RDW 11.7 % (11.8-14.1); RDW-SD 36.4 fL; WBC 7.31 10^3/uL (4.4-10.8)
[2021-04-13 07:30] LABS: Anion Gap 7.8 mmol/L (3-11); BUN 20 mg/dL (7-18); CO2 29.2 mmol/L (21.0-32.0); CREATININE 0.8 mg/dL (0.70-1.30); Calcium 8.3 mg/dL (8.5-10.1); Chloride 101 mmol/L (98-107); Glucose 145 mg/dL (74-106); Sodium 138 mmol/L (136-145)
[2021-04-13 07:32] LABS: Potassium 2.9 mmol/L (3.5-5.1)
[2021-04-13 07:40] VITALS: BP 106/71; PULSE 103; RESP 17; TEMP 36.6; O2SAT 97
--- NOTE | 2021-04-13 08:10 | PDOC.CMPRO ---
- If Service Date Differs Date of service: 04/13/21 Time of Service: 08:10 Care Management Progress Note S/O:Harry was lying in bed when CM met with him today. He was more awake and interactive than yesterday and stated that he believes he is starting to feel better. 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 He verbalized that he is unclear about how long he will need to be here. He is scheduled to have diabetic teaching and likely needs a new glucometer since he shared that his only works intermittently. A: Harry is a 55 year old man admitted on 04/11/21 with uncontrolled NIDDM and hyperemesis P:Harry will likely be discharged home with no new services, although additional diabetes education might be helpful. He will follow up with his community providers and plan of care and transport with a friend. CM will continue to support Harry and assess for discharge planning needs.
[2021-04-13] MEDS: Patch Removal 1 EACH TP (09:34)
[2021-04-13] MEDS: POTASSIUM CHLORIDE 10 MEQ/100 ML BAG 100 MEQ IVPB ×2 (09:40→13:11)
[2021-04-13] MEDS: Scopolamine 1 MG/3 DAYS PATCH TD (09:40)
[2021-04-13] MEDS: Sucralfate 1 GM TAB PO ×3 (09:41→16:28)
[2021-04-13] MEDS: GLIMEPIRIDE 4 MG TAB PO (09:41)
[2021-04-13] MEDS: Enoxaparin 40 MG/0.4 ML SYR SC (09:41)
[2021-04-13] MEDS: Potassium Chloride 20 MEQ TABCR PO ×2 (09:41→19:05)
[2021-04-13] MEDS: Metoclopramide 10 MG TAB PO ×4 (09:41→21:49)
[2021-04-13] MEDS: Lisinopril 5 MG TAB 2.5 MG PO (09:41)
[2021-04-13] MEDS: Magnesium Chloride 64 MG TABCR PO (09:42)
[2021-04-13] MEDS: Normal Saline Flush 10 ML SYR IVP ×2 (09:45→18:08)
[2021-04-13 11:28] VITALS: BP 172/80; PULSE 81; RESP 17; TEMP 36.5; O2SAT 97
[2021-04-13] MEDS: Insulin Aspart 300 UNITS/3 ML PEN SC ×2 (12:47→17:07)
[2021-04-13 15:33] VITALS: BP 158/87; PULSE 81; RESP 17; TEMP 36.5; O2SAT 97
[2021-04-13] MEDS: Pantoprazole 40 MG VIAL IVP (18:08)
[2021-04-13 19:02] VITALS: BP 162/88; PULSE 77; RESP 17; TEMP 36.5; O2SAT 97
[2021-04-13] MEDS: Atorvastatin 20 MG TAB PO (19:05)
[2021-04-13] MEDS: Insulin Glargine 300 UNITS/3 ML PEN 15 UNITS SC (21:50)
[2021-04-13] MEDS: Lidocaine 5% Patch 1 PATCH TP (21:59)
[2021-04-14 00:34] VITALS: BP 143/84; PULSE 74; RESP 16; TEMP 36.5; O2SAT 99
[2021-04-14] MEDS: Normal Saline Flush 10 ML SYR IVP (01:50)
[2021-04-14 03:52] VITALS: BP 148/85; PULSE 74; RESP 16; TEMP 36.5; O2SAT 99
[2021-04-14] MEDS: Lactated Ringers 1,000 ML 125 ML IV ×2 (07:05)
[2021-04-14] MEDS: Sucralfate 1 GM TAB PO (07:20)
[2021-04-14] MEDS: Metoclopramide 10 MG TAB PO (07:20)
[2021-04-14 07:28] VITALS: BP 159/89; PULSE 74; RESP 19; TEMP 36; O2SAT 100
[2021-04-14] MEDS: GLIMEPIRIDE 4 MG TAB PO (08:08)
[2021-04-14] MEDS: Magnesium Chloride 64 MG TABCR PO (08:08)
[2021-04-14] MEDS: Potassium Chloride 20 MEQ TABCR PO (08:09)
[2021-04-14] MEDS: Lisinopril 5 MG TAB 2.5 MG PO (08:09)
[2021-04-14] MEDS: Enoxaparin 40 MG/0.4 ML SYR SC (09:03)
[2021-04-14] MEDS: Patch Removal 1 EACH TP (09:10)
--- NOTE | 2021-04-14 11:12 | W.PM.DS.N ---
Date of service: 04/14/21 Time of Service: 11:13 DS: Diagnosis Discharge Diagnosis (1) Emesis, persistent: Status: Acute (2) Substance abuse: Status: Acute (3) Leukocytosis: Status: Acute (4) Diabetes mellitus type 2 with complications, uncontrolled: Status: Chronic Discharge Plan Disposition Patient Disposition: HOME Condition: Good Discharge Details Reason For Visit: Uncontrolled NIDDM w/ [place] Acidosis,Emesis, Admit Date/Time: 04/11/21 19:36 Admit Provider: Tavon Thomas Attending Provider: Tavon Thomas Primary Care Provider: Khadijah Galicia Hospital Course Hospital Course: This is a 55-year-old male patient who presented to the ED with a history of persistent vomiting that this over the last 48 hours but having abdominal pain and cramping for longer. Does have a history of diabetes and hypertension with very poor follow-up and compliance. He has had a recent admission for persistent emesis as well. He is thought to have cannabis hyperemesis but denies that cannabis is affecting him in this way. He is a very poor historian and has difficulty concentrating during conversation. I did review his ED notes that he presented chronically ill-appearing and dehydrated with tachycardia. He had fluid resuscitation in the ED and imaging which may suggest acute cholecystitis. At the time hospitalist saw the patient he was not having abdominal discomfort. He was unable to offer further history and appears to live alone with poor compliance and poor dietary control of his diabetes. In the ED was found to have leukocytosis but no fever. He also had mild metabolic acidosis with no elevation of his lipase. Follow up with PCP in 1-2 weeks. He was admitted for IV hydration, antiemetics and glucose control. Basal bolus insulin initiated. Scopalamine patch along with IV antiemetics given. His emesis resolved and he was able to tolerate a regular diet on day of discharge. He will resume his home medications for DM; glimepiride and metformin. He would benefit from an addition of further diabetic medications and/or insulin. Insulin use by this patient with poor compliance and follow-up would be risky. This would be a conversation to have with his PCP. He will be discharged with a prn scopolamine patch for any recurrence of N/V. He is encouraged to stop marijuana use since cannabinoid hyperemesis syndrome is likely a factor in the recurrence of intermittent N/V. He will continue Reglan for likely gastroparesis secondary to poorly controlled DM PCP follow up in 1-2 weeks. Home Meds and New Rx's Prescriptions: New scopolamine base 1 mg over 3 days Patch 3 Day 1 mg transdermal Q72H PRN (Reason: Nausea And Vomiting) Qty: 2 RF: 0 Continued atorvastatin 20 mg tablet 20 mg PO DAILY Qty: 90 RF: 3 omeprazole 20 mg capsule,delayed release(DR/EC) 20 mg PO DAILY Qty: 90 RF: 0 metformin 1,000 mg tablet 2,000 mg PO DAILY RF: 0 (DME) blood sugar diagnostic Strip See Rx Instructions .ROUTE .MEDSUPPLY Qty: 100 RF: 6 (DME) blood-glucose meter [OneTouch Verio Flex meter] Misc See Rx Instructions .ROUTE .MEDSUPPLY Qty: 1 RF: 0 (DME) lancets [OneTouch UltraSoft Lancets] Misc See Rx Instructions .ROUTE .MEDSUPPLY Qty: 100 RF: 6 glimepiride [Amaryl] 4 mg tablet 4 mg PO QAM Qty: 90 RF: 3 lisinopril 2.5 mg tablet 2.5 mg PO DAILY Qty: 90 RF: 3 sucralfate 1 gram Tablet 1 g PO AC & HS Qty: 30 RF: 0 lidocaine [Lidoderm] 5 % Adhesive Patch,Medicated 1 patch topical HS Qty: 5 RF: 0 magnesium chloride [Mag-Delay] 64 mg tablet,delayed release (DR/EC) 64 mg PO DAILY Qty: 20 RF: 0 acetaminophen [Mapap (acetaminophen)] 500 mg capsule 500 mg PO Q6H PRN (Reason: fever or pain) Qty: 30 RF: 0 amlodipine 5 mg Tablet 5 mg PO DAILY Qty: 30 RF: 0 metoclopramide HCl [Reglan] 10 mg tablet 10 mg PO Q6H PRNQty: 10 RF: 0 Discharge Instructions Instructions: Type 2 Diabetes in the Older Adult (DC) Stand Alone Forms: Nursing Discharge Form Referrals: Khadijah Galicia MD [Primary Care Provider] - 04/26/21 10:15 am Activity:: Activity as Tolerated Equipment/Supplies:: No Equipment Needed Diet:: Diabetic Diet Discharge Orders Discharge Orders: Discharge Order (Routine); Ordered 04/14/21 Ordered By: Steven Montero Discharge Data Discharge Date/Time-TO BE ENTERED AT DEPARTURE: 04/14/21 11:56 DS: Summary Time Spent with Patient providing and/or coordinating discharge services: Greater than 30 minutes Status at Discharge Functional status at discharge: independent ambulation Overall status at discharge: patient is back to baseline Mental Status: mental status grossly normal Speech and Movement: speech and movement normal Mood: congruent mood Affect: normal affect Exam Psych Mental Status: mental status grossly normal Speech and Movement: speech and movement normal Mood: congruent mood Affect: normal affect DS: Data Vitals/I&O Vitals and I&O: Vital Signs Temperature 36 C L 04/14/21 07:28 Temperature Source Tympanic 04/14/21 07:28 Pulse 74 04/14/21 07:28 Pulse Rhythm Regular 04/14/21 09:05 Respiratory Rate 19 04/14/21 07:28 Respiratory Effort Non-Labored 04/14/21 09:05 Respiratory Depth Normal 04/14/21 09:05 Respiratory Pattern Normal 04/14/21 09:05 Blood Pressure 159/89 H 04/14/21 07:28 Pulse Oximetry 100 04/14/21 07:28 Oxygen Delivery Method Room Air 04/14/21 07:28 Oxygen Flow Rate 0 04/14/21 07:28 Pain Level 36 04/14/21 07:28 Comment 04/12/21 19:19 Intake & Output 04/13/21 04/13/21 04/14/21 11:59 23:59 11:59 Intake Total 2600 / 3572 972 / 3572 1615.417 / 1615.417 Output Total 1400 / 3525 625 / 3525 2600 / 2600 Balance 1200 / 47 347 / 47 -984.583 / -984.583 Weight 63.5 kg Intake: IV 1999 / 2 252 / 2252 895.417 / 895.417 Oral 600 / 1320 720 / 1320 720 / 720 Output: Urine 1400 / 3525 625 / 3525 2600 / 2600 Other: Urine Color Yellow Pale Yellow Urine Appearance Clear Clear Clear Urine Odor None Normal None Stool Size Moderate Stool Characteristics Soft Liquid Voiding Methods Urinal Urinal Urinal Data Completed and Pending Labs on day of discharge: Preliminary micro results at discharge 04/12/21 00:30 Blood Culture - Preliminary Blood NO GROWTH 48 HOURS 04/12/21 00:42 Blood Culture - Preliminary Blood NO GROWTH 48 HOURS [facility] Medical History Abscess, perirectal Acute shoulder pain due to trauma Benign hypertension (12/01/10) Cerumen impaction (01/13/15) Dairy product intolerance (08/22/16) Depressive disorder (09/13/11) Disorder of left rotator cuff (12/01/12) 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 Left -complete loss of hearing. Tobacco dependence syndrome (09/13/10) Ulcerative colitis (09/13/11) Uncontrolled diabetes mellitus type 2 without complications (12/01/09) Surgical History Biopsy of dital clavicle, left AC joint (02/25/15) Dr Bright 03/16/15 Addendum Surgical Patology report: Bone with maturing trilineage hematopesis; Reacive stnovium; No evidence of lymphoma identified per Dr. Deann Godoy MD H/O drainage of abscess (~11/21/19) Rotator Cuff Repair Family History Mother Diabetes Essential hypertension Myocardial infarction Social History Smoking/Tobacco Use Status: Current every day Tobacco Type: cigarettes Tobacco: How many years used: 35 Quit status: not considering quitting Smoking risk assessment performed?: Yes Alcohol Intake: former Drug use: Occasionally Substance use type: marijuana Household members: none Housing: other Details: trailer Number of Children: 1 Communication Needs: Hard of Hearing Do you need help understanding health information?: Often current occupation: disabled Pets and animals: Yes Pets and animals: dog(s) Current gender identity: male What type of physical activity do you participate in: none Drive intox or ride w/intox crew car driver: No Working smoke detector in home: Yes Do you feel safe at home: Yes Do you feel safe in your relationship?: Yes
--- NOTE | 2021-04-14 11:29 | PDOC.CMDIS ---
- If Service Date Differs Date of service: 04/14/21 Time of Service: 11:29 LACE Index Scoring Tool - Questions: Length of Stay (in days): 3 Acuity (Admit via E.D.?): Yes Comorbidities: Diabetes w/o Complication E.D. Visits: 2 - Answers: Total Score: 9 Risk of Readmission: Low Risk Care Management Discharge Reason for Hospitalization: Uncontrolled NIDDM Discharge Plan: Harry will be discharged home with no new services. He will follow up with his community providers and plan of care and transport with a friend. Patient/Family Education Needs: Review of discharge instructions, medications, diet, activity, limitations, follow up plan, Ask Me Three
== END 2021-04-14 11:56 | disposition home or self-care (01) | DRG 638 ==
LOC: ER 16:18 → MS 20:52
PROVIDERS: Family Medicine; Physician Assistant; Admitting Provider Family Medicine; Emergency Provider Physician Assistant; PCP Internal Medicine; Visit Provider Family Medicine
DX: E11.65 Type 2 diabetes mellitus with hyperglycemia (principal); E87.2 Acidosis; R11.10 Vomiting, unspecified; E86.0 Dehydration; I10 Essential (primary) hypertension; R00.0 Tachycardia, unspecified; Z79.84 Long term (current) use of oral hypoglycemic drugs; F12.90 Cannabis use, unspecified, uncomplicated; K80.20 Calculus of gallbladder without cholecystitis without obstruction; N20.0 Calculus of kidney; F32.9 Major depressive disorder, single episode, unspecified; E11.3292 Type 2 diabetes mellitus with mild nonproliferative diabetic retinopathy without macular edema, left eye; Z91.14 Patient's other noncompliance with medication regimen; E78.00 Pure hypercholesterolemia, unspecified; H90.3 Sensorineural hearing loss, bilateral; F17.210 Nicotine dependence, cigarettes, uncomplicated; Z20.822 Contact with and (suspected) exposure to COVID-19
CPT/HCPCS: 36410; 36415; 80048; 80053; 80307; 82805; 83690; 87040; 87635; 96361; 96374; 96375; 99291; J1650; 74177; 81003; 81015; 83036; 83735; 84443; 85025; 99233; 99239; J2405; J2543; J2765; J3480; J3490

== ENCOUNTER → 2021-04-24 14:12 | Outpatient (BNVA) | payer MEDICARE, MEDICAID, SELFPAY | PROVIDERS: PCP Internal Medicine; Referring Provider Student in an Organized Health Care Education/Training Program; Visit Provider Nurse Practitioner Adult Health | DX: G56.03 Carpal tunnel syndrome, bilateral upper limbs (principal); G56.23 Lesion of ulnar nerve, bilateral upper limbs; E11.69 Type 2 diabetes mellitus with other specified complication; E11.319 Type 2 diabetes mellitus with unspecified diabetic retinopathy without macular edema; I10 Essential (primary) hypertension | CPT/HCPCS: 95911; 99203; 99215 ==

== ENCOUNTER → 2021-04-27 09:03 | Outpatient (BNVA) | payer MEDICARE, MEDICAID, SELFPAY | PROVIDERS: PCP Internal Medicine; Referring Provider Internal Medicine; Visit Provider Student in an Organized Health Care Education/Training Program | DX: G56.03 Carpal tunnel syndrome, bilateral upper limbs (principal); G56.23 Lesion of ulnar nerve, bilateral upper limbs; E11.69 Type 2 diabetes mellitus with other specified complication; F17.210 Nicotine dependence, cigarettes, uncomplicated | CPT/HCPCS: 99214 ==

== ENCOUNTER 2021-06-12 02:31 | Outpatient (CLI) | payer MEDICARE, MEDICAID, SELFPAY ==
[2021-06-12 10:56] LABS: Source Nasal/Nares
[2021-06-12 16:25] LABS: COVID-19 PCR Negative (Negative)
== END 2021-06-12 02:32 | disposition home or self-care (01) ==
LOC: LBO 02:32
PROVIDERS: PCP Internal Medicine; Visit Provider Student in an Organized Health Care Education/Training Program
DX: Z20.822 Contact with and (suspected) exposure to COVID-19 (principal); Z01.818 Encounter for other preprocedural examination
CPT/HCPCS: 87635

== ENCOUNTER 2021-06-13 09:42 | Day surgery (SDC) | payer MEDICARE, MEDICAID, SELFPAY ==
[2021-06-13 10:05] VITALS: BP 144/76; PULSE 103; RESP 18; TEMP 36.2; O2SAT 100
[2021-06-13] MEDS: Lactated Ringers 1,000 ML 80 ML IV (10:41)
--- NOTE | 2021-06-13 11:48 | ANES.PREOP_ITS ---
General Info Date of Service Date Performed: 06/13/21 Height: 5 ft 8 in Weight: 70.8 kg Body Mass Index (BMI): 23.7 Surgical Procedure: Operation Date: 06/13/21 13:25 Proposed Procedures Side Surgeon p Wrist ECTR, (R) Right Ayush Jimenez MD s cubital tunnel release Right Ayush Jimenez MD Meds Allergies and Home Medications Allergies Allergy/AdvReac Type Severity Reaction Status Date / Time Milk Containing Products AdvReac Unknown gi upset Verified 06/13/21 10:48 tramadol AdvReac diarrhea/GI Verified 06/13/21 10:48 Home Medication Medication Instructions Recorded blood sugar diagnostic #100 each 08/04/19 blood-glucose meter #1 each 08/04/19 lancets #100 each 08/04/19 acetaminophen [Mapap 500 mg PO Q6H PRN #30 cap 11/22/19 (acetaminophen)] glimepiride 4 mg tablet 4 mg PO QAM #90 tab 10/07/20 lisinopril 2.5 mg tablet 2.5 mg PO DAILY #90 tab-cap 10/07/20 dextrose 40 % oral gel 10 g PO Q15M PRN #12.5 g 04/26/21 pen needle, diabetic 33 gauge x #100 ea 04/26/21 insulin glargine 100 unit/mL (3 12 unit SUBCUT QPM #3 ml 05/03/21 mL) subcutaneous pen metformin 1,000 mg tablet 1,000 mg PO BID #180 tab 06/06/21 Current Visit Medications: Current Medications Generic Name Dose Route Start Last Admin Trade Name Darell PRN Reason Stop Dose Admin Ringer's Solution 1,000 mls @ 80 mls/hr 06/13/21 06:00 06/13/21 10:41 IV 07/12/21 23:59 80 mls/hr INFUSION HCARAN Administration Cefazolin Sodium 2,000 mg/ 100 mls @ 200 mls/hr 06/13/21 06:00 Sodium Chloride IVPB 06/13/21 16:00 PREOP CHARAN IV Miscellaneous Supplies 1 each 06/13/21 06:00 Iv Access IV 07/12/21 23:59 DIRECTED CHARAN Sodium Chloride 0 ml 06/13/21 06:00 Normal Saline Flush 10 Ml Syr IV 07/12/21 23:59 PRN PRN Sodium Chloride 0 ml 06/13/21 06:00 Normal Saline 10 Ml Vial IJ 07/12/21 23:59 DIRECTED PRN Sterile Water 0 ml 06/13/21 06:00 Water,Injection,Sterile 10 Ml Vial IJ 07/12/21 23:59 DIRECTED PRN PFSH Active Problems Active Problems: Problem Status Onset Code Cubital tunnel syndrome, bilateral G56.23 Bilateral carpal tunnel syndrome G56.03 Diabetes mellitus type 2 with complications, uncontrolled E11.8, E11.65 Uncontrolled diabetes mellitus due to underlying condition with mild nonproliferative diabetic retinopathy E08.3299, E08.65 Noncompliance with diabetes treatment 06/29/15 Z91.19 Benign hypertension 12/01/10 I10 Pure hypercholesterolemia 09/13/11 E78.00 Sensorineural hearing loss 10/23/13 H90.5 Substance abuse F19.10 Drug-seeking behavior ~2014 Z76.5 Right rotator cuff tear arthropathy M75.101, M12.811 Carpal tunnel syndrome of right wrist G56.01 Cubital tunnel syndrome on right G56.21 Neuropathy of right upper extremity G56.91 Medical History Medical History Abscess, perirectal Acute kidney injury Acute shoulder pain due to trauma Benign hypertension (12/01/10) Bilateral carpal tunnel syndrome Cerumen impaction (01/13/15) Cubital tunnel syndrome, bilateral Dairy product intolerance (08/22/16) Depressive disorder (09/13/11) Disorder of left rotator cuff (12/01/12) History of Hodgkin's lymphoma 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 Left -complete loss of hearing. Tobacco dependence syndrome (09/13/10) Ulcerative colitis (09/13/11) Uncontrolled diabetes mellitus type 2 without complications (12/01/09) Surgical History Surgical History Biopsy of dital clavicle, left AC joint (02/25/15) Dr Bright 03/16/15 Addendum Surgical Patology report: Bone with maturing trilineage hematopesis; Reacive stnovium; No evidence of lymphoma identified per Dr. Deann Godoy MD H/O drainage of abscess (~11/21/19) Rotator Cuff Repair Tobacco Smoking/Tobacco Use Status: Current every day Tobacco Type: cigarettes Tobacco: How many years used: 35 Quit Status: not considering quitting Alcohol Alcohol Intake: current Alcohol intake frequency: holidays/special occasions onl y Substance Use Substance use: Occasionally Substance use type: marijuana Vital Signs and Lab Results Vital Signs Most Recent Vital Signs in EMR: Most Recent Vital Signs Temp Pulse Resp BP Pulse Ox 36.2 C L 103 H 18 144/76 H 100 06/13/21 10:05 06/13/21 10:05 06/13/21 10:05 06/13/21 10:05 06/13/21 10:05 Point of Care Results Point of Care Results: Finger Stick Blood Glucose 116 06/13/21 10:28 Lab Results Blood Type / Crossmatch: No Data to Display Complete Blood Count: No Data to Display Complete Metabolic Panel: Hemoglobin A1c 8.2 % (4.5-5.7) H 06/06/21 09:55 06/06/21 Liver Function Panel: No Data to Display Coagulation Panel: No Data to Display Cardiac Panel: No Data to Display Arterial Blood Gas: No Data to Display Venous Blood Gas: No Data to Display Pancreas Panel: No Data to Display Thyroid Panel: No Data to Display Infectious Disease: Coronavirus (COVID-19)(PCR) Negative (Negative) 06/12/21 10:55 06/12/21 Coronavirus 2019 Source Nasal/Nares 06/12/21 10:55 06/12/21 Blood Cultures: No Data to Display Toxicology Panel: No Data to Display Imaging and Studies Imaging and Studies EKG Summary: Conclusion Sinus tachycardia...rate> 99 Probable left atrial enlargement...P >50mS, <-0.10mV V1 I have reviewed and interpreted ECG and agree with software generated interpretation. 01/02/21 Anesthesia Assessment and Plan Anesthesia History Personal History: No History of Anesthesia Complications Family History: No Family History of Anesthesia Complications Exercise Tolerance Exercise Tolerance: Metabolic Equivalents>4 Pertinent Negatives Pertinent Negatives: No Symptoms of GERD (Occ S/S, none today) Cardiac & Pulmonary Exam Cardiac Exam: Normal S1/S2 Heart Sounds Pulmonary Exam: Clear Bilateral Breath Sounds Airway Exam Known Difficult Airway: No Mallampati Class: 2 Mouth Opening: Normal (> 3cm) Thyromental Distance: Greater than 3 cm Neck Range of Motion: Full ROM Neck Circumference: Normal Teeth Condition: Normal Dentition ASA Classification ASA Score: ASA 3 Emergency Case?: No NPO Status NPO Status: NPO Clears >2 hours, Solids >8 hours Anesthesia Plan Resuscitation Status: Full Code Anesthesia Technique: General Anesthesia Airway Planned: Natural Airway Monitors Used: Standard Monitors Preoperative Comments:: HgA1C trending down. Blood sugar 116 today at 1030.
[2021-06-13 12:19] VITALS: BMI 23.7
--- NOTE | 2021-06-13 12:32 | W.PREOPHP ---
Date of service: 06/13/21 Time of Service: 12:32 Assessment and Plan Assessment and plan (1) Cubital tunnel syndrome, bilateral: Status: Acute (2) Bilateral carpal tunnel syndrome: Status: Acute Assessment and plan: Harry is a 56-year-old who has bilateral carpal tunnel actual tunnel syndrome. In the office I previously reviewed technical features of cubital tunnel and carpal tunnel release. I discussed the risk to include bleeding, infection, pain, stiffness, continued numbness, continued symptoms, permanent damage to nerve procedures, nerve instability. Despite these risks, he elects to proceed. History of Present Illness History of Present Illness Chief Complaint: Bilateral Carpal And Cubital tunnel Syndrome Narrative: Penny 56-year-old with improved in the office to bilateral carpal tunnel and cubital tunnel syndrome. Injury date was right carpal tunnel and cubital tunnel release. He was seen by his primary care provider last week who cleared her for surgery. He has been on insulin with improving sugar control. He continues have numbness and tingling of bilateral hands. No sick contacts. No chest pain or shortness of breath. 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 Left -complete loss of hearing. Tobacco dependence syndrome (09/13/10) Ulcerative colitis (09/13/11) Uncontrolled diabetes mellitus type 2 without complications (12/01/09) Surgical History Biopsy of dital clavicle, left AC joint (02/25/15) Dr Bright 03/16/15 Addendum Surgical Patology report: Bone with maturing trilineage hematopesis; Reacive stnovium; No evidence of lymphoma identified per Dr. Deann Godoy MD H/O drainage of abscess (~11/21/19) Rotator Cuff Repair Family History Mother Diabetes Essential hypertension Myocardial infarction Social History Smoking/Tobacco Use Status: Current every day Tobacco Type: cigarettes Tobacco: How many years used: 35 Quit status: not considering quitting Smoking risk assessment performed?: Yes Alcohol Intake: current Alcohol Intake frequency: holidays/special occasions only Drug use: Occasionally Substance use type: marijuana Household members: none Housing: other Details: trailer Number of Children: 1 Communication Needs: Hard of Hearing Do you need help understanding health information?: Often current occupation: disabled Pets and animals: Yes Pets and animals: dog(s) Current gender identity: male What type of physical activity do you participate in: none Drive intox or ride w/intox racecar driver: No Working smoke detector in home: Yes Do you feel safe at home: Yes Do you feel safe in your relationship?: Yes Meds Allergies and Home Medications Allergies Allergy/AdvReac Type Severity Reaction Status Date / Time Milk Containing Products AdvReac Unknown gi upset Verified 06/13/21 10:48 tramadol AdvReac diarrhea/GI Verified 06/13/21 10:48 Home Medications Medication Instructions Recorded Confirmed Type blood sugar diagnostic #100 each 08/04/19 06/13/21 Rx blood-glucose meter #1 each 08/04/19 06/13/21 Rx lancets #100 each 08/04/19 06/13/21 Rx acetaminophen [Mapap 500 mg PO Q6H PRN #30 cap 11/22/19 06/13/21 Rx (acetaminophen)] glimepiride 4 mg tablet 4 mg PO QAM #90 tab 10/07/20 06/13/21 Rx lisinopril 2.5 mg tablet 2.5 mg PO DAILY #90 tab-cap 10/07/20 06/13/21 Rx dextrose 40 % oral gel 10 g PO Q15M PRN #12.5 g 04/26/21 06/13/21 Rx pen needle, diabetic 33 gauge x #100 ea 04/26/21 06/13/21 Rx insulin glargine 100 unit/mL (3 12 unit SUBCUT QPM #3 ml 05/03/21 06/13/21 Rx mL) subcutaneous pen metformin 1,000 mg tablet 1,000 mg PO BID #180 tab 06/06/21 06/13/21 Rx Exam Narrative Exam Narrative: Sitting up in hospital bed. No acute distress. Alert and oriented x3. Resp Auscultation: clear to auscultation bilaterally Cardio Rate: regular rate Rhythm: regular rhythm Results Last Vital Signs Temp 36.2 C L 06/13/21 10:05 Pulse 103 H 06/13/21 10:05 Resp 18 06/13/21 10:05 BP 144/76 H 06/13/21 10:05 Pulse Ox 100 06/13/21 10:05
[2021-06-13] MEDS: ceFAZolin 2,000 MG in Normal Saline 100 ML 200 MG IVPB (12:40)
[2021-06-13] MEDS: Sodium Bicarbonate 50 MEQ/50 ML VIAL (13:02)
--- NOTE | 2021-06-13 13:12 | W.PM.DSUDISC ---
Discharge Plan Disposition Patient Disposition: HOME Condition: Good Discharge Details Reason For Visit: Right carpal and cubital tunnel syndromes Attending Provider: Ayush Jimenez Primary Care Provider: Khadijah Galicia Home Meds and New Rx's Prescriptions: New acetaminophen 500 mg tablet 500 mg PO Q6H PRN (Reason: pain) Qty: 60 RF: 2 ibuprofen 600 mg tablet 600 mg PO TID PRN (Reason: pain) Qty: 60 RF: 0 hydrocodone-acetaminophen 5-325 mg tablet 1 tab PO Q6H PRN (Reason: severe pain) Qty: 6 RF: 0 Continued (DME) pen needle, diabetic [Easy Comfort Pen [place]] 33 gauge x 5/32 needle See Rx Instructions .ROUTE .MEDSUPPLY Qty: 100 RF: 0 dextrose [Glutose-45] 40 % gel 10 g PO Q15M PRN (Reason: hypoglycemia) Qty: 12.5 RF: 0 Lantus Solostar U-100 Insulin 100 unit/mL (3 mL) insulin pen 12 unit subcut QPM Qty: 3 RF: 1 (DME) blood sugar diagnostic Strip See Rx Instructions .ROUTE .MEDSUPPLY Qty: 100 RF: 6 (DME) blood-glucose meter [OneTouch Verio Flex meter] Misc See Rx Instructions .ROUTE .MEDSUPPLY Qty: 1 RF: 0 (DME) lancets [OneTouch UltraSoft Lancets] Misc See Rx Instructions .ROUTE .MEDSUPPLY Qty: 100 RF: 6 glimepiride [Amaryl] 4 mg tablet 4 mg PO QAM Qty: 90 RF: 3 lisinopril 2.5 mg tablet 2.5 mg PO DAILY Qty: 90 RF: 3 metformin 1,000 mg tablet 1,000 mg PO BID Qty: 180 RF: 0 Discontinued acetaminophen [Mapap (acetaminophen)] 500 mg capsule 500 mg PO Q6H PRN (Reason: fever or pain) Qty: 30 RF: 0 Discharge Instructions Additional Instructions: Carpal and Cubital Tunnel Decompression Discharge Instructions Activity: You should stay in the sling for the first 2 weeks. You may come out of the sling for gentle motion and hygiene but should largely remain in the sling to allow the incision site to heal. Gentle motion of the elbow, hand, wrist, and fingers is okay and encouraged after the first few days, but no repetitive activities nor heavy lifting. You may apply ice. Medications: - You should take Tylenol and Ibuprofen around the clock. - You have been prescribed Hydrocodone for breakthrough pain. Dressings: - The initial surgical dressing should stay in place for 3 days. It may then be removed and kept clean and dry. You should cover with a light gauze dressing. - You may shower after 3 days and get the wound wet. Follow-up: 10 days Equipment/Supplies: Sling Activity:: Elevate Remove Dressings/Wound Care:: 72 hours Shower/Bathe:: 72 hours Diet:: As Tolerated Discharge Orders Discharge Orders: Discharge Order (Routine); Ordered 06/13/21 Ordered By: Deann Garner DS: Diagnosis Discharge Diagnosis (1) Cubital tunnel syndrome, bilateral: Status: Acute (2) Bilateral carpal tunnel syndrome: Status: Acute
[2021-06-13 13:30] VITALS: BP 100/66; PULSE 81; RESP 16; TEMP 36.1; O2SAT 97
--- NOTE | 2021-06-13 13:46 | W.ANESPOSTOP ---
Postoperative Evaluation Date, Time and Location Date Performed: 06/13/21 Time Performed: 13:30 Patient Location: Day Surgery Unit Vital Signs Most Recent Imported Vital Signs: Most Recent Vital Signs Temp Pulse Resp BP Pulse Ox 36.1 C L 81 16 100/66 97 06/13/21 13:30 06/13/21 13:30 06/13/21 13:30 06/13/21 13:30 06/13/21 13:30 Pain Score Most Recent Pain Score: Most Recent Pain Score Pain Level 0 06/13/21 13:30 Assessment Mental Status: Awake (Alert & Oriented to Patient Baseline) Airway and Respiratory Function: Patent airway with normal (patient baseline) respiratory exam Cardiovascular Function: Hemodynamically Stable Hydration Status: Adequately Hydrated Nausea & Vomiting: No Nausea or Vomiting Pain: Pt. Denies Any Pain Peripheral Nerve Block: Patient did not receive a nerve block
[2021-06-13 13:59] VITALS: BP 121/70; PULSE 82; RESP 14; TEMP 36.1; O2SAT 98
--- NOTE | 2021-06-13 17:59 | ROE_ITS ---
Date of service: 06/13/21 Time of Service: 13:08 Operative Note Operative Note DATE OF PROCEDURE: 06/13/21 PRE-OP DIAGNOSIS: Right Carpal Tunnel and Right Cubital Tunnel Syndrome POST-OP DIAGNOSIS: same PROCEDURE: Right Endoscopic Carpal Tunnel Release and Right Cubital Tunnel Decompression SURGEON: Ayush Jimenez ANESTHESIA TYPE: General:No Airway Refer to Anesthesia Record ESTIMATED BLOOD LOSS: 5 PATHOLOGY: none sent TOURNIQUET TIME: 16 COMPLICATIONS: None Patient was transported to: PACU Patient's condition: stable Indications: Harry is a 56-year-old male who has had symptoms of carpal and cubital tunnel syndrome. Nonoperative treatment options had been trialed. [Nerve conduction studies identified the carpal and cubital tunnel as the point of compression]. Given failure of nonoperative treatments and persistent symptoms, I offered operative intervention. I reviewed the technical details of a carpal tunnel release and cubital tunnel decompression with possible anterior subcutaneous transposition. I reviewed the risk of the procedure to include bleeding, infection, pain, stiffness, nerve instability, damage to superficial nerves, persistent symptoms, and incomplete release. Despite these risks, the patient elected to proceed. Findings: The carpal tunnel was release with a standard endoscopic technique without difficulty and excellent visualization. There was a tightened cubital tunnel. The ulnar nerve was release from the first motor branch distally through the [place] proximally. Procedure Description: Harry was greeted in the preoperative holding area where the correct side was identified and marked. The consent was reviewed with the patient and signed. The history and physical was updated. All questions were answered. He was taken back to the operating room. The patient was placed into the supine position on the operating room table with the right arm on an arm board. A nonsterile tourniquet was placed high onto the arm, into the axilla. All bony prominences were well padded. Prophylactic antibiotics in the form of cefazolin were administered. The right arm was then prepped with Chloraprep and draped in a standard fashion with stockinette and extremity drape. A timeout to confirm correct identity, side and site, procedure, allergies, anesthesia, and medical concerns was performed. The surgical site was marked in the volar wrist creases in line with the radial border of the fourth ray. This area was anesthetized with approximately 6cc of 1% Lidocaine with Epinephrine. The surgical site about the medial elbow was drawn on the skin just posterior to the medial epicondyle borders. The planned surgical field was anesthetized with 1% Lidocaine with Epinephrine. The limb was then exsanguinated with an Esmarch. Starting with the carpal tunnel, the skin was incised with a 15 blade, approximately 1cm. The skin only was cut and the deeper tissue was dissected bluntly with a tenotomy scissor, avoiding passing nerve and venous structures. The fascia was penetrated and opened bluntly. A two-prong skin hook was placed under this proximal fascial edge. A series of hamate finders were used to identify and dilate the carpal tunnel. Synovial elevator was used to free synovial attachments to the underside of the transverse carpal ligament. My thumb was kept in the palm to jeb the distal extent of the carpal tunnel and correctly position the hand. The Microaire endoscope was inserted without difficulty and without resistance. Excellent visualization showed horizontally running fibers of the transverse carpal ligament (TCL). The distal extent of the TCL was visualized and the end of the scope palpated with the thumb. The blade was elevated and withdrawn from distal to proximal. The TCL was split into two flaps. The endoscope was reinserted to confirm complete release and any remnant ligament was incised. The scope was withdrawn and the proximal aspect of the carpal tunnel was grossly inspected and appeared release with the median nerve visible. The antebrachial fascia at the level of the wrist was then freed from the overlying skin and then the underlying median nerve with blunt dissection. This was transected longitudinally for about 3cm proximal to the wrist incision. The wound was then irrigated with easy flow of irrigant distally and proximally. The incision was closed with a single 4-0 Nylon suture. . Attention was then turned to the cubital tunnel release. The skin of the medial elbow was incised only with the elbow in some flexion and on a bump. The deep tissue and subcutaneous fat was dissected with a tenotomy scissors trying to protect any branches of the medial antebrachial cutaneous nerve. Any branches that were identified were retracted out of the way. The ulnar nerve was palpated and identified. A small window into the cubital tunnel, sheath overlying the nerve, was created and the nerve was able to be palpated with the [place]. A Metzenbaum scissor was then used to open up the sheath starting with Brennan's ligament. I then worked distal over the ulnar nerve releasing any constraints against the nerve all the way to the fascia of the FCU muscle belly. This muscle belly was bluntly all the way down to the first motor branch of the ulnar nerve and the overlying fascia was incised. Likewise starting there at the medial epicondyle, I proceeded to work proximally to release any constraints over the ulnar nerve. This was taken all the way to the arcade of [place]. The medial intermuscular septum was also palpated and any sharp edges against the ulnar nerve were resected and released. After fully releasing the nerve it was inspected visually. I was also able to palpate the nerve fully and reach one finger up into the proximal and distal aspects to make sure there were no constraints against the nerve. A freer elevator was also used to slide easily against the ulnar nerve without any points of constriction. The arm was then taken through range of motion. The ulnar nerve did not sublux/dislocate out of its groove behind the lateral epicondyle. Therefore, no transposition was performed. The tourniquet was then deflated. Any areas of bleeding were cauterized with bipolar electrocautery. The wound was thoroughly irrigated. The deep tissue was closed with a 3-0 Vicryl. The skin was closed with a 4-0 nylon. The wounds were dressed with Xeroform, 4 x 4's, ABD, Kerlix and an Dave wrap. Harry was placed into a sling. Harry was transferred back to the PACU in a stable condition.
--- NOTE | 2021-06-14 05:53 | W.PM.OP ---
Date of service: 06/13/21 Time of Service: 13:05 Operative Note Operative Note DATE OF PROCEDURE: 06/13/21 PRE-OP DIAGNOSIS: Right Carpal Tunnel and Right Cubital Tunnel Syndrome POST-OP DIAGNOSIS: same PROCEDURE: [Right] Endoscopic Carpal Tunnel Release and [Right] Cubital Tunnel Decompression [with Anterior Subcutaneous Transposition] SURGEON: Ayush Jimenez [employer] FOREM[employer]: Deann Garner Refer to Anesthesia Record ESTIMATED BLOOD LOSS: 0 PATHOLOGY: none sent TOURNIQUET TIME: 15 COMPLICATIONS: None Patient was transported to: PACU Patient's condition: stable Indications: [NAME] is a [AGE and sex] who has had symptoms of carpal and cubital tunnel syndrome. Nonoperative treatment options had been trialed. [Nerve conduction studies identified the carpal and cubital tunnel as the point of compression]. Given failure of nonoperative treatments and persistent symptoms, I offered operative intervention. I reviewed the technical details of a carpal tunnel release and cubital tunnel decompression with possible anterior subcutaneous transposition. I reviewed the risk of the procedure to include bleeding, infection, pain, stiffness, tendon instability, damage to the superficial radial nerve, and complete release. Despite these risks, the patient elected to proceed. Findings: The carpal tunnel was release with a standard endoscopic technique without difficulty and excellent visualization. There was a tightened cubital tunnel. [OTHER] The ulnar nerve was release from the first motor branch distally through the [place] proximally. Procedure Description: [NAME] was greeted in the preoperative holding area where the correct side was identified and marked. The consent was reviewed with the patient and signed. The history and physical was updated. All questions were answered. [NAME] was taken back to the operating room. The patient was placed into the supine position on the operating room table with the [right] arm on an arm board. A nonsterile tourniquet was placed high onto the arm, into the axilla. All bony prominences were well padded. Prophylactic antibiotics in the form of [Cefazolin] were administered. The right arm was then prepped with Chloraprep and draped in a standard fashion with stockinette and extremity drape. A timeout to confirm correct identity, side and site, procedure, allergies, anesthesia, and medical concerns was performed. The surgical site was marked in the volar wrist creases in line with the radial border of the fourth ray. This area was anesthetized with approximately 6cc of 1% Lidocaine. The limb was then exsanguinated with an Esmarch. The skin was incised with a 15 blade, approximately 1cm. The skin only was cut and the deeper tissue was dissected bluntly with a tenotomy scissor, avoiding passing nerve and venous structures. The fascia was penetrated and opened bluntly. A two-prong skin hook was placed under this proximal fascial edge. A series of hamate finders were used to identify and dilate the carpal tunnel. Synovial elevator was used to free synovial attachments to the underside of the transverse carpal ligament. My thumb was kept in the palm to jeb the distal extent of the carpal tunnel and correctly position the hand. The Microaire endoscope was inserted without difficulty and without resistance. Excellent visualization showed horizontally running fibers of the transverse carpal ligament (TCL). The distal extent of the TCL was visualized and the end of the scope palpated with the thumb. The blade was elevated and withdrawn from distal to proximal. The TCL was split into two flaps. The endoscope was reinserted to confirm complete release and any remnant ligament was incised. The scope was withdrawn and the proximal aspect of the carpal tunnel was grossly inspected and appeared release with the median nerve visible. The antebrachial fascia at the level of the wrist was then freed from the overlying skin and then the underlying median nerve with blunt dissection. This was transected longitudinally for about 3cm proximal to the wrist incision. The wound was then irrigated with easy flow of irrigant distally and proximally. The incision was closed with a single 4-0 Nylon suture. The wound was dressed with Xeroform, Gauze, Kerlix. The surgical site was drawn on the skin as was the medial epicondyle borders. The planned surgical field was anesthetized with 1% Lidocaine with epinephrine. The skin was incised only. The deep tissue and subcutaneous fat was dissected with a tenotomy scissors trying to protect any branches of the medial antebrachial cutaneous nerve. Any branches that were identified were retracted out of the way. The ulnar nerve was palpated and identified. A small window into the cubital tunnel, sheath overlying the nerve, was created and the nerve was able to be palpated with the [place]. A Metzenbaum scissor was then used to open up the sheath starting with Brennan's ligament. I then worked distal over the ulnar nerve releasing any constraints against the nerve all the way to the fascia of the FCU muscle belly. This muscle belly was bluntly all the way down to the first motor branch of the ulnar nerve and the overlying fascia was incised. Likewise starting there at the medial epicondyle, I proceeded to work proximally to release any constraints over the ulnar nerve. This was taken all the way to the arcade of [place]. The medial intermuscular septum was also palpated and any sharp edges against the ulnar nerve were resected and released. After fully releasing the nerve it was inspected visually. I was also able to palpate the nerve fully and reach one finger up into the proximal and distal aspects to make sure there were no constraints against the nerve. A freer elevator was also used to slide easily against the ulnar nerve without any points of constriction. The arm was then taken through range of motion. The ulnar nerve [did not] sublux/dislocate out of its groove behind the lateral epicondyle. [Therefore, no transposition was performed.] [Transposition] The tourniquet was then deflated. Any areas of bleeding were cauterized with bipolar electrocautery. The wound was thoroughly irrigated. The deep tissue was closed with a 3-0 Vicryl. The skin was closed with a 4-0 nylon. The wound was dressed with Xeroform, 4 x 4's, ABD, Kerlix and an Dave wrap. [Patient] was placed into a sling. [Patient Name] was transferred back to the PACU in a stable condition.
== END 2021-06-13 14:30 | disposition home or self-care (01) ==
PROVIDERS: PCP Internal Medicine; Visit Provider Student in an Organized Health Care Education/Training Program
PROC: 01N54ZZ Release Median Nerve, Percutaneous Endoscopic Approach (ICD-10-PCS; CPT 29848; principal; 2021-06-13 13:15)
PROC: (CPT 64718; 2021-06-13 13:15)
DX: G56.23 Lesion of ulnar nerve, bilateral upper limbs (principal); G56.03 Carpal tunnel syndrome, bilateral upper limbs; E11.65 Type 2 diabetes mellitus with hyperglycemia
CPT/HCPCS: 64718; 29848; J0690; J2001; J2704; J3010

== ENCOUNTER → 2021-06-22 09:53 | Outpatient (BNVA) | payer MEDICARE, MEDICAID, SELFPAY | PROVIDERS: PCP Internal Medicine; Referring Provider Internal Medicine | DX: Z47.89 Encounter for other orthopedic aftercare (principal) ==

== ENCOUNTER → 2021-07-20 09:53 | Outpatient (BNVA) | payer MEDICARE, MEDICAID, SELFPAY | PROVIDERS: PCP Internal Medicine; Referring Provider Internal Medicine; Visit Provider Student in an Organized Health Care Education/Training Program | DX: Z47.89 Encounter for other orthopedic aftercare (principal) ==

== ENCOUNTER → 2021-09-04 09:41 | Outpatient (BNVA) | payer MEDICARE, MEDICAID, SELFPAY | PROVIDERS: PCP Internal Medicine; Referring Provider Internal Medicine; Visit Provider Student in an Organized Health Care Education/Training Program | DX: Z47.89 Encounter for other orthopedic aftercare (principal); G56.23 Lesion of ulnar nerve, bilateral upper limbs; G56.03 Carpal tunnel syndrome, bilateral upper limbs; M75.101 Unspecified rotator cuff tear or rupture of right shoulder, not specified as traumatic; M12.811 Other specific arthropathies, not elsewhere classified, right shoulder; E11.69 Type 2 diabetes mellitus with other specified complication | CPT/HCPCS: 99214 ==

== ENCOUNTER 2021-10-17 03:52 | Outpatient (CLI) | payer MEDICARE, MEDICAID, SELFPAY ==
[2021-10-17 12:29] LABS: Source Nasal/Nares
[2021-10-17 16:28] LABS: COVID-19 PCR Negative (Negative)
== END 2021-10-17 03:53 | disposition home or self-care (01) ==
LOC: LBO 03:52
PROVIDERS: PCP Internal Medicine; Visit Provider Student in an Organized Health Care Education/Training Program
DX: Z20.822 Contact with and (suspected) exposure to COVID-19 (principal)
CPT/HCPCS: 87635

== ENCOUNTER 2021-10-19 05:59 | Day surgery (SDC) | payer MEDICARE, MEDICAID, SELFPAY ==
[2021-10-19] VITALS (9 sets, daily range): BP systolic 125–142; BP diastolic 65–79; PULSE 80–97; RESP 18–29; TEMP 36.3–36.8; O2SAT 93–100; BMI 25.4
--- NOTE | 2021-10-19 06:18 | W.ANESPRE ---
General Info Date of Service Date Performed: 10/19/21 Height: 5 ft 8 in Weight: 75.75 kg Body Mass Index (BMI): 25.4 Surgical Procedure: Operation Date: 10/19/21 07:40 Proposed Procedures Side Surgeon p Shoulder Rotator Cuff Arthroscopic w/Extensive Debridement,Bicep Tenodesis, Subcromial Decompression and Allograft Superior CapsularReconstruction Right Darrin Palafox MD Meds Allergies and Home Medications Allergies Allergy/AdvReac Type Severity Reaction Status Date / Time Milk Containing Products AdvReac Unknown gi upset Verified 10/19/21 06:25 tramadol AdvReac diarrhea/GI Verified 10/19/21 06:25 Home Medication Medication Instructions Recorded blood sugar diagnostic #100 each 08/04/19 blood-glucose meter #1 each 08/04/19 lancets #100 each 08/04/19 glimepiride 4 mg tablet 4 mg PO QAM #90 tab 10/07/20 lisinopril 2.5 mg tablet 2.5 mg PO DAILY #90 tab-cap 10/07/20 metformin 1,000 mg tablet 1,000 mg PO BID #180 tab 06/06/21 acetaminophen 500 mg PO Q6H PRN #60 tab 06/13/21 ibuprofen 600 mg PO TID PRN #60 tab 06/13/21 pen needle, diabetic 33 gauge x #100 ea 07/26/21 insulin glargine 100 unit/mL (3 10 unit SUBCUT QPM #5 syrg 08/16/21 mL) subcutaneous pen Current Visit Medications: Current Medications Generic Name Dose Route Start Last Admin Trade Name Freq PRN Reason Stop Dose Admin Ringer's Solution 1,000 mls @ 100 mls/hr 10/19/21 06:00 IV 11/17/21 23:59 INFUSION CHARAN Cefazolin Sodium/Dextrose 2 gm in 50 mls @ 100 mls/hr 10/19/21 06:00 Ancef Duplex IVPB 11/17/21 23:59 PREOP CHARAN IV Miscellaneous Supplies 1 each 10/19/21 06:00 Iv Access IV 11/17/21 23:59 DIRECTED CHARAN Sodium Chloride 0 ml 10/19/21 06:00 Normal Saline Flush 10 Ml Syr IV 11/17/21 23:59 PRN PRN Sodium Chloride 0 ml 10/19/21 06:00 Normal Saline 10 Ml Vial IJ 11/17/21 23:59 DIRECTED PRN Sterile Water 0 ml 10/19/21 06:00 Water,Injection,Sterile 10 Ml Vial IJ 11/17/21 23:59 DIRECTED PRN PFSH Active Problems Active Problems: Problem Status Onset Code Benign hypertension 12/01/10 I10 Noncompliance with diabetes treatment 06/29/15 Z91.19 Pure hypercholesterolemia 09/13/11 E78.00 Sensorineural hearing loss 10/23/13 H90.5 Uncontrolled diabetes mellitus due to underlying condition with mild nonproliferative diabetic retinopathy E08.3299, E08.65 Diabetes mellitus type 2 with complications, uncontrolled E11.8, E11.65 Substance abuse F19.10 Neuropathy of right upper extremity G56.91 Cubital tunnel syndrome on right G56.21 Carpal tunnel syndrome of right wrist G56.01 Right rotator cuff tear arthropathy M75.101, M12.811 Drug-seeking behavior ~2014 Z76.5 Bilateral carpal tunnel syndrome G56.03 Cubital tunnel syndrome, bilateral G56.23 Diabetes E11.9 Biceps tendinopathy M67.929 Medical History Medical History Abscess, perirectal Acute kidney injury Acute shoulder pain due to trauma Cerumen impaction (01/13/15) Dairy product intolerance (08/22/16) Depressive disorder (09/13/11) Disorder of left rotator cuff (12/01/12) History of Hodgkin's lymphoma no longer recieving treatment last treatment 2009 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 Deann Godoy MD H/O drainage of abscess (~11/21/19) Rotator Cuff Repair Tobacco Smoking/Tobacco Use Status: Current every day Tobacco Type: cigarettes Tobacco: How many years used: 35 Quit Status: not considering quitting Alcohol Alcohol Intake: current Alcohol intake frequency: holidays/special occasions only Substance Use Substance use: Occasionally Substance use type: marijuana Vital Signs and Lab Results Vital Signs Most Recent Vital Signs in EMR: Temp Pulse Resp BP Pulse Ox 36.5 C 90 20 142/76 H 100 10/19/21 06:12 10/19/21 06:12 10/19/21 06:12 10/19/21 06:12 10/19/21 06:12 Lab Results Blood Type / Crossmatch: No Data to Display Complete Blood Count: No Data to Display Complete Metabolic Panel: No Data to Display Liver Function Panel: No Data to Display Coagulation Panel: No Data to Display Cardiac Panel: No Data to Display Arterial Blood Gas: No Data to Display Venous Blood Gas: No Data to Display Pancreas Panel: No Data to Display Thyroid Panel: No Data to Display Infectious Disease: Coronavirus (COVID-19)(PCR) Negative (Negative) 10/17/21 10:55 10/17/21 Coronavirus 2019 Source Nasal/Nares 10/17/21 10:55 10/17/21 Blood Cultures: No Data to Display Toxicology Panel: No Data to Display Imaging and Studies Imaging and Studies Study information below may be from another EMR and interpreted by another provider. Please see original notes in EMR for more complete details. EKG Summary: 01/02/21: Sinus tachycardia...rate> 99 Probable left atrial enlargement...P >50mS, <-0.10mV V1 Anesthesia Assessment and Plan Anesthesia History Personal History: No History of Anesthesia Complications Family History: No Family History of Anesthesia Complications Exercise Tolerance Exercise Tolerance: Metabolic Equivalents>4 Cardiac & Pulmonary Exam Cardiac Exam: Normal S1/S2 Heart Sounds Pulmonary Exam: Clear Bilateral Breath Sounds Implantable Cardiac Device Does patient have a Pacemaker or an ICD?: No Airway Exam Known Difficult Airway: No Mallampati Class: 2 Mouth Opening: Normal (> 3cm) Thyromental Distance: Greater than 3 cm Neck Range of Motion: Full ROM Neck Circumference: Normal Teeth Condition: Normal Dentition ASA Classification ASA Score: ASA 2 Emergency Case?: No NPO Status NPO Status: NPO Clears >2 hours, Solids >8 hours Anesthesia Plan Resuscitation Status: Full Code Anesthesia Technique: General Anesthesia Airway Planned: Endotracheal Tube Pain Management: Surgeon and patient request nerve block Monitors Used: Standard Monitors Preoperative Comments:: 56 yo male for right RTC/bicep repair. Sig PMHx: everyday smoker (tobacco/cannabis), occ EtOH HTN (lisinopril), DM (glimepriride, metformin, glargine, last A1C 6.7 08/13), neuropathy of RUE, extremely hard of hearing. Previous Anes: without complications, no airway history.
[2021-10-19] MEDS: Lactated Ringers 1,000 ML 100 ML IV (07:07)
[2021-10-19] MEDS: ceFAZolin 2 GM/50 ML BAG IVPB (07:48)
--- NOTE | 2021-10-19 08:09 | W.ANESNERVE ---
Nerve Block Single Injection Procedure Date and Time Date Performed: 10/19/21 Procedure Start: 07:18 Location Where Procedure Performed Procedure Location: Day Surgery Unit Reason Performed: Postoperative Analgesia Requesting Provider: Darrin Palafox Timeout Performed Timeout Performed: Yes Monitoring Used ECG, Blood Pressure and SpO2 Sterility Sterility: Hand Hygiene, Surgical Cap, Surgical Mask, Sterile Gloves and Chlorhexidine Sedation Given During Procedure Sedation Given (Indicate Dose Given): Versed IV Dose:: 2 mg Patient Mental Status Patient Mental Status: Sedate with meaningful communication Nerve Block 1st Nerve Block: Laterality: Right Block Type: Interscalene Needle / Catheter Used: 100mm SonoPlex II Local Anesthetic Bolus (Indicate Dose Given): Lidocaine used for local infiltration of skin, Injected in 3-5ml increments after negative blood aspiration, Bupivacaine 0.5% Dose:: 15 mL and Exparel Dose:: 10 mL Additives (Indicate Dose Given): None Ultrasound: Sterile probe cover and gel used Ultrasound Image Saved?: Yes Nerve Stimulator: Not Used Paresthesia: None Procedure Tolerated: No Complications Procedure Outcome: Successful Performed By: Tex Elizalde
--- NOTE | 2021-10-19 11:00 | W.PM.OP ---
Date of service: 10/19/21 Time of Service: 17:14 Operative Note Operative Note DATE OF PROCEDURE: 10/19/21 PRE-OP DIAGNOSIS: Right: 1. Irreparable rotator cuff retear 2. SLAP tear with LHB tendinopathy 3. Early rotator cuff arthropathy POST-OP DIAGNOSIS: same PROCEDURE: Right: 1. Rotator cuff repair, CPT# 91351. This involved repair of the posterior rotator cuff spinatus and teres using anchors and sutures to reattach the rotator cuff back to the reconstructed superior capsule as well as greater tuberosity 2. Superior capsular reconstruction, CPT #07716. This involved dermal allograft reconstruction of the superior capsule to maintain glenohumeral joint stability and prevent superior humeral migration 3. Arthroscopic biceps tenodesis, CPT# 38580. This involved arthroscopically suturing and reattaching the long head of the biceps tendon to the proximal humerus at the superior margin of the bicipital groove with a screw at the correct tension. 4. Extensive debridement, CPT# 29761. This involved using arthroscopic hand instruments, power instruments, and radiofrequency instruments to release the long head of the biceps tendon and debride areas of labral tearing, synovitis, and chondromalacia about the greater tuberosity within the glenohumeral joint anteriorly, superiorly and posteriorly. Anterior scar adhesions were also released to improve external rotation. As well as remove prior permanent suture material hardware from the scarred retracted supraspinatus stump. 5. Subacromial decompression, CPT# 42694. This involved using arthroscopic power instruments and a radiofrequency wand to complete a bursectomy. The assistant professor in family studies was medically required in order to help assist in techniques above, which require positioning the arm, holding the arthroscope, and manipulating multiple instruments and sutures at the same time. This cannot be done without the help of an experienced assistant professor in family studies. SURGEON: Darrin Palafox COAT HANGER SHAPER MACHINE OPERATOR: Olvin Hall ANESTHESIA TYPE: General LMA/ETT and Primary Nerve Block Refer to Anesthesia Record ESTIMATED BLOOD LOSS: 15 PATHOLOGY: none sent COMPLICATIONS: None Patient was transported to: PACU Patient's condition: stable Implants: Arthrex: 4.75mm knotless SwiveLocks x 5 and 3.9mm knotless CorkScrew anchors x2 Indications: The patient was diagnosed with the above conditions and appropriately indicated for surgical intervention. Please see complete medical record for details. Findings: Exam under anesthesia: Symmetrical range of motion with bilaterally moderately limited external rotation. Glenohumeral joint and subacromial space were single space: Profound synovitis and anterior and superior scarring and adhesions from prior failed surgery with obvious significant retracted supraspinatus massive likely include infraspinatus rotator cuff tear. Largely intact subscapularis. Biceps tendon anchor SLAP tear. Bald greater tuberosity except for far posterior. Early greater tuberosity and acromion bone changes. Significant fibrinous chronic scar tissue. Procedure Description: In the operating room, general anesthesia was induced. Bilateral shoulders were examined. The patient was positioned in the beachchair position. All bony prominences were well-padded. Preoperative antibiotics were administered. The shoulder was prepped and draped in the usual sterile fashion. The correct patient, procedure, and side of the procedure were all verified prior to incision. Starting through the posterior portal a standard complete diagnostic arthroscopy was performed of the glenohumeral joint including inspection of the long head of the biceps, anterior and superior labrum, subscapularis tendon, supraspinatus and infraspinatus tendons, and axillary recess. The glenoid and humeral head cartilage as well as the posterior labrum were inspected from an anterior viewing portal. Significant findings and interventions noted above. Passport cannulas were inserted at the superior anterolateral, superior posterior lateral, and lateral portals. Significant debridement of prior scarring was performed include removal of permanent retained suture material and supraspinatus stump. The supraspinatus had poor tissue quality and very limited excursion with large defect centrally and posteriorly. The prior metallic anchor was visualized in the central aspect of the greater tuberosity with only a tiny bit prominent not requiring removal. Greater tuberosity was well prepared for healing optimizing bone bleeding bed while maintaining bone for fixation. Supraspinatus was debrided to a stable margin. Subacromial space was thoroughly debrided of bursitis and scarring and other pathologic bursal tissue using the mechanical shaver and radiofrequency wand while not performing any bony T4 decompression given the early rotator cuff arthropathy. Biceps tendon was secured in a loop and tack fashion using the anterior and superior lateral portals withdrawn out the superior lateral portal for later fixation the superior aspect of the bicipital groove to the anterior medial row SCR anchor. Subscapularis did not require repair. Superior labrum was debulked and the superior aspect of the glenoid prepared for bone graft healing. Percutaneous stab portals were used to localize the 3 glenoid anchors with spinal needles followed by switching sticks and half pipe spear dilator. The central anchor was more medial to prevent convergence. The central and posterior 3.9 mm corkscrew anchors were inserted without difficulty. The anterior anchor encountered some soft tissue interposition likely from the significant scarring in this region. [place] was inserted but on testing the knotless mechanism there was difficulty and the anchor was actually withdrawn in entirety. The punch was used to confirm appropriate trajectory with additional soft tissue removed in this region followed by the tap with a 4.75 millimeters SwiveLock anchor. A knotless SwiveLock was inserted in this location without difficulty. The medial row knotless swivel lock anchors were then inserted at the appropriate margins of the greater tuberosity anteriorly and posteriorly near the intact tissue. The anterior medial row anchor fixated the biceps tendon completing the tenodesis. Relatively large allograft was required to fill the rotator cuff defect. There is 10 mm between the glenoid anchors for 20 mm total. The anterior length with 40 mm. Posterior 35mm. And there is 20 mm between the medial row anchors. An additional 5 to 7 mm or left as a sleeve medially anteriorly and posteriorly with about 12 mm laterally for greater tuberosity coverage. The allograft dermis was prepared on the back table and brought of the shoulder where the medial row tapes and knotless repair sutures were brought through their respective locations in the graft. Sequentially working from anterior centrally to posterior the knotless glenoid anchor repair sutures were shuttled in a horizontal mattress fashion through their respective locations in the graft and back through their anchors. Carefully the graft was delivered into the shoulder through the lateral cannula while sequentially tightening the glenoid anchors and delivering the graft into the shoulder. The graft was helped into position about the glenoid and provisional tightening achieved on these anchors. There is excellent graft position. Large graft filled the subacromial space and cover the greater tuberosity nicely. The FiberTape's and respective repair mechanisms were then brought out the anterior and posterior superior lateral portals. The anterior lateral anchor was then inserted with a tape from each medial anchor. The knotless mechanism is anchor was used to secure the corner of the graft. The anterior medial row anchor knotless sutures were not required for any additional suture fixation here were pulled and cut. The posterior lateral anchor was then secured with a FiberTape from each medial anchor. Similarly the knotless mechanism was not required here and pulled and cut. The remaining knotless repair stitch from the posterior medial row anchor was then passed through the upper margin of the infraspinatus just off the greater tuberosity and back through the anchor eyelet closing the defect between the allograft and the posterior superior cuff and securing the posterior superior cuff to the greater tuberosity as well. And additional two sets side to side SMC arthroscopic knots tied using suture tape to bring together the remainder of the posterior rotator cuff to the graft centrally and posterior superior capsule and likely supraspinatus scar remnant to the graft more medially. The reconstruction and repair was inspected. The large graft had excellent coverage starting just posterior to the bicipital groove anteriorly and traversing well posterior. I was unable to engage humeral head to acromion with superior directed force post procedure confirming stabilization. The shoulder was drained of arthroscopic fluid. All portal sites were copiously irrigated. These incisions were closed using 3-0 Monocryl in a buried fashion and then covered with Mastisol, Steri-Strips, Xeroform, dry gauze, and ABDs. The dressings were covered and secured with Medipore tape. The operative extremity was placed into a sling for immobilization. The patient awoke from anesthesia without complication and was transferred to the recovery room in a stable condition.
[2021-10-19] MEDS: EPINEPHrine 30 MG/30 ML VIAL (11:17)
--- NOTE | 2021-10-19 11:57 | PDOC.DSDIS_ITS ---
Discharge Plan Disposition Patient Disposition: HOME Condition: Stable Discharge Details Reason For Visit: Right shoulder surgery Attending Provider: Darrin Palafox Primary Care Provider: Khadijah Galicia Home Meds and New Rx's Prescriptions: New aspirin 81 mg tablet,delayed release (DR/EC) 81 mg PO DAILY 14 Days Qty: 14 RF: 0 naproxen 250 mg tablet 250 - 500 mg PO BID PRNQty: 40 RF: 0 oxycodone 5 mg tablet 5 - 10 mg PO Q4H MDD 30 mg PRN (Reason: moderate to severe pain) Qty: 18 RF: 0 Continued Lantus Solostar U-100 Insulin 100 unit/mL (3 mL) insulin pen 10 unit subcut QPM Qty: 5 RF: 3 (DME) blood sugar diagnostic Strip See Rx Instructions .ROUTE .MEDSUPPLY Qty: 100 RF: 6 (DME) blood-glucose meter [OneTouch Verio Flex meter] Misc See Rx Instructions .ROUTE .MEDSUPPLY Qty: 1 RF: 0 (DME) lancets [OneTouch UltraSoft Lancets] Misc See Rx Instructions .ROUTE .MEDSUPPLY Qty: 100 RF: 6 glimepiride [Amaryl] 4 mg tablet 4 mg PO QAM Qty: 90 RF: 3 lisinopril 2.5 mg tablet 2.5 mg PO DAILY Qty: 90 RF: 3 metformin 1,000 mg tablet 1,000 mg PO BID Qty: 180 RF: 0 (DME) pen needle, diabetic [Easy Comfort Pen [place]] 33 gauge x 5/32 needle See Rx Instructions .ROUTE .MEDSUPPLY Qty: 100 RF: 4 acetaminophen 500 mg tablet 500 mg PO Q6H PRN (Reason: pain) Qty: 60 RF: 2 Discontinued ibuprofen 600 mg tablet 600 mg PO TID PRN (Reason: pain) Qty: 60 RF: 0 Discharge Instructions Additional Instructions: Surgery: Right shoulder arthroscopy with massive allograft superior capsular reconstruction and posterior rotator cuff repair, biceps tenodesis, extensive debridement, and subacromial decompression. Activity: For 6 weeks, you should keep your arm at your side in a neutral position at all times except for physical therapy. Do not try to lift or raise your arm using your own muscles. You should use the sling whenever you are out of the house. You may have to adjust the abduction pillow or remove it for comfort. At home it is best to remove the sling and rest the arm on a pillow at your side or support the operative side with your other hand. You may allow the arm to dangle at your side. A physical therapy prescription will be sent electronically to begin in about 3 weeks. CONSERVATIVE protocol. Gentle, progressive range of motion. Passive?only for 6 weeks followed by active assist and then active ROM. No strengthening until 3 months. Prescriptions: Aspirin 81 mg take 1 daily to prevent a blood clot for 2 weeks Naproxen 250 mg take 1-2 every 12 hours with a meal as needed for moderate pain. Do not take at the same time as ibuprofen. Oxycodone 5 mg take 1-2 every 4-6 hours as needed for severe pain You may use [id number] Tylenol (acetaminophen) as needed for mild pain. These pain medications may be taken all at once or in different combinations as needed. Also, recommend Colace (docusate) as a stool softener as surgery and pain medicine cause constipation. Dressings: Remove shoulder bandage after 3 days. Leave the sticky Steri-Strips in place until they fall off or remove them after you shower. Cover the incisions with Band-Aids or leave them open to air. You may shower after 5 days. Follow-up: 10-[address] Palafox You may take off the leg compression stockings this evening at home. You may also leave them on a few days longer if you have a history of leg swelling or edema. Let us know right away if you develop any redness, drainage, fevers, chest pain, or trouble breathing. Do not drink alcohol or drive for at least 24 hours after anesthesia. Please call the office during business hours with any questions or concerns. Referrals: Darrin Palafox MD [ [facility] ST[facility]FF PHYSICIAN] - Discharge Orders Discharge Orders: Discharge Order (Routine); Ordered 10/19/21 Ordered By: Darrin Palafox DS: Diagnosis Discharge Diagnosis (1) Right rotator cuff tear arthropathy: Status: Acute (2) Biceps tendinopathy: Status: Acute (3) SLAP lesion of right shoulder: Status: Acute (4) Bursitis of right shoulder: Status: Acute
--- NOTE | 2021-10-19 13:02 | W.ANESPOSTOP ---
Postoperative Evaluation Date, Time and Location Date Performed: 10/19/21 Time Performed: 13:02 Patient Location: Day Surgery Unit Vital Signs Most Recent Imported Vital Signs: Most Recent Vital Signs Temp Pulse Resp BP Pulse Ox 36.5 C 93 H 20 130/66 93 10/19/21 12:52 10/19/21 12:52 10/19/21 12:52 10/19/21 12:52 10/19/21 12:52 Pain Score Most Recent Pain Score: Most Recent Pain Score Pain Level 0 10/19/21 12:52 Assessment Mental Status: Awake (Alert & Oriented to Patient Baseline) Airway and Respiratory Function: Patent airway with normal (patient baseline) respiratory exam Cardiovascular Function: Hemodynamically Stable Hydration Status: Adequately Hydrated Nausea & Vomiting: No Nausea or Vomiting Pain: Pt. Denies Any Pain Peripheral Nerve Block: Regional nerve block not resolved at time of post operative discharge
== END 2021-10-19 14:41 | disposition home or self-care (01) ==
PROVIDERS: PCP Internal Medicine; Visit Provider Student in an Organized Health Care Education/Training Program
PROC: (CPT 29827; principal; 2021-10-19 07:30)
DX: S46.111A Strain of muscle, fascia and tendon of long head of biceps, right arm, initial encounter (principal); S43.431A Superior glenoid labrum lesion of right shoulder, initial encounter; X58.XXXA Exposure to other specified factors, initial encounter; M75.101 Unspecified rotator cuff tear or rupture of right shoulder, not specified as traumatic
CPT/HCPCS: 29806; 29827; 29828; 29826; 29823; 76942; J0690; J1100; J1885; J2001; J2250; J2370; J2405; J2704

== ENCOUNTER → 2021-11-01 10:57 | Outpatient (BNVA) | payer MEDICARE, MEDICAID, SELFPAY | PROVIDERS: PCP Internal Medicine; Referring Provider Internal Medicine; Visit Provider Student in an Organized Health Care Education/Training Program | DX: Z47.89 Encounter for other orthopedic aftercare (principal) ==

== ENCOUNTER 2021-11-30 12:52 | Emergency (ER) | payer MEDICARE, MEDICAID, SELFPAY ==
--- NOTE | 2021-11-30 13:13 | ED.GENADUL_ITS ---
Discharge Plan Disposition Patient Disposition: HOME Condition: Improving Discharge Details Clinical Impression: Vomiting and diarrhea, Gastritis Primary Care Provider: Khadijah Galicia ED Provider: Daphne Tang Home Meds and New Rx's Prescriptions: New metoclopramide HCl [Reglan] 10 mg tablet 10 mg PO Q6H PRN (Reason: nausea and vomiting) Qty: 7 1RF Continued Lantus Solostar U-100 Insulin 100 unit/mL (3 mL) insulin pen 10 unit subcut QPM Qty: 5 3RF (DME) blood sugar diagnostic Strip See Rx Instructions .ROUTE .MEDSUPPLY Qty: 100 6RF Rx Instructions: Dispense strips for Verio meter to identify BS 2 times daily to decrease A1c to 8 or below #100 refills:4 (DME) blood-glucose meter [OneTouch Verio Flex meter] [facility] [place] See Rx Instructions .ROUTE .MEDSUPPLY Qty: 1 0RF Rx Instructions: Dispense one kit to check BS to identify BS to manage hyperglycemia and decrease A1c to 8 or below (DME) lancets [OneTouch UltraSoft Lancets] [facility] [place] See Rx Instructions .ROUTE .MEDSUPPLY Qty: 100 6RF Rx Instructions: To check BS 2 times daily to decrease A1c to 8 or below. Dispense #100 Refills:4 metformin 1,000 mg tablet 1,000 mg PO BID Qty: 180 0RF (DME) pen needle, diabetic [Easy Comfort Pen [place]] 33 gauge x 5/32 needle See Rx Instructions .ROUTE .MEDSUPPLY Qty: 100 4RF Rx Instructions: qPM with insulin pen goal A1c <8 omeprazole magnesium [Acid Station Installer And Repairer (omeprazole)] 20 mg capsule,delayed release(DR/EC) 20 mg PO DAILY Qty: 90 3RF glimepiride [Amaryl] 4 mg tablet 4 mg PO QAM Qty: 90 3RF Rx Instructions: administer with breakfast lisinopril 2.5 mg tablet 2.5 mg PO DAILY Qty: 90 3RF acetaminophen 500 mg tablet 500 mg PO Q6H PRN (Reason: pain) Qty: 60 2RF Discharge Instructions Instructions: Gastritis (ED), Acute Nausea and Vomiting (ED), Acute Diarrhea (ED) Additional Instructions: Your lab work showed evidence of high blood sugar which improved with fluids and insulin here. Your CT scan showed evidence of esophagitis and/or gastritis with is an inflammation in your esophagus and stomach. You are being sent home with Reglan to take as needed and directed for nausea and vomiting. Drink plenty of fluids and get plenty of rest. Call your primary care doctor tomorrow to schedule a follow-up appointment for reevaluation and for referral for outpatient upper endoscopy if your symptoms do not improve or worsen. Return immediately to the emergency department if you develop any worsening or new concerning symptoms. Referrals: Deann Roth DO [OSTEOPATHIC DOCTOR] - Discharge Data Discharge Date/Time-TO BE ENTERED AT DEPARTURE: 11/30/21 20:25 Discharge Physician: Daphne Tang Medical Decision Making 56-year-old male with a history of noncompliance, hypertension, diabetes, depression, tobacco dependence, Crohn's disease presents for vomiting and diarrhea x 4 days. Given Zofran on arrival due to vomiting. Blood pressure and heart rate elevated. He appears uncomfortable and is dry heaving in the room but is nontoxic-appearing. His abdomen is soft and nontender. Differential diagnosis includes gastroenteritis, colitis, UTI, electrolyte abnormality. History and presentation does not appear consistent with ACS or PE. Will obtain screening labs, give a dose of Pepcid, IV Tylenol, fluids and Phenergan. Labs and imaging reviewed. White blood cell count 24. Glucose 321. Bicarb 19.7. Anion gap 18.3. Troponin negative. Lipase normal. VBG obtained and notes a normal pH and bicarb 21. Patient given additional IV fluids and glucose now 266, and repeat BMP reveals a normal bicarb and significantly improved anion gap of 13.7. Urinalysis notes blood and ketones but no evidence of infection CT chest abdomen pelvis note findings of esophagitis and gastritis with an incidental right renal mass and renal protocol CT on a nonemergent basis recommended. Patient was able to take p.o. and denies any further nausea and vomiting. We will give 4 units of insulin SC and another liter of fluids and recheck bmp. Patient reassessed and he states he does feel okay to go home but has some dry heaving. We will give a dose of Reglan. BMP pending. Repeat BMP notes continued improvement of glucose and near normalization of anion gap. Patient feels much better and is requesting to go home. He was able to take sips of water and denies any further nausea, vomiting or pain. He was given 1 tab of Reglan to go as well as prescription. He was given surgery follow-up information for further evaluation of his esophagitis and/or gastritis if the symptoms do not improve or worsen. Advised to follow up with the primary care doctor for re-evaluation. Usual and customary return precautions given prior to discharge. Medical Records Medical records reviewed: Yes I reviewed the patient's medical records. Imaging Data Radiologic Study: Radiologist's impression: CT CHEST/ABD/PEL W CLINICAL HISTORY:? vomiting ? diarrhea, epigastric pain, r/o acute dz TECHNIQUE:? CT examination of the chest, abdomen, and pelvis was performed with intravenous infusion of 100 cc of Omnipaque 350. COMPARISON:? CT CT ABDOMEN ? PELVIS W from 04/11/2021 FINDINGS: The lungs are clear. There is no pleural effusion seen. There is no mediastinal or hilar adenopathy. Pulmonary arteries are unremarkable with no evidence of pulmonary embolic disease. Thoracic aorta and major branches appear intact with no evidence of aneurysm or dissection. No bony abnormality seen in the thorax.? The Note is made of apparent wall thickening of the esophagus throughout the thoracic region.? There may also be mild gastric wall thickening, the findings could indicate esophagitis and/or gastritis.? Please correlate clinically. The liver is normal appearance.? Gallbladder may contain small gallstones, ultr asound correlation suggested if clinically appropriate.? Bile ducts are CT normal. No abnormality seen involving the spleen. Pancreas appears intact. The adrenals are unremarkable in appearance. There is 2 cm in diameter medial right renal cortical mass which measures about 60 Hounsfield units on this contrast enhanced examination.? This is an indeterminate mass and follow-up examination with renal protocol CT is recommended, with a noncontrast CT followed by [address] imaging. There are small bilateral renal calculi.? There is no hydronephrosis ureterolithiasis, or abnormality of urinary bladder. Abdominal aorta and major visceral branches appear intact. No significant abdominal wall hernia seen.? No significant abdominal or pelvic adenopathy. No focal bowel pathology.? No evidence of appendicitis or diverticulitis. IMPRESSION: Wall thickening is noted involving esophagus and perhaps the stomach as well.? Please correlate regarding the possibility of esophagitis and/or gastritis. Incidental right renal mass identified, renal protocol CT recommended as described above. Incidental Findings Lab Data Lab results reviewed: Yes I reviewed the patient's lab results. Labs: Laboratory Tests Range/Units 11/30/21 11/30/21 11/30/21 13:52 13:52 13:52 WBC (4.4-10.8) 10^3/uL 24.70 H RBC (4.36-5.78) 10^6/uL 4.63 Hgb (13.5-17.5) g/dL 13.8 Hct (40.0-50.0) % 39.7 L MCV (80-95) fL 85.7 MCH (27.0-33.0) pg 29.8 MCHC (32.0-36.0) % 34.8 RDW (11.8-14.1) % 11.9 Plt Count (130-400) 10^3/uL 311 MPV (8.0-11.0) fL 11.5 H Immature Gran % 0.7 Neutrophils % 92.7 Lymphocytes % 3.0 Monocytes % 3.3 Eosinophils % 0.2 Basophils % 0.1 Nucleated RBC % % 0 Absolute Neutrophils (1.2-6.7) 10^3/uL 22.90 H Absolute Lymphocytes (1.2-3.4) 10^3/uL 0.74 L Absolute Monocytes (0.1-0.8) 10^3/uL 0.82 H Absolute Eosinophils (0.0-0.7) 10^3/uL 0.05 Absolute Basophils (0.0-0.2) 10^3/uL 0.02 RBC Morphology Normal VBG pH (7.31-7.41) VBG pCO2 (41-51) mmHg VBG pO2 mmHg VBG HCO3 (23-28) mmol/L VBG Total CO2 (24-29) mmol/L VBG O2 Saturation % VBG Base Excess (-2-3) mmol/L Sodium Cancelled 135 L Potassium Cancelled 3.7 Chloride Cancelled 97 L Carbon Dioxide Cancelled 19.7 L Anion Gap Cancelled 18.3 H BUN Cancelled 36 H Creatinine Cancelled 1.4 H Estimated GFR/1.73 m2 Cancelled 52.24 Glucose Cancelled 321 H Calcium Cancelled 9.7 Magnesium (1.8-2.4) mg/dL 2.1 Total Bilirubin Cancelled 0.8 AST Cancelled 16 ALT Cancelled 18 Alkaline Phosphatase Cancelled 94 Troponin I (<or=60) ng/L < 50 Total Protein Cancelled 8.2 Albumin Cancelled 4.1 Lipase Cancelled 39 Urine Color (Yellow) Urine Clarity (Clear) Urine pH (5-8) Ur Specific [place] (1.005-1.025) Urine Protein (Negative) mg/dL Urine Ketones (Negative) mg/dL Urine Blood (Negative) Urine Nitrite (Negative) Urine Bilirubin (Negative) Urine Urobilinogen (Up TO 0.2) EU/dL Ur Leukocyte Esterase (Negative) Urine RBC (0-2) HPF Urine WBC (0-5) HPF Ur Epithelial Cells (Negative) HPF Urine Crystals (Negative) HPF Urine Bacteria (Negative) HPF Urine Casts (Negative) LPF Urine Mucus (Negative) Ur Culture Indicated? Urine Glucose (Negative) mg/dL COVID-19 Source SARS-CoV-2 (PCR) (Negative) Range/Units 11/30/21 11/30/21 11/30/21 14:00 15:00 16:15 WBC (4.4-10.8) 10^3/uL RBC (4.36-5.78) 10^6/uL Hgb (13.5-17.5) g/dL Hct (40.0-50.0) % MCV (80-95) fL MCH (27.0-33.0) pg MCHC (32.0-36.0) % RDW (11.8-14.1) % Plt Count (130-400) 10^3/uL MPV (8.0-11.0) fL Immature Gran % Neutrophils % Lymphocytes % Monocytes % Eosinophils % Basophils % Nucleated RBC % % Absolute Neutrophils (1.2-6.7) 10^3/uL Absolute Lymphocytes (1.2-3.4) 10^3/uL Absolute Monocytes (0.1-0.8) 10^3/uL Absolute Eosinophils (0.0-0.7) 10^3/uL Absolute Basophils (0.0-0.2) 10^3/uL RBC Morphology VBG pH (7.31-7.41) 7.49 H VBG pCO2 (41-51) mmHg 27 L VBG pO2 mmHg 63 VBG HCO3 (23-28) mmol/L 21 L VBG Total CO2 (24-29) mmol/L 19 L VBG O2 Saturation % 93 VBG Base Excess (-2-3) mmol/L -3 L Sodium 137 Potassium 3.6 Chloride 102 Carbon Dioxide 21.3 Anion Gap 13.7 H BUN 31 H Creatinine 1.1 Estimated GFR/1.73 m2 >= 60.00 Glucose 266 H Calcium 7.9 L Magnesium (1.8-2.4) mg/dL Total Bilirubin AST ALT Alkaline Phosphatase Troponin I (<or=60) ng/L Total Protein Albumin Lipase Urine Color (Yellow) Urine Clarity (Clear) Urine pH (5-8) Ur Specific [place] (1.005-1.025) Urine Protein (Negative) mg/dL Urine Ketones (Negative) mg/dL Urine Blood (Negative) Urine Nitrite (Negative) Urine Bilirubin (Negative) Urine Urobilinogen (Up TO 0.2) EU/dL Ur Leukocyte Esterase (Negative) Urine RBC (0-2) HPF Urine WBC (0-5) HPF Ur Epithelial Cells (Negative) HPF Urine Crystals (Negative) HPF Urine Bacteria (Negative) HPF Urine Casts (Negative) LPF Urine Mucus (Negative) Ur Culture Indicated? Urine Glucose (Negative) mg/dL COVID-19 Source Nasal/Nares SARS-CoV-2 (PCR) (Negative) Negative Range/Units 11/30/21 17:00 WBC (4.4-10.8) 10^3/uL RBC (4.36-5.78) 10^6/uL Hgb (13.5-17.5) g/dL Hct (40.0-50.0) % MCV (80-95) fL MCH (27.0-33.0) pg MCHC (32.0-36.0) % RDW (11.8-14.1) % Plt Count (130-400) 10^3/uL MPV (8.0-11.0) fL Immature Gran % Neutrophils % Lymphocytes % Monocytes % Eosinophils % Basophils % Nucleated RBC % % Absolute Neutrophils (1.2-6.7) 10^3/uL Absolute Lymphocytes (1.2-3.4) 10^3/uL Absolute Monocytes (0.1-0.8) 10^3/uL Absolute Eosinophils (0.0-0.7) 10^3/uL Absolute Basophils (0.0-0.2) 10^3/uL RBC Morphology VBG pH (7.31-7.41) VBG pCO2 (41-51) mmHg VBG pO2 mmHg VBG HCO3 (23-28) mmol/L VBG Total CO2 (24-29) mmol/L VBG O2 Saturation % VBG Base Excess (-2-3) mmol/L Sodium Potassium Chloride Carbon Dioxide Anion Gap BUN Creatinine Estimated GFR/1.73 m2 Glucose Calcium Magnesium (1.8-2.4) mg/dL Total Bilirubin AST ALT Alkaline Phosphatase Troponin I (<or=60) ng/L Total Protein Albumin Lipase Urine Color (Yellow) Yellow Urine Clarity (Clear) Clear Urine pH (5-8) 6.0 Ur Specific [place] (1.005-1.025) 1.025 Urine Protein (Negative) mg/dL >=300 H Urine Ketones (Negative) mg/dL 80 H Urine Blood (Negative) Moderate H Urine Nitrite (Negative) Negative Urine Bilirubin (Negative) Negative Urine Urobilinogen (Up TO 0.2) EU/dL 0.2 Ur Leukocyte Esterase (Negative) Negative Urine RBC (0-2) HPF 20-50 H Urine WBC (0-5) HPF 0-2 Ur Epithelial Cells (Negative) HPF Few Urine Crystals (Negative) HPF Negative Urine Bacteria (Negative) HPF Negative Urine Casts (Negative) LPF Negative Urine Mucus (Negative) Trace Ur Culture Indicated? No Urine Glucose (Negative) mg/dL >=1000 H COVID-19 Source SARS-CoV-2 (PCR) (Negative) ECG Data Attestation: I personally reviewed and interpreted this ECG (s) as follows: Interpretation: Rate of 110, sinus, Q waves in inferior leads, no stemi. HPI General Mode of arrival: ambulatory . Date/Time Provider Initiated Documentation: 11/30/21 12:53 . Limitations to Documentation: no limitations . Information obtained by: patient . HPI Narrative: Patient is a 56-year-old male with a history of noncompliance, depression, diabetes, hypertension, Crohn's disease, Hodgkin's lymphoma presents for vomitin g and diarrhea. Patient states he has vomited multiple times which has mainly been clear yellow. He states the diarrhea has been loose and brown. He denies any known fever, coughing, chest pain. He states he has intermittent achy abdominal pain that usually occurs with vomiting. He denies any recent known sick contact, antibiotics or other new medications. He states he has not vaccinated for COVID but denies any known exposure to coronavirus. Related Data Home Medications Medication Instructions Recorded Confirmed blood sugar diagnostic #100 each 08/04/19 11/01/21 blood-glucose meter (OneTouch #1 each 08/04/19 11/01/21 Verio Flex meter) lancets (OneTouch UltraSoft #100 each 08/04/19 11/01/21 Lancets) metformin 1,000 mg tablet 1,000 mg PO BID #180 tab 06/06/21 11/30/21 acetaminophen 500 mg tablet 500 mg PO Q6H PRN #60 tab 06/13/21 11/30/21 pen needle, diabetic 33 gauge x #100 ea 07/26/21 11/01/2132 (Easy Comfort Pen [place]) insulin glargine 100 unit/mL (3 10 unit (0.1 mL) SUBCUT QPM #5 syrg 08/16/21 11/30/21 mL) subcutaneous pen (Lantus Solostar U-100 Insulin) glimepiride 4 mg tablet (Amaryl) 4 mg PO QAM #90 tab 11/21/21 11/30/21 lisinopril 2.5 mg tablet 2.5 mg PO DAILY #90 tab-cap 11/21/21 11/30/21 omeprazole magnesium 20 mg 20 mg PO DAILY #90 cap 11/21/21 11/30/21 capsule,delayed release (Acid Station Installer And Repairer (omeprazole)) metoclopramide HCl 10 mg tablet 10 mg PO Q6H PRN #7 tab 11/30/21 (Reglan) Previous Rx's Medication Instructions Recorded blood sugar diagnostic #100 each 08/04/19 blood-glucose meter (OneTouch #1 each 08/04/19 Verio Flex meter) lancets (OneTouch UltraSoft #100 each 08/04/19 Lancets) metformin 1,000 mg tablet 1,000 mg PO BID #180 tab 06/06/21 acetaminophen 500 mg tablet 500 mg PO Q6H PRN #60 tab 06/13/21 pen needle, diabetic 33 gauge x #100 ea 07/26/21 (Easy Comfort Pen [place]) insulin glargine 100 unit/mL (3 10 unit (0.1 mL) SUBCUT QPM #5 syrg 08/16/21 mL) subcutaneous pen (Lantus Solostar U-100 Insulin) glimepiride 4 mg tablet (Amaryl) 4 mg PO QAM #90 tab 11/21/21 lisinopril 2.5 mg tablet 2.5 mg PO DAILY #90 tab-cap 11/21/21 omeprazole magnesium 20 mg 20 mg PO DAILY #90 cap 11/21/21 capsule,delayed release (Acid Station Installer And Repairer (omeprazole)) metoclopramide HCl 10 mg tablet 10 mg PO Q6H PRN #7 tab 11/30/21 (Reglan) Allergies Allergy/AdvReac Type Severity Reaction Status Date / Time Milk Containing Products AdvReac Unknown gi upset Verified 11/30/21 13:19 tramadol AdvReac diarrhea/GI Verified 11/30/21 13:19 General Stated Complaint: Nausea/Vomit/Diar TABITHA: 3 Review of Systems All systems reviewed & are unremarkable except as noted in HPI and below Constitutional Constitutional: Reports as per HPI, Denies chills and Denies fever(s) Eyes Eyes: Denies blurry vision ENT Ears, Nose, Mouth, and Throat: Denies dizziness, Denies sore throat and Denies throat swelling Cardiovascular Cardiovascular: Denies chest pain and Denies dyspnea Respiratory Respiratory: Denies cough and Denies dyspnea Gastrointestinal Gastrointestinal: Reports abdominal pain, Reports diarrhea and Reports vomiting Genitourinary Genitourinary: Denies hematuria and Denies dysuria Musculoskeletal Musculoskeletal: Denies back pain and Denies numbness Integumentary/Breasts Skin/Breast: Denies lesions and Denies rash Neurologic Neurologic: Denies dizziness, Denies localized weakness and Denies numbness Allergic/Immunologic Allergic/Immunologic: Denies throat swelling PFSH All Active Problems (Updated 11/30/21 @ 20:01 by Daphne Tagn DO) Vomiting and diarrhea (Acute) Gastritis (Acute) Bursitis of right shoulder (Acute) SLAP lesion of right shoulder (Acute) Benign hypertension (Acute 12/01/10) Noncompliance with diabetes treatment (Chronic 06/29/15) Pure hypercholesterolemia (Acute 09/13/11) Sensorineural hearing loss (Acute 10/23/13) right ear. Left -complete loss of hearing. Uncontrolled diabetes mellitus due to underlying condition with mild nonproliferative diabetic retinopathy (Acute) Diabetes mellitus type 2 with complications, uncontrolled (Chronic) Substance abuse (Acute) UDS: Cocaine, THC Neuropathy of right upper extremity (Acute) Cubital tunnel syndrome on right (Acute) Carpal tunnel syndrome of right wrist (Acute) Right rotator cuff tear arthropathy (Acute) Drug-seeking behavior (Chronic ~2014) requests opioid pain meds Bilateral carpal tunnel syndrome (Acute) S/P R ECTR: 06/13/2021 Cubital tunnel syndrome, bilateral (Acute) S/P R release: 06/13/2021 Diabetes (Chronic) Biceps tendinopathy (Acute) Medical History (Updated 11/30/21 @ 20:01 by Daphne Tang DO) Abscess, perirectal Acute kidney injury Acute shoulder pain due to trauma Cerumen impaction (01/13/15) Dairy product intolerance (08/22/16) Depressive disorder (09/13/11) Disorder of left rotator cuff (12/01/12) History of Hodgkin's lymphoma no longer recieving treatment last treatment 2009 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 Deann Godoy MD H/O drainage of abscess (~11/21/19) Rotator Cuff Repair Family History Mother Diabetes Essential hypertension Myocardial infarction Social History Smoking/Tobacco Use Status: Current every day Tobacco Type: cigarettes Tobacco: How many years used: 35 Quit status: not considering quitting Smoking risk assessment performed?: Yes Alcohol Intake: former Drug use: Daily Substance use type: marijuana Household members: none Housing: other Details: trailer Number of Children: 1 Communication Needs: Hard of Hearing Do you need help understanding health information?: Often current occupation: disabled Pets and animals: Yes Pets and animals: dog(s) Current gender identity: male What is your relationship status?: don't know How often do you talk on the phone with friends or family?: three or more times per week Panel score (0-1 are the most socially isolated patients): 1 What type of physical activity do you participate in: none Drive intox or ride w/intox 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 Working smoke detector in home: Yes Do you feel safe at home: Yes Additional Social history: lives alone Exam Const General: cooperative and no acute distress Orientation: alert, awake and oriented x3 HENMT Head: normal to inspection Mouth: oral mucosae normal Eyes General: appearance normal, both eyes and all related structures Neck Neck: normal visual inspection Resp Effort & Inspection: normal respiratory effort and able to speak in complete sentences Auscultation: clear to auscultation bilaterally Cardio Rate: tachycardic Rhythm: regular rhythm GI Palpation: soft, not firm, no guarding, not rigid and nontender Skin General skin exam: no rashes or lesions noted Neuro General: patient alert, patient awake and patient oriented x3 Motor: muscle tone normal throughout Extrem General: normal to inspection and full ROM Psych Appearance: grossly normal Affect: normal affect
[2021-11-30 13:14] VITALS: BP 184/92; PULSE 116; RESP 20; TEMP 36.7; O2SAT 98
[2021-11-30] MEDS: Ondansetron 4 MG/2 ML VIAL IVP (13:34)
[2021-11-30] MEDS: Normal Saline 1,000 ML 1000 ML IV ×3 (13:40→17:55)
--- NOTE | 2021-11-30 13:45 | DI.CT_ITS ---
Exam(s) CT CHEST/ABD/PEL W EXAM: CT CHEST/ABD/PEL W CLINICAL HISTORY: vomiting diarrhea, epigastric pain, r/o acute dz TECHNIQUE: CT examination of the chest, abdomen, and pelvis was performed with intravenous infusion of 100 cc of Omnipaque 350. COMPARISON: CT CT ABDOMEN PELVIS W from 04/11/2021 FINDINGS: The lungs are clear. There is no pleural effusion seen. There is no mediastinal or hilar adenopathy. Pulmonary arteries are unremarkable with no evidence of pulmonary embolic disease. Thoracic aorta and major branches appear intact with no evidence of aneurysm or dissection. No bony abnormality seen in the thorax. The Note is made of apparent wall thickening of the esophagus throughout the thoracic region. There may also be mild gastric wall thickening, the findings could indicate esophagitis and/or gastritis. Plea se correlate clinically. The liver is normal appearance. Gallbladder may contain small gallstones, ultrasound correlation sug gested if clinically appropriate. Bile ducts are CT normal. No abnormality seen involving the spleen. Pancreas appears intact. The adrenals are unremarkable in appearance. There is 2 cm in diameter medial right renal cortical mass which measures about 60 Hounsfield units o n this contrast enhanced examination. This is an indeterminate mass and follow-up examination with r enal protocol CT is recommended, with a noncontrast CT followed by [address] im aging. There are small bilateral renal calculi. There is no hydronephrosis ureterolithiasis, or abnormality of urinary bladder. Abdominal aorta and major visceral branches appear intact. No significant abdominal wall hernia seen. No significant abdominal or pelvic adenopathy. No focal bowel pathology. No evidence of appendicitis or diverticulitis. IMPRESSION: Wall thickening is noted involving esophagus and perhaps the stomach as well. Please correlate regar ding the possibility of esophagitis and/or gastritis. Incidental right renal mass identified, renal protocol CT recommended as described above. Incidental Findings RADIATION DOSE DELIVERED: 954.35mGy.cm Total DLP 954.35mGy.cm Total DLP !Error CTDIvol
--- NOTE | 2021-11-30 13:45 | RT.EKG_ITS ---
APPROVED REPORT Exam: Resting ECG Reason for Exam: epigastric pain Patient Location: E HR:110 bpm ECG Measurements Heart Rate 110 AXIS AZ 139 P 77 QRSd 89 QRS 6 QT 336 T 61 QTc 454 Conclusion Sinus tachycardia...rate> 99 Left atrial enlargement...P, P'>60mS, <-0.15mV V1 Inferior infarct, old...Q >35mS, II III aVF. Sinus. Normal axis. STEMI. I have reviewed and interpreted ECG and agree with software generated interpretation.
[2021-11-30 14:00] LABS: Abs Immature Grans 0.17 10^3/uL (0.0-0.06); Absolute Basophil Count 0.02 10^3/uL (0.0-0.2); Absolute Monocyte Count 0.82 10^3/uL (0.1-0.8); Basophils % 0.1; Eosinophils % 0.2; HCT 39.7 % (40.0-50.0); HGB 13.8 g/dL (13.5-17.5); Immature Grans % 0.7; MCH 29.8 pg (27.0-33.0); MCHC 34.8 % (32.0-36.0); MCV 85.7 fL (80-95); MPV 11.5 fL (8.0-11.0); Monocytes % 3.3; Neutrophils % 92.7; Nucleated RBC 0 %; Platelet Count 311 10^3/uL (130-400); RBC 4.63 10^6/uL (4.36-5.78); RDW 11.9 % (11.8-14.1); RDW-SD 36.8 fL
[2021-11-30 14:01] LABS: Absolute Eosinophil Count 0.05 10^3/uL (0.0-0.7); Absolute Lymphocyte Count 0.74 10^3/uL (1.2-3.4)
[2021-11-30 14:07] LABS: Source Nasal/Nares
[2021-11-30 14:19] LABS: Diff Comment Agrees w/ Instrument; RBC Morphology Normal
[2021-11-30 14:28] LABS: ALT 18 U/L (16-63); AST 16 U/L (15-37); Albumin 4.1 g/dL (3.4-5.0); Alkaline Phosphatase 94 U/L (46-116); Anion Gap 18.3 mmol/L (3-11); BUN 36 mg/dL (7-18); Bilirubin, Total 0.8 mg/dL (0.2-1.0); CO2 19.7 mmol/L (21.0-32.0); CREATININE 1.4 mg/dL (0.70-1.30); Calcium 9.7 mg/dL (8.5-10.1); Chloride 97 mmol/L (98-107); Estimated GFR 52.24 (mL/min/1.73m2); Glucose 321 mg/dL (74-106); Lipase 39 U/L (73-393); Magnesium 2.1 mg/dL (1.8-2.4); Potassium 3.7 mmol/L (3.5-5.1); Sodium 135 mmol/L (136-145); Total Protein 8.2 g/dL (6.4-8.2); Troponin I < 50 ng/L (<or=60)
[2021-11-30] MEDS: Famotidine 20 MG/2 ML VIAL IVP (14:40)
[2021-11-30 14:45] LABS: COVID-19 PCR Negative (Negative)
[2021-11-30] MEDS: Omnipaque 350 MG/ML 100 ML BTL IJ (14:52)
[2021-11-30 15:06] LABS: BE (Venous) -3 mmol/L (-2-3); HCO3 (Venous) 21 mmol/L (23-28); O2 Sat (Venous) 93 %; TCO2 (Venous) 19 mmol/L (24-29); pCO2 (Venous) 27 mmHg (41-51); pH (Venous) 7.49 (7.31-7.41); pO2 (Venous) 63 mmHg
[2021-11-30] MEDS: ACETAMINOPHEN 1,000 MG/100 ML BTL 400 MG IVPB (15:10)
[2021-11-30] MEDS: Lidocaine 5% Patch 1 PATCH (15:55)
[2021-11-30 17:06] LABS: Anion Gap 13.7 mmol/L (3-11); BUN 31 mg/dL (7-18); CO2 21.3 mmol/L (21.0-32.0); CREATININE 1.1 mg/dL (0.70-1.30); Calcium 7.9 mg/dL (8.5-10.1); Chloride 102 mmol/L (98-107); Glucose 266 mg/dL (74-106); Potassium 3.6 mmol/L (3.5-5.1); Sodium 137 mmol/L (136-145)
[2021-11-30 17:14] LABS: Bilirubin Negative (Negative); Blood Moderate (Negative); Clarity Clear (Clear); Glucose >=1000 mg/dL (Negative); Ketones 80 mg/dL (Negative); Leukocyte Esterase Negative (Negative); Nitrite Negative (Negative); Specific Gravity 1.025 (1.005-1.025); Urobilinogen 0.2 EU/dL (Up TO 0.2)
[2021-11-30 17:18] VITALS: BP 174/88; PULSE 102; RESP 16; O2SAT 95
[2021-11-30 17:21] LABS: Bacteria Negative HPF (Negative); C & S Indicated? No; Casts Negative LPF (Negative); Crystals Negative HPF (Negative); Epithelial Cells Few HPF (Negative); Mucus Trace (Negative); RBC 20-50 HPF (0-2); WBC 0-2 HPF (0-5)
[2021-11-30] MEDS: Insulin REGULAR-Human 100 UNITS/ML UNIT SC (18:00)
[2021-11-30] MEDS: Metoclopramide 10 MG/2 ML VIAL IVP (19:06)
[2021-11-30 19:18] VITALS: BP 180/91; PULSE 105; RESP 16; TEMP 37.3; O2SAT 96
[2021-11-30 19:56] LABS: Anion Gap 11.9 mmol/L (3-11); BUN 30 mg/dL (7-18); CO2 22.1 mmol/L (21.0-32.0); CREATININE 1.1 mg/dL (0.70-1.30); Calcium 7.8 mg/dL (8.5-10.1); Chloride 104 mmol/L (98-107); Glucose 262 mg/dL (74-106); Potassium 3.5 mmol/L (3.5-5.1); Sodium 138 mmol/L (136-145)
[2021-11-30] MEDS: Metoclopramide 10 MG TAB 30 MG PO (20:15)
[2021-11-30 20:24] VITALS: BP 169/91; PULSE 105; RESP 16; O2SAT 96
== END 2021-11-30 20:25 | disposition home or self-care (01) ==
PROVIDERS: Emergency Provider Physician Assistant; PCP Internal Medicine
DX: R11.10 Vomiting, unspecified (principal); R19.7 Diarrhea, unspecified; I10 Essential (primary) hypertension; E11.9 Type 2 diabetes mellitus without complications; R10.13 Epigastric pain; K29.00 Acute gastritis without bleeding
CPT/HCPCS: 36415; 36416; 74177; 80048; 80053; 82805; 82962; 83690; 87635; 93005; 96361; 96365; 96366; 96368; 96375; 99284; 99285; 71260; 81003; 81015; 83735; 84484; 85025; 93010; J0131; J2405; J2765; J3490

== ENCOUNTER → 2021-12-13 11:10 | Outpatient (BNVA) | payer MEDICARE, MEDICAID, SELFPAY | PROVIDERS: PCP Internal Medicine; Visit Provider Student in an Organized Health Care Education/Training Program | DX: M75.101 Unspecified rotator cuff tear or rupture of right shoulder, not specified as traumatic (principal); M12.811 Other specific arthropathies, not elsewhere classified, right shoulder ==

== ENCOUNTER 2021-12-26 03:42 | Outpatient (CLI) | payer MEDICARE, MEDICAID, SELFPAY ==
--- NOTE | 2021-12-26 06:55 | DI.CT_ITS ---
Exam(s) CT ABDOMEN WO/W EXAM: CT ABDOMEN WO/W CLINICAL HISTORY: renal mass,N29.89 TECHNIQUE: Imaging Protocol: Axial computed tomography images with coronal and sagittal reformatted images were created and reviewed CONTRAST MATERIAL: Intravenous: Omnipaque 350 Contrast volume:100 mL Oral: No COMPARISON: CT CT CHEST/ABD/PEL W from 11/30/2021 FINDINGS: The examination is limited due to patient motion artifact. ABDOMEN: Lung Bases: Normal where visualized. Liver: Normal density. No measurable mass. Portal, Superior Mesenteric, and Splenic Veins: Unremarkable. Gallbladder and Biliary Tract: Gallstones are present. Pancreas: Normal density, no abnormal calcifications or inflammatory process. Spleen: Normal. Adrenals: No masses seen. Kidneys: Normal size, contour and axis. There is a 2 mm stone in the upper pole of the left kidney. There is again seen a 2 x 2 cm lesion in the medial aspect of the midpole of the right kidney. Houns field units on the noncontrast examination are 22. Venous phase Hounsfield units are 56. On the del ayed images, Hounsfield units are 41. Abdominal Aorta: Abdominal portion non-dilated. Atherosclerosis. Bowel: No obstruction or bowel wall thickening. Peritoneal Cavity: No ascites, collection or mesenteric inflammatory response. No free air. Lymph Nodes: Within normal limits. Bones: Within normal limits for the patient's age. Soft Tissues: Unremarkable. IMPRESSION: 1. 2 cm right renal mass. The findings on this exam raise a question of a solid right renal mass suc h as a renal cell carcinoma. 2. Cholelithiasis. No biliary ductal dilatation. RADIATION DOSE DELIVERED: 1,356.56mGy.cm Total DLP DATA REPOSITORY: All CT scans at this facility are submitted to the National Radiology Data Registry (NRDR) Dose Index Registry (DIR) with the [employer] (A[employer]). RADIATION OPTIMIZATION: All CT scans at this facility use at least one of these dose optimization te chniques: automated exposure control; mA and/or kV adjustment per patient size (includes targeted exa ms where dose is matched to clinical indication); or iterative reconstruction.
[2021-12-26] MEDS: Omnipaque 350 MG/ML 100 ML BTL IJ (09:07)
[2021-12-26] MEDS: Normal Saline Flush 10 ML SYR IVP (09:08)
== END 2021-12-26 04:02 ==
PROVIDERS: PCP Internal Medicine; Visit Provider Internal Medicine
DX: N28.89 Other specified disorders of kidney and ureter (principal); K80.20 Calculus of gallbladder without cholecystitis without obstruction; N20.0 Calculus of kidney
CPT/HCPCS: 74170; J3490

== ENCOUNTER → 2022-02-13 10:37 | Outpatient (BNVA) | payer MEDICARE, MEDICAID, SELFPAY | PROVIDERS: PCP Internal Medicine; Referring Provider Internal Medicine; Visit Provider Student in an Organized Health Care Education/Training Program | DX: M75.101 Unspecified rotator cuff tear or rupture of right shoulder, not specified as traumatic (principal); M12.811 Other specific arthropathies, not elsewhere classified, right shoulder | CPT/HCPCS: 99213 ==

== ENCOUNTER 2022-03-07 02:18 | Outpatient (CLI) | payer MEDICARE, MEDICAID, SELFPAY ==
[2022-03-07 16:20] LABS: Anion Gap 11.6 mmol/L (3-11); BUN 31 mg/dL (7-18); CO2 21.4 mmol/L (21.0-32.0); CREATININE 1.3 mg/dL (0.70-1.30); Calcium 9.3 mg/dL (8.5-10.1); Chloride 110 mmol/L (98-107); Glucose 104 mg/dL (74-106); Potassium 5.8 mmol/L (3.5-5.1); Sodium 143 mmol/L (136-145)
== END 2022-03-07 02:19 | disposition home or self-care (01) ==
LOC: LBO 02:19
PROVIDERS: Nurse Practitioner Adult Health; PCP Internal Medicine; Visit Provider Internal Medicine
DX: E87.5 Hyperkalemia (principal)
CPT/HCPCS: 36415; 80048

== ENCOUNTER 2022-03-12 02:57 | Outpatient (CLI) | payer MEDICARE, MEDICAID, SELFPAY ==
[2022-03-12 09:37] LABS: Anion Gap 7.5 mmol/L (3-11); BUN 23 mg/dL (7-18); CO2 26.5 mmol/L (21.0-32.0); CREATININE 1.3 mg/dL (0.70-1.30); Calcium 9.1 mg/dL (8.5-10.1); Chloride 105 mmol/L (98-107); Glucose 162 mg/dL (74-106); Potassium 5.3 mmol/L (3.5-5.1); Sodium 139 mmol/L (136-145)
== END 2022-03-12 02:58 | disposition home or self-care (01) ==
LOC: LBO 02:57
PROVIDERS: PCP Internal Medicine; Visit Provider Nurse Practitioner Adult Health
DX: E87.5 Hyperkalemia (principal)
CPT/HCPCS: 36415; 80048

== ENCOUNTER 2022-03-21 01:55 | Outpatient (CLI) | payer MEDICARE, MEDICAID, SELFPAY ==
[2022-03-21 11:08] LABS: Anion Gap 8.2 mmol/L (3-11); BUN 34 mg/dL (7-18); CO2 23.8 mmol/L (21.0-32.0); CREATININE 1.3 mg/dL (0.70-1.30); Calcium 8.6 mg/dL (8.5-10.1); Chloride 105 mmol/L (98-107); Glucose 249 mg/dL (74-106); Potassium 5.4 mmol/L (3.5-5.1); Sodium 137 mmol/L (136-145)
== END 2022-03-21 01:56 | disposition home or self-care (01) ==
LOC: LBO 01:55
PROVIDERS: PCP Internal Medicine; Visit Provider Internal Medicine
DX: E87.5 Hyperkalemia (principal)
CPT/HCPCS: 36415; 80048

== ENCOUNTER → 2022-03-22 01:53 | Outpatient (CLI) | payer MEDICARE, MEDICAID, SELFPAY ==
--- NOTE | 2022-03-22 07:15 | DI.MRI_ITS ---
Exam(s) MR UPPER JOINT RT WO EXAM: MR UPPER JOINT RT WO CLINICAL HISTORY: R SHOULDER PAIN,NEUROPATHY,BICEPS TENDINOPATHY,RT RTC ARTHROPATHY,M12.811. TECHNIQUE: Multiplanar multisequence MRI was performed. COMPARISON: MR MR UPPER JOINT RT WO from 02/28/2021 FINDINGS: The examination is limited due to patient motion artifact. BONES: There is no fracture or contusion pattern. There are findings of a prior rotator cuff repair. JOINTS: The acromioclavicular joint is normal. The humeral head appears superiorly place relative to the glenoid. There is narrowing of the acromial humeral interval. TENDONS: Supraspinatus: Unremarkable. Infraspinatus: Unremarkable. Subscapularis: There is tendinosis of the subscapularis tendon. Teres [place]: Unremarkable. Biceps and [place]: Unremarkable. MUSCLES: There is atrophy of the supraspinatus and infraspinatus muscles. GLENOID LABRUM: Unremarkable on this noncontrast examination. SOFT TISSUES: Unremarkable. LIGAMENTS: Unremarkable. OTHER: Subacromial and subdeltoid bursae are unremarkable. IMPRESSION: 1. No definite evidence of a re-tear of the rotator cuff. 2. Postsurgical changes of a prior rotator cuff repair. 3. Subscapularis tendinosis. 4. Atrophy of the supraspinatus and infraspinatus muscles. DATA REPOSITORY:
== END ==
PROVIDERS: PCP Internal Medicine; Visit Provider Student in an Organized Health Care Education/Training Program
DX: M62.511 Muscle wasting and atrophy, not elsewhere classified, right shoulder (principal); M67.921 Unspecified disorder of synovium and tendon, right upper arm; G56.91 Unspecified mononeuropathy of right upper limb; M12.811 Other specific arthropathies, not elsewhere classified, right shoulder; Z98.890 Other specified postprocedural states
CPT/HCPCS: 73221

== ENCOUNTER → 2022-03-27 10:10 | Outpatient (BNVA) | payer MEDICARE, MEDICAID, SELFPAY | PROVIDERS: PCP Internal Medicine; Referring Provider Internal Medicine; Visit Provider Student in an Organized Health Care Education/Training Program | DX: M75.101 Unspecified rotator cuff tear or rupture of right shoulder, not specified as traumatic (principal); M12.811 Other specific arthropathies, not elsewhere classified, right shoulder | CPT/HCPCS: 99214 ==

== ENCOUNTER 2022-06-22 02:12 | Outpatient (CLI) | payer MEDICARE, MEDICAID, SELFPAY ==
[2022-06-22 13:46] LABS: Anion Gap 7.2 mmol/L (3-11); BUN 23 mg/dL (7-18); CO2 26.8 mmol/L (21.0-32.0); CREATININE 1.4 mg/dL (0.70-1.30); Calcium 9.3 mg/dL (8.5-10.1); Chloride 108 mmol/L (98-107); Estimated GFR 58.26 (mL/min/1.73m2); Glucose 153 mg/dL (74-106); Potassium 5.7 mmol/L (3.5-5.1); Sodium 142 mmol/L (136-145)
== END 2022-06-22 02:13 | disposition home or self-care (01) ==
LOC: LBO 02:12
PROVIDERS: PCP Nurse Practitioner Adult Health; Visit Provider Nurse Practitioner Adult Health
DX: E87.5 Hyperkalemia (principal)
CPT/HCPCS: 36415; 80048

== ENCOUNTER 2022-06-28 02:30 | Outpatient (CLI) | payer MEDICARE, MEDICAID, SELFPAY ==
[2022-06-28 16:32] LABS: Anion Gap 10.2 mmol/L (3-11); BUN 25 mg/dL (7-18); CO2 25.8 mmol/L (21.0-32.0); CREATININE 1.4 mg/dL (0.70-1.30); Calcium 9.2 mg/dL (8.5-10.1); Chloride 106 mmol/L (98-107); Estimated GFR 58.26 (mL/min/1.73m2); Glucose 163 mg/dL (74-106); Potassium 5.3 mmol/L (3.5-5.1); Sodium 142 mmol/L (136-145)
== END 2022-06-28 02:31 | disposition home or self-care (01) ==
LOC: LBO 02:30
PROVIDERS: PCP Nurse Practitioner Adult Health; Visit Provider Nurse Practitioner Adult Health
DX: E87.5 Hyperkalemia (principal)
CPT/HCPCS: 36415; 80048

== ENCOUNTER 2022-07-18 03:37 | Outpatient (CLI) | payer MEDICARE, MEDICAID, SELFPAY ==
[2022-07-18 15:01] LABS: Anion Gap 6.8 mmol/L (3-11); BUN 26 mg/dL (7-18); CO2 23.2 mmol/L (21.0-32.0); CREATININE 1.3 mg/dL (0.70-1.30); Calcium 9.3 mg/dL (8.5-10.1); Chloride 109 mmol/L (98-107); Estimated GFR 63.68 (mL/min/1.73m2); Glucose 105 mg/dL (74-106); Potassium 5.2 mmol/L (3.5-5.1); Sodium 139 mmol/L (136-145)
== END 2022-07-18 03:38 | disposition home or self-care (01) ==
LOC: LBO 03:37
PROVIDERS: PCP Nurse Practitioner Adult Health; Visit Provider Nurse Practitioner Adult Health
DX: E87.5 Hyperkalemia (principal); E11.319 Type 2 diabetes mellitus with unspecified diabetic retinopathy without macular edema; Z79.4 Long term (current) use of insulin
CPT/HCPCS: 36415; 80048; 83036

== ENCOUNTER 2022-09-12 01:44 | Outpatient (CLI) | payer MEDICARE, MEDICAID, SELFPAY ==
[2022-09-12 10:26] LABS: Hemoglobin A1C 7.4 % (<5.7)
[2022-09-12 10:55] LABS: BUN 24 mg/dL (7-18); CREATININE 1.4 mg/dL (0.70-1.30); Calculated LDL 54 mg/dL (<100); Chloride 105 mmol/L (98-107); Cholesterol 123 mg/dL (<200); Estimated GFR 58.26 (mL/min/1.73m2); Glucose 195 mg/dL (74-106); HDL Cholesterol 51 mg/dL (40-60); Potassium 4.2 mmol/L (3.5-5.1); Sodium 142 mmol/L (136-145); Triglyceride 91 mg/dL (<150)
[2022-09-12 10:57] LABS: COMMENT (LAB VIEW ONLY) 103.37 mg/dL
== END 2022-09-12 01:45 | disposition home or self-care (01) ==
LOC: LBO 01:44
PROVIDERS: PCP Nurse Practitioner Adult Health; Visit Provider Nurse Practitioner Adult Health
DX: E78.00 Pure hypercholesterolemia, unspecified (principal); I10 Essential (primary) hypertension; E11.319 Type 2 diabetes mellitus with unspecified diabetic retinopathy without macular edema; Z79.4 Long term (current) use of insulin
CPT/HCPCS: 36415; 80048; 80061; 82043; 82570; 83036

== ENCOUNTER 2023-01-04 16:46 | Inpatient (IN) | payer MEDICARE, MEDICAID, SELFPAY ==
[2023-01-04 16:53] VITALS: BP 139/63; PULSE 90; RESP 16; TEMP 36.6
--- NOTE | 2023-01-04 16:57 | W.ED.GENAD ---
Discharge Plan Disposition Patient Disposition: Admit to [facility] Condition: Stable Discharge Details Clinical Impression: Closed hip fracture requiring operative repair Primary Care Provider: Polly Hinkle ED Provider: Keagan Zaragoza [place] Meds and New Rx's Prescriptions: No Action atorvastatin 20 mg tablet 20 mg PO DAILY Qty: 90 3RF glimepiride [Amaryl] 4 mg tablet 4 mg PO QAM Qty: 90 3RF Rx Instructions: administer with breakfast insulin glargine [Lantus Solostar U-100 Insulin] 100 unit/mL (3 mL) insulin pen 14 unit subcut QPM Qty: 5 3RF omeprazole magnesium [Acid [employer] (omeprazole)] 20 mg capsule,delayed release(DR/EC) 20 mg PO DAILY Qty: 90 3RF Hold Instructions: Home Medication placed on hold at Doctor's office (DME) blood-glucose meter [OneTouch Verio Flex meter] [facility] [place] See Rx Instructions .ROUTE .MEDSUPPLY Qty: 1 0RF Rx Instructions: Dispense one kit to check BS to identify BS to manage hyperglycemia and decrease A1c to 8 or below (DME) blood sugar diagnostic Strip See Rx Instructions .ROUTE .MEDSUPPLY Qty: 100 3RF Rx Instructions: Dispense strips for Verio meter to check blood glucose daily (DME) lancets [OneTouch UltraSoft Lancets] [facility] [place] See Rx Instructions .ROUTE .MEDSUPPLY Qty: 100 3RF Rx Instructions: To check BS once daily (DME) pen needle, diabetic [BD Ultra-Fine Ellie Pen Needle] 32 gauge x 5/32 needle See Rx Instructions .ROUTE .COMPLEX Qty: 100 4RF Dose Instruction: USE EVERY EVENING WITH INSULIN PEN GOAL A1C LESS THAN 8 Rx Instructions: USE EVERY EVENING WITH INSULIN PEN GOAL A1C LESS THAN 8 metformin 500 mg tablet extended release 24 hr See Rx Instructions .ROUTE .COMPLEX Qty: 180 3RF Dose Instruction: TAKE ONE TABLET BY MOUTH TWICE A DAY Rx Instructions: TAKE ONE TABLET BY MOUTH TWICE A DAY Medical Decision Making Patient presenting to ED status post fall with right hip pain. Denies other injury. Exam unremarkable other than right hip pain and no range of motion. Spine is nontender. Chest wall nontender. He is neurovascularly intact. IV is in place and he has received fentanyl prehospital. Will dose with Dilaudid as needed to obtain imaging. We will send basic labs. Patient per my read has a right into troches fracture with no displacement. Femur otherwise intact. 1 view chest x-ray obtained and unremarkable per my read. Discussed with orthopedics. Patient will be admitted to orthopedic service for repair tomorrow. He is to be kept n.p.o. Patient's laboratory studies with slightly elevated white count and slight anemia. He has some elevation of his BUN and creatinine, seems to vary compared to previous labs and may be related to hydration status. Liver function normal. Lab Data Lab results reviewed: Yes I reviewed the patient's lab results. ECG Data Attestation: I personally reviewed and interpreted this ECG (s) as follows: Interpretation: see EKG HPI General Mode of arrival: EMS. Date/Time Provider Initiated Documentation: 01/04/23 16:57. Limitations to Documentation: no limitations. Information obtained by: patient and EMS. HPI Narrative: Patient presents to ED with right leg pain status post fall. Patient was using a breaker bar to try to get lug nuts off a wheel. He fell onto his right side and injured his hip. He was unable to stand or even roll over onto his back. He denies hitting his head. He denies neck pain, chest pain, shortness of breath, back pain. He has received a total of 100 mcg of fentanyl for pain control. He is most comfortable lying on his left side. He is able to move his toes and foot on the right. Related Data Home Medications Medication Instructions Recorded Confirmed pen needle, diabetic 32 gauge x #100 ea 08/06/22 12/19/22 (BD Ultra-Fine Ellie Pen Needle) metformin 500 mg tablet,extended See Rx Instructions .Route 10/24/22 12/19/22 release 24 hr .COMPLEX #180 tabs atorvastatin 20 mg tablet 20 mg PO DAILY #90 tabs 12/19/22 12/19/22 blood sugar diagnostic #100 ea 12/19/22 12/19/22 blood-glucose meter (OneTouch #1 ea 12/19/22 12/19/22 Verio Flex Meter) glimepiride 4 mg tablet (Amaryl) 4 mg PO QAM #90 tabs 12/19/22 12/19/22 insulin glargine 100 unit/mL (3 14 unit (0.14 mL) subcut QPM #5 12/19/22 12/19/22 mL) subcutaneous pen (Lantus SYRGS Solostar U-100 Insulin) lancets (OneTouch UltraSoft #100 ea 12/19/22 12/19/22 Lancets) omeprazole magnesium 20 mg 20 mg PO DAILY #90 caps 12/19/22 12/19/22 capsule,delayed release (Acid [employer] (omeprazole)) Previous Rx's Medication Instructions Recorded pen needle, diabetic 32 gauge x #100 ea 08/06/22 (BD Ultra-Fine Ellie Pen Needle) metformin 500 mg tablet,extended See Rx Instructions .Route 10/24/22 release 24 hr .COMPLEX #180 tabs atorvastatin 20 mg tablet 20 mg PO DAILY #90 tabs 12/19/22 blood sugar diagnostic #100 ea 12/19/22 blood-glucose meter (OneTouch #1 ea 12/19/22 Verio Flex Meter) glimepiride 4 mg tablet (Amaryl) 4 mg PO QAM #90 tabs 12/19/22 insulin glargine 100 unit/mL (3 14 unit (0.14 mL) subcut QPM #5 12/19/22 mL) subcutaneous pen (Lantus SYRGS Solostar U-100 Insulin) lancets (OneTouch UltraSoft #100 ea 12/19/22 Lancets) omeprazole magnesium 20 mg 20 mg PO DAILY #90 caps 12/19/22 capsule,delayed release (Acid [employer] (omeprazole)) Allergies Allergy/AdvReac Type Severity Reaction Status Date / Time Milk Containing Products AdvReac Unknown gi upset Verified 12/19/22 13:05 tramadol AdvReac diarrhea/GI Verified 12/19/22 13:05 General TABITHA: 3 Review of Systems Narrative: Per HPI PFSH All Active Problems Closed hip fracture requiring operative repair (Acute) Left hip pain (Acute) (L) hip tendonitis on MRI Disorder of left rotator cuff (Acute 12/01/12) Biceps tendinopathy (Acute) Bursitis of right shoulder (Acute) Dairy product intolerance (Acute 08/22/16) Cubital tunnel syndrome on right (Acute) Carpal tunnel syndrome of right wrist (Acute) Diabetes type 2, controlled (Chronic) CKD (chronic kidney disease) stage 3, GFR 30-59 ml/min (Chronic ~04/2022) Renal cancer (Chronic ~04/2022) [id number], 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 Left -complete loss of hearing. 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 Deann Godoy MD Cubital tunnel syndrome, bilateral S/P R release: 06/13/2021 H/O drainage of abscess (~11/21/19) H/O partial nephrectomy (04/27/22) Right. [facility] [place] Rotator Cuff Repair Family History Mother Diabetes Essential hypertension Myocardial infarction Social History Smoking/Tobacco Use Status: Current every day Tobacco Type: cigarettes Tobacco: How many years used: 35 Quit status: not considering quitting Smoking risk assessment performed?: Yes Alcohol Intake: former Drug use: Daily Substance use type: marijuana Household members: none Housing: other Details: trailer Number of Children: 1 Communication Needs: Hard of Hearing Do you need help understanding health information?: Often current occupation: disabled Pets and animals: Yes Pets and animals: dog(s) Current gender identity: male What is your relationship status?: don't know How often do you talk on the phone with friends or family?: three or more times per week Panel score (0-1 are the most socially isolated patients): 1 What type of physical activity do you participate in: none Drive intox or ride w/intox motorcoach driver: No Working smoke detector in home: Yes Do you feel safe at home: Yes Additional Social history: lives alone Exam Narrative Exam Narrative: Const: WDWN male in NAD. HEENT: NC/AT. Normal facial exam. Neck: Supple. Trachea midline. No cervical spine tenderness. Lungs: Normal respiratory effort. Lungs are clear. No chest wall tenderness. Cor: RRR without murmur/gallop. Good distal pulses. GI: Soft. NT/ND. No guarding or rebound. Back: No TLS spine tenderness. Neuro: A+O x 3. Normal speech, mentation. Cranial nerves II - XII grossly intact. No gross motor or sensory deficit. Ext: No C/C/E. Unable to range right hip at all. Pelvis stable. Neurovascular intact distally. Skin: Warm and dry without laceration.
--- NOTE | 2023-01-04 17:00 | DI.RAD_ITS ---
Exam(s) XR FEMUR RT EXAM: XR FEMUR RT CLINICAL HISTORY: trauma. TECHNIQUE: 2D digital imaging was performed. COMPARISON: No exams were available for comparison FINDINGS: Two views: AP and lateral There is an intertrochanteric fracture of the right hip without significant displacement although the re is also fracture line at the base of the lesser trochanter evident. There are no fracture lines e xtending into the subtrochanteric region and the remainder of the femur appears intact below the hip level. Moderate degenerative changes are noted in the knee. Vascular calcification noted in the fem oral artery. IMPRESSION: Intertrochanteric fracture of the right hip. DATA REPOSITORY: RADIATION DOSE DELIVERED:
--- NOTE | 2023-01-04 17:00 | DI.RAD_ITS ---
Exam(s) XR HIP RT COMPLETE AP PELVIS EXAM: XR HIP RT COMPLETE AP PELVIS CLINICAL HISTORY: trauma. TECHNIQUE: 2D digital imaging was performed. COMPARISON: No exams were available for comparison FINDINGS: 3 views There is an intertrochanteric fracture of the right hip, nondisplaced. No other pelvic fractures. L eft hip unremarkable. No hip joint space narrowing. IMPRESSION: Intertrochanteric fracture of the right hip. DATA REPOSITORY: RADIATION DOSE DELIVERED:
[2023-01-04] MEDS: Normal Saline 1,000 ML 150 ML IV (17:10)
[2023-01-04] MEDS: HYDROmorphone 2 MG/ML SYR 0.5 MG IVP ×2 (17:11→17:54)
--- NOTE | 2023-01-04 17:30 | DI.RAD_ITS ---
Exam(s) XR CHEST 1V IN DI DEPT EXAM: XR CHEST 1V IN DI DEPT CLINICAL HISTORY: pre op for hip. TECHNIQUE: 2D digital imaging was performed. COMPARISON: CR XR CHEST 2V PA LATERAL from 01/02/2021 FINDINGS: Single AP portable view. Heart size is upper normal. The mediastinum is not widened. Lungs are clear. No infiltrates nor obvious pleural effusions. IMPRESSION: No acute pulmonary findings on this single AP portable view of the chest. DATA REPOSITORY: RADIATION DOSE DELIVERED:
--- NOTE | 2023-01-04 17:56 | DI.VRAD_ITS ---
PROCEDURE INFORMATION: Exam: XR Chest Exam date and time: 01/04/2023 5:40 PM Age: 57 years old Clinical indication: Other: Preop due to hip TECHNIQUE: Imaging protocol: Radiologic exam of the chest. Views: 1 view. COMPARISON: CT CHEST/ABD/PEL W 11/30/2021 2:52 PM FINDINGS: Lungs: Unremarkable. No consolidation. Pleural spaces: Unremarkable. No pleural effusion. No pneumothorax. Heart/Mediastinum: Unremarkable. No cardiomegaly. Bones/joints: Unremarkable. IMPRESSION: No acute findings. Dictated and Authenticated by: Bartolo Yin MD. Ordering:RENAN Boogie MD
--- NOTE | 2023-01-04 17:58 | DI.VRAD_ITS ---
PROCEDURE INFORMATION: Exam: XR Right Femur Exam date and time: 01/04/2023 5:28 PM Age: 57 years old Clinical indication: Other: Trauma fall TECHNIQUE: Imaging protocol: Radiologic exam of the right femur. Views: 2 views. AP and cross-table lateral images right femur. COMPARISON: CR XR HIP RT COMPLETE AP PELVIS 01/04/2023 5:25 PM FINDINGS: Bones/joints: Appropriate bony mineralization. Nondisplaced intertrochanteric fracture. No dislocation. Moderate knee joint space narrowing. Small to moderate size osteophytes especially in the lateral compartment. Soft tissues: Soft tissue edema of the hip fracture. IMPRESSION: 1. Nondisplaced right intertrochanteric femur fracture. 2. Moderate tricompartmental right knee osteoarthritis. Dictated and Authenticated by: Bartolo Yin MD. Ordering:RENAN Boogie MD
--- NOTE | 2023-01-04 17:59 | DI.VRAD_ITS ---
PROCEDURE INFORMATION: Exam: XR Right Hip Exam date and time: 01/04/2023 5:25 PM Age: 57 years old Clinical indication: Other: Trauma fall TECHNIQUE: Imaging protocol: Radiologic exam of the right hip. Views: 2 or 3 views hip with pelvis when performed. COMPARISON: CT CHEST/ABD/PEL W 11/30/2021 2:52 PM FINDINGS: Bones/joints: Mild bony demineralization. Nondisplaced intertrochanteric fracture. No hip dislocation. Mild bilateral hip joint space narrowing. Soft tissues: Soft tissue edema of the intertrochanteric fracture. Vascular calcifications extend into the lower extremities. IMPRESSION: Nondisplaced right hip intertrochanteric fracture. Dictated and Authenticated by: Bartolo Yin MD. Ordering:RENAN Boogie MD
--- NOTE | 2023-01-04 18:15 | RT.EKG_ITS ---
APPROVED REPORT Exam: Resting ECG Reason for Exam: pre op Patient Location: E HR:82 bpm ECG Measurements Heart Rate 82 AXIS MS 166 P 79 QRSd 141 QRS -68 QT 425 T 91 QTc 497 Conclusion Sinus rhythm...normal P axis, V-rate 60- 99 Probable left atrial enlargement...P >50mS, <-0.10mV V1 Left bundle branch block...QRSd>120, broad/notched R ST elevation secondary to IVCD...Multiple VCG criteria I have reviewed and interpreted ECG and agree with software generated interpretation. LBBB is new compared to prior EKG performed on 11/30/2021 at 14:02.
[2023-01-04 18:22] LABS: HCT 33.1 % (40.0-50.0); MCH 28.6 pg (27.0-33.0); MCHC 33.2 % (32.0-36.0); MCV 86 fL (80-95); MPV 11.4 fL (8.0-11.0); Platelet Count 191 10^3/uL (130-400); RBC 3.84 10^6/uL (4.36-5.78); RDW 12.7 % (11.8-14.1); RDW-SD 39.8 fL; WBC 11.42 10^3/uL (4.4-10.8)
[2023-01-04] MEDS: oxyCODONE 5 MG TAB PO ×2 (18:42→21:54)
[2023-01-04] MEDS: Ketorolac 15 MG/ML VIAL IVP (18:44)
[2023-01-04 18:50] LABS: ALT 20 U/L (16-63); AST 23 U/L (15-37); Albumin 3.4 g/dL (3.4-5.0); Alkaline Phosphatase 92 U/L (46-116); Anion Gap 6.2 mmol/L (3-11); BUN 24 mg/dL (7-18); Bilirubin, Total 0.3 mg/dL (0.2-1.0); CO2 25.8 mmol/L (21.0-32.0); CREATININE 1.7 mg/dL (0.70-1.30); Calcium 8.6 mg/dL (8.5-10.1); Chloride 106 mmol/L (98-107); Estimated GFR 46.15 (mL/min/1.73m2); Glucose 211 mg/dL (74-106); Potassium 4.6 mmol/L (3.5-5.1); Sodium 138 mmol/L (136-145); Total Protein 6.6 g/dL (6.4-8.2)
[2023-01-04 18:55] VITALS: BP 140/99; PULSE 90; RESP 18; TEMP 36.8; O2SAT 98
--- NOTE | 2023-01-04 19:12 | NUR.NOTE ---
Nursing Note: Hand off report to Leonel.
[2023-01-04 19:37] LABS: Source Nasal/Nares
[2023-01-04 20:20] LABS: COVID-19 PCR Negative (Negative)
[2023-01-04 20:40] VITALS: BP 144/73; PULSE 71; RESP 18; TEMP 36.8; O2SAT 95
[2023-01-04 20:41] VITALS: BP 144/78; PULSE 71; RESP 18; TEMP 36.8; O2SAT 95
[2023-01-04] MEDS: Insulin Glargine 300 UNITS/3 ML PEN SC (21:30)
[2023-01-05] VITALS (14 sets, daily range): BP systolic 84–160; BP diastolic 49–81; PULSE 74–83; RESP 16–19; TEMP 36.1–37.6; O2SAT 94–99; BMI 25.6
[2023-01-05] MEDS: Ketorolac 15 MG/ML VIAL IVP ×4 (01:32→18:33)
--- NOTE | 2023-01-05 04:20 | ANES.PREOP_ITS ---
General Info Date of Service Date Performed: 01/05/23 Height: 5 ft 8 in Weight: 76.4 kg Body Mass Index (BMI): 25.6 Meds Allergies and Home Medications Allergies Allergy/AdvReac Type Severity Reaction Status Date / Time Milk Containing Products AdvReac Unknown gi upset Verified 01/04/23 20:12 tramadol AdvReac diarrhea/GI Verified 01/04/23 20:12 Home Medication Medication Instructions Recorded pen needle, diabetic 32 gauge x #100 ea 08/06/22 (BD Ultra-Fine Ellie Pen Needle) metformin 500 mg tablet,extended See Rx Instructions .Route 10/24/22 release 24 hr .COMPLEX #180 tabs atorvastatin 20 mg tablet 20 mg PO DAILY #90 tabs 12/19/22 blood sugar diagnostic #100 ea 12/19/22 blood-glucose meter (ShopventoryTouch #1 ea 12/19/22 Verio Flex Meter) glimepiride 4 mg tablet (Amaryl) 4 mg PO QAM #90 tabs 12/19/22 insulin glargine 100 unit/mL (3 14 unit (0.14 mL) subcut QPM #5 12/19/22 mL) subcutaneous pen (Lantus SYRGS Solostar U-100 Insulin) lancets (OneTouch UltraSoft #100 ea 12/19/22 Lancets) omeprazole magnesium 20 mg 20 mg PO DAILY #90 caps 12/19/22 capsule,delayed release (Acid Astronomy Teacher (omeprazole)) Current Visit Medications: Current Medications Generic Name Dose Route Start Last Admin Trade Name Freq PRN Reason Stop Dose Admin Atorvastatin Calcium 20 mg 01/05/23 08:30 Atorvastatin 20 Mg Tab PO DAILY CHARAN Dextrose 0 gm 01/04/23 18:26 Glucose Oral Gel 15 Gm/37.5 Gm Tube PO DIRECTED PRN Dextrose/Water 0 gm 01/04/23 18:26 Dextrose 50%-Water 25 Gm/50 Ml Syr IVP DIRECTED PRN Glimepiride 4 mg 01/05/23 08:30 Glimepiride 1 Mg Tab PO QAM CHARAN Hydromorphone HCl 1 mg 01/04/23 18:34 Hydromorphone 2 Mg/Ml Syr IVP Q4H PRN PRN Sodium Chloride 500 mls @ 0 mls/hr 01/04/23 17:02 Saline 500ml Bag IV PRN PRN As Directed Sodium Chloride/ Sodium 1,000 mls @ 80 mls/hr 01/05/23 00:15 01/04/23 18:48 Chloride IV 80 mls/hr INFUSION CHARAN Administration Ondansetron HCl 4 mg/ Sodium 52 mls @ 200 mls/hr 01/04/23 18:26 Chloride IVPB Q6H PRN PRN IV Miscellaneous Supplies 1 each 01/04/23 17:15 Iv Access IV DIRECTED [facility] Insulin Aspart 0 units 01/05/23 08:00 Insulin Aspart 300 Units/3 Ml Pen SC 0800,1200,1700 [facility] Protocol Insulin Glargine 0 units 01/04/23 22:00 01/04/23 21:30 Insulin Glargine 300 Units/3 Ml Pen SC 14 unit HS CHARAN Administration Ketorolac Tromethamine 15 mg 01/04/23 19:00 01/05/23 01:32 Ketorolac 15 Mg/Ml Vial IVP 01/09/23 18:59 15 mg Q6H CHARAN Administration Metformin HCl 500 mg 01/05/23 07:00 Metformin C.R. 500 Mg Tabcr PO BID [facility] Omeprazole 20 mg 01/05/23 08:30 Omeprazole 20 Mg Capcr PO DAILY [facility] Oxycodone HCl 5 mg 01/04/23 18:26 01/04/23 21:54 Oxycodone 5 Mg Tab PO 5 mg Q3H PRN PRN Administration Pain Sodium Chloride 0 ml 01/04/23 17:02 Normal Saline Flush 10 Ml Syr IVP PRN PRN PFSH Active Problems Active Problems: Problem Status Onset Code Closed hip fracture requiring operative repair S72.009A Left hip pain M25.552 Disorder of left rotator cuff 12/01/12 M67.912 Biceps tendinopathy M67.929 Bursitis of right shoulder M75.51 Dairy product intolerance 08/22/16 K90.9 Cubital tunnel syndrome on right G56.21 Carpal tunnel syndrome of right wrist G56.01 Diabetes type 2, controlled E11.9 CKD (chronic kidney disease) stage 3, GFR 30-59 ml/min ~04/2022 N18.30 Hyperkalemia ~02/2022 E87.5 Renal cancer ~04/2022 C64.9 Diabetes mellitus with retinopathy of both eyes, with long-term current use of insulin E11.319, Z79.4 Benign hypertension 12/01/10 I10 Pure hypercholesterolemia 09/13/11 E78.00 Sensorineural hearing loss 10/23/13 H90.5 Substance abuse F19.10 Drug-seeking behavior ~2014 Z76.5 Medical History Medical History Depressive disorder (09/13/11) Diabetes mellitus type 2 with complications, uncontrolled Gastritis History of Hodgkin's lymphoma no longer recieving treatment last treatment 2009 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 Deann Godoy MD Cubital tunnel syndrome, bilateral S/P R release: 06/13/2021 H/O drainage of abscess (~11/21/19) H/O partial nephrectomy (04/27/22) Right. [facility] [place] Rotator Cuff Repair Tobacco Smoking/Tobacco Use Status: Current every day Tobacco Type: cigarettes Alcohol Alcohol Intake: former Substance Use Substance use: Daily Substance use type: marijuana Vital Signs and Lab Results Vital Signs Most Recent Vital Signs in EMR: Most Recent Vital Signs Temp Pulse Resp BP Pulse Ox 36.8 C 71 18 144/78 H 95 01/04/23 20:41 01/04/23 20:41 01/04/23 20:41 01/04/23 20:41 01/04/23 20:41 Point of Care Results Point of Care Results: Finger Stick Blood Glucose 169 01/04/23 21:30 Lab Results 01/04/23 18:15 01/04/23 18:15 Blood Type / Crossmatch: Patient ABO/Rh A Positive 01/04/23 Antibody Screen NEGATIVE 01/04/23 Complete Blood Count: White Blood Count 11.42 10^3/uL (4.4-10.8) H 01/04/23 18:15 Red Blood Count 3.84 10^6/uL (4.36-5.78) L 01/04/23 18:15 Hemoglobin 11.0 g/dL (13.5-17.5) L 01/04/23 18:15 Hematocrit 33.1 % (40.0-50.0) L 01/04/23 18:15 Platelet Count 191 10^3/uL (130-400) 01/04/23 18:15 Complete Metabolic Panel: Sodium 138 mmol/L (136-145) 01/04/23 18:15 Potassium 4.6 mmol/L (3.5-5.1) 01/04/23 18:15 Chloride 106 mmol/L (98-107) 01/04/23 18:15 Carbon Dioxide 25.8 mmol/L (21.0-32.0) 01/04/23 18:15 BUN 24 mg/dL (7-18) H 01/04/23 18:15 Creatinine 1.7 mg/dL (0.70-1.30) H 01/04/23 18:15 Est GFR (CKD-EPI 2020) 46.15 (mL/min/1.73m2) 01/04/23 18:15 Calcium 8.6 mg/dL (8.5-10.1) 01/04/23 18:15 Albumin 3.4 g/dL (3.4-5.0) 01/04/23 18:15 Glucose 211 mg/dL (74-106) H 01/04/23 18:15 Hemoglobin A1c 7.9 % (4.5-5.7) H 12/19/22 12:58 Liver Function Panel: Alanine Aminotransferase (ALT/SGPT) 20 U/L (16-63) 01/04/23 18: 15 Aspartate Amino Transf (AST/SGOT) 23 U/L (15-37) 01/04/23 18:15 Coagulation Panel: No Data to Display Cardiac Panel: No Data to Display Arterial Blood Gas: No Data to Display Venous Blood Gas: No Data to Display Pancreas Panel: No Data to Display Thyroid Panel: No Data to Display Infectious Disease: Coronavirus (COVID-19)(PCR) Negative (Negative) 01/04/23 19:28 Coronavirus 2019 Source Nasal/Nares 01/04/23 19:28 Blood Cultures: No Data to Display Toxicology Panel: No Data to Display Imaging and Studies Imaging and Studies Study information below may be from another EMR and interpreted by another provider. Please see original notes in EMR for more complete details. EKG Summary: 01/04/23: sinus rhythm, prob LAE, LBBB. 01/02/21: Sinus tachycardia...rate> 99 Probable left atrial enlargement...P >50mS, <-0.10mV V1 Anesthesia Assessment and Plan Anesthesia History Personal History: No History of Anesthesia Complications Family History: No Family History of Anesthesia Complications Exercise Tolerance Exercise Tolerance: Metabolic Equivalents>4 Cardiac & Pulmonary Exam Cardiac Exam: Normal S1/S2 Heart Sounds Pulmonary Exam: Clear Bilateral Breath Sounds Implantable Cardiac Device Does patient have a Pacemaker or an ICD?: No Airway Exam Known Difficult Airway: No Mallampati Class: 2 Mouth Opening: Normal (> 3cm) Thyromental Distance: Greater than 3 cm Neck Range of Motion: Full ROM Neck Circumference: Normal Teeth Condition: Normal Dentition ASA Classification ASA Score: ASA 3 Emergency Case?: No NPO Status NPO Status: NPO Clears >2 hours, Solids >8 hours Anesthesia Plan Resuscitation Status: Full Code Anesthesia Technique: General Anesthesia Airway Planned: Endotracheal Tube Monitors Used: Standard Monitors Preoperative Comments:: 56 yo male for hip fracture. Sig PMHx: everyday smoker (tobacco/cannabis), occ EtOH HTN (lisinopril), DM (glimepriride, metformin, glargine, last A1C 7.9 12/13), CKDIII (GFR 46 01/04)/renal CA s/p partial nephrectomy, neuropathy of RUE, extremely hard of hearing, hodgkins. . Previous Anes: - glide 3 grade 1, easy mask.
--- NOTE | 2023-01-05 06:12 | OCONE_ITS ---
Date of service: 01/05/23 Time of Service: 06:12 History of Present Illness History of Present Illness Chief Complaint: Right Hip Pain Narrative: Harry is a 57-year-old who was working on a car tire, tried to get leg got soft, when he slipped and fell landing on his right side. He had immediate pain. He was unable to bear weight. He was brought to the emergency department diagnosed with an intertrochanteric hip fracture on the right side. He denies any premorbid right hip pain. He denies numbness or tingling. He denies any other injuries. He denies head trauma. He had no loss of consciousness. He has significant pain if he tries to mobilize. However, he has minimal pain as long as he stays still, most comfortably laying on his left side. Consults Consult date: 01/04/23 Requesting physician: Keagan Zaragoza Consult Reason Right Hip Fracture Assessment and Plan Assessment and plan (1) Fracture, intertrochanteric, right femur: Status: Acute Assessment and plan: Harry is a 57-year-old who has suffered a minimally displaced intertrochanteric hip fracture on the right side. This is due to a direct trauma. Given the fracture I do recommend operative fixation. I discussed this with Rafy. I reviewed the technical features. I reviewed the risk to include bleeding, infection, pain, stiffness, hardware prominence, hardware failure, malunion, nonunion, weakness, damage nerves and vessels, damage to muscle and tendons, blood clot. Despite these risk, he elects to proceed. NPO. To the OR this morning. (2) Diabetes type 2, controlled: Status: Chronic Assessment and plan: Most recent A1c was up to 7.9 indicating his diabetes is not in good control. I will order sliding scale insulin while he is here. He will need to revisit this with his primary care provider as this can have a direct relationship to healing potential and wound complications.. (3) CKD (chronic kidney disease) stage 3, GFR 30-59 ml/min: Status: Chronic Assessment and plan: History of partial nephrectomy with chronic kidney disease. Creatinine is elevated at 1.7 although close to his baseline around 1.3-1.5. I will continue to check kidney function test. Utilizing anti-inflammatories will be beneficial but may have to be discontinued based on kidney function. Review of Systems All systems reviewed & are unremarkable except as noted in HPI and below PFSH All Active Problems Fracture, intertrochanteric, right femur (Acute) Closed hip fracture requiring operative repair (Acute) Left hip pain (Acute) (L) hip tendonitis on MRI Disorder of left rotator cuff (Acute 12/01/12) Biceps tendinopathy (Acute) Bursitis of right shoulder (Acute) Dairy product intolerance (Acute 08/22/16) Cubital tunnel syndrome on right (Acute) Carpal tunnel syndrome of right wrist (Acute) Diabetes type 2, controlled (Chronic) CKD (chronic kidney disease) stage 3, GFR 30-59 ml/min (Chronic ~04/2022) Renal cancer (Chronic ~04/2022) [id number], 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 Left -complete loss of hearing. 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 Deann Godoy MD Cubital tunnel syndrome, bilateral S/P R release: 06/13/2021 H/O drainage of abscess (~11/21/19) H/O partial nephrectomy (04/27/22) Right. [facility] [place] Rotator Cuff Repair Family History Mother Diabetes Essential hypertension Myocardial infarction Social History Smoking/Tobacco Use Status: Current every day Tobacco Type: cigarettes Tobacco: How many years used: 35 Quit status: not considering quitting Smoking risk assessment performed?: Yes Alcohol Intake: former Drug use: Daily Substance use type: marijuana Household members: none Housing: other Details: trailer Number of Children: 1 Communication Needs: Hard of Hearing Do you need help understanding health information?: Often current occupation: disabled Pets and animals: Yes Pets and animals: dog(s) Current gender identity: male What is your relationship status?: don't know How often do you talk on the phone with friends or family?: three or more times per week Panel score (0-1 are the most socially isolated patients): 1 What type of physical activity do you participate in: none Drive intox or ride w/intox 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 The right hip and leg is examined. It is a slightly flexed position. No gross shortening. No overlying skin changes. No breaks in the skin. There is some pain to palpation over the proximal aspect of the right femur. Range of motion of the right hip was not tested. No pain to palpation around the knee or the distal leg. He is able to actively dorsiflex and plantarflex the ankle as well as extend and flex the great toe. Sensation intact light touch over the deep and superficial peroneal nerve and tibial nerve. Results Last Vital Signs Temp 36.8 C 01/04/23 20:41 Pulse 71 01/04/23 20:41 Resp 18 01/04/23 20:41 BP 144/78 H 01/04/23 20:41 Pulse Ox 95 01/04/23 20:41 Labs 01/04/23 18:15 01/04/23 18:15 Labs: Laboratory Results - last 24 hr 01/04/23 01/04/23 01/04/23 18:15 18:15 18:15 WBC 11.42 H RBC 3.84 L Hgb 11.0 L Hct 33.1 L MCV 86 MCH 28.6 MCHC 33.2 RDW 12.7 Plt Count 191 MPV 11.4 H Sodium 138 Potassium 4.6 Chloride 106 Carbon Dioxide 25.8 Anion Gap 6.2 BUN 24 H Creatinine 1.7 H Est GFR (CKD-EPI 2020) 46.15 Glucose 211 H Calcium 8.6 Total Bilirubin 0.3 AST 23 ALT 20 Alkaline Phosphatase 92 Total Protein 6.6 Albumin 3.4 COVID-19 Source SARS-CoV-2 (PCR) Patient ABO/Rh A Positive Antibody Screen NEGATIVE 01/04/23 19:28 WBC RBC Hgb Hct MCV MCH MCHC RDW Plt Count MPV Sodium Potassium Chloride Carbon Dioxide Anion Gap BUN Creatinine Est GFR (CKD-EPI 2020) Glucose Calcium Total Bilirubin AST ALT Alkaline Phosphatase Total Protein Albumin COVID-19 Source Nasal/Nares SARS-CoV-2 (PCR) Negative Patient ABO/Rh Antibody Screen Imaging Imaging Studies: X-ray of the right hip and femur shows a minimally displaced intertrochanteric hip fracture on the right side. There is no proximal extension to the neck or the head and no distal extension of the shaft. No other suspicious lesions are identified. No signs of arthritis.
[2023-01-05 07:02] LABS: Anion Gap 5.3 mmol/L (3-11); BUN 27 mg/dL (7-18); CO2 24.7 mmol/L (21.0-32.0); CREATININE 1.8 mg/dL (0.70-1.30); Calcium 8.5 mg/dL (8.5-10.1); Chloride 105 mmol/L (98-107); Estimated GFR 43.09 (mL/min/1.73m2); Glucose 163 mg/dL (74-106); Potassium 4.8 mmol/L (3.5-5.1); Sodium 135 mmol/L (136-145)
--- NOTE | 2023-01-05 07:15 | DI.RAD_ITS ---
Exam(s) XR HIP RT IN OR EXAM: XR HIP RT IN OR CLINICAL HISTORY: right hip fracture. TECHNIQUE: 2D digital imaging was performed. COMPARISON: No exams were available for comparison FINDINGS: Fluoroscopy was provided intraoperatively during open reduction internal fixation right hip fracture. See procedure report for details. Total fluoroscopy time 40 seconds. IMPRESSION: Radiation exposure index/cumulative dose: elham Martinez= 11.279 mGy DATA REPOSITORY: RADIATION DOSE DELIVERED:
[2023-01-05] MEDS: Normal Saline Flush 10 ML SYR IVP ×2 (07:30→13:33)
[2023-01-05] MEDS: Lactated Ringers 1,000 ML 75 ML IV (07:54)
[2023-01-05] MEDS: ceFAZolin 2 GM/50 ML BAG 100 GM (08:00)
[2023-01-05] MEDS: Tranexamic Acid 1,000 MG/10 ML VIAL 1000 MG (08:00)
[2023-01-05] MEDS: fentaNYL 100 MCG/2 ML VIAL IVP (09:28)
--- NOTE | 2023-01-05 09:37 | W.PM.OP ---
Date of service: 01/05/23 Time of Service: 08:50 Operative Note Operative Note DATE OF PROCEDURE: 01/05/23 PRE-OP DIAGNOSIS: Right Intertrochanteric Femur Fracture POST-OP DIAGNOSIS: same PROCEDURE: Right Intramedullary Fixation of Proximal Femur Fracture SURGEON: Ayush Jimenez ANESTHESIA TYPE: General LMA/ETT Refer to Anesthesia Record ESTIMATED BLOOD LOSS: 50 PATHOLOGY: none sent COMPLICATIONS: None Patient was transported to: PACU Patient's condition: stable Implants: Depuy-Synthes TFNA 12mm x 170mm Indications: Harry is a 57 year old male who presented to the Emergency Department after a fall. X-rays confirmed the diagnosis of a intertrochanteric fracture of the proximal femur. I reviewed the possible treatment options and given the fracture of the femur, I recommened operative fixation. I discussed the technical details of the surgery. I reviewed the risks such as bleeding, infection, pain, stiffness, malunion, nonunion, hardware prominence, hardware faiilure, malrotation, avascular necrosis, blood clot. Despite these risks, he agreed to proceed. Findings: There was a fracture of the proximal femur which was able to be reduced with traction and internal rotation. Procedure Description: Harry was taken back to the operating room. A general anesthetic was administered. The feet were wrapped with cast padding and Coban and then placed into the boot liners and then into the boots. Care was taken to protect the skin and make sure the heels were fully down and the boots were stable. The patient was then positioned onto the HANA table. Both legs were held in a neutral position. SCDs were applied. The patient was then slid down onto a perineal post. The arm of the operative side was then placed across the chest and secured. The nonoperative leg was scissored. A gentle reduction was then performed with traction and internal rotation. Prophylactic antibiotics in the form of Cefazolin were administered. 1g of Tranxemic Acid was given intravenously within 30 minutes of incision. The right leg was then prepped with Chloraprep and draped in a standard fashion with shower-curtain type drape with Iodine impregnated skin protection. A timeout to confirm correct identity, side and site, procedure, allergies, anesthesia, and medical concerns was performed. Using fluoroscopy, the starting point was marked over the lateral hip, proximal to the tip of the greater trochanter. A 3cm incision was made through skin and the fascia of the gluteus musculature until the tip of the trochanter was palpable. The starting wire was placed onto the tip, just slightly on the media aspect, and centered in the AP plane. Using a genaro, the starting guide wire was buried into the bone. A lateral x-ray confirmed appropriate position and the guidewire was advanced to the level of the lesser trochanter. With a tissue protector, the proximal femur was opened with the opening reamer. The short TFNA was chosen for this case and a Synthes TFNA [id number] nail was selected and opened on the back table. The nail was assembled to the aiming arm on the back table and confirmed to be aligned with the triple sleeve for blade insertion. Using manual force the nail was advanced into the femur. A few light mallet blows advanced the nail to its appropriate position. The triple sleeve was inserted through the targeting arm and the skin, soft tissue, and IT band was then incised. The triple sleeve was advanced down to the lateral femur. A guidewire was advanced into the femoral head where it was noted to be centered. A lateral x-ray was used to confirm centered positioning on the lateral. Happy with the length of the guidewire, this was measured. A 100mm helical blade was opened. The lateral cortex was opened and the path of the blade was reamed with a tapered reamer to appropriate depth. The helical blade was malletted into position and confirmed to be appropriately located on fluoroscopy. The set screw was advanced to a half turn shy of fully tightened, allowing for the helical blade to slide. The targeting device was removed. AP and lateral x-rays of the hip confirmed appropriate positioning within the femur and with good alignment of the fracture. Using the targeting arm, the skin was incised for placement of the distal locking screw. The trochar was inserted through the skin and IT band down onto the lateral cortex of the femur. The 4.2mm drill was advanced across the femur and through the nail. This was measured and an appropriately sized 5.0mm screw was placed. The targeting arm was removed. Final x-rays were obtained. The wounds were thoroughly irrigated. A cocktail consisting of 123mg of Ropivacaine, 0.25mg of Epinephrine, 0.04mg of Clonidine, and 15mg of Ketorolac, diluted to 50cc was injected throughout the wounds both deep and superficially. The deep fascia of the proximal two wounds was reapproximated with a 0 Vicryl. The deep tisses were closed with a 2-0 Vicryl and the skin was closed with danilo. The wounds were dressed with a Mepilex silver dressing. At the end of the case, all counts were correct. Harry tolerated the procedure well without known complication and was taken to the PACU for recovery. Physical therapy will start post-operatively, weigh-bearing as tolerated with assistive devices. Anticoagulation will start within 12-24 hours. 3 doses of post-operative antibitiocis for prophylaxis will be administered.
--- NOTE | 2023-01-05 10:10 | IN_ITS ---
PT Notes Visit Reasons: Right Intertrochanteric Hip Fracture Inpatient Physical Therapy Evaluation Date: []01/05/2023 Referring Doctor: []Ayush Jimenez PT Orders: PT CONSULT: [] Precautions: []Standard Patient Profile/Admitting Diagnosis: [] PMHX: []All Active Problems Fracture, intertrochanteric, right femur (Acute) Closed hip fracture requiring operative repair (Acute) Left hip pain (Acute) (L) hip tendonitis on MRIDisorder of left rotator cuff (Acute 12/01/12) Biceps tendinopathy (Acute) Bursitis of right shoulder (Acute) Dairy product intolerance (Acute 08/22/16) Cubital tunnel syndrome on right (Acute) Carpal tunnel syndrome of right wrist (Acute) Diabetes type 2, controlled (Chronic) CKD (chronic kidney disease) stage 3, GFR 30-59 ml/min (Chronic ~04/2022) Renal cancer (Chronic ~04/2022) [id number], 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 neg marginsDiabetes mellitus with retinopathy of both eyes, with long-term current use of insulin (Chronic) Benign hypertension (Chronic 12/01/10) Pure hypercholesterolemia (Chronic 09/13/11) Sensorineural hearing loss (Chronic 10/23/13) right ear. Left -complete loss of hearing.Substance abuse (Acute) UDS: Cocaine, THCDrug-seeking behavior (Chronic ~2014) requests opioid pain meds Medical History? 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 Bilateral carpal tunnel syndrome S/P R ECTR: 1Biopsy of dital clavicle, left AC joint (02/25/15) Dr Bright 03/16/15 Addendum Surgical Patology report: Bone with maturing trilineage hematopesis; Reacive stnovium; No evidence of lymphoma identified per Dr. Deann Godoy MD Cubital tunnel syndrome, bilateral S/P R release: 06/13/2021H/O drainage of abscess (~11/21/19) H/O partial nephrectomy (04/27/22) Right. [facility] Social History/Home Situation: [] Current Functional Limitations: [] Equipment Owned/DME: [] Subjective: [] Objective: [] General Observation: [] Mental Status: [] Pain: [] Vital Signs: [] ROM: Right Upper Extremity: [] Left Upper Extremity: [] Right Lower Extremity: [] Left Lower Extremity: [] Strength: Right Upper Extremity: [] Left Upper Extremity: [] Right Lower Extremity: [] Left Lower Extremity: [] Sensation: [] Bed Mobility/Transfers: [] Gait: [] Balance: [] Static Sitting: [] Dynamic Sitting: [] Static Standing: [] Dynamic Standing: [] Special Tests: Mobility Limitations Standardized Measure [facility] 6 clicks Basic Mobility Inpatient Short Form: Raw Score: [] Standardized Score: [] CMS Score: [] Informed Consent/Education: Patient instructed in purpose of PT consult and plan of care. Assessment: Patient is a [] year old [] referred to physical therapy services with the diagnosis of []. Patient presents with clinical signs and symptoms consistent with [], as demonstrated by the following impairment level findings: []. Impairments are contributing to the following functional limitations: AMPAC score. Patient is assessed as a [] Low 44431 [] Moderate 94969 [] High 84233 complexity based on the following: History: [] Examination: [] Presentation: [] Decision Making: [] Goals: Goals X1 week 1. Supine-Sit [] 2. Sit-Supine [] 3. Sit-Stand [] 4. Stand-Sit [] 5. Bed-Chair [] 6. Chair-Bed [] 7. Gait [] 8. Stairs [] 9. Independent with home exercise program [] 10. Balance [] Plan of Care/Treatment Plan: 1-2x/day, 7 days/week x 1 week. Plan of care has been reviewed with the REGULATORY SCIENTIST providing the service under Physical Therapy direction. Initiate Physical Therapy intervention for strengthening, bed mobility, transfers, gait, stairs, balance training, use of assistive device. DISCHARGE RECOMMENDATIONS: [] [] Home with no services [] [] Home with services [specify] [] Home with outpatient PT [] [] SNF for continued rehabilitation [] [] Skilled Nursing Care [] [] SNF versus LTC based on ability to participate and progress [] TREATMENT CODE/TIME: []
[2023-01-05] MEDS: oxyCODONE 5 MG TAB PO ×3 (10:17→20:35)
--- NOTE | 2023-01-05 10:31 | NT_ITS ---
PT Notes Visit Reasons: Right Intertrochanteric Hip Fracture Orders recieved, patient had not returned to room following surgery, will malcolm mejia tomorrow
[2023-01-05] MEDS: Insulin Aspart 300 UNITS/3 ML PEN SC ×2 (12:02→16:52)
--- NOTE | 2023-01-05 12:12 | W.ANESPOSTOP ---
Postoperative Evaluation Date, Time and Location Date Performed: 01/05/23 Time Performed: 12:12 Patient Location: Med/Surg Vital Signs Most Recent Imported Vital Signs: Most Recent Vital Signs Temp Pulse Resp BP Pulse Ox 36.9 C 82 18 159/81 H 97 01/05/23 12:07 01/05/23 12:07 01/05/23 12:07 01/05/23 12:07 01/05/23 12:07 Pain Score Most Recent Pain Score: Most Recent Pain Score Pain Level [Right Hip] 7 01/05/23 10:04 Pain Level [Right Hip] 6 01/04/23 19:00 Pain Level 5 01/05/23 11:11 Assessment Mental Status: Awake (Alert & Oriented to Patient Baseline) Airway and Respiratory Function: Patent airway with normal (patient baseline) respiratory exam Cardiovascular Function: Hemodynamically Stable Hydration Status: Adequately Hydrated Nausea & Vomiting: No Nausea or Vomiting Pain: Pain is tolerable per patient Peripheral Nerve Block: Patient did not receive a nerve block
[2023-01-05] MEDS: Acetaminophen 500 MG TAB 1000 MG PO ×2 (13:34→20:35)
[2023-01-05] MEDS: ceFAZolin 1 GM/50 ML BAG IVPB (15:43)
--- NOTE | 2023-01-05 16:25 | INITIAL_ITS ---
- If Service Date Differs Date of service: 01/05/23 Time of Service: 16:26 Care Management Initial Assess REASON FOR HOSPITALIZATION:: Right Hip Fracture PAST MEDICAL HISTORY/PAST SURGICAL HISTORY:: All Active Problems. Fracture, intertrochanteric, right femur (Acute). Closed hip fracture requiring operative repair (Acute). Left hip pain (Acute). (L) hip tendonitis on MRI. Disorder of left rotator cuff (Acute 12/01/12). Biceps tendinopathy (Acute). Bursitis of right shoulder (Acute). Dairy product intolerance (Acute 08/22/16). Cubital tunnel syndrome on right (Acute). Carpal tunnel syndrome of right wrist (Acute). Diabetes type 2, controlled (Chronic). CKD (chronic kidney disease) stage 3, GFR 30-59 ml/min (Chronic ~04/2022). Renal cancer (Chronic ~04/2022). [id number], 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 neg margins. Di abetes mellitus with retinopathy of both eyes, with long-term current use of insulin (Chronic). Benign hypertension (Chronic 12/01/10). Pure hypercholesterolemia (Chronic 09/13/11). Sensorineural hearing loss (Chronic 10/23/13). right ear. Left -complete loss of hearing. Substance abuse (Acute). UDS: Cocaine, THC. Drug-seeking behavior (Chronic ~2014). requests opioid pain meds. Medical History. Depressive disorder (09/13/11). Diabetes mellitus type 2 with complications, uncontrolled. Gastritis. History of Hodgkin's lymphoma. no longer recieving treatment last treatment 2009. I mpotence of organic origin (12/01/12). Mild nonproliferative diabetic retinopathy of left eye (04/08/17). Neuropathy of right upper extremity. Noncompliance with diabetes treatment (06/29/15). Renal mass, right. cancer. Right rotator cuff tear arthropathy (~01/2021). SLAP lesion of right shoulder. Tobacco dependence syndrome (09/13/10). Ulcerative colitis (09/13/11). Surgical History. Bilateral carpal tunnel syndrome. S/P R ECTR: 06/13/2021. Biopsy of dital clavicle, left AC joint (02/25/15). Dr Bright. 03/16/15 Addendum Surgical Patology report: Bone with maturing trilineage hematopesis; Reacive stnovium; No evidence of lymphoma identified per Dr. Deann Godoy MD. Cubital tunnel syndrome, bilateral. S/P R release: 06/13/2021. H/O drainage of abscess (~11/21/19). H/O partial nephrectomy (04/27/22). Right. [facility] Rotator Cuff Repair PREVIOUS FUNCTIONAL STATUS/SOCIAL/FAMILY SUPPORTS:: Harry lives in [place], [place], alone. He has a son and a daughter. 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 He has family and friends that are supportive, and is independent with ADL's at baseline. CURRENT FUNCTIONAL STATUS:: Harry had surgery to repair his hip fracture today, and was resting post surgically when CM attempted to meet with him. Per report, he will be evaluated by PT tomorrow morning, and depending on his functional status, may be able to be discharged home. CM will continue to follow. ADVANCE DIRECTIVES:: None on file, CM will offer forms prior to discharge. Has patient been provided with info about the portal/API?: Yes Did the patient sign up for the portal?: No CODE STATUS:: Full Code INSURANCE COVERAGE / FINANCIAL ISSUES:: [facility] CURRENT HOME/COMMUNITY SERVICES/EQUIPMENT:: None. PRIMARY CARE PHYSICIAN:: Polly Hinkle POTENTIAL DISCHARGE NEEDS:: Evaluations for further needs, follow up appointments. PATIENT/FAMILY EDUCATION NEEDS:: Review discharge instructions and limitations, discussion of self care needs including ask me three. ANTICIPATED BARRIERS TO DISCHARGE:: None. TRANSPORTATION:: Via private vehicle by family. PLAN:: Harry had surgery today to repair his hip fracture. He will be evaluated by PT tomorrow, which will determine his need for services. He will transport home once medically cleared by family, via private vehicle. He will follow up with his PCP, Ortho, and his discharge plan of care. CM will continue to follow.
[2023-01-05] MEDS: metFORMIN C.R. 500 MG TABCR PO (20:35)
[2023-01-05] MEDS: Enoxaparin 30 MG/0.3 ML SYR SC (20:36)
[2023-01-05] MEDS: Insulin Glargine 300 UNITS/3 ML PEN SC (22:52)
[2023-01-06] MEDS: Ketorolac 15 MG/ML VIAL IVP (00:52)
[2023-01-06] MEDS: ceFAZolin 1 GM/50 ML BAG IVPB ×2 (00:52→08:33)
[2023-01-06] MEDS: oxyCODONE 5 MG TAB PO ×4 (06:36→18:02)
[2023-01-06 07:11] VITALS: BP 155/76; PULSE 77; RESP 18; TEMP 36.9; O2SAT 94
[2023-01-06 07:30] VITALS: PULSE 77; RESP 18; O2SAT 94
[2023-01-06] MEDS: HYDROmorphone 2 MG/ML SYR 1 MG IVP (08:32)
[2023-01-06] MEDS: Glimepiride 1 MG TAB 4 MG PO (08:33)
[2023-01-06] MEDS: Normal Saline Flush 10 ML SYR IVP ×2 (08:33→16:57)
[2023-01-06] MEDS: metFORMIN C.R. 500 MG TABCR PO ×2 (08:34→19:52)
[2023-01-06] MEDS: Omeprazole 20 MG CAPCR PO (08:34)
[2023-01-06] MEDS: Atorvastatin 20 MG TAB PO (08:34)
[2023-01-06] MEDS: Acetaminophen 500 MG TAB 1000 MG PO ×3 (08:34→19:52)
[2023-01-06] MEDS: Insulin Aspart 300 UNITS/3 ML PEN SC (08:39)
--- NOTE | 2023-01-06 09:07 | IN_ITS ---
PT Notes Visit Reasons: Right Intertrochanteric Hip Fracture Inpatient Physical Therapy Evaluation Date: []01/06/2023 Referring Doctor: [] PT Orders: PT CONSULT: [Evaluation] Precautions: WBAT , fall risk Patient Profile/Admitting Diagnosis: Harry is a 57-year-old male who was working on a car tire, stepped on the wrench, when he slipped and fell landing on his right side onto a pipe for 2022.? He had immediate pain.? He was unable to bear weight.? He was brought to the emergency department diagnosed with an intertrochanteric hip fracture on the right side.? Chika had IM fixation yesterday of the right 01/05/2023. He states that he is no stranger to the spital having had recent treatment for cancer and right shoulder surgery. On presenting to treatment room today Rafy is quite hard of hearing and can hear best out of his right ear. He is complaining of increased right anterior hip pain after he stretch this a.m. His last medication was at 6:30 AM. He willingly gets himself out of bed and is somewhat impulsive with difficulty following directions due to his hard of hearing. On our first attempt to ambulate with increased pain in the right hip and not following directions he fell back to the bed he was lowered with gait belt but did not give any warning to this action. On our second attempt Harry was much more patient and waited for proper instruction and had much more success with movement. We do discussed with him that it is expected that he will have pain in the hip but if he takes his time to lose consciousness he will have less discomfort and allow the pending to heal the fracture. He will need use of a rolling walker which she does not have at home. PMHX: All Active Problems Fracture, intertrochanteric, right femur (Acute) Closed hip fracture requiring operative repair (Acute) Left hip pain (Acute) (L) hip tendonitis on MRIDisorder of left rotator cuff (Acute 12/01/12) Biceps tendinopathy (Acute) Bursitis of right shoulder (Acute) Dairy product intolerance (Acute 08/22/16) Cubital tunnel syndrome on right (Acute) Carpal tunnel syndrome of right wrist (Acute) Diabetes type 2, controlled (Chronic) CKD (chronic kidney disease) stage 3, GFR 30-59 ml/min (Chronic ~04/2022) Renal cancer (Chronic ~04/2022) [id number], 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 neg marginsDiabetes mellitus with retinopathy of both eyes, with long-term current use of insulin (Chronic) Benign hypertension (Chronic 12/01/10) Pure hypercholesterolemia (Chronic 09/13/11) Sensorineural hearing loss (Chronic 10/23/13) right ear. Left -complete loss of hearing.Substance abuse (Acute) UDS: Cocaine, THCDrug-seeking behavior (Chronic ~2014) requests opioid pain meds Medical History? Depressive disorder (09/13/11) Diabetes mellitus type 2 with complications, uncontrolled Gastritis History of Hodgkin's lymphoma no longer recieving treatment last treatment 2010Impotence of organic origin (12/01/12) Mild nonproliferative diabetic retinopathy of left eye (04/08/17) Neuropathy of right upper extremity Noncompliance with diabetes treatment (06/29/15) Renal mass, right cancerRight rotator cuff tear arthropathy (~01/2021) SLAP lesion of right shoulder Tobacco dependence syndrome (09/13/10) Ulcerative colitis (09/13/11) Social History/Home Situation: Patient lives alone in a trailer in [place] he states that he has support with his daughter but she does not live with him. He has 3-4 stairs with a railing to get into the home off the porch and a step into the home and then once in the home single floor living. Prior to this injury he was independent with all ADLs and no use of AD. Current Functional Limitations: WBAT with RW, he has 4 stairs and then a step to get into his home and we are unable to assess stairs today. Rafy does live alone. Equipment Owned/DME: Will need RW Subjective: My hip did not hurt that bad until I stretched this morning and now it hurts in the front of the right side. Patient having difficulty giving a pain scale likely because she cannot hear well he settles in on a 6/10 in the front of his right hip. Objective: General Observation: Patient is sitting in his bed on his phone and has difficulty hearing hears best out of his right ear. He is reaching for his right anterior hip stating that it is painful. Patient states that he is warm and feels nauseous both at the beginning and end of our session. Mental Status: Patient is somewhat impulsive and not following directions I think a large part in due to his lack of hearing. Pain: 6/10 right anterior hip. Vital Signs: Monitored by nursing staff ROM: Right Upper Extremity: Limited elevation but functional Left Upper Extremity: Limited elevation but functional Right Lower Extremity: All joints functional except for right hip, 90 degrees flexion, 10 AB duction with assist Left Lower Extremity: Within functional limits full knee extension flexion hip flexion and abduction Strength: Right Upper Extremity: Limited secondary to shoulder surgery but functional Left Upper Extremity: WFL Right Lower Extremity: Quad 2/5 unwilling to fully extend leg secondary to hip pain better when advised to not flex hip at the same time, hamstring 3 -/5, hip flexion unwilling to do, abduction unwilling to do unable to assess plantar flexion, DF 4/5 Left Lower Extremity: WFL grossly 4/5 Sensation: Intact to light touch Bed Mobility/Transfers: When asked to get out of the bed he swings his legs over and stands up without guidance. We are then able to take her time and perform sit to stand from bed to RW he needs major VC to his right ear for proper hand placement and also to take his time to avoid rushing into walking. Gait: On first attempt as noted above patient tried walking before we were ready we will holding onto his gait belt and he sat back down due to pain we are able to lower her back to the bed and this was with the DIRECTOR OF MUSIC THERAPY in the room. On her second attempt was much more successful he took his time followed commands we did not go far due to increased pain. Ambulating with RW WBAT has tendency to be impulsive and palacios. Able to position back to chair needs major VC for hand placement and again is somewhat impulsive with most of the therapy being to slow him down such that he can be safe. We do review with him when he goes home that he is to not palacios and that he needs to take his time this is also with the Ortho reviewing with him expectations of pain but to allow the fracture to heal. He should be good to transfer and ambulate with 2 staff members and gait belt with clear instruction to his right ear mostly to control his speed and ensure safety. Balance: Static Sitting: Normal Dynamic Sitting: Normal Static Standing: Able to stand to don and doff Osvaldo without holding onto RW not challenged with left SLS due to impulsive nature and difficulty following directions Dynamic Standing: Unsteady secondary to right hip pain and impulsive nature but able to control standing on both legs again to don and doff Osvaldo Special Tests: Mobility Limitations Standardized Measure [facility] AM-[facility] 6 clicks Basic Mobility Inpatient Short Form: Raw Score: 17 standardized Score: 42.13 50.57 CMS Score: Informed Consent/Education: Patient instructed in purpose of PT consult and plan of care. Assessment: Patient is a 57year old male referred to physical therapy services with the diagnosis of status post IM fixation of right hip fracture, WBAT. Patient presents with clinical signs and symptoms consistent with status post right hip fracture IM fixation 01/05/2023, as demonstrated by the following impairment level findings: Difficulty with bed mobility, unsteady balance, difficulty transfer sit to stand, altered ambulation with decreased endurance and strength, pain , decreased safety. Impairments are contributing to the following functional limitations: AMPAC score. Patient is assessed as a [] Low 60799 complexity based on the following: History: [] As outlined above with amaro factors of right hip IM fixation following fracture, very hard of hearing has had multiple hospital visitations for cancer treatment over the past year Examination: [] As outlined above Presentation: [] As expected post IM fixation patient is impulsive Decision Making: [] Low Goals: Goals X1 week 1. Supine-Sit independent 2. Sit-Supine independent 3. Sit-Stand independent 4. Stand-Sit independent independent 5. Bed-Chair independent 6. Chair-Bed independent 7. Gait independent with RW 8. Stairs independent with RW and rail 9. Independent with home exercise program 10. Balance good static and dynamic Plan of Care/Treatment Plan: Rx: [id number]: Patient instructed in LAQ x10, glutes sets x10, quad sets x10, ankle pumps x10 all throughout the day. Standing at RW 2x 30 sec. Ambulate x6' with positioning into chair. Also reviewed with patient importance of taking his time with his transfers and ambulation and while in the hospital to wait to have somebody with him to ambulate more due to safety and impulsive nature. He will benefit from assistance from staff for guidance and transfers and ambulation to ensure safety and while in the hospital skilled physical therapy to educate with bed mobility, transfers ambulation and stair assessment as outlined below. He should be able to discharge home with skilled services however he does live alone and on assessment today there is safety concerns. 1-2x/day, 7 days/week x 1 week. Plan of care has been reviewed with the MOTION PICTURE DIRECTOR providing the service under Physical Therapy direction. Initiate Physical Therapy intervention for strengthening, bed mobility, transfers, gait, stairs, balance training, use of assistive device. DISCHARGE RECOMMENDATIONS: [] Home with no services [] [x] Home with services [PT, OT] [] Home with outpatient PT [] [] SNF for continued rehabilitation [] [] Snf Care [] [] SNF versus LTC based on ability to participate and progress [] TREATMENT CODE/TIME: 45575 , 56869 30' 9:10-9:40
--- NOTE | 2023-01-06 09:10 | W.PM.PROGNOT ---
Date of Service Date of service: 01/06/23 Time of Service: 08:50 Assessment and Plan Assessment and plan (1) Fracture, intertrochanteric, right femur: Status: Acute Assessment and plan: Harry is a postop day 1 status post intramedullary fixation of the right hip. He is awaiting physical therapy this morning. He has not been out of bed. He does report pain although I try to explain to Rafy that he still has the heel fracture and he did have surgery. However, he seems to have significantly less pain than what he did for before the surgery and he is now sitting upright and is able to move in bed and I am able to move the leg. I was very honest with him that we will treat pain appropriately but it is just going to hurt for some period of time which she will need to come and deal with. 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 Will likely need repeat follow-up with primary care team given his hyperglycemic state on admission and his increasing A1c. Qualifiers: Diabetes mellitus type: type 2 Diabetic retinopathy severity: with unspecified retinopathy severity Diabetes mellitus macular edema: macular edema presence unspecified Qualified Code(s): E11.319 - Type 2 diabetes mellitus with unspecified diabetic retinopathy without macular edema; Z79.4 - senior living (current) use of insulin (3) CKD (chronic kidney disease) stage 3, GFR 30-59 ml/min: Status: Chronic Assessment and plan: Creatinine has been on the high end of his normal and slightly increasing. I will recheck another value tomorrow. I will hold off Toradol and encourage oral rehydration. Subjective Subjective Interval history since last seen: Rafy reports continued pain of the right hip. He does seem to respond to the pain medications. He is yet to get out of bed. He has been able to reposition self in the bed and move in the bed with significantly less pain that he gets from for the surgery. He reports pain mostly on the anterior and lateral aspect of the right hip. No numbness or tingling. No fevers or chills. No chest pain or shortness of breath. Exam Const Other: Sitting up in the bed. No acute distress. Alert and orient x3. Extrem Other: Evaluation of the right hip and leg shows dressings which are clean dry and intact. There is some swelling seen about the right thigh. Compartments are soft and compressible. No ecchymosis. He is able to tolerate some internal and external rotation of the right hip with no significant increase in objective pain. He is able to demonstrate active dorsiflexion plantarflexion of the right ankle as well as flexion extension of the great toe. Endorses full sensation of the deep superficial peroneal nerve and tibial nerve. PAWSS Have you Been Recently Intoxicated or Drunk Within the Last 30 days?: No Have you Ever Experienced Previous Episodes of Alcohol Withdrawal?: No Have you ever Experienced Withdrawal Seizures?: No Have you ever Experienced Delirium Tremens(DT)s?: No Have you ever undergone Alcohol Rehabilitation Treatment (i.e, inpt ot outpatient treatment programs)?: No Have you ever Experienced Blackouts?: No Have you ever Combined Alcohol with other Downers within the last 90 days?: No Have you ever Combined Alcohol with any other Substance of Abuse during the last 90 days?: No Positive Blood Alcohol level on Presentation? [PCS.BAL]: No Evidence of Increased Autonomic Activity (i.e. HR>120, tremor, sweating, agitation, nausea)?: No Result: 0 Time Spent with Patient Time Spent with Patient: <25 minutes Time was spent: obtaining and/or reviewing separately otained hiistory, ordering medications,tests, procedures and counseling the patient
--- NOTE | 2023-01-06 12:16 | NUR.NOTE ---
Nursing Note: At approximately 1210 on 01/06/23, this RN answered a call from Traci (pt.'s daughter; on HIPAA). Pt.'s daughter was updated regarding pt.'s mentation, pain level and pain management techniques, how physical therapy went, plan of care, etc. Pt.'s daughter was updated regarding the fact that the pt. had refused his lunch and that he had mentioned he would reach out to his daughter to have her bring in some food for him to eat. Pt.'s daughter stated that she hadn't heard from him yet, but that she would bring some food in for him. Pt.'s daughter educated regarding the order for the carbohydrate counting diet. Pt.'s daughter then asking why she wasn't listed as the pt.'s healthcare proxy when she is the pt.'s healthcare proxy. RN informed the pt.'s daughter that they would make the pt.'s hiv/aids care nurse aware and would have the hiv/aids care nurse give the pt.'s daughter a call when time permitted. Pt.'s daughter verbalized understanding and presented with no more questions. Phone call then ended.
[2023-01-06 15:06] VITALS: BP 155/73; PULSE 72; RESP 18; TEMP 37; O2SAT 97
--- NOTE | 2023-01-06 16:45 | PDOC.CMPRO ---
- If Service Date Differs Date of service: 01/06/23 Time of Service: 16:45 Care Management Progress Note S/O:CM was asked to meet with Harry and his daughter Traci regarding her status as his healthcare agent. Traci stated that on several admissions she has asked to confirm that she is listed as his HCA and has been told there is no paperwork to support that. She also informed CM that she has filled out forms before. CM review Harry's medical record and found only HIPAA forms. The Appointment of a Healthcare Agent form was completed with Harry and copies were placed on the chart, faxed to [facility] and given to the patient and Traci. A: Harry is a 57 year old man admitted with a fractured right hip P:Harry had surgery to repair his hip fracture. He was evaluated by PT this morning who is recommending home health PT and OT. He will transport home once medically cleared by family, via private vehicle. He will follow up with his PCP, Ortho, and his discharge plan of care. CM will continue to follow.
[2023-01-06] MEDS: Enoxaparin 30 MG/0.3 ML SYR SC (19:53)
[2023-01-06] MEDS: Insulin Glargine 300 UNITS/3 ML PEN SC (21:27)
[2023-01-07 02:24] VITALS: BP 164/74; PULSE 75; RESP 18; TEMP 36.8; O2SAT 97
[2023-01-07] MEDS: oxyCODONE 5 MG TAB PO ×3 (02:26→09:17)
[2023-01-07 07:15] VITALS: BP 172/78; PULSE 84; RESP 16; TEMP 36.7; O2SAT 97
[2023-01-07 07:34] LABS: HCT 30.5 % (40.0-50.0); HGB 10.1 g/dL (13.5-17.5); MCH 29.3 pg (27.0-33.0); MCHC 33.1 % (32.0-36.0); MCV 88 fL (80-95); MPV 11.6 fL (8.0-11.0); Platelet Count 154 10^3/uL (130-400); RBC 3.45 10^6/uL (4.36-5.78); RDW 13.2 % (11.8-14.1); RDW-SD 42.7 fL; WBC 8.84 10^3/uL (4.4-10.8)
[2023-01-07 07:46] LABS: Anion Gap 8.9 mmol/L (3-11); BUN 27 mg/dL (7-18); CO2 25.1 mmol/L (21.0-32.0); CREATININE 1.6 mg/dL (0.70-1.30); Calcium 8.2 mg/dL (8.5-10.1); Chloride 106 mmol/L (98-107); Estimated GFR 49.63 (mL/min/1.73m2); Glucose 66 mg/dL (74-106); Potassium 4.6 mmol/L (3.5-5.1); Sodium 140 mmol/L (136-145)
[2023-01-07] MEDS: Acetaminophen 500 MG TAB 1000 MG PO ×3 (09:00→20:30)
[2023-01-07] MEDS: Omeprazole 20 MG CAPCR PO (09:01)
[2023-01-07] MEDS: Glimepiride 1 MG TAB 4 MG PO (09:05)
[2023-01-07] MEDS: Atorvastatin 20 MG TAB PO (09:05)
[2023-01-07] MEDS: metFORMIN C.R. 500 MG TABCR PO ×2 (09:08→17:15)
--- NOTE | 2023-01-07 12:17 | PDOC.CMPRO ---
- If Service Date Differs Date of service: 01/07/23 Time of Service: 12:17 Care Management Progress Note S/O: Anticipated Harry would discharge home today with new home health services; PT/OT, however per PT, pain is not yet managed today. Per MD, Harry will also return home with a new FWW. CM continues to follow. A: Harry is a 57 year old man admitted with a fractured right hip P: Harry will return home with new orders for home health PT and OT and FWW. He will transport home once medically cleared by family, via private vehicle. He will follow up with his PCP, Ortho, and his discharge plan of care. CM will continue to follow.
[2023-01-07] MEDS: oxyCODONE 10 MG TAB PO ×2 (13:38→20:30)
[2023-01-07 15:42] VITALS: BP 153/74; PULSE 81; RESP 18; TEMP 36.1; O2SAT 97
[2023-01-07] MEDS: Ketorolac 15 MG/ML VIAL IVP (15:45)
[2023-01-07] MEDS: Normal Saline Flush 10 ML SYR IVP (15:45)
--- NOTE | 2023-01-07 16:11 | PTTR_ITS ---
Date of service: 01/07/23 Time of Service: 14:51 PT Notes Visit Reasons: Right Intertrochanteric Hip Fracture Inpatient Physical Therapy Treatment Note Date: 01/07/2023 Precautions: WBAT on R LE with AD. Subjective:? Reported pain and cramping in the R thigh muscles at rest and worse with movement. Denies headache, chest pain, and lightheadedness throughout session. Nurse Gt has just given patient with pain pills at start of PT session. Objective:? General Observation: [place]. Mental Status: Alert and oriented x 4 Pain: 5-7/10 in the R hip Vital Signs: WNL as closely monitored by nursing staff Bed Mobility/Transfers:?? Supine to stand by assist Sit to stand contact guard assist Stand to sit contact guard assist Bed to chair contact guard assist Gait:? 50 feet + 10 feet + 5 feet in the morning and 60 feet + 10 feet + 75 feet in the afternoon using the front-wheeled walker. R foot not entirely touching floor at midstance due to pain level in the morning, better able to do foot flat in the afternoon. Required minimal assist in the morning and contact guard assist in the afternoon. Step length improving, limb advancement better in the afternoon. Trunk more erect. Antalgic gait much less in the afternoon. Techniques of pacing self while doing deep breaths (not holding breath while walking), not staying too far from walker to better off load R LE, and doing standing rests before pain level gets too high were emphasized during the two sessions. Stairs: Down 6 x 4 inch steps and 4 x 6 inch steps while holding onto 1 rail and single- point cane with the other hand. Required minimal assist for safety as patient's pain level significantly increased during descent in the morning. In the afternoon, required just contat guard assist with stairs with report of less pain. NEURO RE-ED: Worked on normalizing walking pattern using FWW to minimize pain and reduce fall risk. Instructed on strategies for self-pacing, maintaining a safe distance from walker at all times, safe timing of limb advancement and ensuring safe WB on the R LE, and on correct exercise performance of: Gluteal sets x 5 with 5 sh, ankle DF/PF x 10, LAQ x 10 were emphasized in today's sessions. Balance:? Static Sitting:? Normal Dynamic Sitting:? Normal Static Standing:? Fair Dynamic Standing:? Fair Assessment:?? Patient is a 57-year-old male referred to physical therapy services with the diagnosis of status post IM fixation of right hip fracture, WBAT on POD 2. Patient tends to catastrophize pain and requires cueing to improve self-reliance in safely performing transfers and ambulation. His impulsivity and lack of co nfidence compounded by his pain level this morning increased his risk for falling. The afternoon, session went much better with better pain control and with cueing provided during mobility performance. He demonstrated improved efficiency with limb advancement, weight acceptance on the R LE, posture, and self pacing. Will plan to spend one session before discharge tomorrow morning to further work on safety of stair negotiation and level surface ambulation. Plan of Care/Treatment Plan:? Continue with PT POC to progress mobility level, improve pain tolerance, and to maximize safety of transfers and ambulation task performance using appropriate AD. Will provide patient with FWW prior to tomorrow's discharge. DISCHARGE RECOMMENDATIONS: [] ? Home with no services [] [x] Home with services. Home whne medically cleared by orthopedic surgeon. Patient will benefit from home health PT services in order to progress mobility level using least restrictive assistive ambulatory device, assess home safety, identify additional equipment needs, and establish a functional maintenance program that will increase ability of patient to remain at home. [] ? Home with outpatient PT [] [] ? SNF for continued rehabilitation [] [] ? [facility] [] [] ? SNF versus LTC based on ability to participate and progress [] TREATMENT CODE/TIME:? Session 1--89627 x 35 minutes beginning at 10:20 AM. Session 2--[id number] x 40 minutes beginning at 14:51 PM.
[2023-01-07] MEDS: Enoxaparin 30 MG/0.3 ML SYR SC (20:30)
--- NOTE | 2023-01-07 20:45 | PGE_ITS ---
Date of Service Date of service: 01/07/23 Time of Service: 12:20 Assessment and Plan Assessment and plan (1) Fracture, intertrochanteric, right femur: Status: Acute Assessment and plan: Harry is a 57-year-old status post intramedullary nail fixation of an intertrochanteric fracture about the right side. He has having pain which is to be expected. Once again I reviewed that with Rafy. He has been able to make progress and is able been weightbearing we will try to be more persistent with the oxycodone. Physical therapy believes he needs some more time before he is safe to discharge to home given his lack of independence with ambulation today. Therefore, we will continue to watch him, treat pain appropriately, and likely discharge to home tomorrow with home health services. 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 I will resume the ketorolac to help out with pain control. Subjective Subjective Interval history since last seen: Harry reports continued pain about the right leg. He has been able to get out of bed although it was painful. He is able to do more now than he was before the surgery. There is been no issues with the wounds. He has been utilizing pain medication although not as regularly with the oral medications. He did have some urinary retention yesterday but that responded on its own and he is voiding spontaneously. He denies any other acute issues. Exam Narrative Exam Narrative: Sitting up in the chair. Evaluation of the right leg shows clean dry and intact dressings. Somewhat sleepy but responds appropriately. Once again, I am able to internally Rotate the right leg with no significant increase in pain. Active range of motion of the right hip causes some more pain. The leg is swollen but is compressible. No significant ecchymosis. Sensation intact to light touch over the deep and superficial peroneal nerve and tibial nerve. Palpable DP and PT pulse. Objective Last Vital Signs Temp 36.3 C L 01/07/23 23:56 Pulse 77 01/07/23 23:56 Resp 18 01/07/23 23:56 BP 168/79 H 01/07/23 23:56 Pulse Ox 99 01/07/23 23:56 Laboratory Results - last 24 hr 01/07/23 01/07/23 07:32 07:32 WBC 8.84 RBC 3.45 L Hgb 10.1 L Hct 30.5 L MCV 88 MCH 29.3 MCHC 33.1 RDW 13.2 Plt Count 154 MPV 11.6 H Sodium 140 Potassium 4.6 Chloride 106 Carbon Dioxide 25.1 Anion Gap 8.9 BUN 27 H Creatinine 1.6 H Est GFR (CKD-EPI 2020) 49.63 Glucose 66 L Calcium 8.2 L PAWSS Have you Been Recently Intoxicated or Drunk Within the Last 30 days?: No Have you Ever Experienced Previous Episodes of Alcohol Withdrawal?: No Have you ever Experienced Withdrawal Seizures?: No Have you ever Experienced Delirium Tremens(DT)s?: No Have you ever undergone Alcohol Rehabilitation Treatment (i.e, inpt ot outpatient treatment programs)?: No Have you ever Experienced Blackouts?: No Have you ever Combined Alcohol with other Downers within the last 90 days?: No Have you ever Combined Alcohol with any other Substance of Abuse during the last 90 days?: No Positive Blood Alcohol level on Presentation? [PCS.BAL]: No Evidence of Increased Autonomic Activity (i.e. HR>120, tremor, sweating, agitation, nausea)?: No Result: 0 Time Spent with Patient Time Spent with Patient: <25 minutes Time was spent: obtaining and/or reviewing separately otained hiistory, ordering medications,tests, procedures and counseling the patient
[2023-01-07] MEDS: Insulin Glargine 300 UNITS/3 ML PEN SC (22:35)
[2023-01-07 23:56] VITALS: BP 168/79; PULSE 77; RESP 18; TEMP 36.3; O2SAT 99
[2023-01-08] MEDS: Atorvastatin 20 MG TAB PO (07:20)
[2023-01-08] MEDS: oxyCODONE 10 MG TAB PO ×3 (07:26→14:08)
[2023-01-08] MEDS: metFORMIN C.R. 500 MG TABCR PO (07:26)
[2023-01-08] MEDS: Acetaminophen 500 MG TAB 1000 MG PO ×2 (07:27→14:08)
[2023-01-08] MEDS: Omeprazole 20 MG CAPCR PO (07:28)
[2023-01-08] MEDS: Glimepiride 1 MG TAB 4 MG PO (07:29)
[2023-01-08] MEDS: Glucose Oral Gel 15 GM/37.5 GM TUBE PO (07:40)
[2023-01-08 07:45] VITALS: BP 193/89; PULSE 78; RESP 18; TEMP 36.3; O2SAT 98
[2023-01-08 08:17] VITALS: BP 172/68
--- NOTE | 2023-01-08 10:46 | W.PM.DS.N ---
Date of service: 01/08/23 Time of Service: 12:25 DS: Diagnosis Discharge Diagnosis (1) Fracture, intertrochanteric, right femur: Status: Acute (2) Diabetes type 2, controlled: Status: Chronic (3) CKD (chronic kidney disease) stage 3, GFR 30-59 ml/min: Status: Chronic Discharge Plan Disposition Patient Disposition: Home Condition: Improving Discharge Details Reason For Visit: Right Intertrochanteric Hip Fracture Admit Date/Time: 01/04/23 18:26 Admit Provider: Ayush Jimenez Attending Provider: Ayush Jimenez Primary Care Provider: Polly Hinkle Hospital Course Hospital Course: Patient was admitted to the medical/surgical floor from the emergency department. The next morning, he was taken to the operating room for fixation of the right hip fracture. The surgery was tolerated well without any notable medical, surgical, or anesthetic complications. Mobilization began postoperatively. He was voiding spontaneously. Vitals were stable. Physical therapy worked with the patient and was cleared for discharge home. No acute medical issues. Objectively, pain was controlled on oral regimen although he reported pain with most motions and activities. Home Meds and New Rx's Prescriptions: New acetaminophen 500 mg tablet 1,000 mg PO Q8H PRN (Reason: pain) Qty: 90 3RF aspirin 81 mg tablet,delayed release (DR/EC) 81 mg PO BID Qty: 60 0RF ibuprofen 600 mg tablet 600 mg PO TID PRN (Reason: pain) Qty: 90 3RF oxycodone 10 mg tablet 10 mg PO Q4H PRN (Reason: Severe post-operative pain) Qty: 30 0RF Continued atorvastatin 20 mg tablet 20 mg PO DAILY Qty: 90 3RF glimepiride [Amaryl] 4 mg tablet 4 mg PO QAM Qty: 90 3RF Rx Instructions: administer with breakfast insulin glargine [Lantus Solostar U-100 Insulin] 100 unit/mL (3 mL) insulin pen 14 unit subcut QPM Qty: 5 3RF omeprazole magnesium [[employer] (omeprazole)] 20 mg capsule,delayed release(DR/EC) 20 mg PO DAILY Qty: 90 3RF Hold Instructions: Home Medication placed on hold at Doctor's office (DME) blood-glucose meter [OneTouch Verio Flex meter] [facility] See Rx Instructions .ROUTE .MEDSUPPLY Qty: 1 0RF Rx Instructions: Dispense one kit to check BS to identify BS to manage hyperglycemia and decrease A1c to 8 or below (DME) blood sugar diagnostic Strip See Rx Instructions .ROUTE .MEDSUPPLY Qty: 100 3RF Rx Instructions: Dispense strips for Verio meter to check blood glucose daily (DME) lancets [OneTouch UltraSoft Lancets] [facility] See Rx Instructions .ROUTE .MEDSUPPLY Qty: 100 3RF Rx Instructions: To check BS once daily (DME) pen needle, diabetic [BD Ultra-Fine Ellie Pen Needle] 32 gauge x 5/32 needle See Rx Instructions .ROUTE .COMPLEX Qty: 100 4RF Dose Instruction: USE EVERY EVENING WITH INSULIN PEN GOAL A1C LESS THAN 8 Rx Instructions: USE EVERY EVENING WITH INSULIN PEN GOAL A1C LESS THAN 8 metformin 500 mg tablet extended release 24 hr See Rx Instructions .ROUTE .COMPLEX Qty: 180 3RF Dose Instruction: TAKE ONE TABLET BY MOUTH TWICE A DAY Rx Instructions: TAKE ONE TABLET BY MOUTH TWICE A DAY Discharge Instructions Instructions: Hip Fracture (GEN) Additional Instructions: Hip Fracture Discharge Instructions Activity: The most important activity is to walk. You should try to take short walks a few times a day. You have no restrictions on movement or positioning, but do not try to force what you do. You will find some stiffness and weakness with hip flexion (lifting your knee). Do not try to strengthen this too early, continue to practice walking and stairs and this will come. -Home Health occupational and physical therapy will be helpful to help return you to a normal gait and improve your flexibility and strength. This will transition to outpatient physical therapy when ready. Dressing: Keep the surgical dressing in place for at least one week but may stay in place until follow-up. After the first week it may be removed and replace with light gauze and tape or nothing. It may get wet after 3 days but avoid soaking the dressing. If it gets wet, just lightly pat dry. Medications: - You will continue your regular medications from home. Please check your sugars and follow them closely as they can run higher than usual after surgery and trauma. - You should take Tylenol and an anti-inflammatory Ibuprofen as your primary pain control medications. - You have been prescribed a stronger pain medication Oxycodone for breakthrough pain, take as needed as prescribed. - You will be taking Aspirin 81mg twice a day for DVT prevention unless instructed otherwise. - If you have constipation you should take Colace or Miralax (both [id number]). It takes most people 3-4 days to have a bowel movement. Follow-up: 2 weeks If you have any acute concerns or questions, please do not hesitate to contact the office at [phone]. You may contact Dr. Jimenez with any questions after hours through the hospital at [phone] or on his cell phone at [phone]. 1. Encounter Date and Reason I certify that Harry Pugh was seen by Ayush Jimenez MD on 01/08/23 and that I had a [id number] encounter with this patient that meets the physician face to face encounter requirements. 2. Clinical Findings Supporting Skilled Need and Homebound Status I certify that home health services are medically necessary, include either intermittent [place] [facility] and/or physical/speech therapy, and that this patient is homebound in that absences from the home require considerable and taxing effort and are infrequent or of short duration, or are attributable to the need to receive medical care. [X] (a) Attached documentation from encounter provides clinical findings supporting skilled need and homebound status (including what assistance patient requires to leave the home). The encounter with the patient was in whole, or in part, for the following medical condition, which is the primary reason for home health care: Right Intertrochanteric Hip Fracture Mcfp: Physical Therapy: Home health PT/OT would benefit Mr. Pugh to assist with ADLs and regaining strength, mobility, and independent function after a right hip fracture s/p intramedullary fixation. He has notable weakness and gait dysfunction fr4om the injury and related surgery. He has no restrictions and may weight bear as tolerated but with assistive devices. Speech Therapy: Homebound: Mr. Pugh is unable to leave his home unassisted due to weakness and gait dysfunction. 3. Certification and Authentication I certify that I composed the above information based on my clinical judgement relating to this patient's medical condition and, if applicable, clinical findings communicated to me by the NPP or inpatient physician who performed the Home Health Referral. All further orders will be obtained through Dr. Jimenez Stand Alone Forms: Nursing Discharge Form Referrals: Ayush Jimenez MD [ [facility] STAFF PHYSICIAN] - 01/24/23 10:30 am Activity:: Activity as Tolerated Equipment/Supplies:: Walker Diet:: Carb Counting Discharge Orders Discharge Orders: Discharge Order (Routine); Ordered 01/08/23 Ordered By: Ayush Jimenez Discharge Data Discharge Date/Time-TO BE ENTERED AT DEPARTURE: 01/08/23 15:30 DS: Summary Time Spent with Patient providing and/or coordinating discharge services: Less than 30 minutes Status at Discharge Functional status at discharge: uses cane/walker Overall status at discharge: patient is progressing back to baseline Mental Status: mental status grossly normal Speech and Movement: speech and movement normal Mood: congruent mood Affect: normal affect Exam Narrative Exam Narrative: Sitting up in the chair. NAD. AAOx3. RLE dressing c/d/i. Able to actively move the rightleg and hip. +ADF/APF/EHL/FHL. SILT DP/SP/Tib. Psych Mental Status: mental status grossly normal Speech and Movement: speech and movement normal Mood: congruent mood Affect: normal affect DS: Data Vitals/I&O Vitals and I&O: Vital Signs Temperature 36.9 C 01/06/23 07:11 Temperature Source Temporal Artery Scan 01/06/23 07:11 Pulse 77 01/06/23 07:11 Pulse Rhythm Regular 01/05/23 07:25 Respiratory Rate 18 01/06/23 07:11 Respiratory Effort Normal 01/05/23 22:56 Respiratory Depth Normal 01/05/23 22:56 Respiratory Pattern Normal 01/05/23 22:56 Blood Pressure 155/76 H 01/06/23 07:11 Blood Pressure Position Left Lateral 01/04/23 16:53 Pulse Oximetry 94 01/06/23 07:11 Respiratory End-tidal CO2 34 01/05/23 09:40 Oxygen Delivery Method Room Air 01/06/23 07:11 Oxygen Flow Rate 0 01/06/23 07:11 Pain Level 7 01/06/23 07:20 Comment BP called over radio 01/06/23 07:11 Intake & Output 01/05/23 01/05/23 01/06/23 11:59 23:59 11:59 Intake Total 2294 / 3570 1276 / 3570 Output Total 450 / 450 350 / 350 Balance 2294 / 3120 826 / 3120 -350 / -350 Weight 76.4 kg Intake: IV 1544 / 2570 1026 / 2570 Oral 750 / 1000 250 / 1000 Output: Urine 450 / 450 350 / 350 Other: Urine Color Yellow Light Serene Light Serene Urine Appearance Clear Clear Emesis Description None Voiding Methods Urinal Urinal PFSH All Active Problems (Updated 01/07/23 @ 07:21 by Ayush Jimenez MD) Fracture, intertrochanteric, right femur (Acute) Left hip pain (Acute) (L) hip tendonitis on MRI Disorder of left rotator cuff (Acute 12/01/12) Biceps tendinopathy (Acute) Bursitis of right shoulder (Acute) Dairy product intolerance (Acute 08/22/16) Cubital tunnel syndrome on right (Acute) Carpal tunnel syndrome of right wrist (Acute) Diabetes type 2, controlled (Chronic) CKD (chronic kidney disease) stage 3, GFR 30-59 ml/min (Chronic ~04/2022) Renal cancer (Chronic ~04/2022) [id number], 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 Left -complete loss of hearing. 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) Mild nonproliferative diabetic retinopathy of left eye (04/08/17) Neuropathy of right upper extremity Noncompliance with diabetes treatment (06/29/15) Renal mass, right cancer Right rotator cuff tear arthropathy (~01/2021) SLAP lesion of right shoulder Tobacco dependence syndrome (09/13/10) Ulcerative colitis (09/13/11) Surgical History Bilateral carpal tunnel syndrome S/P R ECTR: 06/13/2021 Biopsy of dital clavicle, left AC joint (02/25/15) Dr Bright 03/16/15 Addendum Surgical Patology report: Bone with maturing trilineage hematopesis; Reacive stnovium; No evidence of lymphoma identified per Dr. Deann Godoy MD Cubital tunnel syndrome, bilateral S/P R release: 06/13/2021 H/O drainage of abscess (~11/21/19) H/O partial nephrectomy (04/27/22) Right. [facility] Rotator Cuff Repair Family History Mother Diabetes Essential hypertension Myocardial infarction Social History Smoking/Tobacco Use Status: Current every day Tobacco Type: cigarettes Tobacco: How many years used: 35 Quit status: not considering quitting Smoking risk assessment performed?: Yes Alcohol Intake: former Drug use: Daily Substance use type: marijuana Household members: none Housing: other Details: trailer Number of Children: 1 Communication Needs: Hard of Hearing Do you need help understanding health information?: Often current occupation: disabled Pets and animals: Yes Pets and animals: dog(s) Current gender identity: male What is your relationship status?: don't know How often do you talk on the phone with friends or family?: three or more times per week Panel score (0-1 are the most socially isolated patients): 1 What type of physical activity do you participate in: none Drive intox or ride w/intox patient transportation driver: No Working smoke detector in home: Yes Do you feel safe at home: Yes Additional Social history: lives alone Time Spent with Patient Time Spent with Patient: <45 minutes Time was spent: ordering medications,tests, procedures, counseling the patient and care coordination
--- NOTE | 2023-01-08 11:35 | PDOC.CMDIS ---
- If Service Date Differs Date of service: 01/08/23 Time of Service: 11:35 LACE Index Scoring Tool - Questions: Length of Stay (in days): 4 - 6 Acuity (Admit via E.D.?): Yes Comorbidities: Diabetes w/o Complication, Any Tumor, Liver or Renal Disease E.D. Visits: 1 - Answers: Total Score: 13 Risk of Readmission: High Risk Care Management Discharge Reason for Hospitalization: Right Hip Fracture Discharge Plan: Harry will be discharged home with new home health PT and OT, as recommended by PT. He will transport home with family, via private vehicle and follow up with his PCP, Ortho, and his discharge plan of care. Patient/Family Education Needs: Review discharge instructions and limitations, discussion of self care needs including ask me three. Services Needed at Discharge: Home Health Care Services, Physical Therapy
[2023-01-08] MEDS: Normal Saline Flush 10 ML SYR IVP (11:56)
[2023-01-08] MEDS: Ketorolac 15 MG/ML VIAL IVP (11:56)
--- NOTE | 2023-01-08 13:47 | INDS_ITS ---
PT Notes Visit Reasons: Right Intertrochanteric Hip Fracture Inpatient Physical Therapy Discharge Summary Date: 01/08/2023 Dates of Service: 01/06/2023 through 01/08/2023 This is a clinical summary of the services provided during this episode of care. No charge was made for the completion of this summary. Referring Doctor:? [] PT Orders: PT CONSULT: [Evaluation] Precautions: WBAT , fall risk Patient Profile/Admitting Diagnosis:?? Harry is a 57-year-old male who was working on a car tire, stepped on the wrench, when he slipped and fell landing on his right side onto a pipe for 2022.? He had immediate pain.? He was unable to bear weight.? He was brought to the emergency department diagnosed with an intertrochanteric hip fracture on the right side.? Chika had IM fixation yesterday of the right 01/05/2023.? He states that he is no stranger to the hospital having had recent treatment for cancer and right shoulder surgery.? PMHX:? 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 neg marginsDiabetes mellitus with retinopathy of both eyes, with long-term current use of insulin (Chronic) Benign hypertension (Chronic 12/01/10) Pure hypercholesterolemia (Chronic 09/13/11) Sensorineural hearing loss (Chronic 10/23/13) right ear. Left -complete loss of hearing.Substance abuse (Acute) UDS: Cocaine, THCDrug-seeking behavior (Chronic ~2014) requests opioid pain meds Medical History? 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 Patient lives alone in a trailer in [place] he states that he has support with his daughter but she does not live with him.? He has 3-4 stairs with a railing to get into the home off the porch and a step into the home and then once in the home single floor living.? Prior to this injury he was independent with all ADLs and no use of AD. Equipment Owned/DME:? None Subjective:? NT. See most recent [employer] notes. Objective:? General Observation: NT. See most recent [employer] notes. Mental Status: NT. See most recent [employer] notes. Pain: NT. See most recent [employer] notes. Vital Signs: NT. See most recent [employer] notes. ROM: Right Upper Extremity:? Limited elevation but functional Left Upper Extremity:? Limited elevation but functional Right Lower Extremity:? All joints functional except for right hip, 90 degrees flexion, 10 AB duction with assist Left Lower Extremity:? Within functional limits full knee extension flexion hip flexion and abduction Strength: Right Upper Extremity:? Limited secondary to shoulder surgery but functional Left Upper Extremity:? WFL Right Lower Extremity:? Quad 2/5 unwilling to fully extend leg secondary to hip pain better when advised to not flex hip at the same time, hamstring 3 -/5, hip flexion unwilling to do, abduction unwilling to do unable to assess plantar flexion, DF 4/5 Left Lower Extremity:? WFL grossly 4/5 Sensation:? Intact to light touch Bed Mobility/Transfers:?? Supine to stand by assist Sit to stand contact guard assist Stand to sit contact guard assist Bed to chair contact guard assist Gait:? 50 feet + 10 feet + 5 feet in the morning and 60 feet + 10 feet + 75 feet in the afternoon using the front-wheeled walker.? R foot not entirely touching floor at midstance due to pain level in the morning,? better able to do foot flat in the afternoon.? Required minimal assist in the morning and contact guard assist in the afternoon.? Step length improving,? limb advancement better in the afternoon.? Trunk more erect.? Antalgic gait much less in the afternoon. Techniques of pacing self while doing deep breaths (not holding breath while walking),? not staying too far from walker to better off load R LE,? and doing standing rests before pain level gets too high were emphasized during the two sessions.? Stairs: Down 6 x 4 inch steps and 4 x 6 inch steps while holding onto 1 rail and single- point cane with the other hand.? Required minimal assist for safety as patient's pain level significantly increased during descent in the morning.? In the afternoon,? required just contat guard assist with stairs with report of less pain. NEURO RE-ED: Worked on normalizing walking pattern using FWW to minimize pain and reduce fall risk.? Instructed on strategies for self-pacing,? maintaining a safe distance from walker at all times,? safe timing of limb advancement and ensuring safe WB on the R LE, and on correct exercise performance of:? Exercises - Supine Gluteal Sets - 1 x daily - 7 x weekly - 1 sets - 10 reps - Seated Gluteal Sets - 1 x daily - 7 x weekly - 1 sets - 10 reps - Supine Quadricep Sets - 1 x daily - 7 x weekly - 3 sets - 10 reps - Seated March - 1 x daily - 7 x weekly - 3 sets - 10 reps - Seated Ankle Pumps - 1 x daily - 7 x weekly - 3 sets - 10 reps Access Code: [email or web address] URL: [email or web address] Date: 01/08/2023 Prepared by: Nancy Hoover Balance:? Static Sitting:? Normal Dynamic Sitting:? Normal Static Standing:? Fair Dynamic Standing:? Fair Assessment:?? Patient is a 57-year-old male referred to physical therapy services with the diagnosis of status post IM fixation of right hip fracture, WBAT on POD 2.? Patient tends to catastrophize pain and requires cueing to improve self-reliance in safely performing transfers and ambulation.? His impulsivity and lack of confidence compounded by his pain level this morning increased his risk for falling.? The afternoon,? session went much better with better pain control and with cueing provided during mobility performance.? He demonstrated improved efficiency with limb advancement,? weight acceptance on the R LE,? posture, and self pacing.? Goals: Goals X1 week 1. Supine-Sit? independent NOT MET 2. Sit-Supine? independent NOT MET 3. Sit-Stand? independent NOT MET 4. Stand-Sit? independent independent NOT MET 5. Bed-Chair? independent NOT MET 6. Chair-Bed? independent NOT MET 7. Gait? independent with RW NOT MET 8. Stairs? independent with RW and rail NOT MET 9. Independent with home exercise program NOT MET 10. Balance good static and dynamic NOT MET DISCHARGE RECOMMENDATIONS: [] ? Home with no services [] [x] ? Home with services. Will benefit from PT services to progress mobility level and reduce fall risk. [] ? Home with outpatient PT [] [] ? SNF for continued rehabilitation [] [] ? [facility] [employer] [facility] Care [] [] ? SNF versus LTC based on ability to participate and progress [] TREATMENT CODE/TIME:? NC Thank you very much for the opportunity to participate in the care of this patient. Nancy Hoover, PT, DPT, CLT Inpatient Physical Therapist [facility]
--- NOTE | 2023-01-08 14:48 | PTTR_ITS ---
PT Notes Visit Reasons: Right Intertrochanteric Hip Fracture Subjective: Pt in recliner when approached for therapy this afternoon, pt agreed to participating with therapy. Therapeutic Activities 69799 10mins: instruction in dynamic activities with one on one patient contact by the provider to improve functional performance?as follows: Review of HEP in preparation for pt DC: Supine gluteal setting [id number] 5secs hold Supine quad setting [id number] 5secs hold Supine heel slides [id number] Seated Gluteal setting [id number] 5secs hold Seated Quad setting [id number] 5secs hold Seated hip abduction/adduction [id number] Seated ankle pumps [id number] Assessment: Pt refused further engagement after HEP review. Pt reports understanding and is able to execute exercises using paper copy for guide. Plan: DC to home with ?home health care services.
--- NOTE | 2023-01-08 14:48 | PT.INTREAT ---
PT Notes Visit Reasons: Right Intertrochanteric Hip Fracture Subjective: Pt in recliner when approached for therapy this afternoon, pt agreed to participating with therapy. Therapeutic Activities [id number] 10mins: instruction in dynamic activities with one on one patient contact by the provider to improve functional performance?as follows: Review of HEP in preparation for pt DC: Supine gluteal setting [id number] 5secs hold Supine quad setting [id number] 5secs hold Supine heel slides [id number] Seated Gluteal setting [id number] 5secs hold Seated Quad setting [id number] 5secs hold Seated hip abduction/adduction [id number] Seated ankle pumps [id number] Assessment: Pt refused further engagement after HEP review. Pt reports understanding and is able to execute exercises using paper copy for guide. Plan: DC to home with ?home health care services.
== END 2023-01-08 15:30 | disposition home or self-care (01) | DRG 482 ==
LOC: ER 19:04 → MS 20:31
PROVIDERS: Admitting Provider Student in an Organized Health Care Education/Training Program; Emergency Provider Emergency Medicine; PCP Nurse Practitioner Adult Health; Visit Provider Student in an Organized Health Care Education/Training Program
PROC: 0QS606Z Reposition Right Upper Femur with Intramedullary Internal Fixation Device, Open Approach (ICD-10-PCS; CPT 27245; principal; 2023-01-05 08:00)
DX: S72.141A Displaced intertrochanteric fracture of right femur, initial encounter for closed fracture (principal); N18.30 Chronic kidney disease, stage 3 unspecified; E11.22 Type 2 diabetes mellitus with diabetic chronic kidney disease; E11.319 Type 2 diabetes mellitus with unspecified diabetic retinopathy without macular edema; Z79.4 Long term (current) use of insulin; I44.7 Left bundle-branch block, unspecified; M75.51 Bursitis of right shoulder; I12.9 Hypertensive chronic kidney disease with stage 1 through stage 4 chronic kidney disease, or unspecified chronic kidney disease; E78.00 Pure hypercholesterolemia, unspecified; E11.65 Type 2 diabetes mellitus with hyperglycemia; Z85.72 Personal history of non-Hodgkin lymphomas; F17.210 Nicotine dependence, cigarettes, uncomplicated; Z91.199 Patient's noncompliance with other medical treatment and regimen due to unspecified reason; Z90.5 Acquired absence of kidney; W01.0XXA Fall on same level from slipping, tripping and stumbling without subsequent striking against object, initial encounter; Z79.84 Long term (current) use of oral hypoglycemic drugs; Z85.528 Personal history of other malignant neoplasm of kidney; F12.10 Cannabis abuse, uncomplicated; F14.10 Cocaine abuse, uncomplicated; F32.A Depression, unspecified
CPT/HCPCS: 27245; 36415; 73552; 80048; 80053; 85027; 86850; 86900; 86901; 87635; 93005; 96361; 96374; 97110; 97112; 97161; 97530; 99223; 99285; 71045; 73501; 73502; 93010; J0131; J0690; J1100; J1170; J1650; J1885; J2405; J3010; J3475

== ENCOUNTER 2023-01-24 11:37 | Outpatient (CLI) | payer MEDICARE, MEDICAID, SELFPAY ==
--- NOTE | 2023-01-24 10:45 | DI.RAD_ITS ---
Exam(s) XR HIP RT AP LAT ONLY EXAM: XR HIP RT AP LAT ONLY CLINICAL HISTORY: f/u R femur frx. TECHNIQUE: 2D digital imaging was performed. Two images were obtained. AP and lateral views were ob tained. COMPARISON: CR,XR XR FEMUR RT from 01/04/2023 XA XR HIP RT IN OR from 01/05/2023 FINDINGS: BONES: There are stable post operative changes present. No new fracture or dislocation. JOINTS: The joint spaces are well maintained. SOFT TISSUE: Atherosclerosis is present. IMPRESSION: Stable postoperative changes. DATA REPOSITORY: RADIATION DOSE DELIVERED:
== END 2023-01-24 11:38 | disposition home or self-care (01) ==
LOC: DIORS 11:38
PROVIDERS: PCP Nurse Practitioner Adult Health; Referring Provider Nurse Practitioner Adult Health; Visit Provider Student in an Organized Health Care Education/Training Program
DX: S72.141D Displaced intertrochanteric fracture of right femur, subsequent encounter for closed fracture with routine healing (principal); X58.XXXD Exposure to other specified factors, subsequent encounter
CPT/HCPCS: 73502

== ENCOUNTER 2023-02-11 12:22 | Emergency (ER) | payer MEDICARE, MEDICAID, SELFPAY ==
[2023-02-11 12:23] VITALS: BP 157/88; PULSE 80; RESP 18; TEMP 36.6; O2SAT 99
--- NOTE | 2023-02-11 14:15 | DI.RAD_ITS ---
Exam(s) XR HIP RT COMPLETE AP PELVIS XR FEMUR RT EXAM: XR HIP RT COMPLETE AP PELVIS and XR femur RT CLINICAL HISTORY: fall. TECHNIQUE: 2D digital imaging was performed of the right femur and hip. Six images were obtained. AP pelvis and lateral right hip views were obtained. COMPARISON: CR,XR XR FEMUR RT from 01/04/2023 CR,XR XR HIP RT COMPLETE AP PELVIS from 01/04/2023 XA XR HIP RT IN OR from 01/05/2023 CR XR HIP RT AP LAT ONLY from 01/24/2023 FINDINGS: BONES: There is again seen an intramedullary nail and screw transfixing a proximal right femoral frac ture. There has been no change in alignment of the main fracture component compared to the prior exa mination. There is now a displacement of the lesser trochanter proximally. No bony destructive lesi on is seen. JOINTS: No dislocation present. The joint spaces are well maintained. The visualized knee is intact. SOFT TISSUE: Atherosclerosis is present. IMPRESSION: 1. There is again seen an intramedullary gabriela transfixing the proximal right femoral fracture. 2. The lesser trochanter is now displaced proximally compared to the most recent examination from 01/24. DATA REPOSITORY: RADIATION DOSE DELIVERED:
--- NOTE | 2023-02-11 14:22 | ED.GENADUL_ITS ---
Discharge Plan Disposition Patient Disposition: Home Discharge Details Clinical Impression: Fracture, intertrochanteric, right femur Primary Care Provider: Polly Hinkle ED Provider: Katie Arreola Home Meds and New Rx's Prescriptions: New oxycodone 5 mg capsule 5 mg PO Q8H PRNQty: 10 0RF Continued atorvastatin 20 mg tablet 20 mg PO DAILY Qty: 90 3RF glimepiride [Amaryl] 4 mg tablet 4 mg PO QAM Qty: 90 3RF Rx Instructions: administer with breakfast insulin glargine [Lantus Solostar U-100 Insulin] 100 unit/mL (3 mL) insulin pen 14 unit subcut QPM Qty: 5 3RF omeprazole magnesium [Acid Stand Up Forklift Operator (omeprazole)] 20 mg capsule,delayed release(DR/EC) 20 mg PO DAILY Qty: 90 3RF Hold Instructions: Home Medication placed on hold at Doctor's office (DME) blood-glucose meter [OneTouch Verio Flex meter] [facility] [place] See Rx Instructions .ROUTE .MEDSUPPLY Qty: 1 0RF Rx Instructions: Dispense one kit to check BS to identify BS to manage hyperglycemia and decrease A1c to 8 or below (DME) blood sugar diagnostic Strip See Rx Instructions .ROUTE .MEDSUPPLY Qty: 100 3RF Rx Instructions: Dispense strips for Verio meter to check blood glucose daily (DME) lancets [OneTouch UltraSoft Lancets] [facility] [place] See Rx Instructions .ROUTE .MEDSUPPLY Qty: 100 3RF Rx Instructions: To check BS once daily (DME) pen needle, diabetic [BD Ultra-Fine Ellie Pen Needle] 32 gauge x 5/32 needle See Rx Instructions .ROUTE .COMPLEX Qty: 100 4RF Dose Instruction: USE EVERY EVENING WITH INSULIN PEN GOAL A1C LESS THAN 8 Rx Instructions: USE EVERY EVENING WITH INSULIN PEN GOAL A1C LESS THAN 8 metformin 500 mg tablet extended release 24 hr See Rx Instructions .ROUTE .COMPLEX Qty: 180 3RF Dose Instruction: TAKE ONE TABLET BY MOUTH TWICE A DAY Rx Instructions: TAKE ONE TABLET BY MOUTH TWICE A DAY oxycodone 5 mg tablet 5 mg PO Q6H PRN MDD 4 tabs PRN (Reason: Severe post-operative pain) Qty: 14 0RF acetaminophen 500 mg tablet 1,000 mg PO Q8H PRN (Reason: pain) Qty: 90 3RF aspirin 81 mg tablet,delayed release (DR/EC) 81 mg PO BID Qty: 60 0RF ibuprofen 600 mg tablet 600 mg PO TID PRN (Reason: pain) Qty: 90 3RF Discharge Instructions Additional Instructions: Take oxycodone sparingly, this is very addictive Take ibuprofen 600 mg every 8 hours with food for no longer than 5 days You may take Tylenol 650 mg every 6 hours for breakthrough pain Use walker with ambulation Follow-up with orthopedics and start physical therapy Stand Alone Forms: Physical Therapy Referral Referrals: Polly Hinkle NP [Primary Care Provider] - [facility] [OTHER] - Discharge Data Discharge Date/Time-TO BE ENTERED AT DEPARTURE: 02/11/23 17:23 Medical Decision Making <STEPHANI Regan - Last Filed: 02/12/23 08:43> Patient is a pleasant 57-year-old gentleman presenting today with chief complaint of right hip pain. Reports that he suffered a right hip fracture about 1 month ago and had surgical repair. Had been doing well until about 1 week ago when he caught his walker on the carpet and fell causing him to fall into the couch. States that while he did initially have some discomfort, but that this is since subsided. Today, around 8 AM he states that he stood and sneezed twice. He reports that when this happened he felt a sudden pop. Since then, has been having significant pain and has not been able to ambulate prompting him to come in via EMS for further evaluation. Patient did have scheduled appointment with his orthopedic provider today. On exam, patient appears nontoxic. He is 2+ distal pulses. Sensation is intact. He has no shortening or malrotation. He does not want to range the hip secondary to discomfort. No palpable or visible deformity, ecchymosis, swelling. No erythema or warmth over the area. Incision appears to healed well. Will obtain x-ray for further evaluation. Patient was given analgesics by EMS and he reports that this is still working well for him. Concern for possible displacement of hardware or recurrent fracture. [facility] report of sneezing thoough, is very low trauma. No real fall or injury. This could also be muscular spasm or pulled muscle. Will obtian xr for further evaluation. Reviewed imaging, concerned that prior lesser trochanteric fracture now appears displaced and was not prior. Contacted ortho, will try to ambulate the patient. No surgery required at this time. Have asked PT to come for consult. He currently ambulates with walker at home. At the end of my shift, care trnasitioned to Katie Arreola PA-C, with PT consultation pending. He was given toradol and morphine in preparation for PT consultation. [facility] care accepted from Louise Cortez at 1600 pending PT evaluation, report that consultation with orthopedics/ Dr Jimenez was performed by Louise and patient is to be discharged home weightbearing as tolerated Patient was successful and able to ambulate assisted with some IV morphine He was given small amount of oxycodone for home He is encouraged to follow-up with orthopedics and return immediately should he have new or worsening complaints <STEPHANI Jiménez - Last Filed: 02/11/23 21:32> Patient is a pleasant 57-year-old gentleman presenting today with chief complaint of right hip pain. Reports that he suffered a right hip fracture about 1 month ago and had surgical repair. Had been doing well until about 1 week ago when he caught his walker on the carpet and fell causing him to fall into the couch. States that while he did initially have some discomfort, but that this is since subsided. Today, around 8 AM he states that he stood and sneezed twice. He reports that when this happened he felt a sudden pop. Since then, has been having significant pain and has not been able to ambulate prompting him to come in via EMS for further evaluation. Patient did have scheduled appointment with his orthopedic provider today. On exam, patient appears nontoxic. He is 2+ distal pulses. Sensation is intact. He has no shortening or malrotation. He does not want to range the hip secondary to discomfort. No palpable or visible deformity, ecchymosis, swelling. No erythema or warmth over the area. Incision appears to healed well. Will obtain x-ray for further evaluation. Patient was given analgesics by EMS and he reports that this is still working well for him. LB care accepted from Louise Cortez at 1600 pending PT evaluation, report that consultation with orthopedics/ Dr Jimenez was performed by Louise and patient is to be discharged home weightbearing as tolerated Patient was successful and able to ambulate assisted with some IV morphine He was given small amount of oxycodone for home He is encouraged to follow-up with orthopedics and return immediately should he have new or worsening complaints HPI <STEPHANI Regan - Last Filed: 02/12/23 08:43> General Date/Time Provider Initiated Documentation: 02/11/23 12:32 . Limitations to Documentation: no limitations . Information obtained by: patient, EMS, RN notes reviewed and old records reviewed . History of Present Illness 57 year old M presents to the emergency department with the chief complaint of right hip pain, described as severe and similar to prior episodes (feels liek when he fractured it one month ago), Quality is described as stabbing, and is localized to the right and lower extremity. Patient reports no radiation. Patient started experiencing this hour(s) and it has been constant. Immobilization improves symptom(s), Movement worsens symptoms . Patient notes no other symptoms.. Patient did receive the following treatments prior to arrival, other (analgesics from EMS) Related Data Home Medications Medication Instructions Recorded Confirmed pen needle, diabetic 32 gauge x #100 ea 08/06/22 02/11/23 (BD Ultra-Fine Ellie Pen Needle) metformin 500 mg tablet,extended See Rx Instructions .Route 10/24/22 02/11/23 release 24 hr .COMPLEX #180 tabs atorvastatin 20 mg tablet 20 mg PO DAILY #90 tabs 12/19/22 02/11/23 blood sugar diagnostic #100 ea 12/19/22 02/11/23 blood-glucose meter (OneTouch #1 ea 12/19/22 02/11/23 Verio Flex Meter) glimepiride 4 mg tablet (Amaryl) 4 mg PO QAM #90 tabs 12/19/22 02/11/23 insulin glargine 100 unit/mL (3 14 unit (0.14 mL) subcut QPM #5 12/19/22 02/11/23 mL) subcutaneous pen (Lantus SYRGS Solostar U-100 Insulin) lancets (OneTouch UltraSoft #100 ea 12/19/22 02/11/23 Lancets) omeprazole magnesium 20 mg 20 mg PO DAILY #90 caps 12/19/22 02/11/23 capsule,delayed release (Acid Stand Up Forklift Operator (omeprazole)) acetaminophen 500 mg tablet 1,000 mg PO Q8H PRN pain #90 tabs 01/08/23 02/11/23 aspirin 81 mg tablet,delayed 81 mg PO BID #60 tabs 01/08/23 02/11/23 release ibuprofen 600 mg tablet 600 mg PO TID PRN pain #90 tabs 01/08/23 02/11/23 oxycodone 5 mg tablet 5 mg PO Q6H PRN PRN Severe 01/18/23 02/11/23 post-operative pain #14 tabs oxycodone 5 mg capsule 5 mg PO Q8H PRN #10 caps 02/11/23 Previous Rx's Medication Instructions Recorded pen needle, diabetic 32 gauge x #100 ea 08/06/22 (BD Ultra-Fine Ellie Pen Needle) metformin 500 mg tablet,extended See Rx Instructions .Route 10/24/22 release 24 hr .COMPLEX #180 tabs atorvastatin 20 mg tablet 20 mg PO DAILY #90 tabs 12/19/22 blood sugar diagnostic #100 ea 12/19/22 blood-glucose meter (OneTouch #1 ea 12/19/22 Verio Flex Meter) glimepiride 4 mg tablet (Amaryl) 4 mg PO QAM #90 tabs 12/19/22 insulin glargine 100 unit/mL (3 14 unit (0.14 mL) subcut QPM #5 12/19/22 mL) subcutaneous pen (Lantus SYRGS Solostar U-100 Insulin) lancets (OneTouch UltraSoft #100 ea 12/19/22 Lancets) omeprazole magnesium 20 mg 20 mg PO DAILY #90 caps 12/19/22 capsule,delayed release (Acid Stand Up Forklift Operator (omeprazole)) acetaminophen 500 mg tablet 1,000 mg PO Q8H PRN pain #90 tabs 01/08/23 aspirin 81 mg tablet,delayed 81 mg PO BID #60 tabs 01/08/23 release ibuprofen 600 mg tablet 600 mg PO TID PRN pain #90 tabs 01/08/23 oxycodone 5 mg tablet 5 mg PO Q6H PRN PRN Severe 01/18/23 post-operative pain #14 tabs oxycodone 5 mg capsule 5 mg PO Q8H PRN #10 caps 02/11/23 Allergies Allergy/AdvReac Type Severity Reaction Status Date / Time Milk Containing Products AdvReac Unknown gi upset Verified 02/11/23 14:19 (Dairy) [Milk Containing Products] tramadol AdvReac diarrhea/GI Verified 02/11/23 14:19 General Stated Complaint: Orthopedic TABITHA: 3 Review of Systems <STEPHANI Regan - Last Filed: 02/12/23 08:43> Constitutional Constitutional: Reports as per HPI, Denies fever(s) and Denies weakness Cardiovascular Cardiovascular: Reports as per HPI Respiratory Respiratory: Reports as per HPI and Denies cough Musculoskeletal Musculoskeletal: Reports as per HPI and Denies tingling Integumentary/Breasts Skin/Breast: Reports as per HPI, Denies rash and Denies wounds Neurologic Neurologic: Reports as per HPI, Denies tingling, Denies paresthesias and Denies weakness PFSH <STEPHANI Regan - Last Filed: 02/12/23 08:43> All Active Problems (Updated 02/11/23 @ 16:58 by STEPHANI Jiménez) Fracture, intertrochanteric, right femur (Acute) s/p IMN fixation, 01/04/23 Left hip pain (Acute) (L) hip tendonitis on MRI Disorder of left rotator cuff (Acute 12/01/12) Biceps tendinopathy (Acute) Bursitis of right shoulder (Acute) Dairy product intolerance (Acute 08/22/16) Cubital tunnel syndrome on right (Acute) Carpal tunnel syndrome of right wrist (Acute) Diabetes type 2, controlled (Chronic) CKD (chronic kidney disease) stage 3, GFR 30-59 ml/min (Chronic ~04/2022) Renal cancer (Chronic ~04/2022) [id number], 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 Left -complete loss of hearing. 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 Deann Godoy MD Cubital tunnel syndrome, bilateral S/P R release: 06/13/2021 H/O drainage of abscess (~11/21/19) H/O partial nephrectomy (04/27/22) Right. [facility] [place] Rotator Cuff Repair Family History Mother Diabetes Essential hypertension Myocardial infarction Social History Smoking/Tobacco Use Status: Current every day Tobacco Type: cigarettes Tobacco: How many years used: 35 Quit status: not considering quitting Smoking risk assessment performed?: Yes Alcohol Intake: former Drug use: Daily Substance use type: marijuana Household members: none Housing: other Details: trailer Number of Children: 1 Communication Needs: Hard of Hearing Do you need help understanding health information?: Often current occupation: disabled Pets and animals: Yes Pets and animals: dog(s) Current gender identity: male What is your relationship status?: don't know How often do you talk on the phone with friends or family?: three or more times per week Panel score (0-1 are the most socially isolated patients): 1 What type of physical activity do you participate in: none Drive intox or ride w/intox truck driver salesperson: No Working smoke detector in home: Yes Do you feel safe at home: Yes Do you feel safe in your relationship?: Yes Additional Social history: lives alone Exam <STEPHANI Regan - Last Filed: 02/12/23 08:43> Const General: cooperative, healthy appearing, comfortable (reports pain well controlled currently, appears comfortable at rest), no acute distress, well developed and well groomed Nutritional Appearance: average body habitus and well nourished Orientation: alert and awake Resp Effort & Inspection: normal respiratory effort, able to speak in complete sentences and no respiratory distress Cardio Rate: regular rate Rhythm: regular rhythm GI Inspection: normal to inspection Back/Spine/Pelvis Pelvis: no pain with anterior-posterior compression and no pain with lateral compression Skin General skin exam: no rashes or lesions noted (incision healing well with no erythema, warmth, swelling, drainage) Lesions: no lesions Rashes: no rashes Trauma: no lacerations or abrasions Neuro General: patient alert and patient awake Cognition: normal cognition Speech: speech normal Gait: gait abnormal (has not tried to bear weight since injury this AM) Motor: muscle tone normal throughout Sensory Exam: no sensory deficits noted (no saddle paresthesias, sensation intact in RLE) Extrem Upper/lower leg/hip images: 1. Area of maximal pain. Incision from recent repair healing well without evidence of infection. 2+ distal pulses. Sensation intact. No shortening, or deformity. No pain laterally or over greater trochanter. Pain maximial more medially. Pelvis stable. No pain elsewhere in the limb Psych Appearance: grossly normal and well kempt Mental Status: mental status grossly normal Speech and Movement: speech and movement normal Course <STEPHANI Regan - Last Filed: 02/12/23 08:43> Vital Signs Vital signs: Vital Signs Temperature 36.6 C 02/11/23 12:23 Pulse 80 02/11/23 12:23 Respiratory Rate 18 02/11/23 12:23 Blood Pressure 157/88 H 02/11/23 12:23 Pulse Oximetry 99 02/11/23 12:23 Temperature 36.6 C 02/11/23 12:23 Temperature Source Oral 02/11/23 12:23 Pulse 80 02/11/23 12:23 Respiratory Rate 18 02/11/23 12:23 Respiratory Effort Normal 02/11/23 14:11 Blood Pressure 157/88 H 02/11/23 12:23 Blood Pressure Position Sitting 02/11/23 12:23 Pulse Oximetry 99 02/11/23 12:23 Oxygen Delivery Method Room Air 02/11/23 12:23 Oxygen Flow Rate 0 02/11/23 12:23 Pain Level 8 02/11/23 12:23 Sign Out <STEPHANI Regan - Last Filed: 02/12/23 08:43> Sign Out Data: Sign Out Comment: Care transitioned to Katie Arreola PA-C, with PT evaluation pending. He has displaced his old lesser trochanter fracture. Is allowed to weight bear per [place]. If able to ambulate, plan to d/c to home. Last updated by Louise Goodson PA at 02/11/23 16:29
[2023-02-11] MEDS: MORPHine 4 MG/ML SYR IVP (16:07)
[2023-02-11] MEDS: Ketorolac 15 MG/ML VIAL IVP (16:07)
[2023-02-11 17:21] VITALS: BP 132/75; PULSE 71; RESP 18; O2SAT 98
--- NOTE | 2023-02-11 17:28 | IN_ITS ---
Date of service: 02/11/23 Time of Service: 16:20 PT Notes Visit Reasons: [facility] Physical Therapy Initial Evaluation Date: 02/11/2023 Referring Doctor:? STEPHANI Regan PT Orders: PT CONSULT: Safety Consult for D/C Precautions: WBAT on the R LE with AD. Patient Profile/Admitting Diagnosis:?? S/P ORIF of a R IT fracture on 01/05/2023 admitted today due to significant R hip pain since early this morning after he sneezed twice. He did have a gentle fall last Saturday onto couch but was managing with mobility tasks per daughter. However with the sneeze, patient has not been able to move which prompted this admission. PMHX:? All Active Problems?(Updated 01/26/23 @ 05:57 by Ayush Jimenez MD) Fracture, intertrochanteric, right femur (Acute) s/p IMN fixation, 01/04/23 Left hip pain (Acute) (L) hip tendonitis on MRI Disorder of left rotator cuff (Acute 12/01/12) Biceps tendinopathy (Acute) Bursitis of right shoulder (Acute) Dairy product intolerance (Acute 08/22/16) Cubital tunnel syndrome on right (Acute) Carpal tunnel syndrome of right wrist (Acute) Diabetes type 2, controlled (Chronic) CKD (chronic kidney disease) stage 3, GFR 30-59 ml/min (Chronic ~04/2022) Renal cancer (Chronic ~04/2022) [id number], 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 Left -complete loss of hearing. Substance abuse (Acute) UDS: Cocaine, THC Medical History? 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 Bilateral carpal tunnel syndrome S/P R ECTR: 06/13/2021 Biopsy of dital clavicle, left AC joint (02/25/15) Dr Bright 03/16/15 Addendum Surgical Patology report: Bone with maturing trilineage hematopesis; Reacive stnovium; No evidence of lymphoma identified per Dr. Deann Godoy MD Cubital tunnel syndrome, bilateral S/P R release: 06/13/2021 H/O drainage of abscess (~11/21/19) H/O partial nephrectomy (04/27/22) Right. [facility] [place] Rotator Cuff Repair Social History/Home Situation:? Currently living with daughter after discharge from hospital from previous admission for ORIF of R IT fracture. Patient used to live alone in a trailer in [place] he states that he has support with his daughter but she does not live with him.? He has 3-4 stairs with a railing to get into the home off the porch and a step into the home and then once in the home single floor living.? Prior to this injury he was independent with all ADLs and no use of AD. Equipment Owned/DME:? FWW Subjective:? I just sneezed twice this morning and I had that pain that hurts like he! Patient and daughter state that patient fell onto the couch last week but he still was able to move about using his walker. States that he has not moved since this morning sneezes. Objective:? General Observation: Supine in stretcher. Daughter Traci present in room throughout evaluation. Mental Status: Alert and oriented as to person, place, and time. Cautious about moving R LE. Pain: Minimal pain getting up from stretcher and walking with FWW but pain shot up with lying down from sitting. Vital Signs: Closely monitoed by nursing staff ROM: Right Lower Extremity:? Did not want to actively move R LE Left Lower Extremity:? WFL in all joints Strength: Right Lower Extremity: Hip flexors 2-/5. Hip abductors 2-/5. Knee flexors 3/5. Knee extensors 3/5. Ankle dorsiflexors 4-/5. Ankle plantarflexors 4-/5. Left Lower Extremity:Hip flexors 4/5. Hip abductors 4/5. Knee flexors 4/5. Knee extensors 4/5. Ankle dorsiflexors 4/5. Ankle plantarflexors 4/5. Sensation:? Intact as to pain and light touch Bed Mobility/Transfers: Supine to sit minimal assist to R LE due to pain Sit to supine moderate assist due to pain Sit to stand contact guard assist Stand to sit contact guard assist Gait:? Tolerated up to 150 feet using front wheeled walker with WBAT on the right LE requiring only contact-guard assist. No report of increased pain in the R hip. Step height an dlehngth asymmteric but no LOB. Balance:? Static Sitting:? Normal Dynamic Sitting:? Normal Static Standing:? Fair Dynamic Standing:? Fair Special Tests: Mobility Limitations Standardized Measure [facility] 6 clicks Basic Mobility Inpatient Short Form: Raw Score: 22? CMS Score:? 21% deficit ? Informed Consent/Education:? Patient and daughter instructed in purpose of PT consult and discharge recommendations Assessment:?? Patient limited by pain report in the R hip with bed mobility, transfers, and level surface ambulation requiring assist of 1 person and use of front wheeled walker for safety. Patient will have assistance of daughter at home and will benefit from home health PT services to reduce fall risk while managing pain. S/P ORIF of a R IT fracture on 01/05/2023 admitted today due to significant R hip pain since early this morning after he sneezed twice. He did have a gentle fall last Saturday onto couch but was managing with mobility tasks per daughter. However with the sneeze, patient has not been able to move which prompted this admission. Patient is assessed as a 31465 moderate complexity based on the following: History: 57 [id number] male with past medical history as indicated above Examination: Demonstrable impairment in strength, balance, and mobility level with underlying impairments and functional limitations as exhibited above as well as deficit score of 21% utilizing the [facility] Mobility Inpatient Short Form Presentation: Evolving Decision Makin moderate complexity Goals: N/A. PT evaluation 1 treatment session only for functional mobility retraining. Plan of Care/Treatment Plan:? N/A. PT evaluation 1 treatment session only for functional mobility retraining. DISCHARGE RECOMMENDATIONS: [] ? Home with no services [] [x] ? Home with services. Patient will benefit from home health PT services in order to progress mobility level using least restrictive assistive ambulatory device, assess home safety, identify additional equipment needs, and establish a functional maintenance program that will increase ability of patient to remain at home. [] ? Home with outpatient PT [] [] ? SNF for continued rehabilitation [] [] ? [facility] [] [] ? SNF versus LTC based on ability to participate and progress [] TREATMENT CODE/TIME:? 80367 x 25 minutes beginning at 16:20 PM. Thank you for the opportunity to participate in the care of this patient. Nancy Hoover PT, DPT, CLT [facility] [place], [place]
== END 2023-02-11 17:23 | disposition home or self-care (01) ==
PROVIDERS: Emergency Provider Physician Assistant; PCP Nurse Practitioner Adult Health
DX: S72.141A Displaced intertrochanteric fracture of right femur, initial encounter for closed fracture (principal); M97.01XA Periprosthetic fracture around internal prosthetic right hip joint, initial encounter; X58.XXXA Exposure to other specified factors, initial encounter
CPT/HCPCS: 73552; 96374; 96375; 97162; 99284; 73502; J1885; J2270

== ENCOUNTER 2023-03-21 14:26 | Outpatient (CLI) | payer MEDICARE, MEDICAID, SELFPAY ==
--- NOTE | 2023-03-21 13:40 | DI.RAD_ITS ---
Exam(s) XR HIP RT AP LAT ONLY EXAM: XR HIP RT AP LAT ONLY INDICATION: F/U FRACTURE. COMPARISON: CR XR HIP RT AP LAT ONLY from 01/24/2023 TECHNIQUE: 2D digital imaging was performed. Two views. FINDINGS: There has been no change in the alignment of the hardware in the proximal femur. Intertrochanteric f racture there remains visible but not displaced. The lesser trochanter is now displaced superiorly, adjacent to the femoral neck. DATA REPOSITORY: RADIATION DOSE DELIVERED:
== END 2023-03-21 14:27 | disposition home or self-care (01) ==
LOC: DIORS 14:26
PROVIDERS: PCP Nurse Practitioner Adult Health; Referring Provider Nurse Practitioner Adult Health; Visit Provider Student in an Organized Health Care Education/Training Program
DX: S72.141D Displaced intertrochanteric fracture of right femur, subsequent encounter for closed fracture with routine healing (principal); X58.XXXD Exposure to other specified factors, subsequent encounter
CPT/HCPCS: 73502

== ENCOUNTER → 2023-03-27 01:45 | Outpatient (CLI) | payer MEDICARE, MEDICAID, SELFPAY ==
--- NOTE | 2023-03-27 13:00 | DI.RAD_ITS ---
Exam(s) XR CHEST 2V PA LATERAL EXAM: XR CHEST 2V PA LATERAL CLINICAL HISTORY: RENAL CA S/P PARTIAL NEPHRECTOMY, C64.9, ? NEW LUNG NODULES TECHNIQUE: 2D digital imaging was performed. COMPARISON: CT CT CHEST/ABD/PEL W from 11/30/[address] ABDOMEN WO/W from 12/26/2021 CR,XR XR CHEST 1V IN DI DEPT from 01/04/2023 FINDINGS: HEART: Normal size. Aorta: Not dilated. PULMONARY VASCULATURE: Normal. No visible adenopathy. LUNGS: Clear. Nodules are visible. PLEURAL SPACE: No pleural effusion or pneumothorax. BONE:Unremarkable for age. IMPRESSION: No acute abnormality. DATA REPOSITORY: RADIATION DOSE DELIVERED:
== END ==
PROVIDERS: PCP Nurse Practitioner Adult Health; Visit Provider Urology
DX: C64.9 Malignant neoplasm of unspecified kidney, except renal pelvis (principal); R91.8 Other nonspecific abnormal finding of lung field
CPT/HCPCS: 71046

== ENCOUNTER 2023-06-27 10:57 | Outpatient (CLI) | payer MEDICARE, MEDICAID, SELFPAY ==
--- NOTE | 2023-06-27 10:45 | DI.RAD_ITS ---
Exam(s) XR HIP RT AP LAT ONLY EXAM: XR HIP RT AP LAT ONLY CLINICAL HISTORY: RIGHT HIP PAIN. TECHNIQUE: 2D digital imaging was performed. COMPARISON: CR XR HIP RT AP LAT ONLY from 01/24/2023 CR XR HIP RT COMPLETE AP PELVIS from 02/11/2023 CR XR FEMUR RT from 02/11/2023 CR XR HIP RT AP LAT ONLY from 03/21/2023 FINDINGS: Two views. Appearance of the hardware across the healing intertrochanteric fracture site of the right hip is sta ble. No loosening. No hardware migration. No evidence of osteomyelitis. No significant narrowing of the hip joint space. There is some dystrophic calcification noted subjacent to the femoral head, more so than previous. IMPRESSION: As above. DATA REPOSITORY: RADIATION DOSE DELIVERED:
== END 2023-06-27 10:58 | disposition home or self-care (01) ==
LOC: DIORS 10:58
PROVIDERS: PCP Nurse Practitioner Adult Health; Referring Provider Nurse Practitioner Adult Health; Visit Provider Student in an Organized Health Care Education/Training Program
DX: S72.141A Displaced intertrochanteric fracture of right femur, initial encounter for closed fracture (principal); W19.XXXA Unspecified fall, initial encounter
CPT/HCPCS: 99213; 73502

== ENCOUNTER → 2023-07-11 14:55 | Outpatient (BNVA) | payer MEDICARE, MEDICAID, SELFPAY | PROVIDERS: PCP Nurse Practitioner Adult Health; Referring Provider Nurse Practitioner Adult Health; Visit Provider Physician Assistant | DX: M16.11 Unilateral primary osteoarthritis, right hip (principal); S72.141D Displaced intertrochanteric fracture of right femur, subsequent encounter for closed fracture with routine healing; X58.XXXD Exposure to other specified factors, subsequent encounter | CPT/HCPCS: 20611; J1040 ==

== ENCOUNTER → 2023-08-12 09:39 | Outpatient (BNVA) | payer MEDICARE, MEDICAID, SELFPAY | PROVIDERS: PCP Nurse Practitioner Adult Health; Referring Provider Nurse Practitioner Adult Health; Visit Provider Student in an Organized Health Care Education/Training Program | DX: S72.141D Displaced intertrochanteric fracture of right femur, subsequent encounter for closed fracture with routine healing (principal); X58.XXXD Exposure to other specified factors, subsequent encounter | CPT/HCPCS: 99213 ==

== ENCOUNTER → 2023-08-30 00:49 | Outpatient (CLI) | payer MEDICARE, MEDICAID, SELFPAY ==
--- NOTE | 2023-08-30 07:15 | DI.MRI_ITS ---
Exam(s) MR LUMBAR SPINE WO EXAM: MR LUMBAR SPINE WO CLINICAL HISTORY: PAIN,LUMBAR RADICULOPATHY,M54.16. TECHNIQUE: Multiplanar multisequence MRI of the Lumbar spine was performed. COMPARISON: MR MR LUMBAR SPINE WO from 02/26/2020 FINDINGS: Conus medullaris is at normal level. There is no evidence of conus mass nor subjacent clumping of in trathecal nerve roots to suggest arachnoiditis. The distal thecal sac appears unremarkable.There is no evidence of Tarlov intrasacral cysts nor other significant findings within the sacral canal Bones:There is a Schmorl's node invagination in the posterior half of the superior endplate of L5, ri ght of center, which was not previously present and which exhibit surrounding bone edema and therefor e may be symptomatic. The bone edema extends into the ipsilateral right pedicle. No fracture line e vident. With respect to the individual levels... T12-L1: Unremarkable L1-2: Normal disc height and signal. No disc herniation nor central canal stenosis.No foraminal steno sis L2-3: Mild uniform disc space narrowing, similar to previous study. No significant disc herniation a t this level. Central canal dimensions are lower normal. There is no significant foraminal stenosis . Facet joints unremarkable. L3-4: Minimal uniform disc space narrowing. There is relatively symmetrical annular bulging at this level which appears similar to previous study and extends into the floor both exiting neural foramina , also similar to the prior study. There is mild bilateral foraminal stenosis again noted at this le kezia, unchanged. Mild degenerative changes in the facet joints. L4-5: This level reveals the new right of center Schmorl's node intravertebral disc protrusion which is into the posterior superior aspect of the L4 vertebral body, right of center and there is some asy mmetric height loss of the right side of this disc space now evident which was not present on the MRI scan of February 2020. There is broad annular bulging again noted at this level but there is also now a superimposed posterior central-posterolateral right disc herniation which was not evident on the kel or MRI scan and which significantly impresses the thecal sac resulting in severe central spinal canal stenosis at this level. There is also progression in bilateral neural foraminal stenosis at this le kezia, particularly on the right side and the exiting right nerve root is now flattened between the lokesh ular bulging and overlying L4 right pedicle. There is also significant foraminal stenosis on the opp osite-left side, slightly more so than previous. There is further aggression of degenerative changes in the facet joints at this level and there is very mild anterolisthesis of L4 upon L5 also evident. There is also bilateral ligamentum flavum hypertrophy evident at this level, this contributing to t he central canal stenosis. L5-S1: This level again exhibits moderate uniform disc space narrowing. Posteriorly there is relativ leonides symmetrical annular bulging again noted without a dominant disc herniation and central canal dime nsions are lower normal. There is no prominent foraminal stenosis on either side at this level. Thi s level appears unchanged from the prior MRI study. Soft tissues: paraspinal soft tissues appear unremarkable. IMPRESSION: The most significant change when compared to the prior MRI scan of February 2020 is at the L4-5 level, as detailed above. There is a new Schmorl's node invagination into the posterior right side of the sup erior endplate of L4 vertebral body with subsequent asymmetric height loss of the right-side of the d isc space and with bone edema seen around this Schmorl's node invagination and extending into the rig ht pedicle. In addition, the previously present broad annular bulging is now compound by a new poste rior central-right side disc herniation which significantly compresses the thecal sac.. Also progres demian degenerative change in the facet joints and ligamentum flavum hypertrophy. These findings resul t in severe central spinal canal stenosis at this level, more so than previous. In addition, there h as been progression of neural foraminal stenosis at this level, particularly on the right side. DATA REPOSITORY:
== END ==
PROVIDERS: PCP Nurse Practitioner Adult Health; Visit Provider Student in an Organized Health Care Education/Training Program
DX: M54.16 Radiculopathy, lumbar region (principal)
CPT/HCPCS: 72148

== ENCOUNTER 2023-09-04 04:17 | Outpatient (CLI) | payer MEDICARE, MEDICAID, SELFPAY ==
[2023-09-04 09:38] LABS: Hemoglobin A1C 6.7 % (<5.7)
[2023-09-04 10:15] LABS: Anion Gap 9.5 mmol/L (3-11); BUN 20 mg/dL (7-18); CO2 24.5 mmol/L (21.0-32.0); CREATININE 1.4 mg/dL (0.70-1.30); Calcium 9.2 mg/dL (8.5-10.1); Calculated LDL 45 mg/dL (<100); Chloride 107 mmol/L (98-107); Cholesterol 109 mg/dL (<200); Glucose 166 mg/dL (74-106); HDL Cholesterol 53 mg/dL (40-60); Potassium 5.1 mmol/L (3.5-5.1); Sodium 141 mmol/L (136-145); Triglyceride 55 mg/dL (<150)
== END 2023-09-04 04:18 | disposition home or self-care (01) ==
LOC: LBO 04:17
PROVIDERS: PCP Nurse Practitioner Adult Health; Visit Provider Nurse Practitioner Adult Health
DX: E11.319 Type 2 diabetes mellitus with unspecified diabetic retinopathy without macular edema (principal); I10 Essential (primary) hypertension; N18.30 Chronic kidney disease, stage 3 unspecified; Z79.4 Long term (current) use of insulin
CPT/HCPCS: 36415; 80048; 80061; 83036

== ENCOUNTER → 2023-10-01 10:26 | Outpatient (BNVA) | payer MEDICARE, MEDICAID, SELFPAY | PROVIDERS: PCP Nurse Practitioner Adult Health; Referring Provider Nurse Practitioner Adult Health; Visit Provider Surgery | DX: Z12.11 Encounter for screening for malignant neoplasm of colon (principal) ==

== ENCOUNTER 2023-10-11 08:22 | Day surgery (SDC) | payer MEDICARE, MEDICAID, SELFPAY ==
--- NOTE | 2023-10-10 16:48 | ANES.PREOP_ITS ---
General Info Date of Service Date Performed: 10/11/23 Height: 5 ft 8 in Weight: 76.884 kg Body Mass Index (BMI): 25.7 Surgical Procedure: Operation Date: 10/11/23 10:05 Proposed Procedure Side Surgeon p Colonoscopy Boo Merritt MD Meds Allergies and Home Medications Allergies Allergy/AdvReac Type Severity Reaction Status Date / Time Milk Containing Products AdvReac Unknown gi upset Verified 10/11/23 08:47 (Dairy) [Milk Containing Products] tramadol AdvReac diarrhea/GI Verified 10/11/23 08:47 Home Medication Medication Instructions Recorded metformin 500 mg tablet,extended See Rx Instructions .Route 10/24/22 release 24 hr .COMPLEX #180 tabs atorvastatin 20 mg tablet 20 mg PO DAILY #90 tabs 12/19/22 blood sugar diagnostic #100 ea 12/19/22 blood-glucose meter (OneTouch #1 ea 12/19/22 Verio Flex Meter) glimepiride 4 mg tablet (Amaryl) 4 mg PO QAM #90 tabs 12/19/22 lancets (OneTouch UltraSoft #100 ea 12/19/22 Lancets) omeprazole magnesium 20 mg 20 mg PO DAILY #90 caps 12/19/22 capsule,delayed release (Acid Mental Health Clinician (omeprazole)) acetaminophen 500 mg tablet 1,000 mg (2 x 500 mg) PO Q8H PRN 01/08/23 pain #90 tabs insulin glargine 100 unit/mL (3 14 unit (0.14 mL) subcut QPM #5 08/14/23 mL) subcutaneous pen (Lantus SYRGS Solostar U-100 Insulin) pen needle, diabetic 32 gauge x #100 ea 09/09/23 5/32 (BD Ultra-Fine Ellie Pen Needle) bisacodyl 5 mg tablet,delayed 5 mg PO ONCE colonscopy bowel prep 10/01/23 release (Dulcolax (bisacodyl)) #4 tabs polyethylene glycol 3350 17 238 g PO ONCE colonoscopy prep 10/01/23 gram/dose oral powder #238 grams Current Visit Medications: Current Medications Generic Name Dose Route Start Last Admin Trade Name Freq PRN Reason Stop Dose Admin Ringer's Solution 1,000 mls @ 80 mls/hr 10/11/23 06:00 IV 10/11/23 23:59 INFUSION CHARAN IV Miscellaneous Supplies 1 each 10/11/23 06:00 Iv Access IV 10/11/23 23:59 DIRECTED CHARAN Sodium Chloride 0 ml 10/11/23 06:00 Normal Saline Flush 10 Ml Syr IV 10/11/23 23:59 PRN PRN Sodium Chloride 0 ml 10/11/23 06:00 Normal Saline 10 Ml Vial IJ 10/11/23 23:59 DIRECTED PRN Sterile Water 0 ml 10/11/23 06:00 Water,Injection,Sterile 10 Ml Vial IJ 10/11/23 23:59 DIRECTED PRN PFSH Active Problems Active Problems: Problem Status Onset Code Nicotine use disorder F17.200 Lumbar spinal stenosis ~08/2023 M48.061 Degenerative joint disease of right hip M16.11 Glaucoma, bilateral H40.9 Diabetes type 2, controlled E11.9 CKD (chronic kidney disease) stage 3, GFR 30-59 ml/min ~04/2022 N18.30 Renal cancer ~04/2022 C64.9 Diabetes mellitus with retinopathy of both eyes, with long-term current use of insulin E11.319, Z79.4 Substance abuse F19.10 Sensorineural hearing loss 10/23/13 H90.5 Pure hypercholesterolemia 09/13/11 E78.00 Benign hypertension 12/01/10 I10 Medical History Medical History (Updated 10/10/23 @ 11:15 by Roman Drake) [place] (hard of hearing) Fracture, intertrochanteric, right femur (~12/2022) s/p IMN fixation, 01/04/23 Hyperkalemia (~02/2022) Off Lisinopril Renal mass, right cancer Gastritis Bursitis of right shoulder SLAP lesion of right shoulder Biceps tendinopathy History of Hodgkin's lymphoma no longer recieving treatment last treatment 2009 Drug-seeking behavior (~2014) requests opioid pain meds Right rotator cuff tear arthropathy (~01/2021) Carpal tunnel syndrome of right wrist Cubital tunnel syndrome on right Ulcerative colitis (09/13/11) Neuropathy of right upper extremity Left hip pain (L) hip tendonitis on MRI Diabetes mellitus type 2 with complications, uncontrolled Tobacco dependence syndrome (09/13/10) Noncompliance with diabetes treatment (06/29/15) 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 [facility] [place]ital [place] syndrome, bilateral S/P R release: 06/13/2021 Bilateral carpal tunnel syndrome S/P R ECTR: 06/13/2021 H/O drainage of abscess (~11/21/19) Rotator Cuff Repair Biopsy of dital clavicle, left AC joint (02/25/15) Dr Bright 03/16/15 Addendum Surgical Patology report: Bone with maturing trilineage hematopesis; Reacive stnovium; No evidence of lymphoma identified per Dr. Deann Godoy MD Tobacco Smoking/Tobacco Use Status: Current every day Tobacco Type: cigarettes Smoking cigarettes per day: 10 Alcohol Alcohol Intake: former Substance Use Substance use: Daily Substance use type: marijuana Vital Signs and Lab Results Vital Signs Most Recent Vital Signs in EMR: Temp Pulse Resp BP Pulse Ox 36.6 C 88 18 160/98 H 100 10/11/23 08:35 10/11/23 08:35 10/11/23 08:35 10/11/23 08:35 10/11/23 08:35 Lab Results Blood Type / Crossmatch: No Data to Display Complete Blood Count: No Data to Display Complete Metabolic Panel: No Data to Display Liver Function Panel: No Data to Display Coagulation Panel: No Data to Display Cardiac Panel: No Data to Display Arterial Blood Gas: No Data to Display Venous Blood Gas: No Data to Display Pancreas Panel: No Data to Display Thyroid Panel: No Data to Display Infectious Disease: No Data to Display Blood Cultures: No Data to Display Toxicology Panel: No Data to Display Imaging and Studies Imaging and Studies Study information below may be from another EMR and interpreted by another provider. Please see original notes in EMR for more complete details. EKG Summary: 01/04/23: sinus rhythm, prob LAE, LBBB. 01/02/21: Sinus tachycardia...rate> 99 Probable left atrial enlargement...P >50mS, <-0.10mV V1 Anesthesia Assessment and Plan Anesthesia History Personal History: No History of Anesthesia Complications Family History: No Family History of Anesthesia Complications Exercise Tolerance Exercise Tolerance: Metabolic Equivalents>4 Cardiac & Pulmonary Exam Cardiac Exam: Normal S1/S2 Heart Sounds Pulmonary Exam: Clear Bilateral Breath Sounds Implantable Cardiac Device Does patient have a Pacemaker or an ICD?: No Airway Exam Known Difficult Airway: No Mallampati Class: 2 Mouth Opening: Normal (> 3cm) Thyromental Distance: Greater than 3 cm Neck Range of Motion: Full ROM Neck Circumference: Normal Teeth Condition: Normal Dentition ASA Classification ASA Score: ASA 2 Emergency Case?: No NPO Status NPO Status: NPO Clears >2 hours, Solids >8 hours Anesthesia Plan Resuscitation Status: Full Code Anesthesia Technique: General Anesthesia Airway Planned: Natural Airway Pain Management: Surgeon and patient request nerve block Monitors Used: Standard Monitors Preoperative Comments:: 56 yo male for colo Sig PMHx: everyday smoker (tobacco/cannabis), occ EtOH, HTN (lisinopril), DM (glimepiride, metformin, glargine, last A1C 6.7 09/14), CKDIII (GFR 46 01/04)/renal CA s/p partial nephrectomy, neuropathy of RUE, extremely hard of hearing, GERD, hodgkins. . Previous Anes: - glide 3 grade 1, easy mask.
[2023-10-11 08:35] VITALS: BP 160/98; PULSE 88; RESP 18; TEMP 36.6; O2SAT 100
[2023-10-11 08:57] VITALS: BMI 25.7
[2023-10-11] MEDS: Lactated Ringers 1,000 ML 80 ML IV (09:03)
--- NOTE | 2023-10-11 10:30 | BOWEL_PTH ---
PATIENT: Harry Pugh LOC: [facility] U#:[id number] AGE/SX: 58/M ROOM: RE10/11/[address]: Boo Merritt : 1965 BED: DIS: 10/11/2023 SPEC #: [id number] RECD: 10/11/23 12:55 STATUS: JUANITO RE #: [id number] [place]: 10/11/23 10:[address]: Boo Merritt DEPT: Surgical Specimen RECD BY: Katie De La Garza ENTERED: 10/11/23 12:57 SP TYPE: Bowel OTHR DR: Polly Hinkle APRN Tissues: 1 - BIOPSY BOWEL 2 - BIOPSY BOWEL 3 - BIOPSY BOWEL 4 - BIOPSY BOWEL Procedures: GROSS AND MICRO LEVEL 4 Comments: [id number]
--- NOTE | 2023-10-11 10:52 | COLE_ITS ---
Date of service: 10/11/23 Time of Service: 10:52 Colonoscopy Report Procedure Description: PROCEDURES PERFORMED: 1. Colonoscopy with hot snare polypectomy x4 2. Ablation/fulguration/obstruction of colon polyps x 2 PREOPERATIVE DIAGNOSIS: Surveillance colonoscopy POSTOPERATIVE DIAGNOSIS: Colon polyps, hyperplastic rectal polyps, grade 2 internal hemorrhoids SURGEON: Phong Merritt MD INDICATION for procedure: The patient is a 58-year-old man due for surveillance colonoscopy. There is an undetermined history of colon cancer and a brother as well as a possible personal diagnosis of chronic colitis in his past. He has no symptoms. FINDINGS: The terminal ileum was normal. In the transverse colon to, 3-5 mm sessile polyps were removed with hot snare technique. A couple other small polyps nearby 2 these were ablated with the tip of the hot snare. In the sigmoid colon a 2-3 mm sessile polyp was removed with hot snare technique. In the rectum a 7-10 mm sessile polyp was removed with hot snare technique. The prep was poor in a couple of locations and and in these locations small polyps could have been missed. Large polyps and/or tumors would not have been. The rectal and sigmoid polyps are presumably hyperplastic by appearance. There are other smaller ones seen which were left alone under the presumption they are hyperplastic. There was no obvious diverticular disease noted and no significant hemorrhoid disease noted. SURVEILLANCE interval/FOLLOW-UP: 3 years considering the uncertain family history, the findings today and a relatively poor prep. He should take an extended prep next time. SPECIMENS: yes EBL: Minimal COMPLICATIONS: None QUALITY of prep: Suboptimal ? poor in a couple locations Procedure in detail: The patient gave written consent and was in agreement with the indications, the potential risks as well as the benefits of the procedure. They taken to the endoscopy suite and laid in the left lateral decubitus position. A timeout was performed and anesthesia was administered which was tolerated well. I started the procedure. Digital rectal and visual examination was performed and grossly within normal limits. A well-lubricated flexible colonoscope was then introduced and passed without any notable difficulty all the way to the cecum identified by the ileocecal valve and the appendiceal orifice. The terminal ileum was briefly intubated and looked completely normal. The scope was then slowly withdrawn wi th the above-noted findings. The patient tolerated the procedure well and was taken to the PACU in hemodynamically stable condition.
[2023-10-11 10:56] VITALS: BP 148/80; PULSE 81; RESP 16; TEMP 36.4; O2SAT 99
--- NOTE | 2023-10-11 10:57 | W.PM.DSUDISC ---
Date of service: 10/11/23 Time of Service: 10:57 Discharge Plan Disposition Patient Disposition: Home Condition: Good Discharge Details Attending Provider: Boo Merritt Primary Care Provider: Polly Hinkle Home Meds and New Rx's Prescriptions: No Action atorvastatin 20 mg tablet 20 mg PO DAILY Qty: 90 3RF glimepiride [Amaryl] 4 mg tablet 4 mg PO QAM Qty: 90 3RF Rx Instructions: administer with breakfast omeprazole magnesium [Acid Food Quality Tester (omeprazole)] 20 mg capsule,delayed release(DR/EC) 20 mg PO DAILY Qty: 90 3RF Hold Instructions: Home Medication placed on hold at Doctor's office (DME) blood-glucose meter [OneTouch Verio Flex meter] [facility] [place] See Rx Instructions .ROUTE .MEDSUPPLY Qty: 1 0RF Rx Instructions: Dispense one kit to check BS to identify BS to manage hyperglycemia and decrease A1c to 8 or below (DME) blood sugar diagnostic Strip See Rx Instructions .ROUTE .MEDSUPPLY Qty: 100 3RF Rx Instructions: Dispense strips for Verio meter to check blood glucose daily (DME) lancets [OneTouch UltraSoft Lancets] [facility] [place] See Rx Instructions .ROUTE .MEDSUPPLY Qty: 100 3RF Rx Instructions: To check BS once daily polyethylene glycol 3350 17 gram/dose powder 238 g PO ONCE Qty: 238 0RF Rx Instructions: take per colonoscopy instructions bisacodyl [Dulcolax (bisacodyl)] 5 mg tablet,delayed release (DR/EC) 5 mg PO ONCE Qty: 4 0RF Rx Instructions: take per colonoscopy instructions metformin 500 mg tablet extended release 24 hr See Rx Instructions .ROUTE .COMPLEX Qty: 180 3RF Dose Instruction: TAKE ONE TABLET BY MOUTH TWICE A DAY Rx Instructions: TAKE ONE TABLET BY MOUTH TWICE A DAY insulin glargine [Lantus Solostar U-100 Insulin] 100 unit/mL (3 mL) insulin pen 14 unit subcut QPM Qty: 5 5RF (DME) pen needle, diabetic [BD Ultra-Fine Ellie Pen Needle] 32 gauge x 5/32 needle See Rx Instructions .ROUTE .COMPLEX Qty: 100 4RF Dose Instruction: USE EVERY EVENING WITH INSULIN PEN GOAL A1C LESS THAN 8 Rx Instructions: USE EVERY EVENING WITH INSULIN PEN GOAL A1C LESS THAN 8 acetaminophen 500 mg tablet 1,000 mg PO Q8H PRN (Reason: pain) Qty: 90 3RF Discharge Instructions Additional Instructions: FINDINGS: The prep today was relatively poor but overall we were able to complete your colonoscopy. A number of small polyps were found and removed. This is the reason we do the colonoscopy. Because of the history surrounding your brother, the findings today as well as the prep not being optimal, you should do another colonoscopy in 3 years. Stand Alone Forms: Colonoscopy Post Instructions Activity:: Activity as Tolerated Diet:: As Tolerated
--- NOTE | 2023-10-11 11:02 | W.ANESPOSTOP ---
Postoperative Evaluation Date, Time and Location Date Performed: 10/11/23 Time Performed: 11:02 Patient Location: Day Surgery Unit Vital Signs Most Recent Imported Vital Signs: Most Recent Vital Signs Temp Pulse Resp BP Pulse Ox 36.4 C L 81 16 148/80 H 99 10/11/23 10:56 10/11/23 10:56 10/11/23 10:56 10/11/23 10:56 10/11/23 10:56 Pain Score Most Recent Pain Score: Most Recent Pain Score Pain Level 0 10/11/23 10:56 Assessment Mental Status: Awake (Alert & Oriented to Patient Baseline) Airway and Respiratory Function: Patent airway with normal (patient baseline) respiratory exam Cardiovascular Function: Hemodynamically Stable Hydration Status: Adequately Hydrated Nausea & Vomiting: No Nausea or Vomiting Pain: Pt. Denies Any Pain Peripheral Nerve Block: Patient did not receive a nerve block
[2023-10-11 11:23] VITALS: BP 182/87; PULSE 88; RESP 16; TEMP 36.3; O2SAT 98
== END 2023-10-11 12:00 | disposition home or self-care (01) ==
PROVIDERS: PCP Nurse Practitioner Adult Health; Visit Provider Student in an Organized Health Care Education/Training Program
PROC: 0DJD8ZZ Inspection of Lower Intestinal Tract, Via Natural or Artificial Opening Endoscopic (ICD-10-PCS; CPT 45378; principal; 2023-10-11 10:00)
DX: Z12.11 Encounter for screening for malignant neoplasm of colon (principal); D12.3 Benign neoplasm of transverse colon; K64.1 Second degree hemorrhoids; E11.9 Type 2 diabetes mellitus without complications; N18.30 Chronic kidney disease, stage 3 unspecified; I10 Essential (primary) hypertension; C64.9 Malignant neoplasm of unspecified kidney, except renal pelvis; H90.5 Unspecified sensorineural hearing loss; K21.9 Gastro-esophageal reflux disease without esophagitis; F19.10 Other psychoactive substance abuse, uncomplicated; F17.200 Nicotine dependence, unspecified, uncomplicated
CPT/HCPCS: 45385; 00123; 88305; J2704

== ENCOUNTER → 2023-11-25 03:48 | Outpatient (CLI) | payer MEDICARE, MEDICAID, SELFPAY ==
--- NOTE | 2023-11-25 08:30 | DI.CTLCSR_ITS ---
Exam(s) CT CHEST LUNG CANCER SCREEN EXAM: CT CHEST LUNG CANCER SCREEN CLINICAL HISTORY: Screening for lung cancer, CURRENT SMOKER, F17.210 TECHNIQUE: Imaging Protocol: Axial computed tomography images with coronal and sagittal reformatted images were created and reviewed. Low dose screening protocol. COMPARISON: CT CT CHEST/ABD/PEL W from 11/30/2021 CR,XR XR CHEST 1V IN DI DEPT from 01/04/2023 FINDINGS: Tracheobronchial tree: No bronchiectasis or mucus plugging.. Mediastinum and Nan: No dominant adenopathy or fluid collection. Pulmonary parenchyma: No consolidation or dominant measurable mass. Mild emphysematous changes. Lung Nodules: None. Pleura: No effusion. No pneumothorax. Heart: The heart is not dilated. Moderate coronary artery calcifications are seen. Aorta: Thoracic aorta non-dilated. Upper abdomen: Unremarkable. Bones: Unremarkable for age. Soft Tissues: Unremarkable. IMPRESSION: No suspicious pulmonary nodules. Lung RADS Cat 1 - Negative: No nodules and definitely benign nodules Lung-RADS 1.0 CATEGORIES: Category 0 - Prior chest CT exam(s) being located for comparison. Category 1 - Annual screening in 12 months. No nodules or definitely benign nodules. Category 2 - Annual screening in 12 months. Benign appearance. Nodules with low likelihood of becomin g active cancer. Category 3 - 6-month follow-up. Probably benign. Short-term follow-up suggested. Nodules with low lik elihood of becoming active cancer. Category 4A - 3-month follow-up and CT/PET if >8 mm in size. Suspicious finding. Findings which requi re additional testing. Category 4B - Findings which require additional testing and tissue sampling. Category 4X - Category 3 or 4 nodules with additional features or imaging findings that increases the suspicion of malignancy. Modifier S- Potentially clinically significant findings (non lung cancer) RADIATION DOSE DELIVERED: 81.35mGy.cm Total DLP DATA REPOSITORY: All CT scans at this facility are submitted to the National Radiology Data Registry (NRDR) Dose Index Registry (DIR) with the [employer] (A[employer]). RADIATION OPTIMIZATION: All CT scans at this facility use at least one of these dose optimization te chniques: automated exposure control; mA and/or kV adjustment per patient size (includes targeted exa ms where dose is matched to clinical indication); or iterative reconstruction.
== END ==
PROVIDERS: PCP Nurse Practitioner Adult Health; Visit Provider Nurse Practitioner Adult Health
DX: F17.210 Nicotine dependence, cigarettes, uncomplicated (principal); Z12.2 Encounter for screening for malignant neoplasm of respiratory organs
CPT/HCPCS: 71271

== ENCOUNTER 2024-03-18 13:06 | Emergency (ER) | payer MEDICARE, MEDICAID, SELFPAY ==
[2024-03-18] VITALS (34 sets, daily range): BP systolic 139–220; BP diastolic 73–116; PULSE 75–115; RESP 9–29; TEMP 36; O2SAT 93–98
--- NOTE | 2024-03-18 13:15 | RT.EKG_ITS ---
APPROVED REPORT Exam: Resting ECG Reason for Exam: nausea Patient Location: E HR:76 bpm ECG Measurements Heart Rate [address] 172 P 76 QRSd 159 QRS -59 QT 434 T 101 QTc 490 Conclusion Sinus rhythm 76 LBBB no change from prior
--- NOTE | 2024-03-18 13:27 | ED.GENADUL_ITS ---
Discharge Plan Discharge Details Chief Complaint: Nausea/Vomit/Diar Primary Care Provider: Polly Hinkle ED Provider: Juan English Home Meds and New Rx's Prescriptions: No Action glimepiride [Amaryl] 4 mg tablet 4 mg PO QAM Qty: 90 3RF Rx Instructions: administer with breakfast (DME) blood-glucose meter [OneTouch Verio Flex meter] [facility] [place] See Rx Instructions .ROUTE .MEDSUPPLY Qty: 1 0RF Rx Instructions: Dispense one kit to check BS to identify BS to manage hyperglycemia and decrease A1c to 8 or below (DME) blood sugar diagnostic Strip See Rx Instructions .ROUTE .MEDSUPPLY Qty: 100 3RF Rx Instructions: Dispense strips for Verio meter to check blood glucose daily (DME) lancets [OneTouch UltraSoft Lancets] [facility] [place] See Rx Instructions .ROUTE .MEDSUPPLY Qty: 100 3RF Rx Instructions: To check BS once daily valsartan 80 mg tablet 80 mg PO DAILY Qty: 90 1RF Rx Instructions: For blood pressure goal <140/90 (new 03/16/24) insulin glargine [Lantus Solostar U-100 Insulin] 100 unit/mL (3 mL) insulin pen 14 unit subcut QPM Qty: 5 5RF (DME) pen needle, diabetic [BD Ultra-Fine Ellie Pen Needle] 32 gauge x 5/32 needle See Rx Instructions .ROUTE .COMPLEX Qty: 100 4RF Dose Instruction: USE EVERY EVENING WITH INSULIN PEN GOAL A1C LESS THAN 8 Rx Instructions: USE EVERY EVENING WITH INSULIN PEN GOAL A1C LESS THAN 8 metformin 500 mg tablet extended release 24 hr See Rx Instructions .ROUTE .COMPLEX Qty: 180 3RF Dose Instruction: TAKE ONE TABLET BY MOUTH TWICE A DAY Rx Instructions: TAKE ONE TABLET BY MOUTH TWICE A DAY atorvastatin 20 mg tablet See Rx Instructions .ROUTE .COMPLEX Qty: 90 3RF Dose Instruction: TAKE ONE TABLET BY MOUTH EVERY DAY Rx Instructions: TAKE ONE TABLET BY MOUTH EVERY DAY omeprazole 20 mg capsule,delayed release(DR/EC) See Rx Instructions .ROUTE .COMPLEX Qty: 90 3RF Hold Instructions: Home Medication placed on hold at Doctor's office Dose Instruction: TAKE ONE CAPSULE BY MOUTH EVERY DAY Rx Instructions: TAKE ONE CAPSULE BY MOUTH EVERY DAY acetaminophen 500 mg tablet 1,000 mg PO Q8H PRN (Reason: pain) Qty: 90 3RF HPI General Date/Time Provider Initiated Documentation: 03/18/24 13:17 . HPI Narrative: 58 year-old male, [place]ON, poor historian, presents to ED today by POV/ambulating with a chief complaint of sudden onset nausea, lightheadedness, dry heaving with onset one hour ago. Quality described as just sudden onset dry heaves and lightheadedness with diaphoresis, no radiation to chest pain, visual changes, syncope, shortness of breath, abdominal pain, fever. Severity is described as severe. Palliating factors include nothing attempted. Provoking factors include nothing specific. Events leading up to the incident/Associated Symptoms: Patient denies cardiac history, states he has diabetes. Patient not anticoagulated. Related Data Home Medications Medication Instructions Recorded Confirmed blood sugar diagnostic #100 ea 12/19/22 03/18/24 blood-glucose meter (OneTouch #1 ea 12/19/22 03/18/24 Verio Flex Meter) glimepiride 4 mg tablet (Amaryl) 4 mg PO QAM #90 tabs 12/19/22 03/18/24 lancets (OneTouch UltraSoft #100 ea 12/19/22 03/18/24 Lancets) acetaminophen 500 mg tablet 1,000 mg (2 x 500 mg) PO Q8H PRN 01/08/23 03/18/24 pain #90 tabs insulin glargine 100 unit/mL (3 14 unit (0.14 mL) subcut QPM #5 08/14/23 03/18/24 mL) subcutaneous pen (Lantus SYRGS Solostar U-100 Insulin) pen needle, diabetic 32 gauge x #100 ea 09/09/23 03/18/24 5/32 (BD Ultra-Fine Ellie Pen Needle) metformin 500 mg tablet,extended See Rx Instructions .Route 10/21/23 03/18/24 release 24 hr .COMPLEX #180 tabs atorvastatin 20 mg tablet See Rx Instructions .Route 12/26/23 03/18/24 .COMPLEX #90 tabs omeprazole 20 mg capsule,delayed See Rx Instructions .Route 12/26/23 03/18/24 release .COMPLEX #90 caps valsartan 80 mg tablet 80 mg PO DAILY #90 tabs 03/16/24 03/18/24 Previous Rx's Medication Instructions Recorded blood sugar diagnostic #100 ea 12/19/22 blood-glucose meter (OneTouch #1 ea 12/19/22 Verio Flex Meter) glimepiride 4 mg tablet (Amaryl) 4 mg PO QAM #90 tabs 12/19/22 lancets (OneTouch UltraSoft #100 ea 12/19/22 Lancets) acetaminophen 500 mg tablet 1,000 mg (2 x 500 mg) PO Q8H PRN 01/08/23 pain #90 tabs insulin glargine 100 unit/mL (3 14 unit (0.14 mL) subcut QPM #5 08/14/23 mL) subcutaneous pen (Lantus SYRGS Solostar U-100 Insulin) pen needle, diabetic 32 gauge x #100 ea 09/09/23 (BD Ultra-Fine Ellie Pen Needle) metformin 500 mg tablet,extended See Rx Instructions .Route 10/21/23 release 24 hr .COMPLEX #180 tabs atorvastatin 20 mg tablet See Rx Instructions .Route 12/26/23 .COMPLEX #90 tabs omeprazole 20 mg capsule,delayed See Rx Instructions .Route 12/26/23 release .COMPLEX #90 caps valsartan 80 mg tablet 80 mg PO DAILY #90 tabs 03/16/24 Allergies Allergy/AdvReac Type Severity Reaction Status Date / Time Milk Containing Products AdvReac Unknown gi upset Verified 03/18/24 13:16 (Dairy) [Milk Containing Products] tramadol AdvReac diarrhea/GI Verified 03/18/24 13:16 General Stated Complaint: Nausea/Vomit/Diar TABITHA: 3 Review of Systems All systems reviewed & are unremarkable except as noted in HPI and below Exam Narrative Exam Narrative: GENERAL APPEARANCE: Well-nourished, non-toxic, awake and alert, atraumatic, no acute distress. SKIN: Warm, pale, dry, intact, without rashes/lesions/ulcerations. HEAD: Normocephalic, atraumatic, normal hair distribution for gender/age. EYES: Pupils PERRLA, EOMs intact without nystagmus, normal conjunctiva, no exudates on lids/lashes. ENT: Nares patent, no circumoral cyanosis, no facial swelling NECK: Supple, trachea midline, painless cervical ROM. LUNGS/CHEST: Lungs CTA bilaterally- no rhonchi/rales/wheezes diffusely, non- labored respirations, normal A/P diameter, symmetrical expansion, no chest wall deformity HEART (CV/PV): Regular rate and rhythm with 1/6 RSB murmur, no peripheral edema, no JVD. ABDOMEN: Soft, non-distended, no guarding, no focal tenderness. MSK: Normal ROM, no swelling/deformity to bilateral UEs or LEs, moving all extremities without weakness, no cyanosis, spine midline without tenderness, normal curvature. NEURO: Mental Status AAOx4 - alert to person, place, time, events No facial droop, no forehead involvement. Motor: No focal weakness - strength 5/5 in bilateral UEs and LEs, proximal and distal, symmetric. Sensory: sensation intact to light touch globally. Gait normal: patient ambulated without ataxia into ED room. PSYCH: dysthymic, cooperative, pleasant, appropriate speech Course Vital Signs Vital signs: Vital Signs Temperature 36.0 C L 03/18/24 13:12 Pulse 80 03/18/24 13:12 Respiratory Rate 16 03/18/24 13:12 Blood Pressure 185/81 H 03/18/24 13:12 Pulse Oximetry 98 03/18/24 13:12 Temperature 36.0 C L 03/18/24 13:12 Temperature Source Temporal Artery Scan 03/18/24 13:12 Pulse 80 03/18/24 13:12 Respiratory Rate 16 03/18/24 13:12 Blood Pressure 185/81 H 03/18/24 13:12 Blood Pressure Position Sitting 03/18/24 13:12 Pulse Oximetry 98 03/18/24 13:12 Oxygen Delivery Method Room Air 03/18/24 13:12 Oxygen Flow Rate 0 03/18/24 13:12 Pain Level 0 03/18/24 13:12 Medical Decision Making This dictation utilizes [id number] dictation software and may contain unedited grammatical errors. 58 year-old male, [place]ON, poor historian, presents to ED today by POV/haoating malaika dumont a chief complaint of sudden onset nausea, lightheadedness, dry heaving with onset one hour ago. Quality described as just sudden onset dry heaves and lightheadedness with diaphoresis, no radiation to chest pain, visual changes, syncope, shortness of breath, abdominal pain, fever. Severity is described as severe. Palliating factors include nothing attempted. Provoking factors include nothing specific. Events leading up to the incident/Associated Symptoms: Patient denies cardiac history, states he has diabetes. Patients' medical history: Hard of hearing, electrolyte abnormalities, history of Hodgkin's lymphoma, drug- seeking behavior, ulcerative colitis, T2DM, tobacco dependence, renal cancer, CKD stage III, glaucoma, hypertension. Family and social history: Has sister in the area. Pertinent exam findings / vital signs include pale and diaphoretic on arrival with stable vitals, normal FSBS, benign abdomen without peritoneal signs, no respiratory distress, neuro intact. Differential / pathologies of concern include cardiac cause of near syncope, infectious etiology, DKA, electrolyte abnormality, ACS. Diagnostic studies of: -CBC, CMP, magnesium, lactate, procalcitonin, serial troponin I, BNP, lipase, TSH, VBG, urinalysis, EKG, x-ray chest. -CBC shows no leukocytosis, mild anemia hemoglobin 13 improved from a baseline of 10 or 11 -VBG shows no acidosis, normal lactate -CMP shows normal potassium, shows baseline LUMA with creatinine 1.6, BUN 25, glucose 155 -Magnesium 1.3, will replete IV -Initial troponin negative, BNP is elevated at 758 in the setting of CKD will check chest x-ray, await repeat troponin -Lipase within normal limits -Procalcitonin negative -TSH within normal limits -UA has some proteinuria and hematuria -EKG shows Sinus rhythm at 76 bpm with left bundle branch block, increased voltage criteria, somewhat wide-complex QRS with left axis deviation -CXR shows no pulmonary edema by my read. Interventions of: -1L IVF LR, 4mg IV Zofran, 2gm IV Magnesium. ED Course/Assessment/Plan: 58-year-old male presented by POV for sudden onset of dry heaves and dizziness, has not nonfocally tender abdomen, no peritoneal signs, workup shows no leukocytosis. He was pale and diaphoretic when he came in and reports significant dizziness, he denies cardiac history to me. He denies being out in the hot sun, he denies any recent illness. He does have elevated BNP left bundle branch block on EKG, initial troponin is negative and he has not experienced chest pain, patient will be signed out to incoming provider at shift change with pending troponin at 1630. He is getting repleted with magnesium which was found to be 1.3 as well as IV fluids of LR and 4 mg IV Zofran, pending reevaluation with stability of symptoms and no likely emergent cause of sudden onset dizziness and dry heaves, may reasonably be discharged home. Findings not consistent with acute coronary syndrome, focal neuro deficit, severe dehydration. Disposition of Hypomagnesemia, Dizziness of Unknown Cause. Patient verbalized understanding of the plan and return to ED criteria and engaged in shared decision making. Medical Records Medical records reviewed: Yes I reviewed the patient's medical records. Imaging Data Radiologic Study: Attestation: I personally reviewed and interpreted this imaging study as follows: Imaging: X-Ray My impression: No pulmonary edema or PNA Lab Data Lab results reviewed: Yes I reviewed the patient's lab results. Labs: Laboratory Tests Range/Units 03/18/24 03/18/24 13:56 15:14 WBC (4.4-10.8) 10^3/uL 10.68 RBC (4.36-5.78) 10^6/uL 4.54 Hgb (13.5-17.5) g/dL 13.0 L Hct (40.0-50.0) % 39.7 L MCV (80-95) fL 87 MCH (27.0-33.0) pg 28.6 MCHC (32.0-36.0) % 32.7 RDW (11.8-14.1) % 13.7 Plt Count (130-400) 10^3/uL 184 MPV (8.0-11.0) fL 11.6 H Immature Gran % % 0.5 Neutrophils % % 87.2 Lymphocytes % % 6.9 Monocytes % % 4.0 Eosinophils % % 0.8 Basophils % % 0.6 Nucleated RBC % (0.0-0.3) % 0.0 Absolute Neutrophils (1.2-6.7) 10^3/uL 9.31 H Absolute Lymphocytes (1.2-3.4) 10^3/uL 0.74 L Absolute Monocytes (0.1-0.8) 10^3/uL 0.43 Absolute Eosinophils (0.0-0.7) 10^3/uL 0.09 Absolute Basophils (0.0-0.2) 10^3/uL 0.06 VBG pH (7.31-7.41) 7.35 VBG pCO2 (41-51) mmHg 43 VBG pO2 mmHg 41 VBG HCO3 (23-28) mmol/L 24 VBG Total CO2 (24-29) mmol/L 22 L VBG O2 Saturation % 74 VBG Base Excess (-2-3) mmol/L -2 VBG Lactate (0.6-1.4) mmol/L 0.9 Sodium (136-145) mmol/L 140 Potassium (3.5-5.1) mmol/L 4.8 Chloride (98-107) mmol/L 105 Carbon Dioxide (21.0-32.0) mmol/L 24.5 Anion Gap (3-11) mmol/L 10.5 BUN (7-18) mg/dL 25 H Creatinine (0.70-1.30) mg/dL 1.6 H Est GFR (CKD-EPI 2020) (mL/min/1.73m2) 49.33 Glucose (74-106) mg/dL 155 H Calcium (8.5-10.1) mg/dL 9.0 Magnesium (1.8-2.4) mg/dL 1.3 L Total Bilirubin (0.2-1.0) mg/dL 0.40 AST (15-37) U/L 16 ALT (16-63) U/L 20 Alkaline Phosphatase (46-116) U/L 109 Troponin I (< or =60) ng/L < 50 NT-Pro-B Natriuret Pep (<300) pg/mL 758 H Total Protein (6.4-8.2) g/dL 7.5 Albumin (3.4-5.0) g/dL 3.7 Lipase (16-77) U/L 42 Procalcitonin ng/mL < 0.1 TSH (0.36-3.74) uIU/mL 0.96 Urine Color (Yellow) Yellow Urine Clarity (Clear) Clear Urine pH (5-8) 7.0 Ur Specific [place] (1.005-1.025) 1.020 Urine Protein (Neg-Trace) mg/dL 100 H Urine Ketones (Negative) mg/dL Negative Urine Blood (Negative) Small H Urine Nitrite (Negative) Negative Urine Bilirubin (Negative) Negative Urine Urobilinogen (Up to 0.2) mg/dL 0.2 Ur Leukocyte Esterase (Negative) Negative Urine Glucose (Negative) mg/dL Negative Quality:SDOH Health Related Social Needs: No Data to Display PFSH All Active Problems (Updated 03/02/24 @ 17:20 by [place] [employer]urszula) Diabetic macular edema, left eye (Acute) Not significant-[facility] 02/27/24 Retinopathy of both eyes (Acute) Moderate-[facility] 02/27/24 Nicotine use disorder (Acute) Lumbar spinal stenosis (Acute ~08/2023) L4-5 [facility] [place] [facility] 10/14/23 Degenerative joint disease of right hip (Acute) Glaucoma, bilateral (Acute) Diabetes type 2, controlled (Chronic) CKD (chronic kidney disease) stage 3, GFR 30-59 ml/min (Chronic ~04/2022) Renal cancer (Chronic ~04/2022) [id number], 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 Left -complete loss of hearing. Pure hypercholesterolemia (Chronic 09/13/11) Benign hypertension (Chronic 12/01/10) Medical History (Updated 03/02/24 @ 17:20 by [employer] [employer]) Hyperplastic colon polyp (~09/2023) Tubular adenoma of colon (~09/2023) [place] (hard of hearing) Fracture, intertrochanteric, right femur (~12/2022) s/p IMN fixation, 01/04/23 Hyperkalemia (~02/2022) Off Lisinopril Renal mass, right cancer Gastritis Bursitis of right shoulder SLAP lesion of right shoulder Biceps tendinopathy History of Hodgkin's lymphoma no longer recieving treatment last treatment 2009 Drug-seeking behavior (~2014) requests opioid pain meds Right rotator cuff tear arthropathy (~01/2021) Carpal tunnel syndrome of right wrist Cubital tunnel syndrome on right Ulcerative colitis (09/13/11) Neuropathy of right upper extremity Left hip pain (L) hip tendonitis on MRI Diabetes mellitus type 2 with complications, uncontrolled Tobacco dependence syndrome (09/13/10) Noncompliance with diabetes treatment (06/29/15) Mild nonproliferative diabetic retinopathy of left eye (04/08/17) Impotence of organic origin (12/01/12) Disorder of left rotator cuff (12/01/12) Depressive disorder (09/13/11) Dairy product intolerance (08/22/16) Surgical History (Updated 10/15/23 @ 10:56 by Ginger Garrido) History of colonoscopy (~09/2023) path sent Hip fracture requiring operative repair (~12/2022) R H/O partial nephrectomy (04/27/22) Right. [facility] [place] Cubital tunnel syndrome, bilateral S/P R release: 06/13/2021 Bilateral carpal tunnel syndrome S/P R ECTR: 06/13/2021 H/O drainage of abscess (~11/21/19) Rotator Cuff Repair Biopsy of dital clavicle, left AC joint (02/25/15) Dr Bright 03/16/15 Addendum Surgical Patology report: Bone with maturing trilineage hematopesis; Reacive stnovium; No evidence of lymphoma identified per Dr. Deann Godoy MD Family History (Updated 09/11/23 @ 14:11 by Polly Hinkle NP) Mother Diabetes Essential hypertension Myocardial infarction Social History Smoking/Tobacco Use Status: Current every day Tobacco Type: cigarettes Tobacco: How many years used: 35 Quit status: not considering quitting Smoking risk assessment performed?: Yes Alcohol Intake: former Drug use: Daily Substance use type: marijuana Household members: none Housing: house Number of Children: 1 Communication Needs: Hard of Hearing Do you need help understanding health information?: Often current occupation: disabled Pets and animals: Yes Pets and animals: dog(s) Current gender identity: male What is your relationship status?: don't know How often do you talk on the phone with friends or family?: three or more times per week Panel score (0-1 are the most socially isolated patients): 1 What type of physical activity do you participate in: none Drive intox or ride w/intox bottom hoop driver: No Working smoke detector in home: Yes Do you feel safe at home: Yes Do you feel safe in your relationship?: Yes Additional Social history: lives alone Sign Out Sign Out Data: Sign Out Comment: 58 y/o M, [place]OGON - reports sudden onset dry heaves and diaphoresis- has t2DM, denies cardiac history. Very poor historian. Initial work-up has no acute concerns for infection -Relevant labs: initial trop neg, awaiting repeat -EKG shows LBB with high voltage -CXR pending with elevated BNP -no sign of DKA Last updated by Juan English PA at 03/18/24 15:24
[2024-03-18] MEDS: Ondansetron 4 MG/2 ML VIAL IVP (14:04)
[2024-03-18] MEDS: Lactated Ringers 1,000 ML 1000 ML IV (14:04)
[2024-03-18 14:06] LABS: BE (Venous) -2 mmol/L (-2-3); HCO3 (Venous) 24 mmol/L (23-28); O2 Sat (Venous) 74 %; TCO2 (Venous) 22 mmol/L (24-29); pCO2 (Venous) 43 mmHg (41-51); pH (Venous) 7.35 (7.31-7.41); pO2 (Venous) 41 mmHg
[2024-03-18 14:08] LABS: Lactate 0.9 mmol/L (0.6-1.4)
[2024-03-18 14:10] LABS: Abs Immature Grans 0.05 10^3/uL (0.0-0.06); Absolute Basophil Count 0.06 10^3/uL (0.0-0.2); Absolute Eosinophil Count 0.09 10^3/uL (0.0-0.7); Absolute Lymphocyte Count 0.74 10^3/uL (1.2-3.4); Absolute Monocyte Count 0.43 10^3/uL (0.1-0.8); Absolute Neutrophil Count 9.31 10^3/uL (1.2-6.7); Basophils % 0.6 %; Eosinophils % 0.8 %; HCT 39.7 % (40.0-50.0); Immature Grans % 0.5 %; Lymphocytes % 6.9 %; MCH 28.6 pg (27.0-33.0); MCHC 32.7 % (32.0-36.0); MCV 87 fL (80-95); MPV 11.6 fL (8.0-11.0); Neutrophils % 87.2 %; Platelet Count 184 10^3/uL (130-400); RBC 4.54 10^6/uL (4.36-5.78); RDW 13.7 % (11.8-14.1); WBC 10.68 10^3/uL (4.4-10.8)
[2024-03-18 14:39] LABS: ALT 20 U/L (16-63); AST 16 U/L (15-37); Albumin 3.7 g/dL (3.4-5.0); Alkaline Phosphatase 109 U/L (46-116); Anion Gap 10.5 mmol/L (3-11); BUN 25 mg/dL (7-18); CO2 24.5 mmol/L (21.0-32.0); CREATININE 1.6 mg/dL (0.70-1.30); Chloride 105 mmol/L (98-107); Estimated GFR 49.33 (mL/min/1.73m2); Glucose 155 mg/dL (74-106); Lipase 42 U/L (16-77); Magnesium 1.3 mg/dL (1.8-2.4); NT-proBNP 758 pg/mL (<300); Potassium 4.8 mmol/L (3.5-5.1); Sodium 140 mmol/L (136-145); TSH (W/Ref FT4) 0.96 uIU/mL (0.36-3.74); Total Protein 7.5 g/dL (6.4-8.2); Troponin I < 50 ng/L (< or =60)
[2024-03-18 14:41] LABS: Procalcitonin < 0.1 ng/mL
--- NOTE | 2024-03-18 14:45 | DI.RAD_ITS ---
Exam(s) XR CHEST 2V PA LATERAL EXAM: XR CHEST 2V PA LATERAL CLINICAL HISTORY: dizziness, elevated BNP TECHNIQUE: 2D digital imaging was performed. Two views. COMPARISON: CT CT CHEST LUNG CANCER SCREEN from 11/25/2023 FINDINGS: HEART: Normal size. Aorta: Not dilated. PULMONARY VASCULATURE: Normal. MEDIASTINUM: Unremarkable. LUNGS: Clear. PLEURAL SPACE: No pleural effusion or pneumothorax. BONE:Unremarkable for age. SOFT TISSUES: Unremarkable. IMPRESSION: No acute abnormality. DATA REPOSITORY: RADIATION DOSE DELIVERED:
[2024-03-18 15:21] LABS: Bilirubin Negative (Negative); Blood Small (Negative); Clarity Clear (Clear); Glucose Negative (Negative); Ketones Negative (Negative); Leukocyte Esterase Negative (Negative); Nitrite Negative (Negative); Urobilinogen 0.2 mg/dL (Up to 0.2)
[2024-03-18] MEDS: MAGNESIUM SULFATE 2 GM/50 ML BAG IVINF (15:31)
[2024-03-18 15:33] LABS: Bacteria Negative HPF (Negative); C & S Indicated? No; Casts Negative LPF (Negative); Crystals Negative HPF (Negative); Epithelial Cells Rare HPF (Negative); Mucus Negative (Negative); WBC 0-2 HPF (0-5)
--- NOTE | 2024-03-18 15:40 | ED.PROG_ITS ---
Date of service: 03/18/24 Time of Service: 15:30 Medical Decision Making Handoff received from jim De León. Please see his note for full HPI, ROS, and physical exam. Harry is a 58-year-old male with history of T2DM, HTN, and HLD who presented to the emergency department today for evaluation of s udden onset of nausea with dry heaves and lightheadedness. Workup overall reassuring. EKG shows NSR with rate 76 and LBBB, unchanged from previous on 01/04/2023. CBC, VBG, CMP all reassuring. BNP slightly elevated at 758, with no associated pulmonary vascular congestion noted on chest x-ray. Serial troponins negative. While in the emergency department Harry received IV fluids and was able to tolerate p.o. without difficulty. He reports he feels significantly better after getting fluids, is able to stand up without any dizziness. Overall workup today very reassuring. Likely mild dehydration, as symptoms significantly improved after IV fluids. Recommend close follow-up with PCP. Reviewed red flags indicate need for return to emergency care Quality:SDOH Health Related Social Needs: No Data to Display Sign Out Sign Out Data: Sign Out Comment: 58 y/o M, AUGUSTINE - reports sudden onset dry heaves and diaphoresis- has t2DM, denies cardiac history. Very poor historian. Initial work-up has no acute concerns for infection -Relevant labs: initial trop neg, awaiting repeat -EKG shows LBB with high voltage -CXR pending with elevated BNP -no sign of DKA Last updated by Juan English PA at 03/18/24 15:24 Discharge Plan Disposition Patient Disposition: Home Discharge Details Clinical Impression: Dizziness Primary Care Provider: Polly Hinkle ED Provider: Penny Roberts Home Meds and New Rx's Prescriptions: No Action glimepiride [Amaryl] 4 mg tablet 4 mg PO QAM Qty: 90 3RF Rx Instructions: administer with breakfast (DME) blood-glucose meter [OneTouch Verio Flex meter] Misc See Rx Instructions .ROUTE .MEDSUPPLY Qty: 1 0RF Rx Instructions: Dispense one kit to check BS to identify BS to manage hyperglycemia and decrease A1c to 8 or below (DME) blood sugar diagnostic Strip See Rx Instructions .ROUTE .MEDSUPPLY Qty: 100 3RF Rx Instructions: Dispense strips for Verio meter to check blood glucose daily (DME) lancets [OneTouch UltraSoft Lancets] [facility] [place] See Rx Instructions .ROUTE .MEDSUPPLY Qty: 100 3RF Rx Instructions: To check BS once daily valsartan 80 mg tablet 80 mg PO DAILY Qty: 90 1RF Rx Instructions: For blood pressure goal <140/90 (new 03/16/24) insulin glargine [Lantus Solostar U-100 Insulin] 100 unit/mL (3 mL) insulin pen 14 unit subcut QPM Qty: 5 5RF (DME) pen needle, diabetic [BD Ultra-Fine Ellie Pen Needle] 32 gauge x needle See Rx Instructions .ROUTE .COMPLEX Qty: 100 4RF Dose Instruction: USE EVERY EVENING WITH INSULIN PEN GOAL A1C LESS THAN 8 Rx Instructions: USE EVERY EVENING WITH INSULIN PEN GOAL A1C LESS THAN 8 metformin 500 mg tablet extended release 24 hr See Rx Instructions .ROUTE .COMPLEX Qty: 180 3RF Dose Instruction: TAKE ONE TABLET BY MOUTH TWICE A DAY Rx Instructions: TAKE ONE TABLET BY MOUTH TWICE A DAY atorvastatin 20 mg tablet See Rx Instructions .ROUTE .COMPLEX Qty: 90 3RF Dose Instruction: TAKE ONE TABLET BY MOUTH EVERY DAY Rx Instructions: TAKE ONE TABLET BY MOUTH EVERY DAY omeprazole 20 mg capsule,delayed release(DR/EC) See Rx Instructions .ROUTE .COMPLEX Qty: 90 3RF Hold Instructions: Home Medication placed on hold at Doctor's office Dose Instruction: TAKE ONE CAPSULE BY MOUTH EVERY DAY Rx Instructions: TAKE ONE CAPSULE BY MOUTH EVERY DAY acetaminophen 500 mg tablet 1,000 mg PO Q8H PRN (Reason: pain) Qty: 90 3RF Discharge Instructions Additional Instructions: Please call your primary care provider's office first thing in the morning to schedule follow-up appointment next week. Your workup today was reassuring. Return to emergency care if you develop new chest pain, shortness of breath, worsening/new dizziness, severe headache, or if you are very worried and need to be rechecked again immediately Referrals: Polly Hinkle NP [Primary Care Provider] -
[2024-03-18 16:58] LABS: Troponin I < 50 ng/L (< or =60)
--- NOTE | 2024-03-18 18:31 | NUR.NOTE ---
Referral faxed to PCP for dizziness to be seen in 1 to 2 weeks. Nursing Note:
--- NOTE | 2024-03-18 19:13 | NUR.NOTE ---
Pt daughter called with an update was not clear on discharge instructions,was informed that discharge paperwork will be mailed to home address.
== END 2024-03-18 17:39 | disposition home or self-care (01) ==
LOC: ER 17:37
PROVIDERS: Physician Assistant; Emergency Provider Nurse Practitioner Family; PCP Nurse Practitioner Adult Health
DX: R11.2 Nausea with vomiting, unspecified (principal); R42 Dizziness and giddiness; F17.200 Nicotine dependence, unspecified, uncomplicated; E11.9 Type 2 diabetes mellitus without complications; I10 Essential (primary) hypertension
CPT/HCPCS: 00123; 36415; 36416; 80053; 82805; 82962; 83690; 84145; 93005; 99283; 71046; 81003; 81015; 83605; 83735; 83880; 84443; 84484; 85025; 93010; J2405; J3475

== ENCOUNTER 2024-05-26 05:05 | Outpatient (CLI) | payer MEDICARE, MEDICAID, SELFPAY ==
[2024-05-26 11:08] LABS: Hemoglobin A1C 6.9 % (<5.7)
[2024-05-26 11:19] LABS: Anion Gap 8.6 mmol/L (3-11); BUN 27 mg/dL (7-18); CO2 24.4 mmol/L (21.0-32.0); CREATININE 1.7 mg/dL (0.70-1.30); Calcium 9.2 mg/dL (8.5-10.1); Calculated LDL 29 mg/dL (<100); Chloride 108 mmol/L (98-107); Cholesterol 111 mg/dL (<200); Estimated GFR 45.58 (mL/min/1.73m2); Glucose 173 mg/dL (74-106); HDL Cholesterol 52 mg/dL (40-60); Potassium 5.3 mmol/L (3.5-5.1); Sodium 141 mmol/L (136-145); Triglyceride 150 mg/dL (<150)
[2024-05-26 12:00] LABS: COMMENT (LAB VIEW ONLY) 297.39 mg/dL
[2024-05-26 12:13] LABS: Microalb ug/mg Crea 330.8 ug/mg Cr
== END 2024-05-26 05:06 | disposition home or self-care (01) ==
LOC: LBO 05:05
PROVIDERS: Absent Provider Nurse Practitioner Adult Health; PCP Nurse Practitioner Adult Health; Referring Provider Nurse Practitioner Adult Health; Visit Provider Nurse Practitioner Adult Health
DX: I10 Essential (primary) hypertension (principal); E78.00 Pure hypercholesterolemia, unspecified; E11.319 Type 2 diabetes mellitus with unspecified diabetic retinopathy without macular edema; Z79.4 Long term (current) use of insulin; N18.31 Chronic kidney disease, stage 3a; M48.061 Spinal stenosis, lumbar region without neurogenic claudication
CPT/HCPCS: 36415; 80048; 80061; 82043; 82570; 83036

== ENCOUNTER 2024-06-01 15:14 | Outpatient (REF) | payer MEDICARE, MEDICAID, SELFPAY ==
[2024-06-01 19:26] LABS: Anion Gap 8.1 mmol/L (3-11); BUN 26 mg/dL (7-18); CO2 25.9 mmol/L (21.0-32.0); CREATININE 1.6 mg/dL (0.70-1.30); Calcium 8.8 mg/dL (8.5-10.1); Chloride 107 mmol/L (98-107); Estimated GFR 49.02 (mL/min/1.73m2); Glucose 109 mg/dL (74-106); Potassium 4.9 mmol/L (3.5-5.1); Sodium 141 mmol/L (136-145)
== END 2024-06-01 15:15 | disposition home or self-care (01) ==
LOC: LBN 15:14
PROVIDERS: PCP Nurse Practitioner Adult Health; Visit Provider Nurse Practitioner Adult Health
DX: I10 Essential (primary) hypertension (principal); E87.5 Hyperkalemia; E78.00 Pure hypercholesterolemia, unspecified; E11.319 Type 2 diabetes mellitus with unspecified diabetic retinopathy without macular edema; Z79.4 Long term (current) use of insulin; N18.31 Chronic kidney disease, stage 3a; M48.061 Spinal stenosis, lumbar region without neurogenic claudication
CPT/HCPCS: 80048

== ENCOUNTER 2025-08-09 02:01 | Outpatient (CLI) | payer MEDICARE, MEDICAID, SELFPAY ==
[2025-08-09 11:08] LABS: Anion Gap 9 mmol/L (3-11); BUN 22 mg/dL (9-23); CO2 27.0 mmol/L (20.0-31.0); Calcium 8.8 mg/dL (8.3-10.6); Chloride 111 mmol/L (98-107); Cholesterol 107 mg/dL (<200); Glucose 177 mg/dL (74-106); HDL Cholesterol 50 mg/dL (>40); Potassium 5.1 mmol/L (3.5-5.1); Sodium 147 mmol/L (136-145)
[2025-08-09 11:25] LABS: Hemoglobin A1C 7.3 % (<5.7)
[2025-08-09 11:35] LABS: Microalb ug/mg Crea 702.2 ug/mg Cr
== END 2025-08-09 02:02 | disposition home or self-care (01) ==
LOC: LBO 02:01
PROVIDERS: PCP Nurse Practitioner Adult Health; Referring Provider Nurse Practitioner Adult Health; Visit Provider Nurse Practitioner Adult Health
DX: Z79.4 Long term (current) use of insulin (principal); E11.319 Type 2 diabetes mellitus with unspecified diabetic retinopathy without macular edema; I10 Essential (primary) hypertension; E78.00 Pure hypercholesterolemia, unspecified; N18.31 Chronic kidney disease, stage 3a
CPT/HCPCS: 36415; 80048; 80061; 82043; 82570; 83036